=== PATIENT | male | born 1955 | race Caucasian/White ===

== ENCOUNTER 2022-09-25 11:36 | Emergency (ER) | payer OTHER, MEDICARE ==
[2022-09-25 11:41] VITALS: RESP 20; TEMP 99.9
[2022-09-25] MEDS ORDERED: KETOROLAC 15 MG/ML 1 ML VIAL IM STA (12:29)
--- NOTE | 2022-09-25 12:39 | ED ---
General Adult HPI - General Chief complaint: Fall Stated complaint: fall Time Seen by Provider: 09/25/22 12:05 Source: patient, RN notes reviewed, old records reviewed Mode of arrival: ambulatory Limitations: no limitations - History of Present Illness Initial comments: This is a 61-year-old male who presents emergency Department complaining that he has bilateral hip and some lower back pain. Patient states he did not fall but he twisted in an awkward way and he believes his hips came out of place and thinks it may still be out of place. Patient also denies lower back pain. Good on the right he denies any radiation of pain down the leg. Patient states she's had chronic back and hip problems as well as chronic left knee problems over the years. Patient states he has not taken any pain medicine nor does he have any pain meds for this problem. Patient denies any numbness or weakness. Patient denies any urinary incontinence or urinary retention. Again patient had no blunt force trauma to the back or hips or knee. Patient has no other complaints. - Related Data Previous Rx's Medication Instructions Recorded Ketorolac [Toradol] 10 mg PO Q6HR #15 tab 09/25/22 Allergies Allergy/AdvReac Type Severity Reaction Status Date / Time No Known Allergies Allergy Verified 09/25/22 11:41 Review of Systems ROS Statement: Those systems with pertinent positive or pertinent negative responses have been documented in the HPI. ROS Other: All systems not noted in ROS Statement are negative. Past Medical History Past Medical History: Asthma, Diabetes Mellitus, Hyperlipidemia, Hypertension History of Any Multi-Drug Resistant Organisms: None Reported Past Surgical History: Back Surgery, Heart Catheterization With Stent, Orthopedic Surgery Additional Past Surgical History / Comment(s): ABD Past Psychological History: No Psychological Hx Reported Smoking Status: Never smoker Past Alcohol Use History: None Reported Past Drug Use History: Marijuana General Exam - General Exam Comments Initial Comments: GENERAL: Patient is well-developed and well-nourished. Patient is nontoxic and well- hydrated and is in mild distress. ENT: Neck is soft and supple. No significant lymphadenopathy is noted. Oropharynx is clear. Moist mucous membranes. Neck has full range of motion without eliciting any pain. EYES: The sclera were anicteric and conjunctiva were pink and moist. Extraocular movements were intact and pupils were equal round and reactive to light. Eyelids were unremarkable. PULMONARY: Unlabored respirations. Good breath sounds bilaterally. No audible rales rhonchi or wheezing was noted. CARDIOVASCULAR: There is a regular rate and rhythm without any murmurs gallops or rubs. ABDOMEN: Soft and nontender with normal bowel sounds. SKIN: Skin is clear with no lesions or rashes and otherwise unremarkable. NEUROLOGIC: Patient is alert and oriented x3. Cranial nerves II through XII are grossly intact. Motor and sensory are also intact. Normal speech, volume and content. Symmetrical smile. MUSCULOSKELETAL: Patient has hip pain with flexion of the hip and/or external rotation of either hip. Patient has some lower back pain on the right in the paraspinous muscles.. LYMPHATICS: No significant lymphadenopathy is noted PSYCHIATRIC: Normal psychiatric evaluation. Limitations: no limitations Course Vital Signs 09/25/22 09/25/22 11:38 13:40 Temperature 99.9 F H Pulse Rate 71 76 Respiratory 20 20 Rate Blood Pressure 111/66 113/73 O2 Sat by Pulse 99 97 Oximetry Medical Decision Making - Medical Decision Making Was pt. sent in by a medical professional or institution? @ -No Did you speak to anyone other than the patient for history? @ -No Did you review nursing and triage notes? @ -I agree with the nursing triage notes Were old charts reviewed? @ -No Differential Diagnosis? @ -Differential Back Pain: Strain, zoster, cauda equina syndrome, epidural abscess, vertebral osteomyelitis, discitis, fracture, subluxation, disc herniation, DJD, spinal stenosis, dissection, AAA, pancreatitis, peptic ulcer disease, pyelonephritis, kidney stone, this is not meant to be an all-inclusive list. EKG interpreted by me (3pts min.)? @ -No X-rays interpreted by me (1pt min.)? @ -I interpreted the x-ray of the pelvis shows no fractures no dislocations CT interpreted by me (1pt min.)? @ -No U/S interpreted by me (1pt. min.)? @ -No What testing was considered but not performed? (CT, X-rays, U/S, labs)? Why? @ -LS spine x-rays were considered but since patient had no blunt trauma and had no radiculopathy x-rays were not done What meds were considered but not given? Why? @ -No Did you discuss the management of the patient with other professionals? @ -No Did you reconcile home meds? @ -No Was smoking cessation discussed for >3mins.? @ -No Was critical care preformed (if so, how long)? @ -No Were there social determinants of health that impacted care today? How? (Homelessness, low income, unemployed, alcoholism, drug addiction, trans portation, low edu. Level, literacy, decrease access to med. care, mcc, rehab)? @ -No Was there de-escalation of care discussed even if they declined? (Discuss DNR or withdrawal of care, Hospice)? @ -No What co-morbidities impacted this encounter? (DM, HTN, Smoking, COPD, CAD, Cancer, CVA, Hep., AIDS, mental health diagnosis, sleep apnea, morbid obesity)? @ -No Was patient admitted / discharged @ -Patient will be discharged home. Patient received Toradol and Dilaudid emergency department. Patient was feeling considerably better and wanted to be discharged home [facility] Undiagnosed new problem with uncertain prognosis? @ -No Drug Therapy requiring intensive monitoring for toxicity (Heparin, Nitro, Insulin, Cardizem)? @ -No Were any procedures done? @ -No Diagnosis/symptom? @ -Acute on chronic back pain and acute on chronic hip pain Acute, or Chronic, or Acute on Chronic? @ -Acute on chronic Uncomplicated (without systemic symptoms) or Complicated (systemic symptoms)? @ -Uncomplicated Side effects of treatment? @ -No Exacerbation, Progression, or Severe Exacerbation] @ -Exacerbation Poses a threat to life or bodily function? @ -No Disposition Clinical Impression: Chronic hip pain, Lumbosacral strain Disposition: HOME SELF-CARE Prescriptions: Ketorolac [Toradol] 10 mg PO Q6HR #15 tab Is patient prescribed a controlled substance at d/c from ED?: No Referrals: [facility],Clinic [Primary Care Provider] - 1-2 days
--- NOTE | 2022-09-25 12:41 | XR ---
EXAMINATION TYPE: XR pelvis AP view DATE OF EXAM: 09/25/2022 CLINICAL HISTORY: Pelvic and hip pain. Recent fall injury. TECHNIQUE: A single AP view of the pelvis is obtained. COMPARISON: None. FINDINGS: There is no acute fracture/dislocation evident in the pelvis. Moderate axial joint space l oss in both hips slightly greater in the right hip. Pubic symphysis is intact. Sacroiliac joints symm etric and felt within normal limits. Surgical change to the mid to lower lumbar spine is noted. Suspe ct transitional-type vertebra at lumbosacral junction which is sacralized on the left. There is stent graft upper left pelvis presumed within the left common iliac artery or vein. IMPRESSION: There is no acute fracture or dislocation in the pelvis.
[2022-09-25] MEDS ORDERED: HYDROmorphone 1 MG/ML 1 ML SYRINGE IM STA (12:47)
[2022-09-25] MEDS ORDERED: ACET/COD 300 MG/30 MG STARTER PACK 6 TAB BTL PO STA (13:29)
[2022-09-25 13:41] VITALS: BP 113/73; PULSE 76
== END 2022-09-25 13:41 | disposition home or self-care (01) ==
LOC: EC 11:36
DX: S39.012A Strain of muscle, fascia and tendon of lower back, initial encounter (principal); I10 Essential (primary) hypertension; J45.909 Unspecified asthma, uncomplicated; E11.9 Type 2 diabetes mellitus without complications; F12.90 Cannabis use, unspecified, uncomplicated; W19.XXXA Unspecified fall, initial encounter; Y92.009 Unspecified place in unspecified non-institutional (private) residence as the place of occurrence of the external cause
CPT/HCPCS: 72170; 99283; 96372 ×2; J1170; J1885; 99284

== ENCOUNTER 2022-11-23 14:48 | Inpatient (IN) | payer OTHER, MEDICARE ==
[2022-11-23] MEDS ORDERED: SODIUM CHLORIDE 0.9% 1,000 ML IV STA (15:25)
[2022-11-23] MEDS: LORazepam 2 MG/ML INJ IV STA (15:27)
--- NOTE | 2022-11-23 15:28 | ED ---
General Adult HPI - General Chief complaint: Neuro Symptoms/Deficit Stated complaint: Tremors/SOB Time Seen by Provider: 11/23/22 15:12 Source: patient Mode of arrival: wheelchair Limitations: no limitations - History of Present Illness Initial comments: Dictation was produced using [employer] dictation software. please excuse any grammatical, word or spelling errors. Chief Complaint: 67-year-old male multiple comorbidities presents to emergency department for tremors and angry outbursts History of Present Illness: Patient 67-year-old male presents emergency Department with and sister. There are instructed by primary care doctor to come to the emergency department for evaluation. According to and sister at the bedside to provide history of present illness over the last week she's been showing signs of worsening tremors. The tremors seemed to be localized to his upper extremities. This morning he had an angry outburst which is why they called the primary care doctor. Patient has multiple comorbidities. He grows marijuana and smokes daily. Allegedly he is been having some slurred speech and unsteady gait. The ROS documented in this emergency department record has been reviewed and confirmed by me. Those systems with pertinent positive or negative responses have been documented in the HPI. All other systems are other negative and/or noncontributory. PHYSICAL EXAM: General Impression: Alert and oriented, not in acute distress HEENT: Normocephalic atraumatic, extra-ocular movements intact, pupils equal and reactive to light bilaterally, mucous membranes moist. Cardiovascular: Heart regular rate and rhythm Chest: Able to complete full sentences, no retractions, no tachypnea Abdomen: abdomen soft, non-tender, non-distended, no organomegaly Musculoskeletal: Pulses present and equal in all extremities, no peripheral edema Motor: no focal deficits noted Neurological: CN II-XII grossly intact, no focal motor or sensory deficits noted, rhythmic tremors mostly localized to the bilateral upper extremities and shoulders Skin: Intact with no visualized rashes Psych: Normal affect and mood ED course: 67-year-old male presents to the emergency department for tremors and altered mental status. Symptoms have been ongoing for 2 weeks. Patient appears to be encephalopathic at the bedside. Doesn't appear to have any obvious focal neurologic deficits. Furthermore family reports that his symptoms have been going on for more than 2 weeks. Vital signs upon arrival are within acceptable limits. Nursing notes and chart review was performed Patient was seen at primary care physician's office earlier today. I did get a fax documentation from today's visit. States that he was seen for tremors and pain. Allegedly they were not able to get a blood pressure. Patient given 2 mg of IV Ativan with complete resolution of tremors. My EKG interpretation: Ventricular rate 53, sinus bradycardia,. Interval 164, QRS 90, QTC 44. No MO prolongation, no QTC prolongation, no ST or T-wave changes noted. Overall, this EKG is unremarkable Was pt. sent in by a medical professional or institution (, PA, MODEL BUILDER, urgent care, hospital, or long term...) When possible be specific @ -Primary Care physician's office Did you speak to anyone other than the patient for history (EMS, parent, family, police, friend...)? What history was obtained from this source @ -Sister at the bedside Did you review nursing and triage notes (agree or disagree)? Why? @ -I reviewed and agree with nursing and triage notes Were old charts reviewed (outside hosp., previous admission, EMS record, old EKG, old radiological studies, urgent care reports/EKG's, long term records)? Report findings @ -No old charts were reviewed Differential Diagnosis (chest pain, altered mental status, abdominal pain women, abdominal pain men, vaginal bleeding, musculoskeletal, weakness, fever, dyspnea, syncope, headache, dizziness, GI bleed, back pain, seizure, CVA, palpatations, mental health)? @ - Differential CVA: Ischemic stroke, hemorrhagic stroke, brain tumor, atypical migraine, Wernicke's encephalopathy, seizure, multiple sclerosis, meningitis, encephalitis, hypoglycemia, Guillain-Webster, electrolytes disturbance, myasthenia gravis.... This is not meant to be an all-inclusive list EKG interpreted by me (3pts min.). @ -See above X-rays interpreted by me (1pt min.). @ -None done CT interpreted by me (1pt min.). @ -non acute U/S interpreted by me (1pt. min.). @ -None done What testing was considered but not performed or refused? (CT, X-rays, U/S, labs)? Why? @ -See above What meds were considered but not given or refused? Why? @ -See above Did you discuss the management of the patient with other professionals (professionals i.e. DrDon, PA, MODEL BUILDER, lab, RT, psych nurse, social science professor, registrar college or university, teacher, event security officer, business case analyst)? Give summary @ -Case discussed with Dr. Agarwal of [facility] for admission Was smoking cessation discussed for >3mins.? @ -No Was critical care preformed (if so, how long)? @ -No Were there social determinants of health that impacted care today? How? (Homelessness, low income, unemployed, alcoholism, drug addiction, transportation, low edu. Level, literacy, decrease access to med. care, mcc, rehab)? @ -No Was there de-escalation of care discussed even if they declined (Discuss DNR or withdrawal of care, Hospice)? DNR status @ -No What co-morbidities impacted this encounter? (DM, HTN, Smoking, COPD, CAD, Cancer, CVA, ARF, Chemo, Hep., AIDS, mental health diagnosis, sleep apnea, morbid obesity)? @ -None Was patient admitted / discharged? Hospital course, mention meds given and route, prescriptions, significant lab abnormalities, going to OR and other pertinent info. @ -67-year-old male presents emergency Department with altered mental status and tremors. He is encephalopathic. Computed tomography scan of brain shows evidence of old stroke nothing acute. He'll be admitted for neurology consultation. Undiagnosed new problem with uncertain prognosis? @ -No Drug Therapy requiring intensive monitoring for toxicity (Heparin, Nitro, Insulin, Cardizem)? @ -No Were any procedures done? @ -No Diagnosis/symptom? Acute, or Chronic, or Acute on Chronic? Uncomplicated (without systemic symptoms) or Complicated (systemic symptoms)? @ -1. Acute encephalopathy, no obvious source Side effects of treatment? @ -No Exacerbation, Progression, or Severe Exacerbation? @ -No Poses a threat to life or bodily function? How? (Chest pain, [place], [place], pneumonia, PE, COPD, DKA, ARF, appy, cholecystitis, CVA, Diverticulitis, Homicidal, Suicidal, threat to staff... and all critical care pts) @ -yes - Related Data Home Medications Medication Instructions Recorded Confirmed Acetaminophen [Tylenol] 650 mg PO Q4H PRN 11/23/22 11/23/22 Aspirin EC [Ecotrin Low Dose] 81 mg PO DAILY 11/23/22 11/23/22 Clopidogrel [Plavix] 75 mg PO DAILY 11/23/22 11/23/22 DULoxetine HCL [Cymbalta] 60 mg PO DAILY 11/23/22 11/23/22 Empagliflozin [Jardiance] 10 mg PO DAILY 11/23/22 11/23/22 Furosemide [Lasix] 40 mg PO DAILY 11/23/22 11/23/22 HYDROcodone/APAP 5-325MG [[place] 1 tab PO TID PRN 11/23/22 11/23/22 5-325] Insulin Glargine,Hum.rec.anlog 60 units SQ HS 11/23/22 11/23/22 [Insulin Glargine Solostar] Metoprolol Succinate (ER) [Toprol 100 mg PO DAILY 11/23/22 11/23/22 Xl] Omeprazole [PriLOSEC] 20 mg PO DAILY 11/23/22 11/23/22 Pregabalin [Lyrica] 100 mg PO BID 11/23/22 11/23/22 Rosuvastatin Calcium [Crestor] 40 mg PO HS 11/23/22 11/23/22 Sacubitril/Valsartan [Entresto 49 1 tab PO BID 11/23/22 11/23/22 mg-51 mg Tablet] Spironolactone 25 mg PO DAILY 11/23/22 11/23/22 allopurinoL 300 mg PO DAILY 11/23/22 11/23/22 Allergies Allergy/AdvReac Type Severity Reaction Status Date / Time atorvastatin [From Lipitor] AdvReac abnormal Verified 11/23/22 16:06 liver enzymes metformin AdvReac gastroesophageal Verified 11/23/22 16:06 reflux Review of Systems ROS Statement: Those systems with pertinent positive or pertinent negative responses have been documented in the HPI. ROS Other: All systems not noted in ROS Statement are negative. Past Medical History Past Medical History: Asthma, Diabetes Mellitus, Hyperlipidemia, Hypertension History of Any Multi-Drug Resistant Organisms: None Reported Past Surgical History: Back Surgery, Heart Catheterization With Stent, Orthopedic Surgery Additional Past Surgical History / Comment(s): ABD Past Psychological History: No Psychological Hx Reported Smoking Status: Never smoker Past Alcohol Use History: None Reported Past Drug Use History: Marijuana General Exam Limitations: no limitations Course Vital Signs 11/23/22 11/23/22 14:56 15:16 Temperature 98.3 F Pulse Rate 86 60 Respiratory 20 22 Rate Blood Pressure 97/75 O2 Sat by Pulse 98 98 Oximetry Medical Decision Making - Lab Data Result diagrams: 11/23/22 15:35 11/23/22 15:35 Lab Results 11/23/22 11/23/22 11/23/22 Range/Units 15:35 15:35 17:15 WBC 10.5 (3.8-10.6) k/uL RBC 4.49 (4.30-5.90) m/uL Hgb 14.7 (13.0-17.5) gm/dL Hct 42.0 (39.0-53.0) % MCV 93.5 (80.0-100.0) fL MCH 32.7 (25.0-35.0) pg MCHC 34.9 (31.0-37.0) g/dL RDW 14.0 (11.5-15.5) % Plt Count 179 (150-450) k/uL MPV 8.4 Neutrophils % 69 % Lymphocytes % 20 % Monocytes % 7 % Eosinophils % 2 % Basophils % 0 % Neutrophils # 7.3 (1.3-7.7) k/uL Lymphocytes # 2.1 (1.0-4.8) k/uL Monocytes # 0.8 (0-1.0) k/uL Eosinophils # 0.2 (0-0.7) k/uL Basophils # 0.0 (0-0.2) k/uL Sodium 138 (137-145) mmol/L Potassium 5.0 (3.5-5.1) mmol/L Chloride 103 (98-107) mmol/L Carbon Dioxide 22 (22-30) mmol/L Anion Gap 13 mmol/L BUN 39 H (9-20) mg/dL Creatinine 1.41 H (0.66-1.25) mg/dL Est GFR (CKD-EPI)AfAm 60 (>60 ml/min/1.73 sqM) Est GFR (CKD-EPI)NonAf 52 (>60 ml/min/1.73 sqM) Glucose 91 (74-99) mg/dL Calcium 8.9 (8.4-10.2) mg/dL Magnesium 2.0 (1.6-2.3) mg/dL Total Bilirubin 0.7 (0.2-1.3) mg/dL AST 24 (17-59) U/L ALT 28 (4-49) U/L Alkaline Phosphatase 87 (38-126) U/L Total Protein 7.1 (6.3-8.2) g/dL Albumin 4.5 (3.5-5.0) g/dL Urine Opiates Screen Detected H (NotDetected) Ur Oxycodone Screen Not Detected (NotDetected) Urine Methadone Screen Not Detected (NotDetected) Ur Propoxyphene Screen Not Detected (NotDetected) Ur Barbiturates Screen Not Detected (NotDetected) U Tricyclic Antidepress Not Detected (NotDetected) Ur Phencyclidine Scrn Not Detected (NotDetected) Ur Amphetamines Screen Not Detected (NotDetected) U Methamphetamines Scrn Not Detected (NotDetected) U Benzodiazepines Scrn Not Detected (NotDetected) Urine Cocaine Screen Not Detected (NotDetected) U Marijuana (THC) Screen Detected H (NotDetected) Disposition Clinical Impression: Encephalopathy Disposition: ADMITTED IP TO THIS HOSP Condition: Fair Referrals: [facility],Clinic [Primary Care Provider] - 1-2 days Decision Time: 18:31
[2022-11-23 15:59] LABS: Basophils % (A) 0 %; Eosinophils # (A) 0.2 k/uL (0-0.7); Eosinophils % (A) 2 %; HGB 14.7 gm/dL (13.0-17.5); Lymphocytes # (A) 2.1 k/uL (1.0-4.8); Lymphocytes % (A) 20 %; MCH 32.7 pg (25.0-35.0); MCHC 34.9 g/dL (31.0-37.0); MCV 93.5 fL (80.0-100.0); Mean Platelet Volume 8.4; Monocytes # (A) 0.8 k/uL (0-1.0); Monocytes % (A) 7 %; Neutrophils # (A) 7.3 k/uL (1.3-7.7); Neutrophils % (A) 69 %; Platelet Count 179 k/uL (150-450); RBC 4.49 m/uL (4.30-5.90); WBC 10.5 k/uL (3.8-10.6)
[2022-11-23 16:10] LABS: Albumin 4.5 g/dL (3.5-5.0); Calcium 8.9 mg/dL (8.4-10.2); Total Bilirubin 0.7 mg/dL (0.2-1.3); Total Protein 7.1 g/dL (6.3-8.2)
--- NOTE | 2022-11-23 16:37 | CT ---
EXAMINATION TYPE: CT brain wo con DATE OF EXAM: 11/23/2022 COMPARISON: None HISTORY: 67-year-old male Tremors. TECHNIQUE: Examination was done in axial plane without intravenous contrast. Coronal and sagittal r econstructions performed. CT DLP: 1084.4 mGycm Automated exposure control for dose reduction was used. FINDINGS: There is no evidence of acute intracranial hemorrhage, acute ischemic changes, mass, mass-effect, or extra-axial fluid collection. There is no effacement of cerebral sulci or basal subarachnoid cister ns. There is no hydrocephalus. There is no midline shift. Fung-white matter distinction is preserv ed. Some well-defined cortical hypodensity posterior right parietotemporal junction Rightward nasal septal deviation. Paranasal sinuses and mastoid air cells are well pneumatized. Patie nt gives a slightly divergent suggesting strabismus. 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 No acute intracranial abnormality seen.
[2022-11-23 17:44] LABS: Cocaine Screen,Urine Not Detected (NotDetected); Phencyclidine Screen,Urine Not Detected (NotDetected); Urn Cannabinoid Scrn Detected (NotDetected)
[2022-11-23 17:45] LABS: Amphetamine Screen,Urine Not Detected (NotDetected); Barbiturate Screen,Urine Not Detected (NotDetected); Benzodiazepines Screen,Urine Not Detected (NotDetected); Methadone Screen, Urine Not Detected (NotDetected); Opiate Screen,Urine Detected (NotDetected); Oxycodone Screen, Urine Not Detected (NotDetected); Tricyclic Antidepressant,Urine Not Detected (NotDetected)
[2022-11-23] MEDS ORDERED: ASPIRIN 81 MG PO STA (18:10)
[2022-11-23] MEDS ORDERED: NALOXONE 0.4 MG/ML 1 ML VIAL IV PRN (18:27)
[2022-11-23] MEDS: SODIUM CHLORIDE 0.9% 1,000 ML IV SCH (19:12)
--- NOTE | 2022-11-23 23:52 | P.HPIM ---
History of Present Illness H&P Date: 11/23/22 The patient is a 67-year-old male with a PMH of CAD status post stents, type II DM, hyperlipidemia, hypertension, and asthma who presents to the emergency room with complaints of tremors, slurred speech, and unsteady gait. The patient was seen earlier in the day at his PCPs office where he was instructed to go to the emergency room. The history was supplemented from the chart as the patient was somewhat confused at the time of interview. The patient states that over the past 2-3 weeks, he has been experiencing tremors of his arms and that his legs have become increasingly weak to the point that he is no longer able to ambulate. He denied experiencing fever, chills, headaches, chest pain, palpitations. Denied prior history of strokes. Patient reports growing his own marijuana and smoking that daily. Patient denied recently starting any new medications or any new supplements. Case discussed in detail with the ED provider. Review of systems: Pertinent positives and negatives as discussed in HPI, a complete review of systems was performed and all other systems are negative. Physical examination: Vital signs reviewed General: non toxic, no distress, appears older than stated age, overweight Derm: no unusual rashes/lesions, warm Head: atraumatic, normocephalic, symmetric Eyes: EOMI, no lid lag, anicteric sclera, pupils equal round reactive to light ENT: Nose and ears atraumatic Neck: No cervical lymphadenopathy, trachea midline, supple Mouth: no lip lesion, mucus membranes moist Cardiovascular: S1S2 reg, no murmur, positive dorsalis pedis pulse bilateral, no edema Lungs: CTA bilateral, no rhonchi, no rales, no accessory muscle use Abdominal: soft, nontender to palpation, no guarding Ext: muscle strength 3 out of 5 bilateral upper extremities with strength 2 out of 5 of lower extremities, no gross muscle atrophy, no contractures, coarse bilateral upper extremity tremor at rest and with intention, finger to nose abnormal Neuro: CN II-XI grossly intact, no facial asymmetry, no slurring of speech noted Psych: Slow to answer but oriented 3 Assessment: Debility and bilateral tremors, possibly failure to thrive with worsening of essential tremor vs posterior circulation ischemia Kidney disease Chronic conditions: Coronary artery disease, type II DM, hypertension, hyperlipidemia, asthma Imaging: CT brain revealed area of encephalomalacia related to prior infarct or traumatic insult posterior right temporal parietal junction with no acute intracranial abnormalities. EKG as reviewed by me revealed sinus bradycardia at 53 bpm with T-wave flattening in leads V4 to V6 as well as leads 3 and aVF. Data Review: Vital signs upon presentation to the emergency room where BP 97/75, SpO2 98% on room air, pulse 60, respiratory rate 22, and temp 98.3F. Laboratory evaluation was reviewed and was remarkable for WBC count 10.5, hemoglobin 14.7, BUN 39, creatinine 1.41, and urine tox was positive for marijuana and opiates with AST 24 and ALT 28. Plan: Neurology consulted Fall precautions PT consult Hold off on home opiates and Lyrica Consider further CVA workup pending neurology evaluation Insulin sliding scale blood glucose monitoring Levemir 30 units daily at bedtime (takes Lantus 60 units daily at bedtime at home) Hold off on home Entresto in light of kidney injury Monitor BMP Gentle IV hydration with normal saline 75 mL an hour Continue with the following home medications: -Aspirin 81 mg by mouth daily -Plavix 75 mg by mouth daily -Crestor 40 mg by mouth daily at bedtime -Cymbalta 60 mg by mouth daily -Toprol 100 mg po qd DVT prophylaxis: Heparin subcu The patient is admitted with an anticipated greater than 2 midnight stay for evaluation of debility CODE STATUS: Full Code Discussed with: Patient Anticipated discharge place: Home Past Medical History Past Medical History: Asthma, Diabetes Mellitus, Hyperlipidemia, Hypertension History of Any Multi-Drug Resistant Organisms: None Reported Past Surgical History: Back Surgery, Heart Catheterization With Stent, Orthopedic Surgery Additional Past Surgical History / Comment(s): ABD Past Psychological History: No Psychological Hx Reported Smoking Status: Never smoker Past Alcohol Use History: None Reported Past Drug Use History: Marijuana - Past Family History Father Family Medical History: Coronary Artery Disease (CAD) Medications and Allergies Home Medications Medication Instructions Recorded Confirmed Type Acetaminophen [Tylenol] 650 mg PO Q4H PRN 11/23/22 11/23/22 History Aspirin EC [Ecotrin Low Dose] 81 mg PO DAILY 11/23/22 11/23/22 History Clopidogrel [Plavix] 75 mg PO DAILY 11/23/22 11/23/22 History DULoxetine HCL [Cymbalta] 60 mg PO DAILY 11/23/22 11/23/22 History Empagliflozin [Jardiance] 10 mg PO DAILY 11/23/22 11/23/22 History Furosemide [Lasix] 40 mg PO DAILY 11/23/22 11/23/22 History HYDROcodone/APAP 5-325MG [[place] 1 tab PO TID PRN 11/23/22 11/23/22 History 5-325] Insulin Glargine,Hum.rec.anlog 60 units SQ HS 11/23/22 11/23/22 History [Insulin Glargine Solostar] Metoprolol Succinate (ER) [Toprol 100 mg PO DAILY 11/23/22 11/23/22 History Xl] Omeprazole [PriLOSEC] 20 mg PO DAILY 11/23/22 11/23/22 History Pregabalin [Lyrica] 100 mg PO BID 11/23/22 11/23/22 History Rosuvastatin Calcium [Crestor] 40 mg PO HS 11/23/22 11/23/22 History Sacubitril/Valsartan [Entresto 49 1 tab PO BID 11/23/22 11/23/22 History mg-51 mg Tablet] Spironolactone 25 mg PO DAILY 11/23/22 11/23/22 History allopurinoL 300 mg PO DAILY 11/23/22 11/23/22 History Allergies Allergy/AdvReac Type Severity Reaction Status Date / Time atorvastatin [From Lipitor] AdvReac abnormal Verified 11/23/22 16:06 liver enzymes metformin AdvReac gastroesophageal Verified 11/23/22 16:06 reflux Physical Exam Vitals: Vital Signs Temp Pulse Resp BP Pulse Ox 11/23/22 20:19 98.4 F 58 L 16 141/72 98 11/23/22 18:40 53 L 18 158/67 100 11/23/22 15:16 60 22 97/75 98 11/23/22 14:56 98.3 F 86 20 98 Intake and Output 11/23/22 11/23/22 11/23/22 06:59 14:59 22:59 Other: Weight 85.729 kg Results CBC & Chem 7: 11/23/22 15:35 11/23/22 15:35 Labs: Abnormal Lab Results - Last 24 Hours (Table) 11/23/22 11/23/22 Range/Units 15:35 17:15 BUN 39 H (9-20) mg/dL Creatinine 1.41 H (0.66-1.25) mg/dL Urine Opiates Screen Detected H (NotDetected) U Marijuana (THC) Screen Detected H (NotDetected)
[2022-11-24] MEDS: HEPARIN SODIUM,PORCINE/PF 5,000 UNIT/0.5 ML SYRINGE SQ SCH ×3 (00:35→15:47)
[2022-11-24] MEDS: SODIUM CHLORIDE 0.9% 1,000 ML IV SCH ×2 (00:35→13:28)
[2022-11-24 07:40] LABS: Glucose,Whole Blood 86 mg/dL (70-110)
[2022-11-24] MEDS ORDERED: levETIRAcetam IV 1,500 MG in SALINE 1 100ML.BAG IVPB STA (07:53)
[2022-11-24 07:58] LABS: HCT 41.3 % (39.0-53.0); HGB 14.1 gm/dL (13.0-17.5); MCH 31.7 pg (25.0-35.0); MCHC 34.2 g/dL (31.0-37.0); MCV 92.8 fL (80.0-100.0); Mean Platelet Volume 8.3; Platelet Count 140 k/uL (150-450); RBC 4.45 m/uL (4.30-5.90); RDW 14.4 % (11.5-15.5); WBC 7.1 k/uL (3.8-10.6)
[2022-11-24] MEDS ORDERED: LORazepam 2 MG/ML INJ IV STA ×5 (07:58→14:53)
[2022-11-24] MEDS: LORazepam 2 MG/ML INJ IV STA (08:00)
[2022-11-24 08:15] LABS: African American GFR (CKD) 67 (>60 ml/min/1.73 sqM); Anion Gap 7 mmol/L; Blood Urea Nitrogen 31 mg/dL (9-20); Calcium 8.7 mg/dL (8.4-10.2); Carbon Dioxide 27 mmol/L (22-30); Chloride 107 mmol/L (98-107); Glucose 81 mg/dL (74-99); Non-African American GFR(CKD) 58 (>60 ml/min/1.73 sqM); Potassium 4.2 mmol/L (3.5-5.1); Sodium 141 mmol/L (137-145)
--- NOTE | 2022-11-24 08:49 | CT ---
EXAMINATION TYPE: CT brain wo con CT DLP: 1188.90 mGycm, Automated exposure control for dose reduction was used. DATE OF EXAM: 11/24/2022 8:28 AM COMPARISON: One day prior. CLINICAL INDICATION:Male, 67 years old with history of altered mental status., Unresponsive, AMS, sei zure. Prior in PACS TECHNIQUE: Brain: Axial CT images of the brain were obtained with coronal and sagittal reformats created and rev iewed. Contrast used: None. Oral contrast used: None. FINDINGS: Brain: Extra-axial spaces: No abnormal extra-axial fluid collections. Ventricular system: Within normal limits Cerebral parenchyma: Similar right temporal parietal region encephalomalacia from prior injury. No ac coquille intraparenchymal hemorrhage or mass effect. The mijares-white junction is well differentiated. Cerebellum: Unremarkable. Mass effect: No evidence of midline shift. Intracranial vasculature: unremarkable Soft tissues: Normal. Calvarium/osseous structures: No depressed skull fracture. Paranasal sinuses and mastoid air cells: Mild scattered paranasal sinus disease. Visualized orbits: Orbital contents are intact. IMPRESSION: No acute intracranial process. 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
[2022-11-24] MEDS: INSULIN ASPART (NovoLOG) 100 UNIT/ML VIAL SQ SCH ×4 (08:59→21:07)
--- NOTE | 2022-11-24 08:59 | P.PN ---
Subjective Progress Note Date: 11/24/22 The patient is a 67-year-old male with a PMH of CAD status post stents, type II DM, hyperlipidemia, hypertension, and asthma who presents to the emergency room with complaints of tremors, slurred speech, and unsteady gait. The patient was seen earlier in the day at his PCPs office where he was instructed to go to the emergency room. CT brain revealed area of encephalomalacia related to prior infarct or traumatic insult posterior right temporal parietal junction with no acute intracranial abnormalities. EKG as reviewed by me revealed sinus bradycardia at 53 bpm with T-wave flattening in leads V4 to V6 as well as leads 3 and aVF. Vital signs upon presentation to the emergency room where BP 97/75, SpO2 98% on room air, pulse 60, respiratory rate 22, and temp 98.3F. Laboratory evaluation was reviewed and was remarkable for WBC count 10.5, hemoglobin 14.7, BUN 39, creatinine 1.41, and urine tox was positive for marijuana and opiates with AST 24 and ALT 28. Patient was admitted for further management of symptoms. A-team was called this morning for unresponsiveness. When I arrived, patient was nonverbal and had twitching of the extremities. His eyes were rolling back. Dr. Aguirre was on site. His vital signs were stable. Telemetry showed HR in the 50s. General: Nonverbal and unresponsive, no distress, appears at stated age Derm: warm, dry Head: atraumatic, normocephalic, symmetric Eyes: EOMI, no lid lag, anicteric sclera Mouth: no lip lesion, mucus membranes moist Cardiovascular: Bradycardic, no murmur Lungs: CTA bilateral, no rhonchi, no rales , no accessory muscle use Ext: no gross muscle atrophy, no edema, no contractures Neuro: Unable to perform, intermittent twitching of all 4 extremities Based on my assessment of this patient, this patient meets a high complexity level of care. I have reviewed the following building consultant notes: None. I have reviewed the results of the following tests: CBC shows platelet count 140. BMP shows BUN of 31 and creatinine 1.29. UDS reviewed positive for opiates and marijuana. I have ordered the following tests: Agree with EKG and repeat CT head ordered by neurology. I have discussed the care of this patient with the following independent historian: As the patient is nonverbal, the case was discussed with nursing that reported that STATISTICAL GENETICIST found the patient unresponsive during vital check this morning. Unsure what his baseline is. I have independently interpreted the following test below: The CT head was reviewed at bedside with Dr. Aguirre regarding the finding of encephalomalacia in the right temporoparietal junction. I have discussed the management of this patient with the following physician: The case was discussed with Dr. Aguirre extensively, plans to give the patient Ativan 2 mg IV. Plans to load the patient on Keppra 1500 mg IV. Start Keppra 750 mg by mouth twice a day. Repeat CT head and EEG ordered. This patient has a high risk of morbidity due to the following reasons: Patient has an acute diagnosis of altered mental status that poses a threat to life or bodily function. There is concerns for seizure. A-team was called for unresponsiveness. Patient is requiring Ativan intravenously as needed for treatment of seizures. He has also been started on Keppra 1500 mg IV as a loading dose for seizures. I will make the patient nothing by mouth and discontinue his long-acting insulin. Seizure pads and seizure precautions are in place. He is currently on aspirin 81 mg by mouth and Plavix 75 mg by mouth. Continue telemetry monitoring and nursing instructed to maintain AED pads at bedside. Objective - Vital Signs Vital signs: Vital Signs Temp 97.7 F 11/24/22 02:00 Pulse 58 L 11/24/22 02:00 Resp 16 11/24/22 02:00 BP 135/80 11/24/22 02:00 Pulse Ox 98 11/24/22 02:00 FiO2 Intake & Output 11/23/22 11/24/22 11/24/22 18:59 06:59 18:59 Intake Total 1090 Output Total 450 Balance 640 Weight 85.729 kg 85.729 kg Intake: Intake, IV Titration 500 Amount Sodium Chloride 0.9% 1, 500 000 ml @ 75 mls/hr IV . [id number] [facility] Rx#:[id number] Oral 590 Output: Urine 450 - Labs CBC & Chem 7: 11/24/22 07:08 11/24/22 07:08 Labs: Abnormal Lab Results - Last 24 Hours (Table) 11/23/22 11/23/22 11/24/22 Range/Units 15:35 17:15 07:08 Plt Count 140 L (150-450) k/uL BUN 39 H (9-20) mg/dL Creatinine 1.41 H (0.66-1.25) mg/dL Urine Opiates Screen Detected H (NotDetected) U Marijuana (THC) Screen Detected H (NotDetected) 11/24/22 Range/Units 07:08 Plt Count (150-450) k/uL BUN 31 H (9-20) mg/dL Creatinine 1.29 H (0.66-1.25) mg/dL Urine Opiates Screen (NotDetected) U Marijuana (THC) Screen (NotDetected)
[2022-11-24] MEDS: LORazepam 2 MG/ML INJ ONE (09:29)
--- NOTE | 2022-11-24 10:19 | P.CNNES ---
History of Present Illness Consult date: 11/24/22 Requesting physician: Sai Reddy Reason for Consult: altered mental status History of Present Illness: This is a 67-year-old gentleman with history of coronary artery disease status post stent, type 2 diabetes, hypertension, hyperlipidemia who presented emergency department with complaint of tremor slurred speech and unsteady gait and confusion. History is obtained from medical record. Neurology is consulted for altered mental status. According to the primary team is seems the patient went to his PCP at earlier yesterday and he was rotated to the emergency. The primary team's note the patient the has been having these symptoms for the past 2-3 weeks in which she experience tremor of his arms and in the legs had become increasingly weak to the point that he no longer ambulates. He denied any fevers, headache, any history of strokes area he denies starting on any new medication or any new supplements. These smokes as well as uses marijuana. Some of his patient's home medication according to the medical records aspirin 81, Plavix 75, Crestor. He is also on [place], Lyrica. Today the patient became unresponsive early in the morning and happened around shift change possibly or just shortly afterwards. Upon seeing the patient he had his eyes closed but I felt like he's twitching his eyes and had myoclonic jerks of the shoulders. Some of the workup during his hospital visit consisted of: CBC with differential is unremarkable chemistry panel: creatinine is 1.41 and is trending down, glucose is normal on presentation Otherwise rest of the chemistry panel is unremarkable UDS is positive for opiates as well as marijuana CT of the head is reported as area encephalomalacia related to prior infarct or traumatic insults over right temporoparietal junction. No acute intracranial abnormality seen. Personally reviewed the CT of the head and I agree with the report. There is no acute subacute ischemia. Review of Systems Review of system: The 12 point system was reviewed and apparent positive and negative per HPI. Past Medical History Past Medical History: Asthma, Diabetes Mellitus, Hyperlipidemia, Hypertension Additional Past Medical History / Comment(s): DM2 History of Any Multi-Drug Resistant Organisms: None Reported Past Surgical History: Back Surgery, Heart Catheterization With Stent, Orthopedic Surgery Additional Past Surgical History / Comment(s): ABD Date of Last Stent Placement:: unk Past Psychological History: No Psychological Hx Reported Smoking Status: Never smoker Past Alcohol Use History: None Reported Past Drug Use History: Marijuana - Past Family History Father Family Medical History: Coronary Artery Disease (CAD) Medications and Allergies Home Medications Medication Instructions Recorded Confirmed Type Acetaminophen [Tylenol] 650 mg PO Q4H PRN 11/23/22 11/23/22 History Aspirin EC [Ecotrin Low Dose] 81 mg PO DAILY 11/23/22 11/23/22 History Clopidogrel [Plavix] 75 mg PO DAILY 11/23/22 11/23/22 History DULoxetine HCL [Cymbalta] 60 mg PO DAILY 11/23/22 11/23/22 History Empagliflozin [Jardiance] 10 mg PO DAILY 11/23/22 11/23/22 History Furosemide [Lasix] 40 mg PO DAILY 11/23/22 11/23/22 History HYDROcodone/APAP 5-325MG [[place] 1 tab PO TID PRN 11/23/22 11/23/22 History 5-325] Insulin Glargine,Hum.rec.anlog 60 units SQ HS 11/23/22 11/23/22 History [Insulin Glargine Solostar] Metoprolol Succinate (ER) [Toprol 100 mg PO DAILY 11/23/22 11/23/22 History Xl] Omeprazole [PriLOSEC] 20 mg PO DAILY 11/23/22 11/23/22 History Pregabalin [Lyrica] 100 mg PO BID 11/23/22 11/23/22 History Rosuvastatin Calcium [Crestor] 40 mg PO HS 11/23/22 11/23/22 History Sacubitril/Valsartan [Entresto 49 1 tab PO BID 11/23/22 11/23/22 History mg-51 mg Tablet] Spironolactone 25 mg PO DAILY 11/23/22 11/23/22 History allopurinoL 300 mg PO DAILY 11/23/22 11/23/22 History Allergies Allergy/AdvReac Type Severity Reaction Status Date / Time atorvastatin [From Lipitor] AdvReac abnormal Verified 11/23/22 16:06 liver enzymes metformin AdvReac gastroesophageal Verified 11/23/22 16:06 reflux Physical Examination - Vital Signs Vital Signs: Vital Signs Temp Pulse Pulse Resp BP BP Pulse Ox 11/24/22 09:39 96 11/24/22 08:30 97.2 F L 54 L 18 136/77 99 11/24/22 07:50 57 L 18 131/78 95 11/24/22 07:33 97.9 F 54 L 14 133/76 97 11/24/22 02:00 97.7 F 58 L 16 135/80 98 11/23/22 22:21 98.0 F 47 L 16 141/74 98 11/23/22 21:30 58 L 16 11/23/22 20:19 98.4 F 58 L 16 141/72 98 11/23/22 18:40 53 L 18 158/67 100 11/23/22 15:16 60 22 97/75 98 11/23/22 14:56 98.3 F 86 20 98 Intake and Output 11/23/22 11/24/22 11/24/22 22:59 06:59 14:59 Intake Total 1090 Output Total 450 Balance 640 Intake: Intake, IV Titration 500 Amount Sodium Chloride 0.9% 1, 500 000 ml @ 75 mls/hr IV . [id number] [facility] Rx#:[id number] Oral 590 Output: Urine 450 Other: Weight 85.729 kg GENERAL: The patient is lying in bed and does not appear in acute distress. CHEST: The heart rate is regular rate rhythm. No edema in lowers. LUNG: Clear to auscultation bilaterally no wheezing noted throughout. Not labored breathing. ABDOMEN/GI: Bowel sounds present in all 4 quadrants. No tenderness to palpation throughout. NEUROLOGICAL: Limited since patient unresponsive. Higher mental function: Not verbalizing or following commands. Cranial nerves: Had eyes closed and eye rolled back. Has twitching of eyes. No facial weakness. Motor: The strength is could not assess because of his condition. Decrease tone throughout. Has episode of myoclonic jerks. Cerebellum: Unable to assess. Unable to assess rest. Results - Laboratory Findings CBC and BMP: 11/24/22 07:08 11/24/22 07:08 Abnormal Lab Findings: Abnormal Labs 11/23/22 11/23/22 11/24/22 15:35 17:15 07:08 Plt Count 140 L BUN 39 H Creatinine 1.41 H Urine Opiates Screen Detected H U Marijuana (THC) Screen Detected H 11/24/22 07:08 Plt Count BUN 31 H Creatinine 1.29 H Urine Opiates Screen U Marijuana (THC) Screen Assessment and Plan Assessment: Episodes of unresponsiveness with eye rolling back, eye twitching and myoclonic jerks is likely new onset seizures (especially with hx of encephalomalacia right temporoparietal junction that can be focus) Past 2-3 weeks in which she experience tremor of his arms and in the legs had become increasingly weak to the point that he no longer ambulates seems likely due to new onset seizure Encephalomalacia over right temporoparietal junction seems due to prior infarct or traumatic insult History of coronary artery disease status post stent Type 2 diabetes Hypertension Hyperlipidemia Plan: Since I feel patient has new onset seizure and currently unresponsive, I ordered 2mg Ativan STAT with loading Keppra 1500mg once then 750mg every 12 hours as maintenance. I notified nurse if continues to have symptoms to given an additional 2mg Ativan. Repeat CT head and will try to obtain MRI Brain seizure protocol. Ordered STAT EEG. Placed on seizure protocol, pad. Q4 hour neuro checks. He is on home medication of ASA 81mg, Plavix 75mg and is continues. He is on Crestor and is continued. Will defer the rest of medical management to primary team. Upon discharge the patient needs to follow-up with neurologist as outpatient within 1-2 weeks. The plan is discussed with primary team and his nurse. Thank you for the consultation. UPDATE: After 2mg ATivan with Keppra, I was notified by floor nurse he was responsive. Then he continued to have more episode of unresponsiveness with eyes rolling back, eye twitching. He continued to receive IV Ativan Pushes. I started him on Vimpat 200mg IV one time. STAT EEG IS IN PROGRESS AND WILL ASSESS WHAT IT SHOWS I notified the nurse to send the patient to ICU and attempt transfer to a [facility] for longer term EEG. Time with Patient: Greater than 30
[2022-11-24] MEDS: CLOPIDOGREL 75 MG TAB PO SCH (11:48)
[2022-11-24] MEDS: ASPIRIN 81 MG PO SCH (11:48)
[2022-11-24] MEDS: METOPROLOL SUCCINATE (ER) 100 MG TAB.ER.24H PO SCH (11:49)
[2022-11-24] MEDS: DULoxetine HCL 60 MG CAPSULE.DR PO SCH (11:49)
[2022-11-24 12:44] LABS: Glucose,Whole Blood 95 mg/dL (70-110)
[2022-11-24] MEDS ORDERED: LORazepam 2 MG/ML INJ IV PRN (14:53)
[2022-11-24] MEDS ORDERED: LACOSAMIDE IV 200 MG in SODIUM CHLORIDE 0.9% 50 ML IVPB STA (14:53)
[2022-11-24 14:55] LABS: Glucose,Whole Blood 77 mg/dL (70-110)
--- NOTE | 2022-11-24 16:18 | P.CNPUL ---
History of Present Illness Consult date: 11/24/22 Requesting physician: Emerson Agarwal Reason for consult: other Chief complaint: Seizures, mental status changes. History of present illness: Pulmonary/critical care consult dated 11/24/2022. 67-year-old male who was seen in the emergency department on November 23. He apparently came in with neurologic symptoms, and tremors. He was apparently brought in by his and sister. He apparently is been having worsening tremors over the week prior to admission. The tremors are apparently located primarily in the upper extremities. In addition, he was having angry outbursts, and not acting himself. He grows marijuana and smokes marijuana daily. He apparently also has been having slurred speech, and unsteady gait. According to the chart, he has a history of asthma, diabetes, hypertension, and hyperlipidemia. In addition, he has a history of CAD with previous PCI and stent placement. He does use marijuana, but that apparently does not smoke or has never smoked cigarettes. I was called today by the hospital service, because the patient was having worsening mental status, with obtundation, and apparently having recurrent seizure activity. Neurology felt the patient should be transferred to a higher level of care, for 24-hour EEG monitoring. We are currently awaiting transfer, and then did move the patient to the intensive care unit for further monitoring. Currently labs include a white count 7.1, hemoglobin 14.1, hematocrit 41.3, and platelet count 140,000. Sodium 141, potassium 4.2, chlorides 107, CO2 27, BUN 31, creatinine 1.29. His drug screen was positive for both opiates and marijuana. His initial brain CT showed some areas of encephalomalacia, relating to prior infarct or traumatic insult. It was noted to be in the posterior right temporal parietal junction. There is nothing acute noted on the computed tomography scan. The repeat computed tomography scan, done a day later, showed the same findings. Again, there is nothing acute. Review of Systems REVIEW OF SYSTEMS: CONSTITUTIONAL: [Negative.] NEUROLOGIC: Seizure activity, tremors, and mental status changes. HEENT: [ Negative.] CARDIAC: [Negative.] PULMONARY: [Negative.] GI: [Negative.] : [Negative.] RHEUMATOLOGIC: [ Negative.] IMMUNOLOGIC: [ Negative.] ENDOCRINE: [Negative. ] DERMATOLOGIC: [Negative.] Past Medical History Past Medical History: Asthma, Diabetes Mellitus, Hyperlipidemia, Hypertension Additional Past Medical History / Comment(s): DM2 History of Any Multi-Drug Resistant Organisms: None Reported Past Surgical History: Back Surgery, Heart Catheterization With Stent, Orthopedic Surgery Additional Past Surgical History / Comment(s): ABD Date of Last Stent Placement:: unk Past Psychological History: No Psychological Hx Reported Smoking Status: Never smoker Past Alcohol Use History: None Reported Past Drug Use History: Marijuana - Past Family History Father Family Medical History: Coronary Artery Disease (CAD) Medications and Allergies Home Medications Medication Instructions Recorded Confirmed Type Acetaminophen [Tylenol] 650 mg PO Q4H PRN 11/23/22 11/23/22 History Aspirin EC [Ecotrin Low Dose] 81 mg PO DAILY 11/23/22 11/23/22 History Clopidogrel [Plavix] 75 mg PO DAILY 11/23/22 11/23/22 History DULoxetine HCL [Cymbalta] 60 mg PO DAILY 11/23/22 11/23/22 History Empagliflozin [Jardiance] 10 mg PO DAILY 11/23/22 11/23/22 History Furosemide [Lasix] 40 mg PO DAILY 11/23/22 11/23/22 History HYDROcodone/APAP 5-325MG [[place] 1 tab PO TID PRN 11/23/22 11/23/22 History 5-325] Insulin Glargine,Hum.rec.anlog 60 units SQ HS 11/23/22 11/23/22 History [Insulin Glargine Solostar] Metoprolol Succinate (ER) [Toprol 100 mg PO DAILY 11/23/22 11/23/22 History Xl] Omeprazole [PriLOSEC] 20 mg PO DAILY 11/23/22 11/23/22 History Pregabalin [Lyrica] 100 mg PO BID 11/23/22 11/23/22 History Rosuvastatin Calcium [Crestor] 40 mg PO HS 11/23/22 11/23/22 History Sacubitril/Valsartan [Entresto 49 1 tab PO BID 11/23/22 11/23/22 History mg-51 mg Tablet] Spironolactone 25 mg PO DAILY 11/23/22 11/23/22 History allopurinoL 300 mg PO DAILY 03/03/23 03/03/23 History Allergies Allergy/AdvReac Type Severity Reaction Status Date / Time atorvastatin [From Lipitor] AdvReac abnormal Verified 11/23/22 16:06 liver enzymes metformin AdvReac gastroesophageal Verified 11/23/22 16:06 reflux Physical Exam Osteopathic Statement: *. No significant issues noted on an osteopathic structural exam other than those noted in the History and Physical/Consult. Vitals: Vital Signs Temp Pulse Pulse Resp BP BP Pulse Ox 11/24/22 09:39 96 11/24/22 08:40 54 L 18 11/24/22 08:30 97.2 F L 54 L 18 136/77 99 11/24/22 07:50 57 L 18 131/78 95 11/24/22 07:33 97.9 F 54 L 14 133/76 97 11/24/22 02:00 97.7 F 58 L 16 135/80 98 11/23/22 22:21 98.0 F 47 L 16 141/74 98 11/23/22 21:30 58 L 16 11/23/22 20:19 98.4 F 58 L 16 141/72 98 11/23/22 18:40 53 L 18 158/67 100 Intake and Output 11/24/22 11/24/22 11/24/22 06:59 14:59 22:59 Intake Total 1090 Output Total 450 Balance 640 Intake: Intake, IV Titration 500 Amount Sodium Chloride 0.9% 1, 500 000 ml @ 75 mls/hr IV . [id number] [facility] Rx#:[id number] Oral 590 Output: Urine 450 No acute distress, slow speech, not oriented, agitated one minute, and very calm the next. HEENT examination is grossly unremarkable. Neck supple. Full range of motion. No adenopathy thyromegaly or neck vein distention. Cardiovascular examination reveals regular rhythm rate. S1-S2 normal. No S3 or S4. No discernible murmur noted. Heart rate 60 bpm. Lungs reveal clear breath sounds. Breath sounds are equal bilaterally. No adventitious lung sounds including wheezes rhonchi or crackles. 2 L saturation is 99%. Abdomen soft bowel sounds are heard. No masses or tenderness. Extremities are intact. No cyanosis clubbing or edema. Skin is without rash or lesion. Neurologic examination is brief but nonfocal. Patient moves all 4 extremities. No seizure activity was witnessed. Results - Laboratory Findings CBC and BMP: 11/24/22 07:08 11/24/22 07:08 Abnormal lab findings: Abnormal Labs 11/23/22 11/23/22 11/24/22 15:35 17:15 07:08 Plt Count 140 L BUN 39 H Creatinine 1.41 H Urine Opiates Screen Detected H U Marijuana (THC) Screen Detected H 11/24/22 07:08 Plt Count BUN 31 H Creatinine 1.29 H Urine Opiates Screen U Marijuana (THC) Screen Assessment and Plan Assessment: Recurrent and persistent seizure activity, with acute mental status changes. History of hypertension. History of PCI with stent placement. History of hyperlipidemia. History of asthma. History of diabetes mellitus. History of gastroesophageal reflux disease. History of chronic marijuana use. Plan: Plan dated 11/24/2022. The patient is seen today in room 256. When he first walked into the room, the patient was quite agitated, trying to get out of bed. Subsequent to that, he seemed to settle down, and was very quiet, and was not able to provide much of a history he apparently sees somebody at the [facility]. He apparently has no prior history of seizure disorder. The brain CT did show a area of enc ephalomalacia, either from ischemia and/or trauma. The patient has been seen by neurology, who would like the patient transferred to a higher level of care, for further EEG monitoring. The patient was transferred down from the floor to the ICU, for further monitoring and management. He remains on 2 L of O2. In addition, he is getting saline at 75 mL an hour. He has orders for Ativan as needed, and is also getting Keppra, and Vimpat. We will continue to follow make recommendations along the way. Hopeful discharge to a higher level of care in the near future. Time with Patient: Greater than 30
[2022-11-24 17:58] LABS: Glucose,Whole Blood 78 mg/dL (70-110)
--- NOTE | 2022-11-24 18:02 | EEG ---
ELECTROENCEPHALOGRAM REPORT CLINICAL HISTORY: This is a 67-year-old gentleman, who has numerous episodes of unresponsiveness with eye flutter and some episodes of myoclonic jerk concerning for seizure. The video EEG is obtained to evaluate for seizure and epileptiform activity. RELEVANT MEDICATIONS: Ativan and Keppra. DESCRIPTION: The background consists of low voltage of 10 to 11 Hz activity that is well modulated and sustained. At times, the background consists of very low voltage nonrhythmic diffuse delta activity. The background seemed suppressed. There is no physiological stage II sleep architecture. There is no focal slowing. There is excessive beta activity throughout the study. INTERICTAL AND ICTAL: None. ACTIVATION PROCEDURE: Photic stimulation and hyperventilation are not performed because of the patient's cooperation. CLINICAL INTERPRETATION: This is an abnormal routine EEG. The background slowing is suggestive of mild-to- moderate encephalopathy. Otherwise, there is no focal slowing, epileptiform discharge, or seizure on the EEG. The excessive beta activity is due to medication effect (Ativan). If there continues to be concern for seizures, recommend prolonged EEG. Clinical correlation is recommended. MMODL / IJN: [id number] / SAHRA
[2022-11-24] MEDS ORDERED: INSULIN DETEMIR (LEVEMIR) 100 UNIT/ML SYR SQ SCH (21:00)
[2022-11-24 21:03] LABS: Glucose,Whole Blood 86 mg/dL (70-110)
[2022-11-24] MEDS: LACOSAMIDE IV 100 MG in SODIUM CHLORIDE 0.9% 50 ML IVPB SCH (21:06)
[2022-11-24] MEDS: levETIRAcetam IV 750 MG in SODIUM CHLORIDE 0.9% 100 ML IVPB SCH (21:07)
[2022-11-24] MEDS: NON FORMULARY DRUG (Rosuvastatin Calcium [Crestor] 40 MG Tablet) PO SCH (23:19)
[2022-11-25] MEDS: HEPARIN SODIUM,PORCINE/PF 5,000 UNIT/0.5 ML SYRINGE SQ SCH ×3 (00:20→17:13)
[2022-11-25 06:17] LABS: Basophils % (A) 0 %; Eosinophils # (A) 0.1 k/uL (0-0.7); Eosinophils % (A) 2 %; HCT 41.6 % (39.0-53.0); HGB 13.8 gm/dL (13.0-17.5); Lymphocytes # (A) 1.3 k/uL (1.0-4.8); Lymphocytes % (A) 20 %; MCH 31.9 pg (25.0-35.0); MCHC 33.3 g/dL (31.0-37.0); MCV 95.9 fL (80.0-100.0); Mean Platelet Volume 8.1; Monocytes # (A) 0.4 k/uL (0-1.0); Monocytes % (A) 6 %; Neutrophils # (A) 4.4 k/uL (1.3-7.7); Neutrophils % (A) 70 %; Platelet Count 133 k/uL (150-450); RBC 4.34 m/uL (4.30-5.90); WBC 6.2 k/uL (3.8-10.6)
[2022-11-25 06:28] LABS: Calcium 8.7 mg/dL (8.4-10.2); Potassium 4.3 mmol/L (3.5-5.1)
[2022-11-25] MEDS: SODIUM CHLORIDE 0.9% 1,000 ML IV SCH ×4 (06:48→21:18)
[2022-11-25 06:51] LABS: Glucose,Whole Blood 80 mg/dL (70-110)
[2022-11-25] MEDS: INSULIN ASPART (NovoLOG) 100 UNIT/ML VIAL SQ SCH ×4 (07:49→21:18)
[2022-11-25] MEDS: METOPROLOL SUCCINATE (ER) 100 MG TAB.ER.24H PO SCH (08:35)
[2022-11-25] MEDS: DULoxetine HCL 60 MG CAPSULE.DR PO SCH (08:35)
[2022-11-25] MEDS: CLOPIDOGREL 75 MG TAB PO SCH (08:35)
[2022-11-25] MEDS: levETIRAcetam IV 750 MG in SODIUM CHLORIDE 0.9% 100 ML IVPB SCH (08:35)
[2022-11-25] MEDS: ASPIRIN 81 MG PO SCH (08:35)
[2022-11-25] MEDS: LACOSAMIDE IV 100 MG in SODIUM CHLORIDE 0.9% 50 ML IVPB SCH (09:31)
[2022-11-25] MEDS: LORazepam 2 MG/ML INJ ONE (09:42)
[2022-11-25] MEDS ORDERED: LACOSAMIDE IV 100 MG in SODIUM CHLORIDE 0.9% 50 ML IVPB STA (11:09)
[2022-11-25] MEDS ORDERED: VALPROATE SODIUM 750 MG in SODIUM CHLORIDE 0.9% 50 ML IVPB STA (11:11)
[2022-11-25] MEDS ORDERED: VALPROATE SODIUM 250 MG in SODIUM CHLORIDE 0.9% 100 ML IVPB STA (11:13)
--- NOTE | 2022-11-25 11:19 | P.PN ---
Subjective Progress Note Date: 11/25/22 The patient is a 67-year-old male with a PMH of CAD status post stents, type II DM, hyperlipidemia, hypertension, and asthma who presents to the emergency room with complaints of tremors, slurred speech, and unsteady gait. The patient was seen earlier in the day at his PCPs office where he was instructed to go to the emergency room. CT brain revealed area of encephalomalacia related to prior infarct or traumatic insult posterior right temporal parietal junction with no acute intracranial abnormalities. EKG as reviewed by me revealed sinus bradycardia at 53 bpm with T-wave flattening in leads V4 to V6 as well as leads 3 and aVF. Vital signs upon presentation to the emergency room where BP 97/75, SpO2 98% on room air, pulse 60, respiratory rate 22, and temp 98.3F. Laboratory evaluation was reviewed and was remarkable for WBC count 10.5, hemoglobin 14.7, BUN 39, creatinine 1.41, and urine tox was positive for marijuana and opiates with AST 24 and ALT 28. Patient was admitted for further management of symptoms. A-team was called this morning for unresponsiveness on 11/24. Patient was nonverbal and had twitching of the extremities and his eyes were rolling back. He was given multiple doses of Ativan IV and loaded on Keppra. Patient was transferred to ICU for closer monitoring of his symptoms. Multiple times were made to transfer the patient for continuous EEG including [facility], [facility] which was unsuccessful. The patient was seen and examined in the medical ICU this morning. According to nursing, patient was awake alert and oriented 3 this morning with tremors. All of a sudden, he was obtunded with continued tremors in his upper and lower extremity. His vital signs were completely stable during this time. Dr. Aguirre and Dr. Aguirre was present during this encounter. General: Nonverbal and unresponsive, moderate distress, appears at stated age Derm: warm, dry Head: atraumatic, normocephalic, symmetric Eyes: anicteric sclera Mouth: no lip lesion, mucus membranes moist Cardiovascular: Normal S1-S2, no murmur Lungs: CTA bilateral, no rhonchi, no rales , no accessory muscle use Ext: no gross muscle atrophy, no edema, no contractures Neuro: Unable to perform, intermittent myoclonic jerks of all 4 extremities Patient is nonverbal. #Acute metabolic encephalopathy #Status epilepticus #Lactic acidosis #Elevated BUN Chronic conditions: CAD status post stents, type II DM, hyperlipidemia, hyperte nsion, and asthma Based on my assessment of this patient, this patient meets a high complexity level of care. I have reviewed the following bridal sales consultant notes: None. I have reviewed the results of the following tests: CBC shows platelet count 133. BMP shows BUN of 24. Lactic acid is 4. COVID-19 negative. I have ordered the following tests: Brain CT from 11/24 shows no acute process, right temporal parietal encephalomalacia. EKG shows mild to moderate encephalopathy no epileptiform discharge. I have discussed the care of this patient with the following independent historian: As the patient is nonverbal, the case was discussed with nursing, patient was awake alert and oriented 3 this morning with tremors. All of a sudden, he was obtunded with continued tremors in his upper and lower extremity. I have independently interpreted the following test below: None. I have discussed the management of this patient with the following physician: The case was discussed with Neurology Dr. Aguirre extensively, plans to give load the patient on Depakote and Vimpat. Given the severity and frequency of his seizures, patient may need to be intubated. This patient has a high risk of morbidity due to the following reasons: Patient has an acute diagnosis of altered mental status that poses a threat to life or bodily function. There is concerns for status epilepticus. His source of seizures can be from right temporal parietal encephalomalacia. On Patient is requiring Ativan intravenously as needed for treatment of seizures. He has also been continued on Vimpat 200 mg IV twice a day, Keppra 1500 mg IV twice a day. Depakote 750 mg IV ordered by neurology. I will make the patient nothing by mouth and discontinue his long-acting insulin. Seizure pads and seizure precautions are in place. He is currently on aspirin 81 mg by mouth and Plavix 75 mg by mouth. Continue telemetry monitoring and advance neurochecks. I attempted to call [facility] today who stated that they were not able to accept the patient for video EEG monitoring due to technical reasons. Objective - Vital Signs Vital signs: Vital Signs Temp 97.7 F 11/25/22 08:00 Pulse 70 11/25/22 08:30 Resp 18 11/25/22 08:30 BP 115/75 11/25/22 08:30 Pulse Ox 98 11/25/22 08:30 FiO2 Intake & Output 11/24/22 11/25/22 11/25/22 18:59 06:59 18:59 Intake Total 150 900 250 Output Total 1425 Balance 150 -525 250 Weight 85.1 kg Intake: IV 150 900 250 Sodium Chloride 0.9% 1, 150 900 150 000 ml @ 75 mls/hr IV . [id number] [facility] Rx#:[id number] levETIRAcetam IV 750 mg 100 In Sodium Chloride 0.9% 100 ml @ 400 mls/hr IVPB Q12HR [facility] Rx#:[id number] Output: Urine 1425 Other: Voiding Method Urinal Urinal Diaper Diaper # Voids 1 - Labs CBC & Chem 7: 11/25/22 06:05 11/25/22 06:05 Labs: Abnormal Lab Results - Last 24 Hours (Table) 11/25/22 11/25/22 11/25/22 Range/Units 06:05 06:05 09:18 Plt Count 133 L (150-450) k/uL BUN 24 H (9-20) mg/dL Plasma Lactic Acid Ankit 4.0 H* (0.7-2.0) mmol/L
--- NOTE | 2022-11-25 11:19 | P.PN ---
Subjective Progress Note Date: 11/25/22 The patient was seen in the ICU, today early in the morning had episode of bilateral upper body jerks, eyes rolling back and unresponsive lasting for minutes. So 2mg of Ativan was given. According to the nurse his episode improves with Ativan. No hypotensive episode with these and vitals are normal. The primary team attempted to contact different facilities and so far no luck with transfer for correction EEG. Of note, according to primary team who was in touch with family members he has been having these episodes for the past two weeks at home. Objective - Vital Signs Vital signs: Vital Signs Temp 97.7 F 11/25/22 08:00 Pulse 70 11/25/22 08:30 Resp 18 11/25/22 08:30 BP 115/75 11/25/22 08:30 Pulse Ox 98 11/25/22 08:30 FiO2 Intake & Output 11/24/22 11/25/22 11/25/22 18:59 06:59 18:59 Intake Total 150 900 250 Output Total 1425 Balance 150 -525 250 Weight 85.1 kg Intake: IV 150 900 250 Sodium Chloride 0.9% 1, 150 900 150 000 ml @ 75 mls/hr IV . [id number] [facility] Rx#:[id number] levETIRAcetam IV 750 mg 100 In Sodium Chloride 0.9% 100 ml @ 400 mls/hr IVPB Q12HR [facility] Rx#:[id number] Output: Urine 1425 Other: Voiding Method Urinal Urinal Diaper Diaper # Voids 1 - Exam GENERAL: The patient is lying in bed and does not appear in acute distress. NEUROLOGICAL: Limited since patient unresponsive. Higher mental function: Not verbalizing or following commands. Cranial nerves: I had to manually open his eyes. Had eyes closed and eye rolled back. Pupils are 3-4mm bilaterally and reactive to light. No facial weakness. Motor: The strength is could not assess because of his condition. Has jerking of bilateral uppers extremities and seems rhythmic at time and nonrhytmic at time and seems for minutes (unsure exact time). Then attempted to talk then became unresponsive and stopped jerking of extremities and had decrease tone. Cerebellum: Unable to assess. Unable to assess rest. Some of the workup during his hospital visit consisted of: CBC with differential is unremarkable chemistry panel: creatinine is 1.41 and is trending down, glucose is normal on presentation UDS is positive for opiates as well as marijuana CT of the head is reported as area encephalomalacia related to prior infarct or traumatic insults over right temporoparietal junction. No acute intracranial abnormality seen. Personally reviewed the CT of the head and I agree with the report. There is no acute subacute ischemia. Repeat CT head is reported as right temporal/parietal encephalomalacia from prior injury EEG STAT: Abnormal. Tobacco slowing suggestive of mild to moderate encephalopathy. Otherwise there is no focal slowing, epileptiform discharges or seizure on the EEG. Excessive beta activity is due to medication effect (Ativan). If there continues to be concern for seizures, recommend prolonged EEG. - Labs CBC & Chem 7: 11/25/22 06:05 11/25/22 06:05 Labs: Abnormal Lab Results - Last 24 Hours (Table) 11/25/22 11/25/22 11/25/22 Range/Units 06:05 06:05 09:18 Plt Count 133 L (150-450) k/uL BUN 24 H (9-20) mg/dL Plasma Lactic Acid Ankit 4.0 H* (0.7-2.0) mmol/L Assessment and Plan Assessment: This is a 67-year-old gentleman and it appears she's been having the u nresponsiveness episodes with eye rolling back at home for 2-3 weeks. * Repeated episodes of unresponsiveness with eye rolling back, eye twitching and myoclonic jerks is likely new onset seizures (especially with hx of encephalomalacia right temporoparietal junction that can be focus) and today had jerking of the upper extremities. Patient is in clinical status epilepticus. EEG was negative for seizure or discharge but there is mild to moderate encephalopathy. It is possible the focus is small or deep that picked-up on surface EEG. * Past 2-3 weeks in which she experience tremor/jerking of his arms and in the legs had become increasingly weak to the point that he no longer ambulates, unresponsive seems likely due to new onset seizure * Encephalomalacia over right temporoparietal junction seems due to prior infarct or traumatic insult * History of coronary artery disease status post stent * Type 2 diabetes * Hypertension * Hyperlipidemia Plan: Ordered Ativan 2mg once. Loaded patient with Depakote 1gm once and gave one time Vimpat 100mg once. I have increased Keppra from 750mg every 12 hrs to 1500mg every 12 hours and increased Vimpat from 100mg bid to 200mg bid (was not on antiseizure medication at home). If the patient continues to seize even with change of these medication, then will intubate and Place on IV sedation (Versed or Ativan), currently he is stable and EEG does not reveal any seizure but possibly he has small focus that is not picked up on surface EEG. Pending MRI Brain once extubated. On 11/24/2022 primary has been attempting to transfer the patient for long-term EEG since the patient continues to have episodes of seizures. So far no facility has accepted him. We'll continue to try. But if he continues to be in our facility will obtain 2.5 hour EEG. Ativan 1mg Q1 hour PRN seizure. On seizure precaution and pads. Continue neuro checks Cardiology is on board. Agree with pursuing 2D echo. Will defer the rest of medical management to primary team. The plan is discussed with the primary team and ICU attending. Time with Patient: Greater than 30
[2022-11-25] MEDS ORDERED: VALPROATE SODIUM 1,000 MG in SODIUM CHLORIDE 0.9% 50 ML IVPB ONE (11:30)
--- NOTE | 2022-11-25 11:32 | P.PN ---
Subjective Progress Note Date: 11/25/22 Principal diagnosis: Seizure disorder. Pulmonary/critical care consult dated 11/24/2022. 67-year-old male who was seen in the emergency department on November 23. He apparently came in with neurologic symptoms, and tremors. He was apparently brought in by his and sister. He apparently is been having worsening tremors over the week prior to admission. The tremors are apparently located primarily in the upper extremities. In addition, he was having angry outbursts, and not acting himself. He grows marijuana and smokes marijuana daily. He apparently also has been having slurred speech, and unsteady gait. According to the chart, he has a history of asthma, diabetes, hypertension, and hyperlipidemia. In addition, he has a history of CAD with previous PCI and sten t placement. He does use marijuana, but that apparently does not smoke or has never smoked cigarettes. I was called today by the hospital service, because the patient was having worsening mental status, with obtundation, and apparently having recurrent seizure activity. Neurology felt the patient should be transferred to a higher level of care, for 24-hour EEG monitoring. We are currently awaiting transfer, and then did move the patient to the intensive care unit for further monitoring. Currently labs include a white count 7.1, hemoglobin 14.1, hematocrit 41.3, and platelet count 140,000. Sodium 141, potassium 4.2, chlorides 107, CO2 27, BUN 31, creatinine 1.29. His drug screen was positive for both opiates and marijuana. His initial brain CT showed some areas of encephalomalacia, relating to prior infarct or traumatic insult. It was noted to be in the posterior right temporal parietal junction. There is nothing acute noted on the computed tomography scan. The repeat computed tomography scan, done a day later, showed the same findings. Again, there is nothing acute. Progress note dated 11/25/2022. 67-year-old male seen in consultation yesterday. Please see the note above. The patient was admitted to the intensive care unit, with ongoing seizure activity. Currently, he's on room air. He is getting saline at 75 mL an hour. He had a witnessed seizure today, and is currently obtunded, and poorly responsive. The neurologist, and the hospitalist, R in the room along with the nurse. The patient is receiving Keppra, Vimpat, and Depakote. In addition, for the seizure, the patient received some IV Ativan. White count 6.2, hemoglobin 13.8, hematocrit 42, platelet count 233,000. Sodium 138, potassium 4.3, chlorides 107, CO2 24, BUN 24, and creatinine 1.22. Lactic acid is 4.0. Testing for ramires virus was negative. Objective - Vital Signs Vital signs: Vital Signs Temp 97.7 F 11/25/22 08:00 Pulse 71 11/25/22 11:15 Resp 18 11/25/22 11:15 BP 147/137 11/25/22 11:15 Pulse Ox 96 11/25/22 11:15 FiO2 Intake & Output 11/24/22 11/25/22 11/25/22 18:59 06:59 18:59 Intake Total 150 900 525 Output Total 1425 225 Balance 150 -525 300 Weight 85.1 kg Intake: IV 150 900 525 Lacosamide IV 100 mg In 50 Sodium Chloride 0.9% 50 ml @ 100 mls/hr IVPB BID [facility] Rx#:[id number] Sodium Chloride 0.9% 1, 150 900 375 000 ml @ 75 mls/hr IV . [id number] [facility] Rx#:[id number] levETIRAcetam IV 750 mg 100 In Sodium Chloride 0.9% 100 ml @ 400 mls/hr IVPB Q12HR [facility] Rx#:[id number] Output: Urine 1425 225 Other: Voiding Method Urinal Urinal Diaper Diaper # Voids 1 - Exam No acute distress, poorly responsive. In no respiratory distress. HEENT examination is grossly unremarkable. Neck supple. Full range of motion. No adenopathy thyromegaly or neck vein distention. Cardiovascular examination reveals regular rhythm rate. S1-S2 normal. No S3 or S4. No discernible murmur noted. Heart rate 70 bpm. Lungs reveal clear breath sounds. Breath sounds are equal bilaterally. No adventitious lung sounds including wheezes rhonchi or crackles. Room air saturation is 96 %. Abdomen soft bowel sounds are heard. No masses or tenderness. Extremities are intact. No cyanosis clubbing or edema. Skin is without rash or lesion. Neurologic examination reveals a poorly responsive, obtunded individual. - Labs CBC & Chem 7: 11/25/22 06:05 11/25/22 06:05 Labs: Abnormal Lab Results - Last 24 Hours (Table) 11/25/22 11/25/22 11/25/22 Range/Units 06:05 06:05 09:18 Plt Count 133 L (150-450) k/uL BUN 24 H (9-20) mg/dL Plasma Lactic Acid Ankit 4.0 H* (0.7-2.0) mmol/L Assessment and Plan Assessment: Recurrent and persistent seizure activity, with acute mental status changes. History of hypertension. History of PCI with stent placement. History of hyperlipidemia. History of asthma. History of diabetes mellitus. History of gastroesophageal reflux disease. History of chronic marijuana use. Plan: Plan dated 11/24/2022. The patient is seen today in room 256. When he first walked into the room, the patient was quite agitated, trying to get out of bed. Subsequent to that, he s eemed to settle down, and was very quiet, and was not able to provide much of a history he apparently sees somebody at the [facility]. He apparently has no prior history of seizure disorder. The brain CT did show a area of encephalomalacia, either from ischemia and/or trauma. The patient has been seen by neurology, who would like the patient transferred to a higher level of care, for further EEG monitoring. The patient was transferred down from the floor to the ICU, for further monitoring and management. He remains on 2 L of O2. In addition, he is getting saline at 75 mL an hour. He has orders for Ativan as needed, and is also getting Keppra, and Vimpat. We will continue to follow make recommendations along the way. Hopeful discharge to a higher level of care in the near future. Plan dated 11/25/2022. The patient had another seizure today, witnessed by the nurse, neurologist, and hospital doctor. The patient's on multiple seizure medications including Keppra, Vimpat, and Depakote. For the acute seizure, the patient received IV Ativan. He is currently on room air, and getting saline at 75 mL an hour, and the plan is to still try to transfer the patient to a different hospital. So far, the doctors have not had much luck. Labs, x-rays, medications are reviewed. Prognosis is certainly guarded. The patient may need intubation and mechanical ventilation later today. We will continue to follow. Time with Patient: Greater than 30
--- NOTE | 2022-11-25 11:44 | P.CRDCN ---
History of Present Illness Consult date: 11/25/22 Chief complaint: Syncope History of present illness: This is a 67-year-old gentleman with a past medical history significant for coronary artery disease with prior PCI with unknown details as well as hypertension and dyslipidemia and questionable history of stroke who was brought to the hospital by his and his family for further evaluation of change in mental status. The patient was seen at bedside in the intensive care unit. The patient does have significant change in mental status and the history was taken from the chart as well as from the nurse taking care of the patient. For the last few days the family noticed a change in mental status associated with worsening tremor. No indication of any symptoms of chest pain or chest discomfort. No shortness of breath. We consulted to see the patient for further evaluation of syncope. The patient was seen by the neurology service and he was diagnosed procedure. An EEG was performed did not show any seizure activity but the recommendation is to transfer the patient into tertiary facility for continuous EEG monitoring. The patient also was witnessed by the staff in the intensive care. The patient is hemodynamically stable and he is in normal sinus mechanism. That he was experiencing seizure activities. He underwent a workup including EKG and that showed sinus rhythm with no significant ST or T-wave abnormalities with sinus bradycardia and heart rate in the 50s. The EEG did not show any seizure activities. His hemoglobin and electrolytes were within normal limits. Creatinine was slightly elevated. Urine drug screen came in to be positive for opiates and marijuana. The computed tomography scan of the brain showed an area in the occipital lobe consistent with encephalomalacia. On examination the patient does have significant change in mental status and he is very lethargic. The vital signs are stable. The heart examination revealed regular rhythm and the chest examination revealed clear breathing sounds bilaterally and no lower extremities edema noted. Assessment Change in mental status likely secondary to seizure activity is CAD appears to be stable at this point. No indication that the patient was experiencing any chest pain Hypertension Hyperlipidemia History of diabetes History of U was marijuana and opiates Plan From the cardiovascular standpoint of view, we will continue the current medical regimen Obtain an echocardiogram to evaluate the LV function. Continue dual antiplatelet therapy since we don't have the date of his PCI Continue anti-ischemic medication was beta crystal and consider decrease the dose if he develop any episodes of bradycardia Follow-up with the patient Past Medical History Past Medical History: Asthma, Diabetes Mellitus, Hyperlipidemia, Hypertension Additional Past Medical History / Comment(s): DM2 History of Any Multi-Drug Resistant Organisms: None Reported Past Surgical History: Back Surgery, Heart Catheterization With Stent, Orthopedic Surgery Additional Past Surgical History / Comment(s): ABD Date of Last Stent Placement:: unk Past Psychological History: No Psychological Hx Reported Smoking Status: Never smoker Past Alcohol Use History: None Reported Past Drug Use History: Marijuana - Past Family History Father Family Medical History: Coronary Artery Disease (CAD) Medications and Allergies Home Medications Medication Instructions Recorded Confirmed Type Acetaminophen [Tylenol] 650 mg PO Q4H PRN 11/23/22 11/23/22 History Aspirin EC [Ecotrin Low Dose] 81 mg PO DAILY 11/23/22 11/23/22 History Clopidogrel [Plavix] 75 mg PO DAILY 11/23/22 11/23/22 History DULoxetine HCL [Cymbalta] 60 mg PO DAILY 11/23/22 11/23/22 History Empagliflozin [Jardiance] 10 mg PO DAILY 11/23/22 11/23/22 History Furosemide [Lasix] 40 mg PO DAILY 11/23/22 11/23/22 History HYDROcodone/APAP 5-325MG [[place] 1 tab PO TID PRN 11/23/22 11/23/22 History 5-325] Insulin Glargine,Hum.rec.anlog 60 units SQ HS 11/23/22 11/23/22 History [Insulin Glargine Solostar] Metoprolol Succinate (ER) [Toprol 100 mg PO DAILY 11/23/22 11/23/22 History Xl] Omeprazole [PriLOSEC] 20 mg PO DAILY 11/23/22 11/23/22 History Pregabalin [Lyrica] 100 mg PO BID 11/23/22 11/23/22 History Rosuvastatin Calcium [Crestor] 40 mg PO HS 11/23/22 11/23/22 History Sacubitril/Valsartan [Entresto 49 1 tab PO BID 11/23/22 11/23/22 History mg-51 mg Tablet] Spironolactone 25 mg PO DAILY 11/23/22 11/23/22 History allopurinoL 300 mg PO DAILY 11/23/22 11/23/22 History Allergies Allergy/AdvReac Type Severity Reaction Status Date / Time atorvastatin [From Lipitor] AdvReac abnormal Verified 11/23/22 16:06 liver enzymes metformin AdvReac gastroesophageal Verified 11/23/22 16:06 reflux Physical Exam Vitals: Vital Signs Temp Pulse Pulse Resp BP Pulse Ox 11/25/22 11:15 71 18 147/137 96 11/25/22 11:00 67 21 155/99 96 11/25/22 10:45 75 17 155/99 95 11/25/22 10:30 71 11 L 122/77 97 11/25/22 10:15 25 H 122/77 91 L 11/25/22 10:00 75 23 91 L 11/25/22 09:45 74 27 H 96 11/25/22 09:30 43 H 163/97 99 11/25/22 09:15 79 22 163/97 96 11/25/22 09:00 85 26 H 133/90 97 11/25/22 08:45 75 26 H 133/90 94 L 11/25/22 08:30 70 18 115/75 98 11/25/22 08:15 71 9 L 115/75 97 11/25/22 08:00 97.7 F 70 22 133/90 97 11/25/22 07:45 61 20 133/90 96 11/25/22 07:30 66 19 124/77 96 11/25/22 07:15 59 L 20 124/77 97 11/25/22 07:00 59 L 20 110/75 96 11/25/22 06:45 62 21 110/75 93 L 11/25/22 06:30 58 L 20 113/83 95 11/25/22 06:15 60 19 113/83 95 11/25/22 06:00 62 14 110/80 94 L 11/25/22 05:45 65 21 110/80 96 11/25/22 05:30 59 L 20 114/93 95 11/25/22 05:15 65 22 114/93 96 11/25/22 05:00 61 21 128/73 94 L 11/25/22 04:45 66 20 128/73 95 11/25/22 04:30 59 L 20 131/82 95 11/25/22 04:15 55 L 19 131/82 94 L 11/25/22 04:00 97.7 F 55 L 17 120/81 95 11/25/22 03:45 58 L 19 120/81 94 L 11/25/22 03:30 63 18 135/84 11/25/22 03:15 56 L 19 135/84 94 L 11/25/22 03:00 61 18 124/89 95 11/25/22 02:45 54 L 16 124/89 95 11/25/22 02:30 58 L 19 127/86 95 11/25/22 02:15 56 L 20 127/86 95 11/25/22 02:00 56 L 19 98/57 96 11/25/22 01:45 52 L 18 98/57 97 11/25/22 01:30 56 L 24 96/73 93 L 11/25/22 01:15 54 L 22 96/73 92 L 11/25/22 01:00 56 L 25 H 134/82 93 L 11/25/22 00:45 58 L 19 134/82 94 L 11/25/22 00:30 57 L 18 131/78 96 11/25/22 00:15 58 L 19 134/78 94 L 11/25/22 00:14 58 L 19 134/78 95 11/25/22 00:00 97.9 F 56 L 19 132/83 94 L 11/24/22 23:45 54 L 13 113/81 96 11/24/22 23:30 53 L 22 128/78 97 11/24/22 23:15 57 L 12 103/76 96 11/24/22 23:00 36 H 88 L 11/24/22 22:45 76 16 93/48 94 L 11/24/22 22:30 60 27 H 117/52 93 L 11/24/22 22:15 56 L 12 93/67 94 L 11/24/22 22:00 58 L 22 131/84 94 L 11/24/22 21:45 59 L 20 130/92 95 11/24/22 21:30 60 19 128/90 94 L 11/24/22 21:15 57 L 21 119/92 93 L 11/24/22 21:00 59 L 18 113/89 94 L 11/24/22 20:45 58 L 18 128/86 95 11/24/22 20:30 55 L 22 114/81 95 11/24/22 20:15 50 L 18 122/72 95 11/24/22 20:00 97.9 F 53 L 53 L 23 119/83 96 11/24/22 19:45 52 L 21 117/88 97 11/24/22 19:30 51 L 18 111/72 96 11/24/22 19:15 52 L 28 H 126/77 96 11/24/22 19:00 51 L 23 123/78 97 11/24/22 18:45 54 L 13 95/59 98 11/24/22 18:30 52 L 31 H 104/63 93 L 11/24/22 18:15 51 L 19 105/95 95 11/24/22 18:00 51 L 15 118/83 96 11/24/22 17:45 52 L 19 120/83 94 L 11/24/22 17:30 53 L 16 122/89 94 L 11/24/22 17:15 52 L 18 123/86 95 11/24/22 17:00 56 L 15 112/59 97 11/24/22 16:45 52 L 22 90/57 97 11/24/22 16:30 53 L 21 120/91 98 11/24/22 16:15 56 L 29 H 139/85 100 11/24/22 16:00 98.1 F 60 10 L 119/75 98 11/24/22 15:45 52 L 15 111/71 97 11/24/22 15:30 54 L 18 123/71 98 11/24/22 15:15 72 34 H 146/85 99 11/24/22 15:00 57 L 24 132/91 99 11/24/22 14:45 54 L 13 130/95 98 Intake and Output 11/24/22 11/25/22 11/25/22 22:59 06:59 14:59 Intake Total 450 600 525 Output Total 525 900 225 Balance -75 -300 300 Intake: IV 450 600 525 Lacosamide IV 100 mg In 50 Sodium Chloride 0.9% 50 ml @ 100 mls/hr IVPB BID [facility] Rx#:[id number] Sodium Chloride 0.9% 1, 450 600 375 000 ml @ 75 mls/hr IV . [id number] [facility] Rx#:[id number] levETIRAcetam IV 750 mg 100 In Sodium Chloride 0.9% 100 ml @ 400 mls/hr IVPB Q12HR [facility] Rx#:[id number] Output: Urine 525 900 225 Other: Voiding Method Urinal Urinal Urinal Diaper Diaper Diaper # Voids 1 Weight 85.1 kg Results 11/25/22 06:05 11/25/22 06:05 CBC 11/25/22 Range/Units 06:05 WBC 6.2 (3.8-10.6) k/uL RBC 4.34 (4.30-5.90) m/uL Hgb 13.8 (13.0-17.5) gm/dL Hct 41.6 (39.0-53.0) % Plt Count 133 L (150-450) k/uL Comprehensive Metabolic Panel 11/25/22 Range/Units 06:05 Sodium 138 (137-145) mmol/L Potassium 4.3 (3.5-5.1) mmol/L Chloride 107 (98-107) mmol/L Carbon Dioxide 24 (22-30) mmol/L BUN 24 H (9-20) mg/dL Creatinine 1.22 (0.66-1.25) mg/dL Glucose 74 (74-99) mg/dL Calcium 8.7 (8.4-10.2) mg/dL Current Medications Generic Name Dose Route Start Last Admin Trade Name Freq PRN Reason Stop Dose Admin Aspirin 81 mg 11/24/22 09:00 11/25/22 08:35 Aspirin 81 Mg PO 81 mg DAILY [facility] Administration Clopidogrel Bisulfate 75 mg 11/24/22 09:00 11/25/22 08:35 Clopidogrel 75 Mg Tab PO 75 mg DAILY [facility] Administration Duloxetine HCl 60 mg 11/24/22 09:00 11/25/22 08:35 Duloxetine Hcl 60 Mg Capsule.Dr PO 60 mg DAILY [facility] Administration Heparin Sodium (Porcine) 5,000 unit 11/24/22 00:00 11/25/22 08:35 Heparin Sodium,Porcine/Pf 5,000 Unit/0.5 Ml Syringe SQ 5,000 unit Q8HR [facility] Administration Sodium Chloride 1,000 mls @ 20 mls/hr 11/23/22 18:30 11/25/22 06:48 Saline 0.9% IV Not Given .Q24H [facility] Sodium Chloride 1,000 mls @ 75 mls/hr 11/23/22 23:45 11/25/22 06:48 Saline 0.9% IV 75 mls/hr .[id number] [facility] Administration Levetiracetam 1,500 mg/ IV 100 mls @ 400 mls/hr 11/25/22 21:00 Solution IVPB Q12HR [facility] Lacosamide 200 mg/ Sodium 70 mls @ 100 mls/hr 11/25/22 21:00 Chloride IVPB BID [facility] Lacosamide 100 mg/ Sodium 60 mls @ 100 mls/hr 11/25/22 11:09 Chloride IVPB 11/25/22 11:44 ONCE STA Valproic Acid 1,000 mg/ Sodium 60 mls @ 60 mls/hr 11/25/22 11:30 Chloride IVPB 11/25/22 12:29 ONCE ONE Insulin Aspart 0 unit 11/24/22 07:30 11/25/22 07:49 Insulin Aspart (Novolog) 100 Unit/Ml Vial SQ Not Given ACHS [facility] Protocol Lorazepam 1 mg 11/24/22 17:12 Lorazepam 2 Mg/Ml Inj IV Q4HR PRN Seizures Metoprolol Succinate 100 mg 11/24/22 09:00 11/25/22 08:35 Metoprolol Succinate (Er) 100 Mg Tab.Er.24h PO 100 mg DAILY [facility] Administration Naloxone HCl 0.2 mg 11/23/22 18:27 Naloxone 0.4 Mg/Ml 1 Ml Vial IV Q2M PRN Opioid Reversal Non-Formulary Medication 40 mg 11/24/22 21:00 11/24/22 23:19 Rosuvastatin Calcium [Crestor] PO Not Given HS [facility] Intake and Output 11/24/22 11/25/22 11/25/22 22:59 06:59 14:59 Intake Total 450 600 525 Output Total 525 900 225 Balance -75 -300 300 Intake: IV 450 600 525 Lacosamide IV 100 mg In 50 Sodium Chloride 0.9% 50 ml @ 100 mls/hr IVPB BID [facility] Rx#:[id number] Sodium Chloride 0.9% 1, 450 600 375 000 ml @ 75 mls/hr IV . [id number] [facility] Rx#:[id number] levETIRAcetam IV 750 mg 100 In Sodium Chloride 0.9% 100 ml @ 400 mls/hr IVPB Q12HR [facility] Rx#:[id number] Output: Urine 525 900 225 Other: Voiding Method Urinal Urinal Urinal Diaper Diaper Diaper # Voids 1 Weight 85.1 kg 11/25/22 06:05 11/25/22 06:05
[2022-11-25 11:55] LABS: Glucose,Whole Blood 71 mg/dL (70-110)
[2022-11-25] MEDS ORDERED: ONDANSETRON 4 MG/2 ML VIAL IVP PRN (14:52)
[2022-11-25] MEDS ORDERED: SUCCINYLCHOLINE CHLORIDE 200 MG/10 ML VIAL IV ONE (15:08)
[2022-11-25] MEDS ORDERED: PROPOFOL 10 MG/ML 20 ML VIAL IV ONE (15:08)
[2022-11-25] MEDS: LORazepam 2 MG/ML INJ IV PRN (15:09)
[2022-11-25] MEDS ORDERED: MIDAZOLAM HCL 50 MG in SODIUM CHLORIDE 0.9% 40 ML IV SCH (15:30)
--- NOTE | 2022-11-25 16:17 | XR ---
EXAMINATION TYPE: XR chest 1V portable DATE OF EXAM: 11/25/2022 COMPARISON: NONE HISTORY: Respiratory failure TECHNIQUE: Single view FINDINGS: Endotracheal tube is 5 cm from the martínez. There is nasogastric tube in the stomach. There is no heart failure. There is some mild linear infiltrate and atelectasis lateral left lung base. No pleural effusion. There are no hilar masses. There are chest leads. IMPRESSION: Some mild infiltrate and atelectasis left lung base. Normal heart.
[2022-11-25 16:53] LABS: ABG Base Excess -4.2 mmol/L; ABG HCO3 21 mmol/L (21-25); ABG Oxygen Saturation 99.2 % (94-97); ABG PCO2 35 mmHg (35-45); ABG PH 7.39 (7.35-7.45); ABG PO2 >400 mmHg (83-108); ABG TCO2 22 mmol/L (19-24)
[2022-11-25 16:56] LABS: Allen Test Performed? no
[2022-11-25 17:19] LABS: Glucose,Whole Blood 93 mg/dL (70-110)
[2022-11-25] MEDS: LACOSAMIDE IV 200 MG in SODIUM CHLORIDE 0.9% 50 ML IVPB SCH (21:17)
[2022-11-25] MEDS: levETIRAcetam IV 1,500 MG in SALINE 1 100ML.BAG IVPB SCH (21:20)
[2022-11-25] MEDS: NON FORMULARY DRUG (Rosuvastatin Calcium [Crestor] 40 MG Tablet) PO SCH (21:47)
[2022-11-25] MEDS: CHLORHEXIDINE GLUCONATE 15 ML CUP MUCOUS MEM SCH (21:48)
[2022-11-25] MEDS: MIDAZOLAM HCL 200 MG in SODIUM CHLORIDE 0.9% 60 ML IV SCH (22:11)
[2022-11-25 23:36] LABS: Glucose,Whole Blood 118 mg/dL (70-110)
[2022-11-26] MEDS: HEPARIN SODIUM,PORCINE/PF 5,000 UNIT/0.5 ML SYRINGE SQ SCH ×3 (01:12→17:13)
[2022-11-26 05:26] LABS: Basophils % (A) 0 %; Eosinophils # (A) 0.1 k/uL (0-0.7); Eosinophils % (A) 1 %; HCT 37.3 % (39.0-53.0); HGB 12.7 gm/dL (13.0-17.5); Lymphocytes # (A) 0.8 k/uL (1.0-4.8); Lymphocytes % (A) 12 %; MCH 31.7 pg (25.0-35.0); MCV 93.2 fL (80.0-100.0); Mean Platelet Volume 8.4; Monocytes # (A) 0.4 k/uL (0-1.0); Monocytes % (A) 6 %; Neutrophils # (A) 4.9 k/uL (1.3-7.7); Neutrophils % (A) 78 %; Platelet Count 125 k/uL (150-450); RDW 14.5 % (11.5-15.5); WBC 6.3 k/uL (3.8-10.6)
[2022-11-26 06:05] LABS: ABG Base Excess -5.3 mmol/L; ABG HCO3 19 mmol/L (21-25); ABG Oxygen Saturation 98.6 % (94-97); ABG PCO2 30 mmHg (35-45); ABG PH 7.41 (7.35-7.45); ABG PO2 140 mmHg (83-108); ABG TCO2 20 mmol/L (19-24); Allen Test Performed? Yes
[2022-11-26 06:06] LABS: Calcium 8.1 mg/dL (8.4-10.2); Potassium 4.1 mmol/L (3.5-5.1)
[2022-11-26] MEDS: INSULIN ASPART (NovoLOG) 100 UNIT/ML VIAL SQ SCH ×3 (06:28→17:28)
--- NOTE | 2022-11-26 07:01 | XR ---
EXAMINATION TYPE: XR chest 1V portable DATE OF EXAM: 11/26/2022 5:42 AM COMPARISON: Chest radiographs from 11/25/2022 TECHNIQUE: XR chest 1V portable Portable AP radiograph of the chest. CLINICAL INDICATION:Male, 67 years old with history of Tube placement; FINDINGS: Lungs/Pleura: Left lung base airspace opacities are not significantly changed. There is no evidence o f pleural effusion, or pneumothorax. Pulmonary vascularity: Unremarkable. Heart/mediastinum: Cardiomediastinal silhouette is unremarkable. Musculoskeletal: Degenerative changes of the shoulder joints. Other findings: None Lines/Tubes: Endotracheal tube with distal tip 4.9 cm above the martínez. Nasogastric tube with its distal tip and side-port projecting under the diaphragm. IMPRESSION: 1. Persistent left lung base atelectasis and/or infiltrate. 2. Appropriate placement of support tubes
[2022-11-26] MEDS: SODIUM CHLORIDE 0.9% 1,000 ML IV SCH (07:05)
[2022-11-26] MEDS: LACOSAMIDE IV 200 MG in SODIUM CHLORIDE 0.9% 50 ML IVPB SCH ×2 (08:20→20:51)
--- NOTE | 2022-11-26 08:26 | P.PN ---
Subjective Progress Note Date: 11/26/22 PROGRESS NOTE The patient is a 67-year-old male who presented with change in mental status. He is intubated and sedated. He has a history of CAD and PAD, details not available. There is a question of seizure activity. He is in sinus mechanism with sinus bradycardia but no evidence of malignant arrhythmia. There is no evidence of acute coronary syndrome or ventricle tachycardia. He had recurrent seizure and he has a history of chronic marijuana use. Medications: Plavix 75 mg daily, aspirin, Ativan, metoprolol succinate 100 mg daily PHYSICAL EXAMINATION: Blood pressure 111/70 heart rate 57, intubated LUNGS: Clear to auscultation HEART: Regular rate and rhythm, S1, S2. No S3. No systolic murmur ABDOMEN: Soft, nontender, no organomegaly EXTREMETIES: No edema LAB: Hemoglobin 12.7, potassium 4.1. BUN 20, creatinine 1.1. PH 7.4. Chest x-ray with atelectasis IMPRESSION: 1. Seizure activity which change in mental status 2. Respiratory failure, intubated 3. History of CAD, details unavailable 4. History of hypertension PLAN: 1. Decreased beta crystal 2. Obtain an echocardiogram with Doppler 3. Try to obtain prior cardiac workup to see the need for dual antiplatelets treatment 4. Depending on his progress further recommendations will be made Objective - Vital Signs Vital signs: Vital Signs Temp 98.0 F 11/26/22 04:00 Pulse 57 L 11/26/22 07:30 Resp 20 11/26/22 07:30 BP 111/74 11/26/22 07:30 Pulse Ox 99 11/26/22 07:30 FiO2 40 11/26/22 08:00 Intake & Output 11/25/22 11/26/22 11/26/22 18:59 06:59 18:59 Intake Total 3118.920 2026.571 Output Total 1025 1340 Balance 2093.920 686.571 Weight 86.7 kg Intake: IV 3050 1975 0.9 NACL Bolus 2000 1000 Lacosamide IV 100 mg In 50 Sodium Chloride 0.9% 50 ml @ 100 mls/hr IVPB BID [facility] Rx#:[id number] Sodium Chloride 0.9% 1, 900 975 000 ml @ 75 mls/hr IV . [id number] [facility] Rx#:[id number] levETIRAcetam IV 750 mg 100 In Sodium Chloride 0.9% 100 ml @ 400 mls/hr IVPB Q12HR [facility] Rx#:[id number] Intake, IV Titration 68.920 51.571 Amount Midazolam HCl 50 mg In 0.584 Sodium Chloride 0.9% 40 ml @ 1 MG/HR 1 mls/hr IV .Q24H [facility] Rx#:[id number] propofoL 1,000 mg In 68.336 51.571 Empty Bag 1 bag @ 15 MCG/ KG/MIN 7.659 mls/hr IV . Q13H4M [facility] Rx#:[id number] Output: Urine 1025 1340 Other: Voiding Method Indwelling Catheter Indwelling Catheter # Voids 1 ABP, PAP, CO, CI - Last Documented Arterial Blood Pressure 145/70 - Labs CBC & Chem 7: 11/26/22 05:00 11/26/22 05:00 Labs: Abnormal Lab Results - Last 24 Hours (Table) 11/25/22 11/25/22 11/25/22 Range/Units 09:18 09:18 16:51 RBC (4.30-5.90) m/uL Hgb (13.0-17.5) gm/dL Hct (39.0-53.0) % Plt Count (150-450) k/uL Lymphocytes # (1.0-4.8) k/uL ABG pCO2 (35-45) mmHg ABG pO2 >400 H (83-108) mmHg ABG HCO3 (21-25) mmol/L ABG O2 Saturation 99.2 H (94-97) % Chloride (98-107) mmol/L Carbon Dioxide (22-30) mmol/L Glucose (74-99) mg/dL POC Glucose (mg/dL) (70-110) mg/dL Plasma Lactic Acid Ankit 4.0 H* (0.7-2.0) mmol/L Calcium (8.4-10.2) mg/dL Prolactin 18.800 H (2.100-17.700) ng/mL 11/25/22 11/26/22 11/26/22 Range/Units 23:34 05:00 05:00 RBC 4.00 L (4.30-5.90) m/uL Hgb 12.7 L (13.0-17.5) gm/dL Hct 37.3 L (39.0-53.0) % Plt Count 125 L (150-450) k/uL Lymphocytes # 0.8 L (1.0-4.8) k/uL ABG pCO2 (35-45) mmHg ABG pO2 (83-108) mmHg ABG HCO3 (21-25) mmol/L ABG O2 Saturation (94-97) % Chloride 112 H (98-107) mmol/L Carbon Dioxide 17 L (22-30) mmol/L Glucose 102 H (74-99) mg/dL POC Glucose (mg/dL) 118 H (70-110) mg/dL Plasma Lactic Acid Ankit (0.7-2.0) mmol/L Calcium 8.1 L (8.4-10.2) mg/dL Prolactin (2.100-17.700) ng/mL 11/26/22 Range/Units 05:30 RBC (4.30-5.90) m/uL Hgb (13.0-17.5) gm/dL Hct (39.0-53.0) % Plt Count (150-450) k/uL Lymphocytes # (1.0-4.8) k/uL ABG pCO2 30 L (35-45) mmHg ABG pO2 140 H (83-108) mmHg ABG HCO3 19 L (21-25) mmol/L ABG O2 Saturation 98.6 H (94-97) % Chloride (98-107) mmol/L Carbon Dioxide (22-30) mmol/L Glucose (74-99) mg/dL POC Glucose (mg/dL) (70-110) mg/dL Plasma Lactic Acid Ankit (0.7-2.0) mmol/L Calcium (8.4-10.2) mg/dL Prolactin (2.100-17.700) ng/mL Microbiology - Last 24 Hours (Table) 11/25/22 19:45 Sputum Culture - Preliminary Sputum
--- NOTE | 2022-11-26 08:37 | P.PN ---
Subjective Progress Note Date: 11/26/22 On 11/26/2022, seeing the patient for a follow-up. The patient is currently intubated on a mechanical ventilator. The patient is a . The patient is known to have CAD and he smokes marijuana and he has a remote history of seizures. The patient. He was hospitalized and he was having recurrent seizure activity and he was postictal with altered mentation and diminished level of consciousness. CAT scan of the brain showed encephalomalacia related to prior infarcts last traumatic insults. This was noted more in the posterior right temporal parietal region. There was no other acute abnormalities noted. The patient was seen by neurology. He is currently on a combination of antiepileptics including Keppra, Vimpat and Depakote. At the time of his seizure activity he also received Ativan. Currently, he is also on propofol running at 30 mcg/kg/m. He is also on Versed running at X milligrams an hour. He is completely sedated and there is no visible seizure activity noted. He is in the process of undergoing an EEG this morning. He remains on a mechanical ventilator on assist control mode at a rate of 20 with a tidal volume of 450 and FiO2 of 40% with a PEEP of 5. His chest x-ray shows no acute abnormalities. His tube is in adequate location. Patient also has a orogastric tube in place. No consolidation. No airspace disease. He is hemodynamically stable. Cardiac rhythm is sinus. He is on heparin subcu for DVT prophylaxis. IV fluids are running in the form of normal saline at rate of 75 mL an hour. Note that the patient is also diabetic. He was receiving Lantus insulin on outpatient basis in combination with JArdiance and I noted that he was not taking any form of antiepileptic medications on outpatient basis. An EEG was ordered the done on 11/24/2022 and obviously EEG was abnormal and there was background slowing suggestive of mild to moderate encephalopathy. No focal epileptic discharges were noted. There was extensive but activity due to medication/Ativan effects. Neurologically is currently on the case and the patient was evaluated by the neurology service. Blood gas from today shows a pH of 7.41 with a pCO2 of 30 and pO2 140. White cycles of 12.7 with a hemoglobin of 12.7 and a platelet count of 125. Sodium is at 139 potassium is at 4.1 bicarbs at 17 BUN is 20 with a creatinine of 1.1. Lactic acid level dropped from 4.0 down to 0.9. I also noted an elevation the prolactin level, borderline elevation, could be related to the seizure activity. Objective - Vital Signs Vital signs: Vital Signs Temp 98.0 F 11/26/22 04:00 Pulse 57 L 11/26/22 07:30 Resp 20 11/26/22 07:30 BP 111/74 11/26/22 07:30 Pulse Ox 99 11/26/22 07:30 FiO2 40 11/26/22 08:00 Intake & Output 11/25/22 11/26/22 11/26/22 18:59 06:59 18:59 Intake Total 3118.920 2026.571 Output Total 1025 1340 Balance 2093.920 686.571 Weight 86.7 kg Intake: IV 3050 1975 0.9 NACL Bolus 2000 1000 Lacosamide IV 100 mg In 50 Sodium Chloride 0.9% 50 ml @ 100 mls/hr IVPB BID [facility] Rx#:[id number] Sodium Chloride 0.9% 1, 900 975 000 ml @ 75 mls/hr IV . [id number] [facility] Rx#:[id number] levETIRAcetam IV 750 mg 100 In Sodium Chloride 0.9% 100 ml @ 400 mls/hr IVPB Q12HR [facility] Rx#:[id number] Intake, IV Titration 68.920 51.571 Amount Midazolam HCl 50 mg In 0.584 Sodium Chloride 0.9% 40 ml @ 1 MG/HR 1 mls/hr IV .Q24H [facility] Rx#:[id number] propofoL 1,000 mg In 68.336 51.571 Empty Bag 1 bag @ 15 MCG/ KG/MIN 7.659 mls/hr IV . Q13H4M [facility] Rx#:[id number] Output: Urine 1025 1340 Other: Voiding Method Indwelling Catheter Indwelling Catheter # Voids 1 ABP, PAP, CO, CI - Last Documented Arterial Blood Pressure 145/70 - Exam No acute distress, poorly responsive. , The patient is deeply sedated with a combination of propofol and Versed. Head exam was generally normal. There was no scleral icterus or corneal arcus. Mucous membranes were moist. Neck supple. Full range of motion. No adenopathy thyromegaly or neck vein distention. Cardiovascular examination reveals regular rhythm rate. S1-S2 normal. No S3 or S4. No discernible murmur noted. Lungs reveal clear breath sounds. Breath sounds are equal bilaterally. No adventitious lung sounds including wheezes rhonchi or crackles. Abdomen soft bowel sounds are heard. No masses or tenderness. Extremities are intact. No cyanosis clubbing or edema. Skin is without rash or lesion. Neurologic examination reveals a poorly responsive, as the patient is on a combination of propofol and Versed. No seizure activity the has been noted and the patient is equal and symmetrical pupils bilaterally. Motor function cannot be assessed. Sensory functions cannot be assessed. - Labs CBC & Chem 7: 11/26/22 05:00 11/26/22 05:00 Labs: Abnormal Lab Results - Last 24 Hours (Table) 11/25/22 11/25/22 11/25/22 Range/Units 09:18 09:18 16:51 RBC (4.30-5.90) m/uL Hgb (13.0-17.5) gm/dL Hct (39.0-53.0) % Plt Count (150-450) k/uL Lymphocytes # (1.0-4.8) k/uL ABG pCO2 (35-45) mmHg ABG pO2 >400 H (83-108) mmHg ABG HCO3 (21-25) mmol/L ABG O2 Saturation 99.2 H (94-97) % Chloride (98-107) mmol/L Carbon Dioxide (22-30) mmol/L Glucose (74-99) mg/dL POC Glucose (mg/dL) (70-110) mg/dL Plasma Lactic Acid Ankit 4.0 H* (0.7-2.0) mmol/L Calcium (8.4-10.2) mg/dL Prolactin 18.800 H (2.100-17.700) ng/mL 11/25/22 11/26/22 11/26/22 Range/Units 23:34 05:00 05:00 RBC 4.00 L (4.30-5.90) m/uL Hgb 12.7 L (13.0-17.5) gm/dL Hct 37.3 L (39.0-53.0) % Plt Count 125 L (150-450) k/uL Lymphocytes # 0.8 L (1.0-4.8) k/uL ABG pCO2 (35-45) mmHg ABG pO2 (83-108) mmHg ABG HCO3 (21-25) mmol/L ABG O2 Saturation (94-97) % Chloride 112 H (98-107) mmol/L Carbon Dioxide 17 L (22-30) mmol/L Glucose 102 H (74-99) mg/dL POC Glucose (mg/dL) 118 H (70-110) mg/dL Plasma Lactic Acid Ankit (0.7-2.0) mmol/L Calcium 8.1 L (8.4-10.2) mg/dL Prolactin (2.100-17.700) ng/mL 11/26/22 Range/Units 05:30 RBC (4.30-5.90) m/uL Hgb (13.0-17.5) gm/dL Hct (39.0-53.0) % Plt Count (150-450) k/uL Lymphocytes # (1.0-4.8) k/uL ABG pCO2 30 L (35-45) mmHg ABG pO2 140 H (83-108) mmHg ABG HCO3 19 L (21-25) mmol/L ABG O2 Saturation 98.6 H (94-97) % Chloride (98-107) mmol/L Carbon Dioxide (22-30) mmol/L Glucose (74-99) mg/dL POC Glucose (mg/dL) (70-110) mg/dL Plasma Lactic Acid Ankit (0.7-2.0) mmol/L Calcium (8.4-10.2) mg/dL Prolactin (2.100-17.700) ng/mL Microbiology - Last 24 Hours (Table) 11/25/22 19:45 Sputum Culture - Preliminary Sputum Assessment and Plan Plan: Recurrent and persistent seizure activity, with acute mental status changes. The patient is currently on a combination of Versed and propofol. EEG is in progress right now. No seizure activity has been noted. The patient is also on a combination of antiepileptic. The patient is taking Keppra 1.5 g every 12 hours, Vimpat 200 mg IV twice a day and Depakote has been discontinued. He remains on Versed 6 mg an hour and propofol running at 30 mcg/kg/m. Acute hypoxic/hypercapnic respiratory failure due to diminished level of consciousness/postictal stage following seizure activity. Chest x-ray is clear. Adequate oxygenation and ventilation for now CVA, history of as the patient has some prior right temporoparietal region encephalomalacia either related to previous trauma or CVA acute lactic acidosis, recovered Non-anion gap metabolic acidosis Borderline thrombocytopenia History of hypertension. CAD History of PCI with stent placement. History of hyperlipidemia. History of asthma. History of diabetes mellitus. History of gastroesophageal reflux disease. History of chronic marijuana use. Peripheral vascular disease and the patient has undergone previous vascular stenting to the lower extremity Previous amputation of the right great toe Plan: Continue ventilator support and no ventilator changes for today Awaiting results of the EEG which preliminary results indicating no seizure activity The patient will be kept on propofol and Versed will be gradually weaned off We will assess the mental status at the later stage depending on his overall progress Continue IV Keppra and Vimpat for now IV fluids in the form of normal saline at rate of 75 mL an hour Initiate tube feeds and the patient will be started on Glucerna Restart Entresto Continue aspirin and Plavix obtain an echocardiogram Condition is on a significant level continue to follow and make further recommendations based on his progress. Physical care evaluation that was done in more than 30 minutes. Time with Patient: Greater than 30
[2022-11-26] MEDS ORDERED: METOPROLOL SUCCINATE (ER) 50 MG TAB.ER.24H PO SCH (09:00)
[2022-11-26] MEDS: CHLORHEXIDINE GLUCONATE 15 ML CUP MUCOUS MEM SCH ×2 (09:58→20:15)
[2022-11-26] MEDS: CLOPIDOGREL 75 MG TAB PO SCH (09:58)
[2022-11-26] MEDS: ASPIRIN 81 MG PO SCH (09:58)
[2022-11-26] MEDS: levETIRAcetam IV 1,500 MG in SALINE 1 100ML.BAG IVPB SCH ×2 (10:00→20:15)
[2022-11-26] MEDS: DULoxetine HCL 60 MG CAPSULE.DR PO SCH (10:01)
[2022-11-26] MEDS: METOPROLOL TARTRATE 25 MG TAB PO SCH ×2 (10:26→20:15)
--- NOTE | 2022-11-26 10:39 | P.PN ---
Subjective Progress Note Date: 11/26/22 Hospital Course: Patient is a 67-year-old male with a PMH of CAD status post stents, type II DM, hyperlipidemia, hypertension, and asthma who presented to the emergency room with complaints of tremors, slurred speech, and unsteady gait. CT brain revealed area of encephalomalacia related to prior infarct or traumatic insult posterior right temporal parietal junction with no acute intracranial abnormalities. EKG revealed sinus bradycardia at 53 bpm with T-wave flattening in leads V4 to V6 as well as leads 3 and aVF. Vital signs upon presentation to the emergency room where BP 97/75, SpO2 98% on room air, pulse 60, respiratory rate 22, and temp 98.3F. Laboratory evaluation was reviewed and was remarkable for WBC count 10.5, hemoglobin 14.7, BUN 39, creatinine 1.41, and urine tox was positive for marijuana and opiates with AST 24 and ALT 28. Patient was admitted for further management of symptoms. A-team was called for unresponsiveness on 11/24. Patient was nonverbal and had twitching of the extremities and his eyes were rolling back. He was given multiple doses of Ativan IV and loaded on Keppra. Patient was transferred to ICU for closer monitoring of his symptoms. Neurology was consulted. Multiple times were made to transfer the patient for continuous EEG including [facility], [facility], [facility], [facility] which was unsuccessful. Patient currently on Versed and propofol drip. He will be getting 2.5 hour EEG. Currently intubated for airway protection. Pertinent Imaging: Brain CT from 11/24 shows no acute process, right temporal parietal enceph alomalacia. EKG shows mild to moderate encephalopathy no epileptiform discharge. Subjective: Patient seen and examined at bedside. No acute events overnight. Patient is currently sedated and getting prolonged EEG. Per nursing, plan is to slowly wean sedation and consider spontaneous breathing trial. Pertinent positives and negatives as discussed above, a complete review of systems was performed and all other systems are negative. Vitals Signs Reviewed. General: Intubated and sedated Derm: warm, dry, right foot wound and a dressing, appears clean, dry, intact Head: atraumatic, normocephalic, symmetric Eyes: Pupils equal and reactive Mouth: no lip lesion, mucus membranes moist Cardiovascular: S1S2 reg, no murmur Lungs: CTA bilateral, no rhonchi, no rales , no accessory muscle use, intubated Abdominal: soft, nontender to palpation, no guarding, no appreciable organomegaly Ext: no gross muscle atrophy, no edema, no contractures Neuro: Sedated, does not withdraw to pain Psych: Unable to assess Data Reviewed Today: Pertinent Labs: Hemoglobin 12.7, platelet 125, pH 7.41, pCO2 30, pO2 140, bicarb 19, Imaging: Chest x-ray independently interpreted, no significant opacity, NG tube and ET tube in place Assessment and Plan: Patient remains critically ill in the medical ICU currently intubated and sedated. Prognosis is very guarded. Active: Acute metabolic encephalopathy Possible status epilepticus Elevated prolactin Ventilator-dependent respiratory failure Mild normocytic anemia Mild thrombocytopenia Hyperchloremic metabolic acidosis -Cardiology note reviewed: Metoprolol decreased to 25 twice a day echocardiogram pending -Blocker Hand note reviewed: Gradually weaned off propofol and Versed, entresto restarted, initiate tube feeds -Nephrology following, patient undergoing 2.5 hour EEG -Given elevated prolactin, lactic acid, seizures are likely -Currently on Vimpat 200 mg IV twice a day, Keppra 1.5 g IV every 12 hours, propofol drip at 30, versed drip at 5, Ativan as needed -Normal saline changed to lactated Ringer's at 75 mL an hour -CBC and BMP tomorrow Resolved: Lactic acidosis Elevated BUN Acute renal failure Chronic: CAD status post stents Systolic heart failure Type 2 diabetes Dyslipidemia Hypertension Asthma DVT ppx: Subcu heparin Code status: Full code Anticipated discharge place: Pending clinical course Anticipated discharge time: Pending clinical course Objective - Vital Signs Vital signs: Vital Signs Temp 97.6 F 11/26/22 08:00 Pulse 65 11/26/22 10:30 Resp 21 11/26/22 10:30 BP 159/106 11/26/22 10:30 Pulse Ox 100 11/26/22 10:30 FiO2 40 11/26/22 10:00 Intake & Output 11/25/22 11/26/22 11/26/22 18:59 06:59 18:59 Intake Total 3118.920 2026.571 310.45 Output Total 1025 1340 425 Balance 2093.920 686.571 -114.55 Weight 86.7 kg Intake: IV 3050 1975 275 0.9 NACL Bolus 1999 1000 Lacosamide IV 100 mg In 50 100 Sodium Chloride 0.9% 50 ml @ 100 mls/hr IVPB BID [facility] Rx#:[id number] Sodium Chloride 0.9% 1, 900 975 75 000 ml @ 75 mls/hr IV . [id number] [facility] Rx#:[id number] levETIRAcetam IV 750 mg 100 100 In Sodium Chloride 0.9% 100 ml @ 400 mls/hr IVPB Q12HR [facility] Rx#:[id number] Intake, IV Titration 68.920 51.571 35.45 Amount Midazolam HCl 200 mg In 35.45 Sodium Chloride 0.9% 60 ml @ 1 MG/HR 0.5 mls/hr IV .Q24H [facility] Rx#: [id number] Midazolam HCl 50 mg In 0.584 Sodium Chloride 0.9% 40 ml @ 1 MG/HR 1 mls/hr IV .Q24H [facility] Rx#:[id number] propofoL 1,000 mg In 68.336 51.571 Empty Bag 1 bag @ 15 MCG/ KG/MIN 7.659 mls/hr IV . Q13H4M [facility] Rx#:[id number] Output: Urine 1025 1340 425 Other: Voiding Method Indwelling Catheter Indwelling Catheter Indwelling Catheter # Voids 1 ABP, PAP, CO, CI - Last Documented Arterial Blood Pressure 165/80 - Labs CBC & Chem 7: 11/26/22 05:00 11/26/22 05:00 Labs: Abnormal Lab Results - Last 24 Hours (Table) 11/25/22 11/25/22 11/25/22 Range/Units 09:18 16:51 23:34 RBC (4.30-5.90) m/uL Hgb (13.0-17.5) gm/dL Hct (39.0-53.0) % Plt Count (150-450) k/uL Lymphocytes # (1.0-4.8) k/uL ABG pCO2 (35-45) mmHg ABG pO2 >400 H (83-108) mmHg ABG HCO3 (21-25) mmol/L ABG O2 Saturation 99.2 H (94-97) % Chloride (98-107) mmol/L Carbon Dioxide (22-30) mmol/L Glucose (74-99) mg/dL POC Glucose (mg/dL) 118 H (70-110) mg/dL Calcium (8.4-10.2) mg/dL Prolactin 18.800 H (2.100-17.700) ng/mL 11/26/22 11/26/22 11/26/22 Range/Units 05:00 05:00 05:30 RBC 4.00 L (4.30-5.90) m/uL Hgb 12.7 L (13.0-17.5) gm/dL Hct 37.3 L (39.0-53.0) % Plt Count 125 L (150-450) k/uL Lymphocytes # 0.8 L (1.0-4.8) k/uL ABG pCO2 30 L (35-45) mmHg ABG pO2 140 H (83-108) mmHg ABG HCO3 19 L (21-25) mmol/L ABG O2 Saturation 98.6 H (94-97) % Chloride 112 H (98-107) mmol/L Carbon Dioxide 17 L (22-30) mmol/L Glucose 102 H (74-99) mg/dL POC Glucose (mg/dL) (70-110) mg/dL Calcium 8.1 L (8.4-10.2) mg/dL Prolactin (2.100-17.700) ng/mL Microbiology - Last 24 Hours (Table) 11/25/22 19:45 Sputum Culture - Preliminary Sputum
[2022-11-26] MEDS: LACTATED RINGERS 1,000 ML IV SCH (11:00)
[2022-11-26 11:22] LABS: Glucose,Whole Blood 99 mg/dL (70-110)
--- NOTE | 2022-11-26 15:00 | CA ---
Transthoracic Echo Report Name: Augustine Antoine Age: 67 Gender: M : 1955 Exam Date: 11/26/2022 10:23 Exam Location: [facility] Ht (in): 70 Wt (lb): 191 Ordering Physician: Charles Aguirre MD Attending/Referring Phys: Printing Supervisor Yareli Cruz RDCS Procedure CPT: Indications: Syncope Cardiac Hx: Technical Quality: Technically difficult study Contrast 1: Lumason Total Dose (mL): 3 Contrast 2: Total Dose (mL): MEASUREMENTS (Male / Female) Normal Values 2D ECHO LV Diastolic Diameter PLAX 4.7 cm 4.2 - 5.9 / 3.9 - 5.3 cm LV Systolic Diameter PLAX 3.4 cm IVS Diastolic Thickness 1.5 cm 0.6 - 1.0 / 0.6 - 0.9 cm LVPW Diastolic Thickness 1.4 cm 0.6 - 1.0 / 0.6 - 0.9 cm LV Relative Wall Thickness 0.6 RV Internal Dim ED PLAX 3.3 cm LA Systolic Diameter LX 3.6 cm 3.0 - 4.0 / 2.7 - 3.8 cm LA Volume 43.0 cm??? 18 - 58 / 22 - 52 cm??? M-MODE Aortic Root Diameter MM 3.5 cm MV E Point Septal Separation 1.5 cm AV Cusp Separation MM 1.9 cm DOPPLER AV Peak Velocity 124.9 cm/s AV Peak Gradient 6.2 mmHg MV Area PHT 2.6 cm??? Mitral E Point Velocity 60.0 cm/s Mitral A Point Velocity 103.0 cm/s Mitral E to A Ratio 0.6 MV Deceleration Time 289.1 ms MV E' Velocity 3.9 cm/s Mitral E to MV E' Ratio 15.4 TR Peak Velocity 206.6 cm/s TR Peak Gradient 17.1 mmHg Right Ventricular Systolic Press 21.4 mmHg FINDINGS Left Ventricle Left ventricular ejection fraction is estimated at 25-30 %. Left ventricular cavity size normal. Moderate concentric left ventricular hypertrophy. Basel mid apical inferior wall hypokinesis Right Ventricle Right ventricular dilatation. Right ventricular systolic pressure within normal limits. Right Atrium Normal right atrial size. Left Atrium Normal left atrial size. Mitral Valve Structurally normal mitral valve. Mitral annular calcification. Aortic Valve Trileaflet aortic valve. No aortic valve stenosis or regurgitation. Tricuspid Valve Structurally normal tricuspid valve. Trace to mild tricuspid regurgitation. Pulmonic Valve Structurally normal pulmonic valve. No pulmonic regurgitation. Pericardium Normal pericardium. No pericardial effusion. Aorta Normal size aortic root and proximal ascending aorta. CONCLUSIONS Left ventricular ejection fraction 25-30% Moderate increased left ventricular wall thickness Mild to moderate right ventricular dilation Moderate mitral calcification Mild tricuspid regurgitation No pericardial effusion Previewed by: Dr. Mk Harkins DO (Electronically Signed) Final Date: 26 November 2022 15:00
[2022-11-26 17:29] LABS: Glucose,Whole Blood 100 mg/dL (70-110)
--- NOTE | 2022-11-26 19:32 | EEG ---
ELECTROENCEPHALOGRAM REPORT ELECTROENCEPHALOGRAM (EEG) REPORT: TECHNIQUE: This is a report from a continuous 2.5 hour video EEG performed using the 10/20 international electrode placement system. HISTORY: Tremors, slurred speech, unsteady gait, and confusion. OTHER MEDICAL HISTORY: Includes asthma, diabetes, hyperlipidemia, hypertension. CURRENT MEDICATIONS: 1. Aspirin. 2. Precedex. 3. Plavix. 4. Cymbalta. 5. Levetiracetam. 6. Ativan. 7. Toprol-XL. 8. Crestor. 9. Zofran. 10.Vimpat. 11.Propofol. FINDINGS: Recording start time: 11/26/2022 at 07:54 a.m. Recording end time: 11/26/2022 at 10:24 a.m. EVENTS: During this segment of the patient's long-term video EEG recording, no clinical or electrographic seizures were recorded. BACKGROUND: A sustained posterior dominant rhythm was not seen. ACTIVATION: Hyperventilation: Not performed. Photic stimulation: No driving seen. Sleep: Stage 2 sleep noted. ABNORMALITIES: For this entire EEG, the patient was in stage 2 sleep, diffuse synchronous and asynchronous delta range slowing was seen with a frequency of 1-2 hertz with superimposed beta frequencies. These findings were by relative periods of electrical suppression lasting up to 2 seconds. The delta range slowing was more frontally predominant. IMPRESSION: Abnormal 2.5-hour EEG. This EEG demonstrates diffuse delta range slowing with superimposed faster frequencies by relative periods of electrical suppression. These findings are not epileptiform in nature. These findings indicate severe diffuse cerebral dysfunction, which is likely in part due to medication effect. No seizures were recorded. No epileptiform activity was present. These findings were called to the neurologist taking care of the patient at 5:04 p.m. on 11/26/2022. Clinical correlation is recommended. MMODL / IJN: [id number] /
[2022-11-26] MEDS: MIDAZOLAM HCL 200 MG in SODIUM CHLORIDE 0.9% 60 ML IV SCH (20:11)
[2022-11-26] MEDS: NON FORMULARY DRUG (Rosuvastatin Calcium [Crestor] 40 MG Tablet) PO SCH (20:15)
[2022-11-26] MEDS: LORazepam 2 MG/ML INJ IV PRN (21:50)
[2022-11-26 22:35] LABS: Calcium 8.7 mg/dL (8.4-10.2); Magnesium 1.9 mg/dL (1.6-2.3); Potassium 3.9 mmol/L (3.5-5.1)
[2022-11-26 23:10] LABS: Glucose,Whole Blood 140 mg/dL (70-110)
[2022-11-27] MEDS: HEPARIN SODIUM,PORCINE/PF 5,000 UNIT/0.5 ML SYRINGE SQ SCH ×3 (00:16→16:35)
[2022-11-27] MEDS: INSULIN ASPART (NovoLOG) 100 UNIT/ML VIAL SQ SCH ×4 (00:17→18:47)
[2022-11-27] MEDS: LACTATED RINGERS 1,000 ML IV SCH (00:19)
[2022-11-27 04:23] LABS: Basophils % (A) 0 %; Eosinophils % (A) 0 %; HCT 39.2 % (39.0-53.0); HGB 13.1 gm/dL (13.0-17.5); Lymphocytes # (A) 0.6 k/uL (1.0-4.8); Lymphocytes % (A) 8 %; MCHC 33.3 g/dL (31.0-37.0); MCV 95.9 fL (80.0-100.0); Mean Platelet Volume 8.2; Monocytes # (A) 0.6 k/uL (0-1.0); Monocytes % (A) 9 %; Neutrophils # (A) 6.2 k/uL (1.3-7.7); Neutrophils % (A) 81 %; Platelet Count 134 k/uL (150-450); RBC 4.09 m/uL (4.30-5.90); RDW 14.1 % (11.5-15.5); WBC 7.6 k/uL (3.8-10.6)
[2022-11-27 05:13] LABS: Calcium 8.6 mg/dL (8.4-10.2); Potassium 3.8 mmol/L (3.5-5.1)
[2022-11-27] MEDS ORDERED: Potassium Replacement Protocol 1 EACH MISC MISCELLANE PRN ×2 (05:22→19:40)
[2022-11-27 05:27] LABS: Glucose,Whole Blood 154 mg/dL (70-110)
[2022-11-27 05:40] LABS: ABG Base Excess -4.4 mmol/L; ABG HCO3 20 mmol/L (21-25); ABG Oxygen Saturation 97.2 % (94-97); ABG PCO2 29 mmHg (35-45); ABG PH 7.44 (7.35-7.45); ABG PO2 96 mmHg (83-108); ABG TCO2 21 mmol/L (19-24); Allen Test Performed? Yes
[2022-11-27] MEDS ORDERED: POTASSIUM BICARBONATE/CIT AC 20 MEQ TABLET.EFF NG-TUBE SCH ×2 (06:00→20:00)
--- NOTE | 2022-11-27 07:35 | P.PN ---
Subjective Progress Note Date: 11/27/22 PROGRESS NOTE The patient is a 67-year-old male who presented with change in mental status. He is intubated and sedated. He has a history of CAD and PAD, details not available. There is a question of seizure activity. He is in sinus mechanism with sinus bradycardia but no evidence of malignant arrhythmia. There is no evidence of acute coronary syndrome or ventricle tachycardia. He had recurrent seizure and he has a history of chronic marijuana use. November 27: The patient remains intubated and sedated. I reviewed the data from the [facility] the patient has multivessel stenting with severe cardiomyopathy. He was evaluated for ICD. He had episodes of bigeminal rhythm yesterday, he is in sinus mechanism at this time. He has no evidence of ventricle tachycardia. His urinary output is stable. He has been followed by neurology regarding possible recurrent seizures. Hemodynamically he has been stable. His echocardiogram showed a severely impaired systolic function with mild tricuspid regurgitation Medications: Plavix 75 mg daily, aspirin, Ativan, metoprolol 25 mg twice a day, Crestor 40 mg daily PHYSICAL EXAMINATION: Blood pressure 114/60 heart rate 90, intubated LUNGS: Clear to auscultation HEART: Regular rate and rhythm, S1, S2. No S3. No systolic murmur ABDOMEN: Soft, no organomegaly, positive bowel sounds EXTREMETIES: No edema LAB: Hemoglobin is 10.1, potassium 3.8. BUN 15, creatinine 1.02. IMPRESSION: 1. Seizure activity which change in mental status 2. Respiratory failure, intubated 3. History of CAD, post-multivessel stenting 4. History of hypertension 5. Severe ischemic cardiomyopathy 6. Ventricular bigeminy PLAN: 1. Increase beta crystal 2. Add low dose PATIENCE inhibitor 3. Management of ventilator per pulmonary service 4. Add spironolactone 5. Follow renal functions Objective - Vital Signs Vital signs: Vital Signs Temp 99.7 F H 11/27/22 04:00 Pulse 113 H 11/27/22 07:00 Resp 29 H 11/27/22 07:00 BP 114/65 11/27/22 07:00 Pulse Ox 96 11/27/22 07:00 FiO2 40 11/27/22 07:00 Intake & Output 11/26/22 11/27/22 11/27/22 18:59 06:59 18:59 Intake Total 4194.097 0337.137 95 Output Total 1700 1590 210 Balance -634.460 -13.863 -115 Weight 86.7 kg 87.5 kg Intake: IV 875 1050 75 Lacosamide IV 100 mg In 100 Sodium Chloride 0.9% 50 ml @ 100 mls/hr IVPB BID [facility] Rx#:[id number] Lacosamide IV 200 mg In 50 Sodium Chloride 0.9% 50 ml @ 100 mls/hr IVPB BID [facility] Rx#:[id number] Lactated Ringers 1,000 ml 225 900 75 @ 75 mls/hr IV .[id number] [facility] Rx#:[id number] Sodium Chloride 0.9% 1, 450 000 ml @ 75 mls/hr IV . [id number] [facility] Rx#:[id number] levETIRAcetam IV 1,500 mg 100 In Saline 1 100ml.bag @ 400 mls/hr IVPB Q12HR [facility] Rx#:[id number] levETIRAcetam IV 750 mg 100 In Sodium Chloride 0.9% 100 ml @ 400 mls/hr IVPB Q12HR [facility] Rx#:[id number] Intake, IV Titration 145.540 236.137 Amount Midazolam HCl 200 mg In 50.867 11.133 Sodium Chloride 0.9% 60 ml @ 1 MG/HR 0.5 mls/hr IV .Q24H [facility] Rx#: [id number] propofoL 1,000 mg In 94.673 225.004 Empty Bag 1 bag @ 15 MCG/ KG/MIN 7.659 mls/hr IV . Q13H4M [facility] Rx#:[id number] Tube Feeding 45 200 20 Other 90 Output: Urine 1700 1590 210 Other: Voiding Method Indwelling Catheter Indwelling Catheter ABP, PAP, CO, CI - Last Documented Arterial Blood Pressure 152/79 - Labs CBC & Chem 7: 11/27/22 04:07 11/27/22 04:07 Labs: Abnormal Lab Results - Last 24 Hours (Table) 11/26/22 11/26/22 11/27/22 Range/Units 22:05 23:09 04:07 RBC (4.30-5.90) m/uL Plt Count (150-450) k/uL Lymphocytes # (1.0-4.8) k/uL ABG pCO2 (35-45) mmHg ABG HCO3 (21-25) mmol/L ABG O2 Saturation (94-97) % Chloride 111 H 109 H (98-107) mmol/L Carbon Dioxide 15 L 17 L (22-30) mmol/L Glucose 136 H 170 H (74-99) mg/dL POC Glucose (mg/dL) 140 H (70-110) mg/dL 11/27/22 11/27/22 11/27/22 Range/Units 04:07 05:25 05:32 RBC 4.09 L (4.30-5.90) m/uL Plt Count 134 L (150-450) k/uL Lymphocytes # 0.6 L (1.0-4.8) k/uL ABG pCO2 29 L (35-45) mmHg ABG HCO3 20 L (21-25) mmol/L ABG O2 Saturation 97.2 H (94-97) % Chloride (98-107) mmol/L Carbon Dioxide (22-30) mmol/L Glucose (74-99) mg/dL POC Glucose (mg/dL) 154 H (70-110) mg/dL Microbiology - Last 24 Hours (Table) 11/25/22 19:45 Sputum Culture - Preliminary Sputum
--- NOTE | 2022-11-27 07:55 | XR ---
EXAMINATION TYPE: XR chest 1V portable DATE OF EXAM: 11/27/2022 6:16 AM COMPARISON: Chest radiographs from 11/26/2022 TECHNIQUE: XR chest 1V portable Portable AP radiograph of the chest. CLINICAL INDICATION:Male, 67 years old with history of Tube placement; FINDINGS: Lungs/Pleura: Bibasilar atelectasis. No evidence for pneumothorax, pleural effusion or focal consolid ation. Pulmonary vascularity: Unremarkable. Heart/mediastinum: Cardiomediastinal silhouette is unremarkable. Musculoskeletal: No acute osseous pathology. Lines/Tubes: Endotracheal tube with distal tip 5.5 cm above the martínez. Nasogastric tube with its distal tip and side-port projecting under the diaphragm. IMPRESSION: 1. Bibasilar atelectasis, No acute cardiopulmonary disease/process. 2. Support tubes.
[2022-11-27] MEDS: DAPAGLIFLOZIN PROPANEDIOL 10 MG TABLET PO SCH (08:16)
[2022-11-27] MEDS: METOPROLOL TARTRATE 50 MG TAB PO SCH ×2 (08:17→20:16)
[2022-11-27] MEDS: levETIRAcetam IV 1,500 MG in SALINE 1 100ML.BAG IVPB SCH ×2 (08:17→20:16)
[2022-11-27] MEDS: ASPIRIN 81 MG PO SCH (08:17)
[2022-11-27] MEDS: CHLORHEXIDINE GLUCONATE 15 ML CUP MUCOUS MEM SCH ×2 (08:17→20:16)
[2022-11-27] MEDS: DULoxetine HCL 60 MG CAPSULE.DR PO SCH (08:18)
[2022-11-27] MEDS: CLOPIDOGREL 75 MG TAB PO SCH (08:18)
[2022-11-27] MEDS: LACOSAMIDE IV 200 MG in SODIUM CHLORIDE 0.9% 50 ML IVPB SCH ×2 (09:07→20:44)
--- NOTE | 2022-11-27 09:10 | P.PN ---
Subjective Progress Note Date: 11/27/22 On 11/26/2022, seeing the patient for a follow-up. The patient is currently intubated on a mechanical ventilator. The patient is a . The patient is known to have CAD and he smokes marijuana and he has a remote history of seizures. The patient. He was hospitalized and he was having recurrent seizure activity and he was postictal with altered mentation and diminished level of consciousness. CAT scan of the brain showed encephalomalacia related to prior infarcts last traumatic insults. This was noted more in the posterior right temporal parietal region. There was no other acute abnormalities noted. The patient was seen by neurology. He is currently on a combination of antiepileptics including Keppra, Vimpat and Depakote. At the time of his seizure activity he also received Ativan. Currently, he is also on propofol running at 30 mcg/kg/m. He is also on Versed running at X milligrams an hour. He is completely sedated and there is no visible seizure activity noted. He is in the process of undergoing an EEG this morning. He remains on a mechanical ventilator on assist control mode at a rate of 20 with a tidal volume of 450 and FiO2 of 40% with a PEEP of 5. His chest x-ray shows no acute abnormalities. His tube is in adequate location. Patient also has a orogastric tube in place. No consolidation. No airspace disease. He is hemodynamically stable. Cardiac rhythm is sinus. He is on heparin subcu for DVT prophylaxis. IV fluids are running in the form of normal saline at rate of 75 mL an hour. Note that the patient is also diabetic. He was receiving Lantus insulin on outpatient basis in combination with JArdiance and I noted that he was not taking any form of antiepileptic medications on outpatient basis. An EEG was ordered the done on 11/24/2022 and obviously EEG was abnormal and there was background slowing suggestive of mild to moderate encephalopathy. No focal epileptic discharges were noted. There was extensive but activity due to medication/Ativan effects. Neurologically is currently on the case and the patient was evaluated by the neurology service. Blood gas from today shows a pH of 7.41 with a pCO2 of 30 and pO2 140. White cycles of 12.7 with a hemoglobin of 12.7 and a platelet count of 125. Sodium is at 139 potassium is at 4.1 bicarbs at 17 BUN is 20 with a creatinine of 1.1. Lactic acid level dropped from 4.0 down to 0.9. I also noted an elevation the prolactin level, borderline elevation, could be related to the seizure activity. On today's evaluation of 11/27/2022, the patient is being seen for a follow-up. The patient is currently intubated on a mechanical ventilator and the patient was on a combination of drugs for status epilepticus. Noted the EEG was done yesterday and it showed no evidence of any active seizures and this morning the patient remains on propofol running at 35 mcg/kg/m and the patient is also on Versed 1 mg/h. He is still deeply sedated. The EEG showed diffuse synchronous and asynchronous delta range slowing and there was no seizure activity noted. Meanwhile, the patient continues to be on a combination of Keppra 1.5 g twice a day and Vimpat at a dose of 200 mg IV twice a day. No active seizures noted on examination. He remains hemodynamically stable. The patient remains on a mechanical ventilator. He is currently on assist control mode at the rate of 20, tidal volume of 450, FiO2 of 40% with a PEEP of 5. The chest x-ray from today shows some bibasilar atelectatic changes. No airspace disease or acute pulmonary infiltrates. Blood gas from today shows a pH of 7.44 with a pCO2 of 29 and pO2 of 96 and this was done on the above-mentioned ventilator settings. The patient hemodynamically is stable. He is on no pressors. His cardiac rhythm is sinus although he was having frequent PVCs. Echocardiogram was done yesterday and the patient was found to have systolic heart failure. The patient has an ejection fraction of 25-30%. There is also evidence of RV dilatation. There was mild to moderate RV dilatation moderate mitral calcification, tricuspid regurgitation, moderate increase in the LV wall thickness. Patient was seen by cardiology. The patient was started on a combination of treatment including metoprolol 50 mg by mouth twice a day. Patient is also on aspirin and Plavix. The patient is on farxiga and Zestril 2.5 mg twice a day. Aldactone was also added at a dose of 25 mg by mouth daily. The patient remains on enteral feeding for nutritional support. Is currently on vital high-protein at the rate of 30 mL an hour. Rest of the blood work is essentially stable. The discomfort is at 7.6 with a hemoglobin of 15. BUN is at 15 with a creatinine of 1.02. Bicarb is at 17. Sodiums of 138. Objective - Vital Signs Vital signs: Vital Signs Temp 99.7 F H 11/27/22 04:00 Pulse 90 11/27/22 08:00 Resp 26 H 11/27/22 08:00 BP 119/70 11/27/22 08:00 Pulse Ox 97 11/27/22 08:16 FiO2 40 11/27/22 08:16 Intake & Output 11/26/22 11/27/22 11/27/22 18:59 06:59 18:59 Intake Total 7540.168 3665.137 233 Output Total 1700 1590 410 Balance -634.460 -13.863 -177 Weight 86.7 kg 87.5 kg Intake: IV 875 1050 153 Lacosamide IV 100 mg In 100 Sodium Chloride 0.9% 50 ml @ 100 mls/hr IVPB BID [facility] Rx#:[id number] Lacosamide IV 200 mg In 50 Sodium Chloride 0.9% 50 ml @ 100 mls/hr IVPB BID [facility] Rx#:[id number] Lactated Ringers 1,000 ml 225 900 150 @ 75 mls/hr IV .[id number] [facility] Rx#:[id number] Pressure Bag (0.9 Sodium 3 Chloride) Sodium Chloride 0.9% 1, 450 000 ml @ 75 mls/hr IV . [id number] [facility] Rx#:[id number] levETIRAcetam IV 1,500 mg 100 In Saline 1 100ml.bag @ 400 mls/hr IVPB Q12HR [facility] Rx#:[id number] levETIRAcetam IV 750 mg 100 In Sodium Chloride 0.9% 100 ml @ 400 mls/hr IVPB Q12HR [facility] Rx#:[id number] Intake, IV Titration 145.540 236.137 Amount Midazolam HCl 200 mg In 50.867 11.133 Sodium Chloride 0.9% 60 ml @ 1 MG/HR 0.5 mls/hr IV .Q24H [facility] Rx#: [id number] propofoL 1,000 mg In 94.673 225.004 Empty Bag 1 bag @ 15 MCG/ KG/MIN 7.659 mls/hr IV . Q13H4M [facility] Rx#:[id number] Tube Feeding 45 200 50 Other 90 30 Output: Urine 1700 1590 410 Other: Voiding Method Indwelling Catheter Indwelling Catheter ABP, PAP, CO, CI - Last Documented Arterial Blood Pressure 114/55 - Exam No acute distress, poorly responsive. , The patient is deeply sedated with a combination of propofol and Versed. Head exam was generally normal. There was no scleral icterus or corneal arcus. Mucous membranes were moist. Neck supple. Full range of motion. No adenopathy thyromegaly or neck vein distention. Cardiovascular examination reveals regular rhythm rate. S1-S2 normal. No S3 or S4. No discernible murmur noted. Lungs reveal clear breath sounds. Breath sounds are equal bilaterally. No adventitious lung sounds including wheezes rhonchi or crackles. Abdomen soft bowel sounds are heard. No masses or tenderness. Extremities are intact. No cyanosis clubbing or edema. Skin is without rash or lesion. Neurologic examination reveals a poorly responsive, as the patient is on a combination of propofol and Versed. No seizure activity the has been noted and the patient is equal and symmetrical pupils bilaterally. Motor function cannot be assessed. Sensory functions cannot be assessed. - Labs CBC & Chem 7: 11/27/22 04:07 11/27/22 04:07 Labs: Abnormal Lab Results - Last 24 Hours (Table) 11/26/22 11/26/22 11/27/22 Range/Units 22:05 23:09 04:07 RBC (4.30-5.90) m/uL Plt Count (150-450) k/uL Lymphocytes # (1.0-4.8) k/uL ABG pCO2 (35-45) mmHg ABG HCO3 (21-25) mmol/L ABG O2 Saturation (94-97) % Chloride 111 H 109 H (98-107) mmol/L Carbon Dioxide 15 L 17 L (22-30) mmol/L Glucose 136 H 170 H (74-99) mg/dL POC Glucose (mg/dL) 140 H (70-110) mg/dL 11/27/22 11/27/22 11/27/22 Range/Units 04:07 05:25 05:32 RBC 4.09 L (4.30-5.90) m/uL Plt Count 134 L (150-450) k/uL Lymphocytes # 0.6 L (1.0-4.8) k/uL ABG pCO2 29 L (35-45) mmHg ABG HCO3 20 L (21-25) mmol/L ABG O2 Saturation 97.2 H (94-97) % Chloride (98-107) mmol/L Carbon Dioxide (22-30) mmol/L Glucose (74-99) mg/dL POC Glucose (mg/dL) 154 H (70-110) mg/dL Microbiology - Last 24 Hours (Table) 11/25/22 19:45 Sputum Culture - Preliminary Sputum Assessment and Plan Plan: Recurrent and persistent seizure activity, with acute mental status changes. The patient is currently on a combination of Versed and propofol. EEG is in progress right now. No seizure activity has been noted. The patient is also on a combination of antiepileptic. The patient is taking Keppra 1.5 g every 12 hours, Vimpat 200 mg IV twice a day and Depakote has been discontinued. He jony ins on Versed 1 mg an hour and propofol running at 15 mcg/kg/m. seizure activity based on the EGD that was done yesterday. There is diffuse encephalopathy and delta waves related to the drugs. Acute hypoxic/hypercapnic respiratory failure due to diminished level of consciousness/postictal stage following seizure activity. Chest x-ray is clear. Adequate oxygenation and ventilation for now CVA, history of as the patient has some prior right temporoparietal region encephalomalacia either related to previous trauma or CVA acute lactic acidosis, recovered Non-anion gap metabolic acidosis Cardiomyopathy with systolic heart failure with an ejection fraction of 25-30% Frequent PVCs Borderline thrombocytopenia History of hypertension. CAD History of PCI with stent placement. History of hyperlipidemia. History of asthma. History of diabetes mellitus. History of gastroesophageal reflux disease. History of chronic marijuana use. Peripheral vascular disease and the patient has undergone previous vascular stenting to the lower extremity Previous amputation of the right great toe Plan: Continue ventilator support and no ventilator changes for today The patient will be taken out of Versed first and later on we will going to discontinue the propofol and assess the patient's mental status and decide if we can do further weaning. This will largely depend on his underlying mentation and ongoing seizure activity. For now, the patient has been adequately covered with accommodation of Keppra and Vimpat. We will assess the mental status at the later stage depending on his overall progress Continue IV Keppra and Vimpat for now IV fluids to kvo tube feeds viltal Hp Patient has chronic systolic heart failure. Currently on a combination of metoprolol, lisinopril, Aldactone, and farxiga Continue aspirin and Plavix Condition is on a significant level continue to follow and make further recommendations based on his progress. Physical care evaluation that was done in more than 30 minutes. Time with Patient: Greater than 30
[2022-11-27] MEDS: SPIRONOLACTONE 25 MG TAB PO SCH (09:27)
--- NOTE | 2022-11-27 10:08 | P.PN ---
Subjective Progress Note Date: 11/26/22 Patient initially seen by Dr. Charles Aguirre. Please refer to his note for details. Patient is a 67-year-old male with past 2-3 weeks history of jerking/tremors, unresponsiveness. Patient has old encephalomalacia right temporoparietal region. Dr. Aguirre felt patient had clinical status but EEG did not show any seizure activity. EEG only showed excessive beta activity/Ativan effect. No prior history of seizures and was not on any AED. Patient currently on Keppra 1500 mg IV twice a day, Vimpat 200 mg twice a day. Patient also on Versed 2 mg/h, also on propofol 40 mcg/kg/m. The nurse has reported some left arm tremoring, some mouth tremors noted. Patient had a 2.5 hours EEG, which did not reveal any epileptiform activity. Objective - Vital Signs Vital signs: Vital Signs Temp 99.2 F 11/26/22 16:00 Pulse 71 11/26/22 19:00 Resp 24 11/26/22 19:00 BP 163/95 11/26/22 16:30 Pulse Ox 100 11/26/22 19:00 FiO2 40 11/26/22 19:29 Intake & Output 11/26/22 11/26/22 11/27/22 06:59 18:59 06:59 Intake Total 2126.571 1065.540 85 Output Total 1340 1700 200 Balance 786.571 -634.460 -115 Weight 86.7 kg 86.7 kg Intake: IV 1975 875 75 0.9 NACL Bolus 1000 Lacosamide IV 100 mg In 100 Sodium Chloride 0.9% 50 ml @ 100 mls/hr IVPB BID [facility] Rx#:[id number] Lactated Ringers 1,000 ml 225 75 @ 75 mls/hr IV .[id number] [facility] Rx#:[id number] Sodium Chloride 0.9% 1, 975 450 000 ml @ 75 mls/hr IV . [id number] [facility] Rx#:[id number] levETIRAcetam IV 750 mg 100 In Sodium Chloride 0.9% 100 ml @ 400 mls/hr IVPB Q12HR [facility] Rx#:[id number] Intake, IV Titration 151.571 145.540 Amount Midazolam HCl 200 mg In 50.867 Sodium Chloride 0.9% 60 ml @ 1 MG/HR 0.5 mls/hr IV .Q24H [facility] Rx#: [id number] propofoL 1,000 mg In 151.571 94.673 Empty Bag 1 bag @ 15 MCG/ KG/MIN 7.659 mls/hr IV . Q13H4M [facility] Rx#:[id number] Tube Feeding 45 10 Output: Urine 1340 1700 200 Other: Voiding Method Indwelling Catheter Indwelling Catheter ABP, PAP, CO, CI - Last Documented Arterial Blood Pressure 135/57 - Exam On examination patient is intubated, sedated. He is on propofol 40 mcg/kg/m. also on Versed 2 mg per hour. No obvious seizure activity noted at this time. Patient's pupils are equal, round and reacting. Oculocephalics are absent. Corneals is mildly present. Tone is equal bilaterally. Patient was noted to have tongue protruded on left side of the ET tube. Some chin tremor was noted, which did not appear seizure- like. There is no peripheral edema. 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 Patient has significant hammertoes particularly in the left. Patient has drooling from right side of the mouth. No response to painful stimuli. Rest of the examination cannot be performed. - Labs CBC & Chem 7: 11/27/22 04:07 11/27/22 04:07 Labs: Abnormal Lab Results - Last 24 Hours (Table) 11/25/22 11/26/22 11/26/22 Range/Units 23:34 05:00 05:00 RBC 4.00 L (4.30-5.90) m/uL Hgb 12.7 L (13.0-17.5) gm/dL Hct 37.3 L (39.0-53.0) % Plt Count 125 L (150-450) k/uL Lymphocytes # 0.8 L (1.0-4.8) k/uL ABG pCO2 (35-45) mmHg ABG pO2 (83-108) mmHg ABG HCO3 (21-25) mmol/L ABG O2 Saturation (94-97) % Chloride 112 H (98-107) mmol/L Carbon Dioxide 17 L (22-30) mmol/L Glucose 102 H (74-99) mg/dL POC Glucose (mg/dL) 118 H (70-110) mg/dL Calcium 8.1 L (8.4-10.2) mg/dL 11/26/22 Range/Units 05:30 RBC (4.30-5.90) m/uL Hgb (13.0-17.5) gm/dL Hct (39.0-53.0) % Plt Count (150-450) k/uL Lymphocytes # (1.0-4.8) k/uL ABG pCO2 30 L (35-45) mmHg ABG pO2 140 H (83-108) mmHg ABG HCO3 19 L (21-25) mmol/L ABG O2 Saturation 98.6 H (94-97) % Chloride (98-107) mmol/L Carbon Dioxide (22-30) mmol/L Glucose (74-99) mg/dL POC Glucose (mg/dL) (70-110) mg/dL Calcium (8.4-10.2) mg/dL Microbiology - Last 24 Hours (Table) 11/25/22 19:45 Sputum Culture - Preliminary Sputum Assessment and Plan Assessment: This is a 67-year-old gentleman and it appears he's been having the unrespo nsiveness episodes with eye rolling back at home for 2-3 weeks. * Repeated episodes of unresponsiveness with eye rolling back, eye twitching and myoclonic jerks is likely new onset seizures (especially with hx of encephalomalacia right temporoparietal junction that can be focus) and today had jerking of the upper extremities. Patient is in clinical status epilepticus. EEG was negative for seizure or discharge but there is mild to moderate encephalopathy. It is possible the focus is small or deep that picked-up on surface EEG. * Past 2-3 weeks in which she experience tremor/jerking of his arms and in the legs had become increasingly weak to the point that he no longer ambulates, unresponsive seems likely due to new onset seizure * Encephalomalacia over right temporoparietal junction seems due to prior infarct or traumatic insult * History of coronary artery disease status post stent * Type 2 diabetes * Hypertension * Hyperlipidemia Plan: Prolonged EEG was abnormal due to diffuse delta range slowing with superimposed faster frequencies by relative periods of electrical suppression. These findings are not epileptiform in nature. These findings indicate severe diffuse cerebral dysfunction which is likely in part due to medication effect. No seizures were recorded. No epileptiform activity was present. Suggest decreasing Versed by 1 mg every 4 hours until off. Patient currently on Keppra 1500 mg twice a day and Vimpat 200 mg twice a day. If he remains stable, we will start cutting back on the seizure medication. Pending MRI Brain once extubated. 2-D echo revealed left ventricular EF 25-30%. Moderate increase left ventricular wall thickness. Mild to moderate right ventricular dilation. Moderate mitral calcification. Cardiology on board. On 11/24/2022 primary has been attempting to transfer the patient for long-term EEG since the patient continues to have episodes of seizures. So far no facility has accepted him. We'll continue to try. Ativan 1mg Q1 hour PRN seizure. On seizure precaution and pads. Continue neuro checks Will defer the rest of medical management to primary team.
--- NOTE | 2022-11-27 10:20 | P.PN ---
Subjective Progress Note Date: 11/27/22 Hospital Course: Patient is a 67-year-old male with a PMH of CAD status post stents, type II DM, hyperlipidemia, hypertension, and asthma who presented to the emergency room with complaints of tremors, slurred speech, and unsteady gait. CT brain revealed area of encephalomalacia related to prior infarct or traumatic insult posterior right temporal parietal junction with no acute intracranial abnormalities. EKG revealed sinus bradycardia at 53 bpm with T-wave flattening in leads V4 to V6 as well as leads 3 and aVF. Vital signs upon presentation to the emergency room where BP 97/75, SpO2 98% on room air, pulse 60, respiratory rate 22, and temp 98.3F. Laboratory evaluation was reviewed and was remarkable for WBC count 10.5, hemoglobin 14.7, BUN 39, creatinine 1.41, and urine tox was positive for marijuana and opiates with AST 24 and ALT 28. Patient was admitted for further management of symptoms. A-team was called for unresponsiveness on 11/24. Patient was nonverbal and had twitching of the extremities and his eyes were rolling back. He was given multiple doses of Ativan IV and loaded on Keppra. Patient was transferred to ICU for closer monitoring of his symptoms. Neurology was consulted. Multiple times were made to transfer the patient for continuous EEG including [facility], [facility], [facility], [facility] which was unsuccessful. Patient currently on Versed and propofol drip. Prolonged EEG did not show any epileptiform activity. Currently intubated for airway protection. Patient currently being weaned off of sedation. Pertinent Imaging: Brain CT from 11/24 shows no acute process, right temporal parietal encephalomalacia. EKG shows mild to moderate encephalopathy no epileptiform discharge. Subjective: Patient seen and examined at bedside. Overnight, patient did have intermittent tremor which was examined by the neurologist and given IV Ativan for. Per nursing, currently weaning sedation to consider spontaneous breathing trial. Pertinent positives and negatives as discussed above, a complete review of systems was performed and all other systems are negative. Vitals Signs Reviewed. General: Intubated and sedated Derm: warm, dry, Head: atraumatic, normocephalic, symmetric Eyes: Pupils equal and reactive Mouth: no lip lesion, mucus membranes moist Cardiovascular: S1S2 reg, no murmur Lungs: CTA bilateral, no rhonchi, no rales , no accessory muscle use, intubated Abdominal: soft, nontender to palpation, no guarding, no appreciable organomegaly Ext: no gross muscle atrophy, no edema, no contractures, right foot toe amputation Neuro: Sedated, moving all extremities Psych: Unable to assess Data Reviewed Today: Pertinent Labs: Hemoglobin 13.1, platelet 134, pH 7.44, pCO2 29, pO2 97, bicarb 20, Imaging: Chest x-ray independently interpreted, no significant opacity, NG tube and ET tube in place Prolonged EEG: No epileptiform activity Echocardiogram: LVEF 25-30%, mild TR Assessment and Plan: Patient remains critically ill in the medical ICU currently intubated and sedated. Being weaned off of sedation. Prognosis is very guarded. Active: Acute metabolic encephalopathy Possible status epilepticus Elevated prolactin Ventilator-dependent respiratory failure Mild thrombocytopenia Hyperchloremic metabolic acidosis Systolic heart failure, chronic -[employer] note reviewed: Gradually wean Versed, and then propofol. IV fluids to KVO -Neurology following, pending brain MRI, wean sedation -Currently on Vimpat 200 mg IV twice a day, Keppra 1.5 g IV every 12 hours, propofol drip, versed drip, Ativan as needed -Acidosis improving, off of IV fluids -BMP ordered for tomorrow -Cardiology note reviewed: Metoprolol increased to 50 twice a day, added lisinopril 2.5 twice a day, and spironolactone 25 daily, and farxiga 10 mg daily Resolved: Lactic acidosis Elevated BUN Acute renal failure Mild normocytic anemia Chronic: CAD status post stents Type 2 diabetes Dyslipidemia Hypertension Asthma DVT ppx: Subcu heparin Code status: Full code Anticipated discharge place: Pending clinical course Anticipated discharge time: Pending clinical course Objective - Vital Signs Vital signs: Vital Signs Temp 99.7 F H 11/27/22 04:00 Pulse 105 H 11/27/22 09:00 Resp 28 H 11/27/22 09:00 BP 109/72 11/27/22 08:30 Pulse Ox 96 11/27/22 09:00 FiO2 40 11/27/22 09:00 Intake & Output 11/26/22 11/27/22 11/27/22 18:59 06:59 18:59 Intake Total 9412.047 8962.137 591.080 Output Total 1700 1590 685 Balance -634.460 -13.863 -93.920 Weight 86.7 kg 87.5 kg Intake: IV 875 1050 381 Lacosamide IV 100 mg In 100 Sodium Chloride 0.9% 50 ml @ 100 mls/hr IVPB BID [facility] Rx#:[id number] Lacosamide IV 200 mg In 50 50 Sodium Chloride 0.9% 50 ml @ 100 mls/hr IVPB BID [facility] Rx#:[id number] Lactated Ringers 1,000 ml 225 900 225 @ 75 mls/hr IV .[id number] [facility] Rx#:[id number] Pressure Bag (0.9 Sodium 6 Chloride) Sodium Chloride 0.9% 1, 450 000 ml @ 75 mls/hr IV . [id number] [facility] Rx#:[id number] levETIRAcetam IV 1,500 mg 100 100 In Saline 1 100ml.bag @ 400 mls/hr IVPB Q12HR [facility] Rx#:[id number] levETIRAcetam IV 750 mg 100 In Sodium Chloride 0.9% 100 ml @ 400 mls/hr IVPB Q12HR [facility] Rx#:[id number] Intake, IV Titration 145.540 236.137 100.080 Amount Midazolam HCl 200 mg In 50.867 11.133 1.917 Sodium Chloride 0.9% 60 ml @ 1 MG/HR 0.5 mls/hr IV .Q24H [facility] Rx#: [id number] propofoL 1,000 mg In 94.673 225.004 98.163 Empty Bag 1 bag @ 15 MCG/ KG/MIN 7.659 mls/hr IV . Q13H4M [facility] Rx#:[id number] Tube Feeding 45 200 80 Other 90 30 Output: Urine 1700 1590 685 Other: Voiding Method Indwelling Catheter Indwelling Catheter ABP, PAP, CO, CI - Last Documented Arterial Blood Pressure 146/74 - Labs CBC & Chem 7: 11/27/22 04:07 11/27/22 04:07 Labs: Abnormal Lab Results - Last 24 Hours (Table) 11/26/22 11/26/22 11/27/22 Range/Units 22:05 23:09 04:07 RBC (4.30-5.90) m/uL Plt Count (150-450) k/uL Lymphocytes # (1.0-4.8) k/uL ABG pCO2 (35-45) mmHg ABG HCO3 (21-25) mmol/L ABG O2 Saturation (94-97) % Chloride 111 H 109 H (98-107) mmol/L Carbon Dioxide 15 L 17 L (22-30) mmol/L Glucose 136 H 170 H (74-99) mg/dL POC Glucose (mg/dL) 140 H (70-110) mg/dL 11/27/22 11/27/22 11/27/22 Range/Units 04:07 05:25 05:32 RBC 4.09 L (4.30-5.90) m/uL Plt Count 134 L (150-450) k/uL Lymphocytes # 0.6 L (1.0-4.8) k/uL ABG pCO2 29 L (35-45) mmHg ABG HCO3 20 L (21-25) mmol/L ABG O2 Saturation 97.2 H (94-97) % Chloride (98-107) mmol/L Carbon Dioxide (22-30) mmol/L Glucose (74-99) mg/dL POC Glucose (mg/dL) 154 H (70-110) mg/dL Microbiology - Last 24 Hours (Table) 11/25/22 19:45 Gram Stain - Preliminary Sputum Sputum Culture - Preliminary
[2022-11-27] MEDS: DEXMEDETOMIDINE/0.9% NACL(PMX) 400 MCG in EMPTY BAG 1 BAG IV SCH ×2 (11:10→23:00)
[2022-11-27] MEDS: NOREPINEPHRINE 4 MG in SODIUM CHLORIDE 0.9% 250 ML IV SCH (12:10)
[2022-11-27 12:44] LABS: Glucose,Whole Blood 161 mg/dL (70-110)
[2022-11-27 14:04] LABS: Glucose,Whole Blood 155 mg/dL (70-110)
--- NOTE | 2022-11-27 16:14 | P.PN ---
Subjective Progress Note Date: 11/27/22 11/27/2022: Patient was seen for a follow-up. Patient's and patient's sister were both present today. Patient is of Versed now. Patient's propofol was discontinued. Patient however was not appropriate. Nursing staff tried to wake patient up, but he was still encephalopathic, had a nonstop coughing. He was placed on Precedex, but did not work. Now his back on propofol. Patient currently on propofol 40 mcg/kg/m. Now he has developed hypotension and is on norepinephrine 0.05 g. 11/26/2022: Patient initially seen by Dr. Charles Aguirre. Please refer to his note for details. Patient is a 67-year-old male with past 2-3 weeks history of jerking/tremors, unresponsiveness. Patient has old encephalomalacia right temporoparietal region. Dr. Aguirre felt patient had clinical status but EEG did not show any seizure activity. EEG only showed excessive beta activity/Ativan effect. No prior history of seizures and was not on any AED. Patient currently on Keppra 1500 mg IV twice a day, Vimpat 200 mg twice a day. Patient also on Versed 2 mg/h, also on propofol 40 mcg/kg/m. The nurse has reported some left arm tremoring, some mouth tremors noted. Patient had a 2.5 hours EEG, which did not reveal any epileptiform activity. Objective - Vital Signs Vital signs: Vital Signs Temp 100.7 F H 11/27/22 12:00 Pulse 68 11/27/22 14:20 Resp 23 11/27/22 14:00 BP 144/89 11/27/22 14:05 Pulse Ox 96 11/27/22 14:20 FiO2 40 11/27/22 14:00 Intake & Output 11/26/22 11/27/22 11/27/22 18:59 06:59 18:59 Intake Total 8843.541 0434.137 840.577 Output Total 1700 1590 1555 Balance -634.460 -13.863 -714.423 Weight 86.7 kg 87.5 kg Intake: IV 875 1050 473 Lacosamide IV 100 mg In 100 Sodium Chloride 0.9% 50 ml @ 100 mls/hr IVPB BID [facility] Rx#:[id number] Lacosamide IV 200 mg In 50 50 Sodium Chloride 0.9% 50 ml @ 100 mls/hr IVPB BID [facility] Rx#:[id number] Lactated Ringers 1,000 ml 225 900 305 @ 20 mls/hr IV .Q24H [facility] Rx#:[id number] Pressure Bag (0.9 Sodium 18 Chloride) Sodium Chloride 0.9% 1, 450 000 ml @ 75 mls/hr IV . [id number] [facility] Rx#:[id number] levETIRAcetam IV 1,500 mg 100 100 In Saline 1 100ml.bag @ 400 mls/hr IVPB Q12HR [facility] Rx#:[id number] levETIRAcetam IV 750 mg 100 In Sodium Chloride 0.9% 100 ml @ 400 mls/hr IVPB Q12HR [facility] Rx#:[id number] Intake, IV Titration 145.540 236.137 152.577 Amount Dexmedetomidine/0.9% NaCl 24.173 (Pmx) 400 mcg In Empty Bag 1 bag @ 0.4 MCG/KG/HR 8.75 mls/hr IV .[id number] [facility] Rx#:[id number] Midazolam HCl 200 mg In 50.867 11.133 1.917 Sodium Chloride 0.9% 60 ml @ 1 MG/HR 0.5 mls/hr IV .Q24H [facility] Rx#: [id number] Norepinephrine 4 mg In 20.112 Sodium Chloride 0.9% 250 ml @ 0.03 MCG/KG/MIN 10. 001 mls/hr IV .Q24H [facility] Rx#:[id number] propofoL 1,000 mg In 94.673 225.004 106.375 Empty Bag 1 bag @ 15 MCG/ KG/MIN 7.659 mls/hr IV . Q13H4M [facility] Rx#:[id number] Tube Feeding 45 200 155 Other 90 60 Output: Urine 1700 1590 1555 Other: Voiding Method Indwelling Catheter Indwelling Catheter ABP, PAP, CO, CI - Last Documented Arterial Blood Pressure 115/46 - Exam 11/27/2022: Patient intubated, sedated on propofol 40 mcg/kg/m. 11/26/2022: On examination patient is intubated, sedated. He is on propofol 40 mcg/kg/m. also on Versed 2 mg per hour. No obvious seizure activity noted at this time. Patient's pupils are equal, round and reacting. Oculocephalics are absent. Corneals is mildly present. Tone is equal bilaterally. Patient was noted to have tongue protruded on left side of the ET tube. Some chin tremor was noted, which did not appear seizure- like. There is no peripheral edema. 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 Patient has significant hammertoes particularly in the left. Patient has drooling from right side of the mouth. No response to painful stimuli. Rest of the examination cannot be performed. - Labs CBC & Chem 7: 11/27/22 04:07 11/27/22 04:07 Labs: Abnormal Lab Results - Last 24 Hours (Table) 11/26/22 11/26/22 11/27/22 Range/Units 22:05 23:09 04:07 RBC (4.30-5.90) m/uL Plt Count (150-450) k/uL Lymphocytes # (1.0-4.8) k/uL ABG pCO2 (35-45) mmHg ABG HCO3 (21-25) mmol/L ABG O2 Saturation (94-97) % Chloride 111 H 109 H (98-107) mmol/L Carbon Dioxide 15 L 17 L (22-30) mmol/L Glucose 136 H 170 H (74-99) mg/dL POC Glucose (mg/dL) 140 H (70-110) mg/dL 11/27/22 11/27/22 11/27/22 Range/Units 04:07 05:25 05:32 RBC 4.09 L (4.30-5.90) m/uL Plt Count 134 L (150-450) k/uL Lymphocytes # 0.6 L (1.0-4.8) k/uL ABG pCO2 29 L (35-45) mmHg ABG HCO3 20 L (21-25) mmol/L ABG O2 Saturation 97.2 H (94-97) % Chloride (98-107) mmol/L Carbon Dioxide (22-30) mmol/L Glucose (74-99) mg/dL POC Glucose (mg/dL) 154 H (70-110) mg/dL 11/27/22 11/27/22 Range/Units 12:42 14:02 RBC (4.30-5.90) m/uL Plt Count (150-450) k/uL Lymphocytes # (1.0-4.8) k/uL ABG pCO2 (35-45) mmHg ABG HCO3 (21-25) mmol/L ABG O2 Saturation (94-97) % Chloride (98-107) mmol/L Carbon Dioxide (22-30) mmol/L Glucose (74-99) mg/dL POC Glucose (mg/dL) 161 H 155 H (70-110) mg/dL Microbiology - Last 24 Hours (Table) 11/25/22 19:45 Gram Stain - Preliminary Sputum Sputum Culture - Preliminary Assessment and Plan Assessment: This is a 67-year-old gentleman and it appears he's been having the unresponsiveness episodes with eye rolling back at home for 2-3 weeks. * Repeated episodes of unresponsiveness with eye rolling back, eye twitching and myoclonic jerks is likely new onset seizures (especially with hx of encephalomalacia right temporoparietal junction that can be focus) and today had jerking of the upper extremities. Patient is in clinical status epilepticus. EEG was negative for seizure or discharge but there is mild to moderate encephalopathy. It is possible the focus is small or deep that picked-up on surface EEG. * Past 2-3 weeks in which she experience tremor/jerking of his arms and in the legs had become increasingly weak to the point that he no longer ambulates, unresponsive seems likely due to new onset seizure * Encephalomalacia over right temporoparietal junction seems due to prior infarct or traumatic insult * History of coronary artery disease status post stent * Type 2 diabetes * Hypertension * Hyperlipidemia Plan: Prolonged EEG was abnormal due to diffuse delta range slowing with superimposed faster frequencies by relative periods of electrical suppression. These findings are not epileptiform in nature. These findings indicate severe diffuse cerebral dysfunction which is likely in part due to medication effect. No seizures were recorded. No epileptiform activity was present. Patient is of Versed. Patient currently on Keppra 1500 mg twice a day and Vimpat 200 mg twice a day. If he remains stable, we will start cutting back on the seizure medication. Pending MRI Brain once extubated. 2-D echo revealed left ventricular EF 25-30%. Moderate increase left ventricular wall thickness. Mild to moderate right ventricular dilation. Moderate mitral calcification. Cardiology on board. On 11/24/2022 primary has been attempting to transfer the patient for long-term EEG since the patient continues to have episodes of seizures. So far no facility has accepted him. We'll continue to try. Ativan 1mg Q1 hour PRN seizure. On seizure precaution and pads. Continue neuro checks. Discussed with patient's family and patient's nursing detail. Will defer the rest of medical management to primary team.
[2022-11-27] MEDS: SODIUM CHLORIDE 0.9% 500 ML 500 ML IV SCH (16:30)
[2022-11-27] MEDS: MIDAZOLAM HCL 200 MG in SODIUM CHLORIDE 0.9% 60 ML IV SCH (16:37)
[2022-11-27 18:04] LABS: Glucose,Whole Blood 169 mg/dL (70-110)
[2022-11-27] MEDS: NON FORMULARY DRUG (Rosuvastatin Calcium [Crestor] 40 MG Tablet) PO SCH (19:55)
[2022-11-28 00:10] LABS: Glucose,Whole Blood 159 mg/dL (70-110)
[2022-11-28] MEDS: INSULIN ASPART (NovoLOG) 100 UNIT/ML VIAL SQ SCH ×5 (00:10→23:26)
[2022-11-28] MEDS: HEPARIN SODIUM,PORCINE/PF 5,000 UNIT/0.5 ML SYRINGE SQ SCH ×4 (00:11→23:26)
[2022-11-28] MEDS: ALBUTEROL NEBULIZED 2.5 MG/3 ML INHALATION SCH ×5 (00:37→15:09)
[2022-11-28 04:56] LABS: Glucose,Whole Blood 160 mg/dL (70-110)
[2022-11-28 05:07] LABS: Basophils % (A) 0 %; Eosinophils # (A) 0.1 k/uL (0-0.7); Eosinophils % (A) 1 %; HGB 12.9 gm/dL (13.0-17.5); Lymphocytes % (A) 11 %; MCHC 33.2 g/dL (31.0-37.0); MCV 96.5 fL (80.0-100.0); Mean Platelet Volume 8.3; Monocytes # (A) 0.7 k/uL (0-1.0); Monocytes % (A) 8 %; Neutrophils # (A) 7.2 k/uL (1.3-7.7); Neutrophils % (A) 79 %; Platelet Count 136 k/uL (150-450); RBC 4.05 m/uL (4.30-5.90); RDW 14.2 % (11.5-15.5); WBC 9.1 k/uL (3.8-10.6)
[2022-11-28 05:17] LABS: Calcium 8.9 mg/dL (8.4-10.2); Magnesium 2.1 mg/dL (1.6-2.3); Potassium 3.9 mmol/L (3.5-5.1)
[2022-11-28] MEDS: NOREPINEPHRINE 4 MG in SODIUM CHLORIDE 0.9% 250 ML IV SCH ×2 (05:27→08:12)
[2022-11-28] MEDS ORDERED: POTASSIUM CHLORIDE ER 20 MEQ TAB.ER PO SCH (06:00)
[2022-11-28 06:05] LABS: ABG Base Excess -2.4 mmol/L; ABG HCO3 22 mmol/L (21-25); ABG Oxygen Saturation 98.3 % (94-97); ABG PCO2 34 mmHg (35-45); ABG PH 7.43 (7.35-7.45); ABG PO2 142 mmHg (83-108); ABG TCO2 23 mmol/L (19-24); Allen Test Performed? Yes
--- NOTE | 2022-11-28 07:30 | XR ---
EXAMINATION TYPE: XR chest 1V portable DATE OF EXAM: 11/28/2022 6:21 AM COMPARISON: Chest radiograph from one day prior. TECHNIQUE: XR chest 1V portable Portable AP radiograph of the chest. CLINICAL INDICATION:Male, 67 years old with history of Tube placement; FINDINGS: Lungs/Pleura: There is no evidence of pleural effusion, focal consolidation, or pneumothorax. Pulmonary vascularity: Unremarkable. Heart/mediastinum: Cardiomediastinal silhouette is unremarkable. Musculoskeletal: Degenerative changes of the shoulder joints. Other findings: None Lines/Tubes: Endotracheal tube with distal tip 7.0 cm above the martínez. Nasogastric tube with its distal tip and side-port projecting under the diaphragm. IMPRESSION: 1. Stable exam. 2. Endotracheal tracheal tube in high position consider advancement of 3 cm for optimal placement.
[2022-11-28] MEDS: CHLORHEXIDINE GLUCONATE 15 ML CUP MUCOUS MEM SCH ×2 (08:15→20:19)
[2022-11-28] MEDS: CLOPIDOGREL 75 MG TAB PO SCH (08:16)
[2022-11-28] MEDS: ASPIRIN 81 MG PO SCH (08:16)
[2022-11-28] MEDS: SPIRONOLACTONE 25 MG TAB PO SCH (08:16)
[2022-11-28] MEDS: DAPAGLIFLOZIN PROPANEDIOL 10 MG TABLET PO SCH (08:18)
--- NOTE | 2022-11-28 08:28 | P.PN ---
Subjective Progress Note Date: 11/28/22 PROGRESS NOTE The patient is a 67-year-old male who presented with change in mental status. He is intubated and sedated. He has a history of CAD and PAD, details not available. There is a question of seizure activity. He is in sinus mechanism with sinus bradycardia but no evidence of malignant arrhythmia. There is no evidence of acute coronary syndrome or ventricle tachycardia. He had recurrent seizure and he has a history of chronic marijuana use. November 27: The patient remains intubated and sedated. I reviewed the data from the [facility] the patient has multivessel stenting with severe cardiomyopathy. He was evaluated for ICD. He had episodes of bigeminal rhythm yesterday, he is in sinus mechanism at this time. He has no evidence of ventricle tachycardia. His urinary output is stable. He has been followed by neurology regarding possible recurrent seizures. Hemodynamically he has been stable. His echocardiogram showed a severely impaired systolic function with mild tricuspid regurgitation November 28: The patient remains intubated and sedated. He is in sinus mechanism, hemody namically he is stable. There is no evidence of malignant arrhythmia. He is on no vasopressors. There is no evidence of atrial fibrillation or ventricle tachycardia. His urinary output has been stable. He is hemodynamically stable. He is tolerating the present combination. He is receiving high-protein nutrition. Medications: Plavix 75 mg daily, aspirin, Ativan, metoprolol 50 mg twice a day, Crestor 40 mg daily, Zestril 2.5 mg twice a day, Aldactone 25 mg daily, Farxiga 10 mg daily PHYSICAL EXAMINATION: Blood pressure 117/70 heart rate 86, intubated LUNGS: Clear to auscultation HEART: Regular rate and rhythm, S1, S2. No S3. No systolic murmur ABDOMEN: Soft, no organomegaly, positive bowel sounds EXTREMETIES: No edema LAB: Hemoglobin is 12.9, potassium 3.9. BUN 18, creatinine 1.06. Chest x-ray with no changes IMPRESSION: 1. Seizure activity which change in mental status 2. Respiratory failure, intubated 3. History of CAD, post-multivessel stenting 4. History of hypertension 5. Severe ischemic cardiomyopathy 6. Ventricular bigeminy PLAN: 1. Continue present treatment with PATIENCE inhibitor and beta crystal. 2. Adjust the dose of PATIENCE inhibitor depending on the blood pressure 3. Follow renal functions 4. Management of ventilator and sedation per epic anesthesia analyst and neurology Objective - Vital Signs Vital signs: Vital Signs Temp 98.9 F 11/28/22 08:00 Pulse 86 11/28/22 08:15 Resp 21 11/28/22 08:00 BP 117/75 11/28/22 08:00 Pulse Ox 96 11/28/22 08:00 FiO2 40 11/28/22 08:00 Intake & Output 11/27/22 11/28/22 11/28/22 18:59 06:59 18:59 Intake Total 5665.136 9393.222 287.794 Output Total 2235 2340 330 Balance -912.552 -1062.778 -42.206 Weight 87.5 kg 87.2 kg Intake: IV 570 276 46 Lacosamide IV 200 mg In 50 Sodium Chloride 0.9% 50 ml @ 100 mls/hr IVPB BID [facility] Rx#:[id number] Lactated Ringers 1,000 ml 367 @ 20 mls/hr IV .Q24H [facility] Rx#:[id number] Pressure Bag (0.9 Sodium 33 36 6 Chloride) Sodium Chloride 0.9% 500 20 240 40 ml 500 ml @ 20 mls/hr IV .Q24H [facility] Rx#:[id number] levETIRAcetam IV 1,500 mg 100 In Saline 1 100ml.bag @ 400 mls/hr IVPB Q12HR [facility] Rx#:[id number] Intake, IV Titration 277.448 449.222 119.794 Amount Dexmedetomidine/0.9% NaCl 24.173 (Pmx) 400 mcg In Empty Bag 1 bag @ 0.4 MCG/KG/HR 8.75 mls/hr IV .[id number] [facility] Rx#:[id number] Lacosamide IV 200 mg In 50 Sodium Chloride 0.9% 50 ml @ 100 mls/hr IVPB BID [facility] Rx#:[id number] Midazolam HCl 200 mg In 1.917 Sodium Chloride 0.9% 60 ml @ 1 MG/HR 0.5 mls/hr IV .Q24H [facility] Rx#: [id number] Norepinephrine 4 mg In 115.794 58.509 27.503 Sodium Chloride 0.9% 250 ml @ 0.03 MCG/KG/MIN 10. 001 mls/hr IV .Q24H [facility] Rx#:[id number] levETIRAcetam IV 1,500 mg 100 In Saline 1 100ml.bag @ 400 mls/hr IVPB Q12HR [facility] Rx#:[id number] propofoL 1,000 mg In 135.564 240.713 92.291 Empty Bag 1 bag @ 15 MCG/ KG/MIN 7.659 mls/hr IV . Q13H4M [facility] Rx#:[id number] Oral 0 Tube Feeding 385 552 92 Other 90 30 Output: Urine 2235 2340 330 Other: Voiding Method Indwelling Catheter Indwelling Catheter ABP, PAP, CO, CI - Last Documented Arterial Blood Pressure 95/49 - Labs CBC & Chem 7: 11/28/22 05:00 11/28/22 05:00 Labs: Abnormal Lab Results - Last 24 Hours (Table) 11/27/22 11/27/22 11/27/22 Range/Units 12:42 14:02 18:02 RBC (4.30-5.90) m/uL Hgb (13.0-17.5) gm/dL Plt Count (150-450) k/uL ABG pCO2 (35-45) mmHg ABG pO2 (83-108) mmHg ABG O2 Saturation (94-97) % Chloride (98-107) mmol/L Glucose (74-99) mg/dL POC Glucose (mg/dL) 161 H 155 H 169 H (70-110) mg/dL 11/28/22 11/28/22 11/28/22 Range/Units 00:09 04:54 05:00 RBC (4.30-5.90) m/uL Hgb (13.0-17.5) gm/dL Plt Count (150-450) k/uL ABG pCO2 (35-45) mmHg ABG pO2 (83-108) mmHg ABG O2 Saturation (94-97) % Chloride 112 H (98-107) mmol/L Glucose 163 H (74-99) mg/dL POC Glucose (mg/dL) 159 H 160 H (70-110) mg/dL 11/28/22 11/28/22 Range/Units 05:00 06:00 RBC 4.05 L (4.30-5.90) m/uL Hgb 12.9 L (13.0-17.5) gm/dL Plt Count 136 L (150-450) k/uL ABG pCO2 34 L (35-45) mmHg ABG pO2 142 H (83-108) mmHg ABG O2 Saturation 98.3 H (94-97) % Chloride (98-107) mmol/L Glucose (74-99) mg/dL POC Glucose (mg/dL) (70-110) mg/dL Microbiology - Last 24 Hours (Table) 11/27/22 21:13 Gram Stain - Preliminary Sputum Sputum Culture - Preliminary 11/25/22 19:45 Gram Stain - Preliminary Sputum Sputum Culture - Preliminary
--- NOTE | 2022-11-28 08:32 | P.PN ---
Subjective Progress Note Date: 11/28/22 On 11/26/2022, seeing the patient for a follow-up. The patient is currently intubated on a mechanical ventilator. The patient is a . The patient is known to have CAD and he smokes marijuana and he has a remote history of seizures. The patient. He was hospitalized and he was having recurrent seizure activity and he was postictal with altered mentation and diminished level of consciousness. CAT scan of the brain showed encephalomalacia related to prior infarcts last traumatic insults. This was noted more in the posterior right temporal parietal region. There was no other acute abnormalities noted. The patient was seen by neurology. He is currently on a combination of antiepileptics including Keppra, Vimpat and Depakote. At the time of his seizure activity he also received Ativan. Currently, he is also on propofol running at 30 mcg/kg/m. He is also on Versed running at X milligrams an hour. He is completely sedated and there is no visible seizure activity noted. He is in the process of undergoing an EEG this morning. He remains on a mechanical ventilator on assist control mode at a rate of 20 with a tidal volume of 450 and FiO2 of 40% with a PEEP of 5. His chest x-ray shows no acute abnormalities. His tube is in adequate location. Patient also has a orogastric tube in place. No consolidation. No airspace disease. He is hemodynamically stable. Cardiac rhythm is sinus. He is on heparin subcu for DVT prophylaxis. IV fluids are running in the form of normal saline at rate of 75 mL an hour. Note that the patient is also diabetic. He was receiving Lantus insulin on outpatient basis in combination with JArdiance and I noted that he was not taking any form of antiepileptic medications on outpatient basis. An EEG was ordered the done on 11/24/2022 and obviously EEG was abnormal and there was background slowing suggestive of mild to moderate encephalopathy. No focal epileptic discharges were noted. There was extensive but activity due to medication/Ativan effects. Neurologically is currently on the case and the patient was evaluated by the neurology service. Blood gas from today shows a pH of 7.41 with a pCO2 of 30 and pO2 140. White cycles of 12.7 with a hemoglobin of 12.7 and a platelet count of 125. Sodium is at 139 potassium is at 4.1 bicarbs at 17 BUN is 20 with a creatinine of 1.1. Lactic acid level dropped from 4.0 down to 0.9. I also noted an elevation the prolactin level, borderline elevation, could be related to the seizure activity. On today's evaluation of 11/27/2022, the patient is being seen for a follow-up. The patient is currently intubated on a mechanical ventilator and the patient was on a combination of drugs for status epilepticus. Noted the EEG was done yesterday and it showed no evidence of any active seizures and this morning the patient remains on propofol running at 35 mcg/kg/m and the patient is also on Versed 1 mg/h. He is still deeply sedated. The EEG showed diffuse synchronous and asynchronous delta range slowing and there was no seizure activity noted. Meanwhile, the patient continues to be on a combination of Keppra 1.5 g twice a day and Vimpat at a dose of 200 mg IV twice a day. No active seizures noted on examination. He remains hemodynamically stable. The patient remains on a mechanical ventilator. He is currently on assist control mode at the rate of 20, tidal volume of 450, FiO2 of 40% with a PEEP of 5. The chest x-ray from today shows some bibasilar atelectatic changes. No airspace disease or acute pulmonary infiltrates. Blood gas from today shows a pH of 7.44 with a pCO2 of 29 and pO2 of 96 and this was done on the above-mentioned ventilator settings. The patient hemodynamically is stable. He is on no pressors. His cardiac rhythm is sinus although he was having frequent PVCs. Echocardiogram was done yesterday and the patient was found to have systolic heart failure. The patient has an ejection fraction of 25-30%. There is also evidence of RV dilatation. There was mild to moderate RV dilatation moderate mitral calcification, tricuspid regurgitation, moderate increase in the LV wall thickness. Patient was seen by cardiology. The patient was started on a combination of treatment including metoprolol 50 mg by mouth twice a day. Patient is also on aspirin and Plavix. The patient is on farxiga and Zestril 2.5 mg twice a day. Aldactone was also added at a dose of 25 mg by mouth daily. The patient remains on enteral feeding for nutritional support. Is currently on vital high-protein at the rate of 30 mL an hour. Rest of the blood work is essentially stable. The discomfort is at 7.6 with a hemoglobin of 15. BUN is at 15 with a creatinine of 1.02. Bicarb is at 17. Sodiums of 138. On today's evaluation of 11/28/2022, the patient remains on sedation with propofol. He was on accommodation of Versed and propofol yesterday. We discontinued the Versed. He also gradually weaned off the propofol. As the patient was taken off the sedation, he became more restless, starts coughing, reaching up to the tube, opening his eyes but not following any commands.. We tried to control his restlessness with Precedex and this was not successful. He was not ready for activation processes as the patient was not felt to have adequate mentation. As such, he was placed back on propofol which is currently running at 45 mcg/kg/m. He is deeply sedated. He is not even grimacing to any deep painful stimulation. When the process of gradually weaning him off the sedation. EEG was done on 11/26/2022 and this was interpreted by neurology and there is no evidence of any ongoing epileptic discharge. The patient remains on a combination of Keppra and Vimpat of the usual doses. Meanwhile, the patient remains on a mechanical ventilator. He is currently on assist control mode with a rate of 20, tidal volume of 450, FiO2 of 40% with a PEEP of 5. Chest x-ray remains stable without any acute pulmonary infiltrates. There may be some limited infiltration of the left lung base, which is essentially unchanged. The previous echoes at 9.1 with a hemoglobin of 12.9 and a platelet count of 136. Sodium is at 142 and a potassium level is 3.9 with a BUN of 18 and a creatinine of 1.06. Sputum culture has been negative for now . The patient remains on vital high-protein at the rate of 46 mL an hour. Afebrile. Urine output is around 150 mL an hour. IV fluids are currently at KVO. He remains on no low- dose norepinephrine running at 0.03 mcg/kg/m. Note that his echocardiogram also showed impaired LV function and the patient has systolic heart failure with ejection fraction of 25-30%. He has also evidence of RV dilatation and there is mild to moderate RV dilatation and moderate mitral calcification and tricuspid regurgitation and there is also increase in LV wall thickness. Cardiology has made adjustments on his cardiac medication. He is having occasional PVCs and these are not frequent at this point in time.. I would suggest holding of his lisinopril till patient is off norepinephrine. Objective - Vital Signs Vital signs: Vital Signs Temp 98.9 F 11/28/22 08:00 Pulse 86 11/28/22 08:15 Resp 21 11/28/22 08:00 BP 117/75 11/28/22 08:00 Pulse Ox 96 11/28/22 08:00 FiO2 40 11/28/22 08:00 Intake & Output 11/27/22 11/28/22 11/28/22 18:59 06:59 18:59 Intake Total 6489.171 1492.222 287.794 Output Total 2235 2340 330 Balance -912.552 -1062.778 -42.206 Weight 87.5 kg 87.2 kg Intake: IV 570 276 46 Lacosamide IV 200 mg In 50 Sodium Chloride 0.9% 50 ml @ 100 mls/hr IVPB BID [facility] Rx#:[id number] Lactated Ringers 1,000 ml 367 @ 20 mls/hr IV .Q24H [facility] Rx#:[id number] Pressure Bag (0.9 Sodium 33 36 6 Chloride) Sodium Chloride 0.9% 500 20 240 40 ml 500 ml @ 20 mls/hr IV .Q24H [facility] Rx#:[id number] levETIRAcetam IV 1,500 mg 100 In Saline 1 100ml.bag @ 400 mls/hr IVPB Q12HR [facility] Rx#:[id number] Intake, IV Titration 277.448 449.222 119.794 Amount Dexmedetomidine/0.9% NaCl 24.173 (Pmx) 400 mcg In Empty Bag 1 bag @ 0.4 MCG/KG/HR 8.75 mls/hr IV .C09Q31H [facility] Rx#:[id number] Lacosamide IV 200 mg In 50 Sodium Chloride 0.9% 50 ml @ 100 mls/hr IVPB BID [facility] Rx#:[id number] Midazolam HCl 200 mg In 1.917 Sodium Chloride 0.9% 60 ml @ 1 MG/HR 0.5 mls/hr IV .Q24H [facility] Rx#: [id number] Norepinephrine 4 mg In 115.794 58.509 27.503 Sodium Chloride 0.9% 250 ml @ 0.03 MCG/KG/MIN 10. 001 mls/hr IV .Q24H [facility] Rx#:[id number] levETIRAcetam IV 1,500 mg 100 In Saline 1 100ml.bag @ 400 mls/hr IVPB Q12HR [facility] Rx#:[id number] propofoL 1,000 mg In 135.564 240.713 92.291 Empty Bag 1 bag @ 15 MCG/ KG/MIN 7.659 mls/hr IV . Q13H4M [facility] Rx#:[id number] Oral 0 Tube Feeding 385 552 92 Other 90 30 Output: Urine 2235 2340 330 Other: Voiding Method Indwelling Catheter Indwelling Catheter ABP, PAP, CO, CI - Last Documented Arterial Blood Pressure 95/49 - Exam No acute distress, poorly responsive, The patient is deeply sedated with propofol , remains intubated on a mechanical ventilator. Orogastric and orotracheal tube are both in place. Not responsive to deep painful stimulation. Head exam was generally normal. There was no scleral icterus or corneal arcus. Mucous membranes were moist. Neck supple. Full range of motion. No adenopathy thyromegaly or neck vein distention. Cardiovascular examination reveals regular rhythm rate. S1-S2 normal. No S3 or S4. No discernible murmur noted. Lungs reveal clear breath sounds. Breath sounds are equal bilaterally. No adventitious lung sounds including wheezes rhonchi or crackles. Abdomen soft bowel sounds are heard. No masses or tenderness. Extremities are intact. No cyanosis clubbing or edema. Skin is without rash or lesion. Neurologic examination reveals a poorly responsive, as the patient is on propofol. No seizure activity the has been noted and the patient is equal and symmetrical pupils bilaterally. Motor function cannot be assessed. Sensory functions cannot be assessed. - Labs CBC & Chem 7: 11/28/22 05:00 11/28/22 05:00 Labs: Abnormal Lab Results - Last 24 Hours (Table) 11/27/22 11/27/22 11/27/22 Range/Units 12:42 14:02 18:02 RBC (4.30-5.90) m/uL Hgb (13.0-17.5) gm/dL Plt Count (150-450) k/uL ABG pCO2 (35-45) mmHg ABG pO2 (83-108) mmHg ABG O2 Saturation (94-97) % Chloride (98-107) mmol/L Glucose (74-99) mg/dL POC Glucose (mg/dL) 161 H 155 H 169 H (70-110) mg/dL 11/28/22 11/28/22 11/28/22 Range/Units 00:09 04:54 05:00 RBC (4.30-5.90) m/uL Hgb (13.0-17.5) gm/dL Plt Count (150-450) k/uL ABG pCO2 (35-45) mmHg ABG pO2 (83-108) mmHg ABG O2 Saturation (94-97) % Chloride 112 H (98-107) mmol/L Glucose 163 H (74-99) mg/dL POC Glucose (mg/dL) 159 H 160 H (70-110) mg/dL 11/28/22 11/28/22 Range/Units 05:00 06:00 RBC 4.05 L (4.30-5.90) m/uL Hgb 12.9 L (13.0-17.5) gm/dL Plt Count 136 L (150-450) k/uL ABG pCO2 34 L (35-45) mmHg ABG pO2 142 H (83-108) mmHg ABG O2 Saturation 98.3 H (94-97) % Chloride (98-107) mmol/L Glucose (74-99) mg/dL POC Glucose (mg/dL) (70-110) mg/dL Microbiology - Last 24 Hours (Table) 11/27/22 21:13 Gram Stain - Preliminary Sputum Sputum Culture - Preliminary 11/25/22 19:45 Gram Stain - Preliminary Sputum Sputum Culture - Preliminary Assessment and Plan Plan: Recurrent and persistent seizure activity, with acute mental status changes. The patient is currently on a combination of Versed and propofol. EEG is in progress right now. No seizure activity has been noted. The patient is also on a combination of antiepileptic. The patient is taking Keppra 1.5 g every 12 hours, Vimpat 200 mg IV twice a day and Depakote has been discontinued. The pa tient is currently off percent. The patient is on propofol which is being weaned off. Most recent EEG from 11/26/2022 showed no ongoing seizure activity. Acute hypoxic/hypercapnic respiratory failure due to diminished level of consciousness/postictal stage following seizure activity. Chest x-ray is clear. Adequate oxygenation and ventilation for now CVA, history of as the patient has some prior right temporoparietal region encephalomalacia either related to previous trauma or CVA acute lactic acidosis, recovered Non-anion gap metabolic acidosis, recovered Cardiomyopathy with systolic heart failure with an ejection fraction of 25-30% Frequent PVCs Borderline thrombocytopenia, stable History of hypertension. CAD History of PCI with stent placement. History of hyperlipidemia. History of asthma. History of diabetes mellitus. History of gastroesophageal reflux disease. History of chronic marijuana use. Peripheral vascular disease and the patient has undergone previous vascular stenting to the lower extremity Previous amputation of the right great toe Plan: Continue ventilator support and no ventilator changes for today Keep the patient off percent and wean off the propofol and evaluate the mental status The patient may have underlying encephalopathy due to medication and being also had a postictal state. No active seizures noted based on the most recent EEG. Clinically, he is not having any overt seizures. Continue the Keppra and Vimpat. We will assess the mental status IV fluids to kvo tube feeds viltal Hp Patient has chronic systolic heart failure. Currently on a combination of metoprolol, lisinopril, Aldactone, and farxiga Hold lisinopril due to the patient is off pressors Continue aspirin and Plavix Condition is on a significant level continue to follow and make further recommendations based on his progress. Physical care evaluation that was done in more than 30 minutes. Time with Patient: Greater than 30
[2022-11-28] MEDS: LACOSAMIDE IV 200 MG in SODIUM CHLORIDE 0.9% 50 ML IVPB SCH (09:03)
[2022-11-28] MEDS: levETIRAcetam IV 1,500 MG in SALINE 1 100ML.BAG IVPB SCH ×2 (09:52→20:25)
--- NOTE | 2022-11-28 09:54 | XR ---
EXAMINATION TYPE: XR chest 1V portable DATE OF EXAM: 11/28/2022 Comparison: 11/28/2022 Clinical History: 67-year-old male confirm NG placement Findings: NG tube is satisfactory. The tip is located 5 to 6 cm below the GE junction. It could be advanced sli ghtly further. Heart upper limits of normal in size. Mild interstitial/vascular prominence is similar . No consolidation or pleural effusion. Impression: 1. NG tube tip 5 to 6 cm below the GE junction should be satisfactory. It could be advanced slightly further. 2. Similar borderline heart size and mild interstitial/vascular prominence.
--- NOTE | 2022-11-28 10:05 | P.PN ---
Subjective Progress Note Date: 11/28/22 Hospital Course: Patient is a 67-year-old male with a PMH of CAD status post stents, type II DM, hyperlipidemia, hypertension, and asthma who presented to the emergency room with complaints of tremors, slurred speech, and unsteady gait. CT brain revealed area of encephalomalacia related to prior infarct or traumatic insult posterior right temporal parietal junction with no acute intracranial abnormalities. EKG revealed sinus bradycardia at 53 bpm with T-wave flattening in leads V4 to V6 as well as leads 3 and aVF. Vital signs upon presentation to the emergency room where BP 97/75, SpO2 98% on room air, pulse 60, respiratory rate 22, and temp 98.3F. Laboratory evaluation was reviewed and was remarkable for WBC count 10.5, hemoglobin 14.7, BUN 39, creatinine 1.41, and urine tox was positive for marijuana and opiates with AST 24 and ALT 28. Patient was admitted for further management of symptoms. A-team was called for unresponsiveness on 11/24. Patient was nonverbal and had twitching of the extremities and his eyes were rolling back. He was given multiple doses of Ativan IV and loaded on Keppra. Patient was transferred to ICU for closer monitoring of his symptoms. Neurology was consulted. Multiple attempts were made to transfer the patient for continuous EEG including [facility], [facility], [facility] which was unsuccessful. Patient currently on Versed and propofol drip. Prolonged EEG did not show any epileptiform activity. Patient is now weaned off of sedation, now extubated. Neurology planning on cutting back on antiepileptics. Pertinent Imaging: Brain CT from 11/24 shows no acute process, right temporal parietal encephalomalacia. EEG Prolonged EEG: No epileptiform activity Echocardiogram: LVEF 25-30%, mild TR shows mild to moderate encephalopathy no epileptiform discharge. Prolonged EEG: No epileptiform activity Echocardiogram: LVEF 25-30%, mild TR Subjective: Patient seen and examined at bedside. No acute events overnight. Patient didn't require norepinephrine after being on propofol. Patient wean off of sedation. Being extubated. Pertinent positives and negatives as discussed above, a complete review of systems was performed and all other systems are negative. Vitals Signs Reviewed. General: Intubated, awake and in distress Derm: warm, dry Head: atraumatic, normocephalic, symmetric Eyes: Pupils equal and reactive Mouth: no lip lesion, mucus membranes moist Cardiovascular: S1S2 reg, no murmur Lungs: CTA bilateral, no rhonchi, no rales , no accessory muscle use, intubated Abdominal: soft, nontender to palpation, no guarding, no appreciable organomegaly Ext: no gross muscle atrophy, no edema, no contractures, right foot toe amputation Neuro: Moving all extremities, not following commands at the moment Psych: Unable to assess Data Reviewed Today: Pertinent Labs: Hemoglobin 12.9, platelet 136, pH 7. 43, pCO2 44 Imaging: Chest x-ray independently interpreted, no significant opacity, NG tube in place Assessment and Plan: Patient remains critically ill in the medical ICU was extubated shortly after being seen by me. Active: Acute metabolic encephalopathy Possible status epilepticus Elevated prolactin Mild thrombocytopenia Systolic heart failure, chronic -[employer] note reviewed: Plan for extubation, hold lisinopril this morning. Patient was on norepinephrine -Personally discussed management with Neurology: Pending brain MRI, would reduce his antiepileptics, no immediate need for transfer -Currently on Vimpat 200 mg IV twice a day, Keppra 1.5 g IV every 12 hours, Ativan as needed -Cardiology note reviewed: No further changes -BMP ordered for tomorrow to monitor electrolytes Resolved: Lactic acidosis Elevated BUN Acute renal failure Mild normocytic anemia Ventilator-dependent respiratory failure Hyperchloremic metabolic acidosis Chronic: CAD status post stents Type 2 diabetes Dyslipidemia Hypertension Asthma DVT ppx: Subcu heparin Code status: Full code Anticipated discharge place: Pending clinical course Anticipated discharge time: Pending clinical course Objective - Vital Signs Vital signs: Vital Signs Temp 98.9 F 11/28/22 08:00 Pulse 95 11/28/22 08:27 Resp 21 11/28/22 08:00 BP 117/75 11/28/22 08:00 Pulse Ox 96 11/28/22 08:00 FiO2 40 11/28/22 08:37 Intake & Output 11/27/22 11/28/22 11/28/22 18:59 06:59 18:59 Intake Total 7741.918 1150.222 300.855 Output Total 2235 2340 330 Balance -912.552 -1062.778 -29.145 Weight 87.5 kg 87.2 kg Intake: IV 570 276 46 Lacosamide IV 200 mg In 50 Sodium Chloride 0.9% 50 ml @ 100 mls/hr IVPB BID [facility] Rx#:[id number] Lactated Ringers 1,000 ml 367 @ 20 mls/hr IV .Q24H [facility] Rx#:[id number] Pressure Bag (0.9 Sodium 33 36 6 Chloride) Sodium Chloride 0.9% 500 20 240 40 ml 500 ml @ 20 mls/hr IV .Q24H [facility] Rx#:[id number] levETIRAcetam IV 1,500 mg 100 In Saline 1 100ml.bag @ 400 mls/hr IVPB Q12HR [facility] Rx#:[id number] Intake, IV Titration 277.448 449.222 132.855 Amount Dexmedetomidine/0.9% NaCl 24.173 (Pmx) 400 mcg In Empty Bag 1 bag @ 0.4 MCG/KG/HR 8.75 mls/hr IV .[id number] [facility] Rx#:[id number] Lacosamide IV 200 mg In 50 Sodium Chloride 0.9% 50 ml @ 100 mls/hr IVPB BID [facility] Rx#:[id number] Midazolam HCl 200 mg In 1.917 Sodium Chloride 0.9% 60 ml @ 1 MG/HR 0.5 mls/hr IV .Q24H [facility] Rx#: [id number] Norepinephrine 4 mg In 115.794 58.509 27.503 Sodium Chloride 0.9% 250 ml @ 0.03 MCG/KG/MIN 10. 001 mls/hr IV .Q24H [facility] Rx#:[id number] levETIRAcetam IV 1,500 mg 100 In Saline 1 100ml.bag @ 400 mls/hr IVPB Q12HR [facility] Rx#:[id number] propofoL 1,000 mg In 135.564 240.713 105.352 Empty Bag 1 bag @ 15 MCG/ KG/MIN 7.659 mls/hr IV . Q13H4M [facility] Rx#:[id number] Oral 0 Tube Feeding 385 552 92 Other 90 30 Output: Urine 2235 2340 330 Other: Voiding Method Indwelling Catheter Indwelling Catheter ABP, PAP, CO, CI - Last Documented Arterial Blood Pressure 95/49 - Labs CBC & Chem 7: 11/28/22 05:00 11/28/22 05:00 Labs: Abnormal Lab Results - Last 24 Hours (Table) 11/27/22 11/27/2223 Range/Units 12:42 14:02 18:02 RBC (4.30-5.90) m/uL Hgb (13.0-17.5) gm/dL Plt Count (150-450) k/uL ABG pCO2 (35-45) mmHg ABG pO2 (83-108) mmHg ABG O2 Saturation (94-97) % Chloride (98-107) mmol/L Glucose (74-99) mg/dL POC Glucose (mg/dL) 161 H 155 H 169 H (70-110) mg/dL 11/28/22 11/28/22 11/28/22 Range/Units 00:09 04:54 05:00 RBC (4.30-5.90) m/uL Hgb (13.0-17.5) gm/dL Plt Count (150-450) k/uL ABG pCO2 (35-45) mmHg ABG pO2 (83-108) mmHg ABG O2 Saturation (94-97) % Chloride 112 H (98-107) mmol/L Glucose 163 H (74-99) mg/dL POC Glucose (mg/dL) 159 H 160 H (70-110) mg/dL 11/28/22 11/28/22 Range/Units 05:00 06:00 RBC 4.05 L (4.30-5.90) m/uL Hgb 12.9 L (13.0-17.5) gm/dL Plt Count 136 L (150-450) k/uL ABG pCO2 34 L (35-45) mmHg ABG pO2 142 H (83-108) mmHg ABG O2 Saturation 98.3 H (94-97) % Chloride (98-107) mmol/L Glucose (74-99) mg/dL POC Glucose (mg/dL) (70-110) mg/dL Microbiology - Last 24 Hours (Table) 11/27/22 21:13 Gram Stain - Preliminary Sputum Sputum Culture - Preliminary 11/25/22 19:45 Gram Stain - Preliminary Sputum Sputum Culture - Preliminary
[2022-11-28] MEDS: DEXMEDETOMIDINE/0.9% NACL(PMX) 400 MCG in EMPTY BAG 1 BAG IV SCH ×3 (11:34→22:49)
[2022-11-28] MEDS: DULoxetine HCL 60 MG CAPSULE.DR PO SCH (11:49)
[2022-11-28] MEDS: HALOPERIDOL LACTATE 5 MG/ML 1 ML VIAL IVP ONE ×2 (12:24→13:44)
[2022-11-28] MEDS: METOPROLOL TARTRATE 50 MG TAB PO SCH ×2 (13:10→20:50)
[2022-11-28 13:13] LABS: Glucose,Whole Blood 176 mg/dL (70-110)
--- NOTE | 2022-11-28 13:30 | P.PN ---
Subjective Progress Note Date: 11/28/22 11/28/2022: Patient was seen for a follow-up. Patient was weaned off propofol, and was extubated this morning at 9 AM to 5 L of nasal cannula. Per nursing report, patient was not following commands before he was extubated. He was not tracking. Patient became acutely encephalopathic postextubation, restless, agitated, would not calm down. He was trying to sit up, moaning and has nonpurp oseful movements. Patient was not talking, but would move all 4 activities. No obvious seizure activity noted otherwise. Patient was not following commands. Patient was started on Precedex 1 g per program per hour. He calmed down, but then he became hypotensive therefore the Precedex was just decreased to 0.5 g per program per hour. Patient has been running temperature, with yesterday 100.7 axillary, and today, right now it is 99.5 axillary. Patient has copious amounts of secretions. 11/27/2022: Patient was seen for a follow-up. Patient's and patient's sister were both present today. Patient is of Versed now. Patient's propofol was discontinued. Patient however was not appropriate. Nursing staff tried to wake patient up, but he was still encephalopathic, had a nonstop coughing. He was placed on Precedex, but did not work. Now his back on propofol. Patient currently on propofol 40 mcg/kg/m. Now he has developed hypotension and is on norepinephrine 0.05 g. 11/26/2022: Patient initially seen by Dr. Charles Aguirre. Please refer to his note for details. Patient is a 67-year-old male with past 2-3 weeks history of jerking/tremors, unresponsiveness. Patient has old encephalomalacia right temporoparietal region. Dr. Aguirre felt patient had clinical status but EEG did not show any seizure activity. EEG only showed excessive beta activity/Ativan effect. No prior history of seizures and was not on any AED. Patient currently on Keppra 1500 mg IV twice a day, Vimpat 200 mg twice a day. Patient also on Versed 2 mg/h, also on propofol 40 mcg/kg/m. The nurse has reported some left arm tremoring, some mouth tremors noted. Patient had a 2.5 hours EEG, which did not reveal any epileptiform activity. Objective - Vital Signs Vital signs: Vital Signs Temp 98.9 F 11/28/22 08:00 Pulse 123 H 11/28/22 11:30 Resp 16 11/28/22 11:30 BP 185/117 11/28/22 11:30 Pulse Ox 97 11/28/22 11:30 FiO2 40 11/28/22 08:37 Intake & Output 11/27/22 11/28/22 11/28/22 18:59 06:59 18:59 Intake Total 1292.801 3308.222 374.449 Output Total 2235 2340 1030 Balance -912.552 -1062.778 -655.551 Weight 87.5 kg 87.2 kg Intake: IV 570 276 115 Lacosamide IV 200 mg In 50 Sodium Chloride 0.9% 50 ml @ 100 mls/hr IVPB BID [facility] Rx#:[id number] Lactated Ringers 1,000 ml 367 @ 20 mls/hr IV .Q24H [facility] Rx#:[id number] Pressure Bag (0.9 Sodium 33 36 15 Chloride) Sodium Chloride 0.9% 500 20 240 100 ml 500 ml @ 20 mls/hr IV .Q24H [facility] Rx#:[id number] levETIRAcetam IV 1,500 mg 100 In Saline 1 100ml.bag @ 400 mls/hr IVPB Q12HR [facility] Rx#:[id number] Intake, IV Titration 277.448 449.222 137.449 Amount Dexmedetomidine/0.9% NaCl 24.173 4.594 (Pmx) 400 mcg In Empty Bag 1 bag @ 0.4 MCG/KG/HR 8.75 mls/hr IV .[id number] [facility] Rx#:[id number] Lacosamide IV 200 mg In 50 Sodium Chloride 0.9% 50 ml @ 100 mls/hr IVPB BID [facility] Rx#:[id number] Midazolam HCl 200 mg In 1.917 Sodium Chloride 0.9% 60 ml @ 1 MG/HR 0.5 mls/hr IV .Q24H [facility] Rx#: [id number] Norepinephrine 4 mg In 115.794 58.509 27.503 Sodium Chloride 0.9% 250 ml @ 0.03 MCG/KG/MIN 10. 001 mls/hr IV .Q24H [facility] Rx#:[id number] levETIRAcetam IV 1,500 mg 100 In Saline 1 100ml.bag @ 400 mls/hr IVPB Q12HR [facility] Rx#:[id number] propofoL 1,000 mg In 135.564 240.713 105.352 Empty Bag 1 bag @ 15 MCG/ KG/MIN 7.659 mls/hr IV . Q13H4M [facility] Rx#:[id number] Oral 0 Tube Feeding 385 552 92 Other 90 30 Output: Urine 2235 2340 1030 Other: Voiding Method Indwelling Catheter Indwelling Catheter ABP, PAP, CO, CI - Last Documented Arterial Blood Pressure 157/80 - Exam 11/28/2022: Patient is sedated with Precedex 0.5 g per program per hour. Patient is sedated. His pupils are equal, about 3 mm, not clearly reacting. Oculocephalics are mildly present. Patient is snoring. He is extubated. He has oxygen by nasal cannula. Tone is equal bilaterally. No obvious seizure activity noted at this time. There is no peripheral edema. 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 Patient has significant hammertoes particularly in the left. Patient slightly grimaces with pain. - Labs CBC & Chem 7: 11/28/22 05:00 11/28/22 05:00 Labs: Abnormal Lab Results - Last 24 Hours (Table) 11/27/22 11/27/22 11/28/22 Range/Units 14:02 18:02 00:09 RBC (4.30-5.90) m/uL Hgb (13.0-17.5) gm/dL Plt Count (150-450) k/uL ABG pCO2 (35-45) mmHg ABG pO2 (83-108) mmHg ABG O2 Saturation (94-97) % Chloride (98-107) mmol/L Glucose (74-99) mg/dL POC Glucose (mg/dL) 155 H 169 H 159 H (70-110) mg/dL 11/28/22 11/28/22 11/28/22 Range/Units 04:54 05:00 05:00 RBC 4.05 L (4.30-5.90) m/uL Hgb 12.9 L (13.0-17.5) gm/dL Plt Count 136 L (150-450) k/uL ABG pCO2 (35-45) mmHg ABG pO2 (83-108) mmHg ABG O2 Saturation (94-97) % Chloride 112 H (98-107) mmol/L Glucose 163 H (74-99) mg/dL POC Glucose (mg/dL) 160 H (70-110) mg/dL 11/28/22 Range/Units 06:00 RBC (4.30-5.90) m/uL Hgb (13.0-17.5) gm/dL Plt Count (150-450) k/uL ABG pCO2 34 L (35-45) mmHg ABG pO2 142 H (83-108) mmHg ABG O2 Saturation 98.3 H (94-97) % Chloride (98-107) mmol/L Glucose (74-99) mg/dL POC Glucose (mg/dL) (70-110) mg/dL Microbiology - Last 24 Hours (Table) 11/25/22 19:45 Gram Stain - Final Sputum Sputum Culture - Final 11/27/22 21:13 Gram Stain - Preliminary Sputum Sputum Culture - Preliminary Assessment and Plan Assessment: This is a 67-year-old gentleman and it appears he's been having the unresponsiveness episodes with eye rolling back at home for 2-3 weeks. * Repeated episodes of unresponsiveness with eye rolling back, eye twitching and myoclonic jerks is likely new onset seizures (especially with hx of encephalomalacia right temporoparietal junction that can be focus) and today had jerking of the upper extremities. Patient is in clinical status epilepticus. EEG was negative for seizure or discharge but there is mild to moderate encephalopathy. It is possible the focus is small or deep that picked-up on surface EEG. 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 Some bifrontal low amplitude sharp-appearing waves were seen sporadically, but periodically. These are difficult to interpret because of significant myogenic activity. No electrographic seizure was seen. EEG was technically limited because of a lot of movement artifact. No definitive evidence of status epilepticus. When compared to the previous EEGs, the encephalopathy has got significantly and progressively worse with each EEGs. Prolonged EEG 11/26/2022 was abnormal due to diffuse delta range slowing with superimposed faster frequencies by relative periods of electrical suppression. These findings are not epileptiform in nature. These findings indicate severe diffuse cerebral dysfunction which is likely in part due to medication effect. No seizures were recorded. No epileptiform activity was present. Patient is off Versed. Patient currently on Keppra 1500 mg twice a day and Vimpat 200 mg twice a day. We will discontinue Vimpat (due to bifrontal sharp appearing waves), continue Keppra for now. MRI of the brain still pending. Per nursing report, patient did not hemodynamically stable to go for MRI. He will not lay still. Therefore we will check stat CT head, rule out any structural abnormality. Carotid Doppler 2-D echo revealed left ventricular EF 25-30%. Moderate increase left ventricular wall thickness. Mild to moderate right ventricular dilation. Moderate mitral calcification. Cardiology on board. Patient has a low-grade temperature of 100.5 today and yesterday was 100.7. Patient currently not on any antibiotics. Patient to be started on Zosyn. Consult ID, if need for LP and acyclovir. EEG did not reveal any PLEDS. If ID recommends LP, then Plavix will need to be placed on hold. Cannot perform LP at this time because of being on Plavix. Ativan 1mg Q1 hour PRN seizure. On seizure precaution and pads. Continue neuro checks. Discussed with Dr. Lal and patient's nursing detail. Will defer the rest of medical management to primary team. We will discuss with patient's family about his history of tobacco use, alcoholism. Time with Patient: Greater than 30
[2022-11-28] MEDS ORDERED: ALBUTEROL HFA INHALER INHALATION PRN (15:26)
--- NOTE | 2022-11-28 15:51 | CT ---
EXAMINATION TYPE: CT brain wo con DATE OF EXAM: 11/28/2022 COMPARISON: 11/28/2022. HISTORY: Altered mental status. CT DLP: 1338.4 mGycm Automated exposure control for dose reduction was used. FINDINGS: There is no acute intracranial hemorrhage, mass, mass effect, midline shift, extra-axial fluid collec tion or hydrocephalus. There is some mild hypoattenuation within the right parietal region which is unchanged since the prev ious examination may relate to prior insult or injury. There is no acute major vessel infarct identif ied on this examination. The visualized paranasal sinuses and mastoid air cells are clear. IMPRESSION: NO ACUTE INTRACRANIAL PROCESS AND NO SIGNIFICANT CHANGE SINCE THE PREVIOUS EXAMINATION.
[2022-11-28] MEDS: SODIUM CHLORIDE 0.9% IVPB SCH ×2 (16:29→23:25)
[2022-11-28] MEDS: ACYCLOVIR SODIUM IVPB SCH ×2 (16:29→23:25)
[2022-11-28] MEDS: LACTULOSE 20 GM/30 ML CUP PO SCH (16:29)
[2022-11-28] MEDS: PIPERACILLIN-TAZOBACTAM 3.375 GM in SODIUM CHLORIDE 0.9% 100 ML IVPB SCH ×2 (16:33→23:25)
[2022-11-28] MEDS: MIDAZOLAM HCL 200 MG in SODIUM CHLORIDE 0.9% 60 ML IV SCH (18:00)
[2022-11-28 18:06] LABS: Glucose,Whole Blood 147 mg/dL (70-110)
[2022-11-28] MEDS: SODIUM CHLORIDE 0.9% 500 ML 500 ML IV SCH (18:11)
[2022-11-28] MEDS ORDERED: predniSONE 20 MG TAB PO SCH (19:00)
--- NOTE | 2022-11-28 19:03 | EEG ---
ELECTROENCEPHALOGRAM REPORT PREAMBLE: This is a 67-year-old male with altered mental status. The patient was just extubated. CURRENT MEDICATIONS: 1. Keppra. 2. Vimpat. EEG FINDINGS: This is a 21-channel digital EEG recorded with video component, utilizing 10/20 international system with referential and bipolar montages. Background consists of poorly developed and regulated, mixed frequencies of theta and delta slowing seen in bihemispheric region. Sporadic, but intermittent bifrontal low amplitude sharp- appearing waves were seen. A lot of movement and myogenic artifacts were seen. Photic stimulation was not done. Different stages of sleep were not seen. IMPRESSION: This is an abnormal EEG due to background slowing of pdyqxvey-my-scigsm degree, suggestive of generalized cerebral dysfunction as can be seen with toxic metabolic encephalopathy or due to diffuse structural brain abnormality. Clinical correlation is recommended. Presence of sporadic, but intermittent bifrontal sharp-appearing waves were seen, this may suggest underlying cortical irritability. No electrographic seizure was recorded. No definitive evidence of status epilepticus. Clinical correlation, and prolonged EEG may be considered if clinically indicated. When compared to the previous 2 EEGs, the background has progressively gotten worse. MMODL / IJN: [id number] / MTDD
[2022-11-28 19:23] LABS: HSV I IgG Interp POSITIVE (NEGATIVE); HSV II IgG Interp NEGATIVE (NEGATIVE)
[2022-11-28] MEDS: NON FORMULARY DRUG (Rosuvastatin Calcium [Crestor] 40 MG Tablet) PO SCH (20:24)
[2022-11-28] MEDS ORDERED: ACETAMINOPHEN TAB 325 MG TAB PO PRN (20:56)
[2022-11-28] MEDS: LORazepam 2 MG/ML INJ IV PRN (21:01)
--- NOTE | 2022-11-28 22:50 | P.CONS ---
History of Present Illness - Reason for Consult Consult date: 11/28/22 Fever, AMS questionable encephalitis Requesting physician: Robb Foster - Chief Complaint Mental status changes x few days - History of Present Illness Patient is a 67-year-old male with a past medical history significant for diabetes mellitus hypertension hyperlipidemia and asthma also history of coronary artery disease presenting to the hospital 5 days ago for evaluation of tremors slurred speech and unsteady gait patient apparently was also noticed to be slightly confused patient on arrival to the ER was afebrile however the patient did spike a fever yesterday of 100.7 and another fever 100.5 today patient did require intubation during this hospital stay however the patient has been extubated this afternoon patient remains to be lethargic postextubation and cannot provide any history, patient has been worked up by neurology and did have multiple CAT scan and EEG, infectious disease was consulted today because of fever and confusion concerning for possible encephalitis LP could not be done as the patient is on Plavix no vomiting diarrhea or any other changes reported by the nursing staff most information has been obtained from review the chart as the patient was not able to provide any history Review of Systems Positive points has been mentioned in HPI complete review could not be obtained because patient is intubated on the vent Past Medical History Past Medical History: Asthma, Diabetes Mellitus, Hyperlipidemia, Hypertension Additional Past Medical History / Comment(s): DM2 History of Any Multi-Drug Resistant Organisms: None Reported Past Surgical History: Back Surgery, Heart Catheterization With Stent, Orthopedic Surgery Additional Past Surgical History / Comment(s): ABD Date of Last Stent Placement:: unk Past Psychological History: No Psychological Hx Reported Smoking Status: Never smoker Past Alcohol Use History: None Reported Past Drug Use History: Marijuana - Past Family History Father Family Medical History: Coronary Artery Disease (CAD) Medications and Allergies Home Medications Medication Instructions Recorded Confirmed Type Acetaminophen [Tylenol] 650 mg PO Q4H PRN 11/23/22 11/23/22 History Clopidogrel [Plavix] 75 mg PO DAILY 11/23/22 11/23/22 History DULoxetine HCL [Cymbalta] 60 mg PO DAILY 11/23/22 11/23/22 History Empagliflozin [Jardiance] 10 mg PO DAILY 11/23/22 11/23/22 History Furosemide [Lasix] 40 mg PO DAILY 11/23/22 11/23/22 History HYDROcodone/APAP 5-325MG [[place] 1 tab PO TID PRN 11/23/22 11/23/22 History 5-325] Insulin Glargine,Hum.rec.anlog 60 units SQ HS 11/23/22 11/23/22 History [Insulin Glargine Solostar] Metoprolol Succinate (ER) [Toprol 100 mg PO DAILY 11/23/22 11/23/22 History Xl] Omeprazole [PriLOSEC] 20 mg PO DAILY 11/23/22 11/23/22 History Pregabalin [Lyrica] 100 mg PO BID 11/23/22 11/23/22 History Rosuvastatin Calcium [Crestor] 40 mg PO HS 11/23/22 11/23/22 History Sacubitril/Valsartan [Entresto 49 1 tab PO BID 11/23/22 11/23/22 History mg-51 mg Tablet] Spironolactone 25 mg PO DAILY 11/23/22 11/23/22 History allopurinoL 300 mg PO DAILY 11/23/22 11/23/22 History Aspirin 81 mg PO DAILY #90 tab 12/02/22 Rx Clopidogrel [Plavix] 75 mg PO DAILY #90 tab 12/02/22 Rx levETIRAcetam [Keppra] 1,500 mg PO Q12HR #100 tab 12/02/22 Rx Allergies Allergy/AdvReac Type Severity Reaction Status Date / Time atorvastatin [From Lipitor] AdvReac abnormal Verified 11/23/22 16:06 liver enzymes metformin AdvReac gastroesophageal Verified 11/23/22 16:06 reflux Physical Exam Vitals: Vital Signs Temp Pulse Resp BP Pulse Ox FiO2 11/28/22 14:00 83 30 H 98 11/28/22 13:30 68 24 97 11/28/22 13:00 100.5 F H 71 29 H 96 11/28/22 12:30 96 38 H 95 11/28/22 12:00 110 H 28 H 98 11/28/22 11:30 123 H 16 185/117 97 11/28/22 11:00 103 H 27 H 157/95 97 11/28/22 10:30 122 H 23 157/95 95 11/28/22 10:00 112 H 17 129/78 95 11/28/22 09:30 110 H 31 H 129/78 94 L 11/28/22 09:00 120 H 12 117/75 94 L 11/28/22 08:37 40 11/28/22 08:30 87 27 H 117/75 97 11/28/22 08:27 95 11/28/22 08:15 86 11/28/22 08:00 98.9 F 86 21 117/75 96 40 11/28/22 07:47 40 11/28/22 07:30 94 28 H 96 11/28/22 07:00 89 29 H 97 11/28/22 06:45 88 27 H 97 11/28/22 06:30 84 23 96 11/28/22 06:15 86 25 H 97 11/28/22 06:00 82 24 97 11/28/22 05:45 81 27 H 98 11/28/22 05:30 90 23 96 11/28/22 05:00 98 26 H 97 40 11/28/22 04:28 95 40 11/28/22 04:15 93 24 98 11/28/22 04:00 99.9 F H 79 20 98 40 11/28/22 03:45 87 22 98 11/28/22 03:30 85 20 99 11/28/22 03:15 96 27 H 97 11/28/22 03:00 92 27 H 98 11/28/22 02:45 34 H 97 11/28/22 02:30 114 H 25 H 97 11/28/22 02:15 87 19 98 11/28/22 02:00 95 31 H 98 11/28/22 01:45 82 28 H 98 11/28/22 01:30 89 35 H 99 11/28/22 01:15 92 28 H 96 11/28/22 01:00 104 H 30 H 96 11/28/22 00:50 81 11/28/22 00:45 86 36 H 96 11/28/22 00:38 78 11/28/22 00:36 40 11/28/22 00:30 98 22 96 11/28/22 00:15 88 25 H 96 11/28/22 00:00 99.5 F 87 26 H 96 40 11/27/22 23:45 86 24 97 11/27/22 23:30 93 28 H 97 11/27/22 23:15 87 25 H 97 11/27/22 23:03 92 27 H 97 11/27/22 23:00 90 28 H 97 11/27/22 22:45 85 26 H 98 11/27/22 22:30 84 27 H 98 11/27/22 22:15 79 21 99 11/27/22 22:00 81 26 H 98 11/27/22 21:45 86 27 H 98 11/27/22 21:30 82 26 H 120/66 98 11/27/22 21:15 79 29 H 120/66 100 11/27/22 21:00 81 27 H 98 11/27/22 20:45 80 27 H 98 11/27/22 20:30 75 28 H 97 11/27/22 20:15 75 37 H 96 11/27/22 20:00 99 F 85 23 132/69 96 40 11/27/22 19:55 40 11/27/22 19:45 92 28 H 132/69 96 11/27/22 19:30 90 24 96 11/27/22 19:15 92 27 H 95 11/27/22 19:00 68 29 H 122/71 96 40 11/27/22 18:45 86 25 H 95 11/27/22 18:30 94 95 11/27/22 18:15 87 96 11/27/22 18:00 99 26 H 95 40 11/27/22 17:45 101 H 32 H 131/66 96 11/27/22 17:30 96 11/27/22 17:15 92 131/66 97 11/27/22 17:00 73 29 H 96 40 11/27/22 16:45 69 11/27/22 16:30 71 11/27/22 16:24 40 11/27/22 16:15 57 L 11/27/22 16:00 98.2 F 58 L 20 97 40 11/27/22 15:45 58 L 20 97 11/27/22 15:30 58 L 20 93 L 11/27/22 15:10 61 109/59 96 11/27/22 15:09 40 11/27/22 15:00 61 20 98 40 11/27/22 14:50 62 98 11/27/22 14:40 70 96 Intake and Output 11/27/22 11/28/22 11/28/22 22:59 06:59 14:59 Intake Total 957.797 750.296 495.508 Output Total 1365 1440 1400 Balance -497.203 -689.704 -904.492 Intake: IV 184 184 184 Lactated Ringers 1,000 ml 60 @ 20 mls/hr IV .Q24H [facility] Rx#:[id number] Pressure Bag (0.9 Sodium 24 24 24 Chloride) Sodium Chloride 0.9% 500 100 160 160 ml 500 ml @ 20 mls/hr IV .Q24H [facility] Rx#:[id number] Intake, IV Titration 375.797 198.296 189.508 Amount Dexmedetomidine/0.9% NaCl 32.484 (Pmx) 400 mcg In Empty Bag 1 bag @ 0.4 MCG/KG/HR 8.75 mls/hr IV .[id number] [facility] Rx#:[id number] Lacosamide IV 200 mg In 50 Sodium Chloride 0.9% 50 ml @ 100 mls/hr IVPB BID [facility] Rx#:[id number] Norepinephrine 4 mg In 134.520 19.671 51.672 Sodium Chloride 0.9% 250 ml @ 0.03 MCG/KG/MIN 10. 001 mls/hr IV .Q24H [facility] Rx#:[id number] levETIRAcetam IV 1,500 mg 100 In Saline 1 100ml.bag @ 400 mls/hr IVPB Q12HR [facility] Rx#:[id number] propofoL 1,000 mg In 91.277 178.625 105.352 Empty Bag 1 bag @ 15 MCG/ KG/MIN 7.659 mls/hr IV . Q13H4M [facility] Rx#:[id number] Oral 0 Tube Feeding 368 368 92 Other 30 30 Output: Urine 1455 1440 1400 Other: Voiding Method Indwelling Catheter Indwelling Catheter Weight 87.2 kg ABP, PAP, CO, CI - Last 8 Hours Arterial Blood Pressure 119/62 Arterial Blood Pressure 90/45 Arterial Blood Pressure 80/44 Arterial Blood Pressure 104/60 Arterial Blood Pressure 157/80 Arterial Blood Pressure 167/104 Arterial Blood Pressure 141/77 Arterial Blood Pressure 188/94 Arterial Blood Pressure 190/100 Arterial Blood Pressure 165/82 Arterial Blood Pressure 107/54 Arterial Blood Pressure 95/49 Arterial Blood Pressure 103/82 Arterial Blood Pressure 117/58 Arterial Blood Pressure 110/55 GENERAL DESCRIPTION: Elderly male intubated on the vent HEENT: Shows Pallor , no scleral icterus. Oral mucous membrane is dry. NECK: Trachea central, no thyromegaly. LUNGS: Unlabored breathing. Decreased breath sounds at the base HEART: S1, S2, regular rate and rhythm. No loud murmur ABDOMEN: Soft, no tenderness , guarding or rigidity, no organomegaly EXTREMITIES: No edema of feet. SKIN: No rash, no masses palpable. NEUROLOGICAL: The patient is sedated on the vent. Results CBC & Chem 7: 12/02/22 05:30 12/03/22 06:13 Labs: Abnormal Lab Results - Last 24 Hours (Table) 11/27/22 11/28/22 11/28/22 Range/Units 18:02 00:09 04:54 RBC (4.30-5.90) m/uL Hgb (13.0-17.5) gm/dL Plt Count (150-450) k/uL ABG pCO2 (35-45) mmHg ABG pO2 (83-108) mmHg ABG O2 Saturation (94-97) % Chloride (98-107) mmol/L Glucose (74-99) mg/dL POC Glucose (mg/dL) 169 H 159 H 160 H (70-110) mg/dL 11/28/22 11/28/22 11/28/22 Range/Units 05:00 05:00 06:00 RBC 4.05 L (4.30-5.90) m/uL Hgb 12.9 L (13.0-17.5) gm/dL Plt Count 136 L (150-450) k/uL ABG pCO2 34 L (35-45) mmHg ABG pO2 142 H (83-108) mmHg ABG O2 Saturation 98.3 H (94-97) % Chloride 112 H (98-107) mmol/L Glucose 163 H (74-99) mg/dL POC Glucose (mg/dL) (70-110) mg/dL 11/28/22 Range/Units 13:10 RBC (4.30-5.90) m/uL Hgb (13.0-17.5) gm/dL Plt Count (150-450) k/uL ABG pCO2 (35-45) mmHg ABG pO2 (83-108) mmHg ABG O2 Saturation (94-97) % Chloride (98-107) mmol/L Glucose (74-99) mg/dL POC Glucose (mg/dL) 176 H (70-110) mg/dL Microbiology - Last 24 Hours (Table) 11/25/22 19:45 Gram Stain - Final Sputum Sputum Culture - Final 11/27/22 21:13 Gram Stain - Preliminary Sputum Sputum Culture - Preliminary Assessment and Plan (1) Encephalopathy Current Visit: Yes Status: Acute Code(s): G93.40 - ENCEPHALOPATHY, UNSPEC IFIED SNOMED Code(s): 20563536 (2) Fever Current Visit: Yes Status: Acute Code(s): R50.9 - FEVER, UNSPECIFIED SNOMED Code(s): 519910067 Plan: 1patient with mental status changes confusion now with a low-grade fever and this patient has been in the hospital for about 5 days did not have any fever on presentation to the hospital with a source of fever possible central or a question of possible pneumonia questionable aspiration etiology. 2we will obtain blood cultures CRP procalcitonin and HSV serology, LP would mac ve been ideal however could not be done as the patient is on Plavix. 3we will empirically start the patient on Zosyn and acyclovir. We will follow on clinical condition and cultures to further adjust medication if needed Thank you for this consultation we will follow the patient along with you Time with Patient: Greater than 30
[2022-11-28 23:19] LABS: Glucose,Whole Blood 169 mg/dL (70-110)
[2022-11-29] MEDS: DEXMEDETOMIDINE/0.9% NACL(PMX) 400 MCG in EMPTY BAG 1 BAG IV SCH ×3 (02:13→20:08)
[2022-11-29 05:37] LABS: Basophils % (A) 0 %; Eosinophils # (A) 0.1 k/uL (0-0.7); Eosinophils % (A) 1 %; HCT 34.2 % (39.0-53.0); HGB 11.5 gm/dL (13.0-17.5); Lymphocytes # (A) 0.5 k/uL (1.0-4.8); Lymphocytes % (A) 5 %; MCHC 33.7 g/dL (31.0-37.0); MCV 97.9 fL (80.0-100.0); Mean Platelet Volume 8.7; Monocytes # (A) 0.6 k/uL (0-1.0); Monocytes % (A) 6 %; Neutrophils % (A) 87 %; Platelet Count 140 k/uL (150-450); RBC 3.49 m/uL (4.30-5.90); RDW 14.1 % (11.5-15.5); WBC 9.3 k/uL (3.8-10.6)
[2022-11-29 05:46] LABS: Calcium 8.7 mg/dL (8.4-10.2); Potassium 4.5 mmol/L (3.5-5.1)
[2022-11-29 05:56] LABS: Glucose,Whole Blood 148 mg/dL (70-110)
[2022-11-29] MEDS: INSULIN ASPART (NovoLOG) 100 UNIT/ML VIAL SQ SCH ×3 (06:12→18:05)
--- NOTE | 2022-11-29 07:00 | P.PN ---
Subjective Progress Note Date: 11/29/22 PROGRESS NOTE The patient is a 67-year-old male who presented with change in mental status. He is intubated and sedated. He has a history of CAD and PAD, details not available. There is a question of seizure activity. He is in sinus mechanism with sinus bradycardia but no evidence of malignant arrhythmia. There is no evidence of acute coronary syndrome or ventricle tachycardia. He had recurrent seizure and he has a history of chronic marijuana use. November 27: The patient remains intubated and sedated. I reviewed the data from the [facility] the patient has multivessel stenting with severe cardiomyopathy. He was evaluated for ICD. He had episodes of bigeminal rhythm yesterday, he is in sinus mechanism at this time. He has no evidence of ventricle tachycardia. His urinary output is stable. He has been followed by neurology regarding possible recurrent seizures. Hemodynamically he has been stable. His echocardiogram showed a severely impaired systolic function with mild tricuspid regurgitation November 28: The patient remains intubated and sedated. He is in sinus mechanism, hemody namically he is stable. There is no evidence of malignant arrhythmia. He is on no vasopressors. There is no evidence of atrial fibrillation or ventricle tachycardia. His urinary output has been stable. He is hemodynamically stable. He is tolerating the present combination. He is receiving high-protein nutrition. November 29: The patient is intubated and sedated, continues to be in sinus mechanism. His blood pressure has been stable, he is off the vasopressor. His urine output has been good. No episodes of atrial fibrillation or recurrent ventricle tachycardia. His sedation is being weaned, attempting to come up to see his neurological status and possible weaning and extubation. Medications: Plavix 75 mg daily, aspirin, Ativan, metoprolol 50 mg twice a day, Crestor 40 mg daily, Zestril 2.5 mg twice a day, Aldactone 25 mg daily, Farxiga 10 mg daily PHYSICAL EXAMINATION: Blood pressure 114/60 heart rate 60, intubated LUNGS: Clear to auscultation HEART: Regular rate and rhythm, S1, S2. No S3. No systolic murmur ABDOMEN: Soft, no organomegaly, positive bowel sounds EXTREMETIES: No edema LAB: Hemoglobin is 11.5, potassium 4.5. BUN 12, creatinine 1.13. Chest x-ray with no changes IMPRESSION: 1. Seizure activity which change in mental status him a recent EEG showed no acute seizure activity 2. Respiratory failure, intubated 3. History of CAD, post-multivessel stenting 4. History of hypertension 5. Severe ischemic cardiomyopathy 6. Ventricular bigeminy, resolved PLAN: 1. Continue present treatment with PATIENCE inhibitor and beta crystal. 2. Decrease sedation and evaluate neurological status 3. Continue other cardiac treatment 4. We will see him on as-needed basis, please feel free to call us for any question. Objective - Vital Signs Vital signs: Vital Signs Temp 98.2 F 11/29/22 04:00 Pulse 61 11/29/22 06:00 Resp 31 H 11/29/22 06:00 BP 114/66 11/29/22 06:00 Pulse Ox 98 11/29/22 06:00 FiO2 40 11/28/22 12:00 Intake & Output 11/28/22 11/28/22 11/29/22 06:59 18:59 06:59 Intake Total 4480.241 9091.551 1057.464 Output Total 2340 1610 1560 Balance -1062.778 -481.449 -502.536 Weight 87.2 kg 86.4 kg Intake: IV 276 426 749 Acyclovir Sodium 875 mg 250 In Sodium Chloride 0.9% 250 ml @ 267.4 mls/hr IVPB Q8HR [facility] Rx#: [id number] Lacosamide IV 200 mg In 50 Sodium Chloride 0.9% 50 ml @ 100 mls/hr IVPB BID [facility] Rx#:[id number] Piperacillin-Tazobactam 3 100 .375 gm In Sodium Chloride 0.9% 100 ml @ 25 mls/hr IVPB Q8HR [facility] Rx# :[id number] Pressure Bag (0.9 Sodium 36 36 39 Chloride) Sodium Chloride 0.9% 500 240 240 260 ml 500 ml @ 20 mls/hr IV .Q24H [facility] Rx#:[id number] levETIRAcetam IV 1,500 mg 100 100 In Saline 1 100ml.bag @ 400 mls/hr IVPB Q12HR [facility] Rx#:[id number] Intake, IV Titration 449.222 580.551 308.464 Amount Acyclovir Sodium 875 mg 250 In Sodium Chloride 0.9% 250 ml @ 267.4 mls/hr IVPB Q8HR [facility] Rx#: [id number] Dexmedetomidine/0.9% NaCl 100.802 296.129 (Pmx) 400 mcg In Empty Bag 1 bag @ 0.4 MCG/KG/HR 8.75 mls/hr IV .[id number] [facility] Rx#:[id number] Lacosamide IV 200 mg In 50 Sodium Chloride 0.9% 50 ml @ 100 mls/hr IVPB BID [facility] Rx#:[id number] Norepinephrine 4 mg In 58.509 74.397 12.335 Sodium Chloride 0.9% 250 ml @ 0.03 MCG/KG/MIN 10. 001 mls/hr IV .Q24H [facility] Rx#:[id number] Piperacillin-Tazobactam 3 50 .375 gm In Sodium Chloride 0.9% 100 ml @ 25 mls/hr IVPB Q8HR [facility] Rx# :[id number] levETIRAcetam IV 1,500 mg 100 In Saline 1 100ml.bag @ 400 mls/hr IVPB Q12HR [facility] Rx#:[id number] propofoL 1,000 mg In 240.713 105.352 Empty Bag 1 bag @ 15 MCG/ KG/MIN 7.659 mls/hr IV . Q13H4M [facility] Rx#:[id number] Oral 0 Tube Feeding 552 92 Other 30 Output: Urine 2340 1610 1560 Other: Voiding Method Indwelling Catheter Indwelling Catheter Indwelling Catheter ABP, PAP, CO, CI - Last Documented Arterial Blood Pressure 104/72 - Labs CBC & Chem 7: 11/29/22 05:20 11/29/22 05:20 Labs: Abnormal Lab Results - Last 24 Hours (Table) 11/28/22 11/28/22 11/28/22 Range/Units 13:10 14:48 14:48 RBC (4.30-5.90) m/uL Hgb (13.0-17.5) gm/dL Hct (39.0-53.0) % Plt Count (150-450) k/uL Neutrophils # (1.3-7.7) k/uL Lymphocytes # (1.0-4.8) k/uL Sodium (137-145) mmol/L Chloride (98-107) mmol/L BUN (9-20) mg/dL Glucose (74-99) mg/dL POC Glucose (mg/dL) 176 H (70-110) mg/dL C-Reactive Protein 23.3 H (<1.0) mg/dL Procalcitonin 0.31 H (0.02-0.09) ng/mL HSV I IgG Interpret (NEGATIVE) 11/28/22 11/28/22 11/28/22 Range/Units 14:49 18:04 23:18 RBC (4.30-5.90) m/uL Hgb (13.0-17.5) gm/dL Hct (39.0-53.0) % Plt Count (150-450) k/uL Neutrophils # (1.3-7.7) k/uL Lymphocytes # (1.0-4.8) k/uL Sodium (137-145) mmol/L Chloride (98-107) mmol/L BUN (9-20) mg/dL Glucose (74-99) mg/dL POC Glucose (mg/dL) 147 H 169 H (70-110) mg/dL C-Reactive Protein (<1.0) mg/dL Procalcitonin (0.02-0.09) ng/mL HSV I IgG Interpret POSITIVE A (NEGATIVE) 11/29/22 11/29/22 11/29/22 Range/Units 05:20 05:20 05:54 RBC 3.49 L (4.30-5.90) m/uL Hgb 11.5 L (13.0-17.5) gm/dL Hct 34.2 L (39.0-53.0) % Plt Count 140 L (150-450) k/uL Neutrophils # 8.0 H (1.3-7.7) k/uL Lymphocytes # 0.5 L (1.0-4.8) k/uL Sodium 146 H (137-145) mmol/L Chloride 112 H (98-107) mmol/L BUN 23 H (9-20) mg/dL Glucose 158 H (74-99) mg/dL POC Glucose (mg/dL) 148 H (70-110) mg/dL C-Reactive Protein (<1.0) mg/dL Procalcitonin (0.02-0.09) ng/mL HSV I IgG Interpret (NEGATIVE) Microbiology - Last 24 Hours (Table) 11/25/22 19:45 Gram Stain - Final Sputum Sputum Culture - Final 11/27/22 21:13 Gram Stain - Preliminary Sputum Sputum Culture - Preliminary
--- NOTE | 2022-11-29 07:24 | XR ---
EXAMINATION TYPE: XR chest 1V portable DATE OF EXAM: 11/29/2022 Comparison: 11/28/2022 Clinical History: 67-year-old male Tube placement Findings: NG tube courses below the diaphragm. The distal aspect is outside the field of view. The sidehole may be at the GE junction level. Consider slight advancement. Heart remains borderline enlarged. Interst itial density appears to be increasing. Patchy left mid and lower lung opacity appears to be increasi ng. Severe degenerative change left shoulder joint. Impression: 1. Distal aspect of the NG tube is outside the field of view. The sidehole appears to be at the GE ju nction. Consider slight advancement. 2. Interstitial density appears to be increasing. Increasing patchy airspace opacity left mid and low er lung.
[2022-11-29] MEDS: PIPERACILLIN-TAZOBACTAM 3.375 GM in SODIUM CHLORIDE 0.9% 100 ML IVPB SCH ×2 (08:36→16:58)
[2022-11-29] MEDS: ACYCLOVIR SODIUM IVPB SCH ×2 (08:37→16:58)
[2022-11-29] MEDS: SODIUM CHLORIDE 0.9% IVPB SCH ×2 (08:37→16:58)
[2022-11-29] MEDS: LACTULOSE 20 GM/30 ML CUP PO SCH (08:41)
[2022-11-29] MEDS: DAPAGLIFLOZIN PROPANEDIOL 10 MG TABLET PO SCH (08:43)
[2022-11-29] MEDS: METOPROLOL TARTRATE 50 MG TAB PO SCH ×2 (08:43→20:36)
[2022-11-29] MEDS: levETIRAcetam IV 1,500 MG in SALINE 1 100ML.BAG IVPB SCH ×2 (08:43→20:36)
[2022-11-29] MEDS: HEPARIN SODIUM,PORCINE/PF 5,000 UNIT/0.5 ML SYRINGE SQ SCH ×2 (09:55→16:48)
[2022-11-29] MEDS: ASPIRIN 81 MG PO SCH (09:55)
[2022-11-29] MEDS: LIDOCAINE 5% PATCH TOPICAL SCH ×2 (10:17→10:18)
--- NOTE | 2022-11-29 10:42 | P.PN ---
Subjective Progress Note Date: 11/29/22 Hospital Course: Patient is a 67-year-old male with a PMH of CAD status post stents, type II DM, hyperlipidemia, hypertension, and asthma who presented to the emergency room with complaints of tremors, slurred speech, and unsteady gait. CT brain revealed area of encephalomalacia related to prior infarct or traumatic insult posterior right temporal parietal junction with no acute intracranial abnormalities. EKG revealed sinus bradycardia at 53 bpm with T-wave flattening in leads V4 to V6 as well as leads 3 and aVF. Vital signs upon presentation to the emergency room where BP 97/75, SpO2 98% on room air, pulse 60, respiratory rate 22, and temp 98.3F. Laboratory evaluation was reviewed and was remarkable for WBC count 10.5, hemoglobin 14.7, BUN 39, creatinine 1.41, and urine tox was positive for marijuana and opiates with AST 24 and ALT 28. Patient was admitted for further management of symptoms. A-team was called for unresponsiveness on 11/24. Patient was nonverbal and had twitching of the extremities and his eyes were rolling back. He was given multiple doses of Ativan IV and loaded on Keppra. Patient was transferred to ICU for closer monitoring of his symptoms. Neurology was consulted. Multiple attempts were made to transfer the patient for continuous EEG including [facility], [facility], [facility] which was unsuccessful. Patient was on Versed and propofol drip. Prolonged EEG did not show any epileptiform activity. Patient is now weaned off of sedation, now extubated. Neurology discontinued Vimpat. Patient is having fevers, started on IV Zosyn and acyclovir. ID consulted. Pertinent Imaging: Brain CT from 11/24 shows no acute process, right temporal parietal encephalomalacia. EEG Prolonged EEG: No epileptiform activity Echocardiogram: LVEF 25-30%, mild TR shows mild to moderate encephalopathy no epileptiform discharge. Prolonged EEG: No epileptiform activity Echocardiogram: LVEF 25-30%, mild TR Subjective: Patient seen and examined at bedside. Patient did have intermittent fevers. Started on IV antibiotics as well as antiviral. Currently on norepinephrine. Pertinent positives and negatives as discussed above, a complete review of systems was performed and all other systems are negative. Vitals Signs Reviewed. General: Awake, not in acute distress Derm: warm, dry Head: atraumatic, normocephalic, symmetric Eyes: Pupils equal and reactive Mouth: no lip lesion, mucus membranes moist Cardiovascular: S1S2 reg, no murmur Lungs: CTA bilateral, no rhonchi, no rales , no accessory muscle use, supplemental oxygen Abdominal: soft, nontender to palpation, no guarding, no appreciable organomegaly Ext: no gross muscle atrophy, no edema, no contractures, right foot toe amputation Neuro: Moving all extremities, 3/5 strength in all extremities, follows commands Psych: Unable to assess Data Reviewed Today: Pertinent Labs: Hemoglobin 11.5, platelet 140 sodium 146, BUN 23, blood sugars range between 147-176, CRP 23.3, protein S troponin 0.31, HSV 1 IgG positive Imaging: Chest x-ray independently interpreted, increasing interstitial opacities bilaterally, NG tube in place Brain CT report reviewed: showed no acute intracranial process or changes compared to prior examination Assessment and Plan: Patient remains critically ill in the medical ICU on vasopressors. Active: Acute hypoxic respiratory failure Shock, likely sepsis Possible aspiration pneumonia Acute metabolic encephalopathy Possible status epilepticus Mild normocytic anemia Mild thrombocytopenia Systolic heart failure, chronic Mild hypernatremia Elevated BUN -ID note reviewed from 11/28: Blood Cultures, inflammatory markers, HSV serology, patient empirically started on Zosyn and acyclovir , fever possible central or aspiration pneumonia -Currently on norepinephrine at 0.03, continue to wean -hold lisinopril -Chest x-ray does show increasing interstitial opacities -Director Medical Economics and pulmonology following -Currently on Keppra 1.5 g IV every 12 hours, Ativan as needed, Vimpat discontinued -Cardiology note reviewed: No further changes, to see patient on as-needed basis -BMP ordered for tomorrow to monitor electrolytes, CBC ordered for tomorrow to monitor her blood count -consider increasing free water flushes through NG tube Resolved: Lactic acidosis Acute renal failure Ventilator-dependent respiratory failure Hyperchloremic metabolic acidosis Chronic: CAD status post stents Type 2 diabetes Dyslipidemia Hypertension Asthma DVT ppx: Subcu heparin Code status: Full code Anticipated discharge place: Pending clinical course Anticipated discharge time: Pending clinical course Objective - Vital Signs Vital signs: Vital Signs Temp 100.0 F H 11/29/22 08:00 Pulse 55 L 11/29/22 08:30 Resp 25 H 11/29/22 08:30 BP 108/68 11/29/22 08:00 Pulse Ox 96 11/29/22 08:30 FiO2 40 11/28/22 12:00 Intake & Output 11/28/22 11/29/22 11/29/22 18:59 06:59 18:59 Intake Total 1914.765 2269.199 32.809 Output Total 1610 1560 50 Balance -481.449 -499.801 -17.191 Weight 86.4 kg Intake: IV 426 749 23 Acyclovir Sodium 875 mg 250 In Sodium Chloride 0.9% 250 ml @ 267.4 mls/hr IVPB Q8HR [facility] Rx#: [id number] Lacosamide IV 200 mg In 50 Sodium Chloride 0.9% 50 ml @ 100 mls/hr IVPB BID [facility] Rx#:[id number] Piperacillin-Tazobactam 3 100 .375 gm In Sodium Chloride 0.9% 100 ml @ 25 mls/hr IVPB Q8HR [facility] Rx# :[id number] Pressure Bag (0.9 Sodium 36 39 3 Chloride) Sodium Chloride 0.9% 500 240 260 20 ml 500 ml @ 20 mls/hr IV .Q24H [facility] Rx#:[id number] levETIRAcetam IV 1,500 mg 100 100 In Saline 1 100ml.bag @ 400 mls/hr IVPB Q12HR [facility] Rx#:[id number] Intake, IV Titration 580.551 311.199 9.809 Amount Acyclovir Sodium 875 mg 250 In Sodium Chloride 0.9% 250 ml @ 267.4 mls/hr IVPB Q8HR [facility] Rx#: [id number] Dexmedetomidine/0.9% NaCl 100.802 298.864 9.809 (Pmx) 400 mcg In Empty Bag 1 bag @ 0.4 MCG/KG/HR 8.75 mls/hr IV .[id number] [facility] Rx#:[id number] Norepinephrine 4 mg In 74.397 12.335 0 Sodium Chloride 0.9% 250 ml @ 0.03 MCG/KG/MIN 10. 001 mls/hr IV .Q24H [facility] Rx#:[id number] Piperacillin-Tazobactam 3 50 .375 gm In Sodium Chloride 0.9% 100 ml @ 25 mls/hr IVPB Q8HR [facility] Rx# :[id number] propofoL 1,000 mg In 105.352 Empty Bag 1 bag @ 15 MCG/ KG/MIN 7.659 mls/hr IV . Q13H4M [facility] Rx#:[id number] Tube Feeding 92 Other 30 Output: Urine 1610 1560 50 Other: Voiding Method Indwelling Catheter Indwelling Catheter ABP, PAP, CO, CI - Last Documented Arterial Blood Pressure 86/67 - Labs CBC & Chem 7: 11/29/22 05:20 11/29/22 05:20 Labs: Abnormal Lab Results - Last 24 Hours (Table) 11/28/22 11/28/22 11/28/22 Range/Units 13:10 14:48 14:48 RBC (4.30-5.90) m/uL Hgb (13.0-17.5) gm/dL Hct (39.0-53.0) % Plt Count (150-450) k/uL Neutrophils # (1.3-7.7) k/uL Lymphocytes # (1.0-4.8) k/uL Sodium (137-145) mmol/L Chloride (98-107) mmol/L BUN (9-20) mg/dL Glucose (74-99) mg/dL POC Glucose (mg/dL) 176 H (70-110) mg/dL C-Reactive Protein 23.3 H (<1.0) mg/dL Procalcitonin 0.31 H (0.02-0.09) ng/mL HSV I IgG Interpret (NEGATIVE) 11/28/22 11/28/22 11/28/22 Range/Units 14:49 18:04 23:18 RBC (4.30-5.90) m/uL Hgb (13.0-17.5) gm/dL Hct (39.0-53.0) % Plt Count (150-450) k/uL Neutrophils # (1.3-7.7) k/uL Lymphocytes # (1.0-4.8) k/uL Sodium (137-145) mmol/L Chloride (98-107) mmol/L BUN (9-20) mg/dL Glucose (74-99) mg/dL POC Glucose (mg/dL) 147 H 169 H (70-110) mg/dL C-Reactive Protein (<1.0) mg/dL Procalcitonin (0.02-0.09) ng/mL HSV I IgG Interpret POSITIVE A (NEGATIVE) 11/29/22 11/29/22 11/29/22 Range/Units 05:20 05:20 05:54 RBC 3.49 L (4.30-5.90) m/uL Hgb 11.5 L (13.0-17.5) gm/dL Hct 34.2 L (39.0-53.0) % Plt Count 140 L (150-450) k/uL Neutrophils # 8.0 H (1.3-7.7) k/uL Lymphocytes # 0.5 L (1.0-4.8) k/uL Sodium 146 H (137-145) mmol/L Chloride 112 H (98-107) mmol/L BUN 23 H (9-20) mg/dL Glucose 158 H (74-99) mg/dL POC Glucose (mg/dL) 148 H (70-110) mg/dL C-Reactive Protein (<1.0) mg/dL Procalcitonin (0.02-0.09) ng/mL HSV I IgG Interpret (NEGATIVE) Microbiology - Last 24 Hours (Table) 11/25/22 19:45 Gram Stain - Final Sputum Sputum Culture - Final 11/27/22 21:13 Gram Stain - Preliminary Sputum Sputum Culture - Preliminary
--- NOTE | 2022-11-29 11:01 | P.PN ---
Subjective Progress Note Date: 11/29/22 On 11/26/2022, seeing the patient for a follow-up. The patient is currently intubated on a mechanical ventilator. The patient is a . The patient is known to have CAD and he smokes marijuana and he has a remote history of seizures. The patient. He was hospitalized and he was having recurrent seizure activity and he was postictal with altered mentation and diminished level of consciousness. CAT scan of the brain showed encephalomalacia related to prior infarcts last traumatic insults. This was noted more in the posterior right temporal parietal region. There was no other acute abnormalities noted. The patient was seen by neurology. He is currently on a combination of antiepileptics including Keppra, Vimpat and Depakote. At the time of his seizure activity he also received Ativan. Currently, he is also on propofol running at 30 mcg/kg/m. He is also on Versed running at X milligrams an hour. He is completely sedated and there is no visible seizure activity noted. He is in the process of undergoing an EEG this morning. He remains on a mechanical ventilator on assist control mode at a rate of 20 with a tidal volume of 450 and FiO2 of 40% with a PEEP of 5. His chest x-ray shows no acute abnormalities. His tube is in adequate location. Patient also has a orogastric tube in place. No consolidation. No airspace disease. He is hemodynamically stable. Cardiac rhythm is sinus. He is on heparin subcu for DVT prophylaxis. IV fluids are running in the form of normal saline at rate of 75 mL an hour. Note that the patient is also diabetic. He was receiving Lantus insulin on outpatient basis in combination with JArdiance and I noted that he was not taking any form of antiepileptic medications on outpatient basis. An EEG was ordered the done on 11/24/2022 and obviously EEG was abnormal and there was background slowing suggestive of mild to moderate encephalopathy. No focal epileptic discharges were noted. There was extensive but activity due to medication/Ativan effects. Neurologically is currently on the case and the patient was evaluated by the neurology service. Blood gas from today shows a pH of 7.41 with a pCO2 of 30 and pO2 140. White cycles of 12.7 with a hemoglobin of 12.7 and a platelet count of 125. Sodium is at 139 potassium is at 4.1 bicarbs at 17 BUN is 20 with a creatinine of 1.1. Lactic acid level dropped from 4.0 down to 0.9. I also noted an elevation the prolactin level, borderline elevation, could be related to the seizure activity. On today's evaluation of 11/27/2022, the patient is being seen for a follow-up. The patient is currently intubated on a mechanical ventilator and the patient was on a combination of drugs for status epilepticus. Noted the EEG was done yesterday and it showed no evidence of any active seizures and this morning the patient remains on propofol running at 35 mcg/kg/m and the patient is also on Versed 1 mg/h. He is still deeply sedated. The EEG showed diffuse synchronous and asynchronous delta range slowing and there was no seizure activity noted. Meanwhile, the patient continues to be on a combination of Keppra 1.5 g twice a day and Vimpat at a dose of 200 mg IV twice a day. No active seizures noted on examination. He remains hemodynamically stable. The patient remains on a mechanical ventilator. He is currently on assist control mode at the rate of 20, tidal volume of 450, FiO2 of 40% with a PEEP of 5. The chest x-ray from today shows some bibasilar atelectatic changes. No airspace disease or acute pulmonary infiltrates. Blood gas from today shows a pH of 7.44 with a pCO2 of 29 and pO2 of 96 and this was done on the above-mentioned ventilator settings. The patient hemodynamically is stable. He is on no pressors. His cardiac rhythm is sinus although he was having frequent PVCs. Echocardiogram was done yesterday and the patient was found to have systolic heart failure. The patient has an ejection fraction of 25-30%. There is also evidence of RV dilatation. There was mild to moderate RV dilatation moderate mitral calcification, tricuspid regurgitation, moderate increase in the LV wall thickness. Patient was seen by cardiology. The patient was started on a combination of treatment including metoprolol 50 mg by mouth twice a day. Patient is also on aspirin and Plavix. The patient is on farxiga and Zestril 2.5 mg twice a day. Aldactone was also added at a dose of 25 mg by mouth daily. The patient remains on enteral feeding for nutritional support. Is currently on vital high-protein at the rate of 30 mL an hour. Rest of the blood work is essentially stable. The discomfort is at 7.6 with a hemoglobin of 15. BUN is at 15 with a creatinine of 1.02. Bicarb is at 17. Sodiums of 138. On today's evaluation of 11/28/2022, the patient remains on sedation with propofol. He was on accommodation of Versed and propofol yesterday. We discontinued the Versed. He also gradually weaned off the propofol. As the patient was taken off the sedation, he became more restless, starts coughing, reaching up to the tube, opening his eyes but not following any commands.. We tried to control his restlessness with Precedex and this was not successful. He was not ready for activation processes as the patient was not felt to have adequate mentation. As such, he was placed back on propofol which is currently running at 45 mcg/kg/m. He is deeply sedated. He is not even grimacing to any deep painful stimulation. When the process of gradually weaning him off the sedation. EEG was done on 11/26/2022 and this was interpreted by neurology and there is no evidence of any ongoing epileptic discharge. The patient remains on a combination of Keppra and Vimpat of the usual doses. Meanwhile, the patient remains on a mechanical ventilator. He is currently on assist control mode with a rate of 20, tidal volume of 450, FiO2 of 40% with a PEEP of 5. Chest x-ray remains stable without any acute pulmonary infiltrates. There may be some limited infiltration of the left lung base, which is essentially unchanged. The previous echoes at 9.1 with a hemoglobin of 12.9 and a platelet count of 136. Sodium is at 142 and a potassium level is 3.9 with a BUN of 18 and a creatinine of 1.06. Sputum culture has been negative for now . The patient remains on vital high-protein at the rate of 46 mL an hour. Afebrile. Urine output is around 150 mL an hour. IV fluids are currently at KVO. He remains on no low- dose norepinephrine running at 0.03 mcg/kg/m. Note that his echocardiogram also showed impaired LV function and the patient has systolic heart failure with ejection fraction of 25-30%. He has also evidence of RV dilatation and there is mild to moderate RV dilatation and moderate mitral calcification and tricuspid regurgitation and there is also increase in LV wall thickness. Cardiology has made adjustments on his cardiac medication. He is having occasional PVCs and these are not frequent at this point in time.. I would suggest holding of his lisinopril till patient is off norepinephrine. 11/29/2022, the patient is being seen for a follow-up. The patient was extubated yesterday. EEG was done and that showed no evidence of any seizure activity. Postextubation, the patient was quite restless and agitated. He was placed on Precedex and he was kept on Precedex throughout the day yesterday. 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 The patient is calm and comfortable. I noted some response and he is becoming much more alert on today's neurologic evaluation. He is still lethargic and sleepy however. No seizure activity has been noted. He is currently on norepinephrine running at 0.04 Kirby respiratory minute to support his blood pressure. he developed a temperature 100.2. he was started on acyclovir as an empiric coverage for viral encephalitis. unable to perform lumbar puncture as the patient has been taking Plavix. I also covered the patient IV Zosyn. He has an NG tube in place. Output from the NG tube is minimal this morning. He is on 4 L of oxygen by nasal cannula with a pulse ox of 97%. The patient's previous echoes at 9.3 with a hemoglobin 11.5 and a platelet count of 140. BUN is at 23 with a creatinine of 1.3. Glucose at 148. Objective - Vital Signs Vital signs: Vital Signs Temp 100.0 F H 11/29/22 08:00 Pulse 55 L 11/29/22 08:30 Resp 25 H 11/29/22 08:30 BP 108/68 11/29/22 08:00 Pulse Ox 96 11/29/22 08:30 FiO2 40 11/28/22 12:00 Intake & Output 11/28/22 11/29/22 11/29/22 18:59 06:59 18:59 Intake Total 4779.463 9539.199 32.809 Output Total 1610 1560 50 Balance -481.449 -499.801 -17.191 Weight 86.4 kg Intake: IV 426 749 23 Acyclovir Sodium 875 mg 250 In Sodium Chloride 0.9% 250 ml @ 267.4 mls/hr IVPB Q8HR [facility] Rx#: [id number] Lacosamide IV 200 mg In 50 Sodium Chloride 0.9% 50 ml @ 100 mls/hr IVPB BID [facility] Rx#:[id number] Piperacillin-Tazobactam 3 100 .375 gm In Sodium Chloride 0.9% 100 ml @ 25 mls/hr IVPB Q8HR [facility] Rx# :[id number] Pressure Bag (0.9 Sodium 36 39 3 Chloride) Sodium Chloride 0.9% 500 240 260 20 ml 500 ml @ 20 mls/hr IV .Q24H [facility] Rx#:[id number] levETIRAcetam IV 1,500 mg 100 100 In Saline 1 100ml.bag @ 400 mls/hr IVPB Q12HR [facility] Rx#:[id number] Intake, IV Titration 580.551 311.199 9.809 Amount Acyclovir Sodium 875 mg 250 In Sodium Chloride 0.9% 250 ml @ 267.4 mls/hr IVPB Q8HR [facility] Rx#: [id number] Dexmedetomidine/0.9% NaCl 100.802 298.864 9.809 (Pmx) 400 mcg In Empty Bag 1 bag @ 0.4 MCG/KG/HR 8.75 mls/hr IV .[id number] [facility] Rx#:[id number] Norepinephrine 4 mg In 74.397 12.335 0 Sodium Chloride 0.9% 250 ml @ 0.03 MCG/KG/MIN 10. 001 mls/hr IV .Q24H [facility] Rx#:[id number] Piperacillin-Tazobactam 3 50 .375 gm In Sodium Chloride 0.9% 100 ml @ 25 mls/hr IVPB Q8HR [facility] Rx# :[id number] propofoL 1,000 mg In 105.352 Empty Bag 1 bag @ 15 MCG/ KG/MIN 7.659 mls/hr IV . Q13H4M [facility] Rx#:[id number] Tube Feeding 92 Other 30 Output: Urine 1610 1560 50 Other: Voiding Method Indwelling Catheter Indwelling Catheter ABP, PAP, CO, CI - Last Documented Arterial Blood Pressure 86/67 - Exam No acute distress, a NG tube in place, currently on 4 L of oxygen by nasal cannula, extubated, no agitation. Still very much lethargic despite being off Precedex. Head exam was generally normal. There was no scleral icterus or corneal arcus. Mucous membranes were moist. Neck supple. Full range of motion. No adenopathy thyromegaly or neck vein di stention. Cardiovascular examination reveals regular rhythm rate. S1-S2 normal. No S3 or S4. No discernible murmur noted. Lungs reveal clear breath sounds. Breath sounds are equal bilaterally. No adventitious lung sounds including wheezes rhonchi or crackles. Abdomen soft bowel sounds are heard. No masses or tenderness. Extremities are intact. No cyanosis clubbing or edema. Skin is without rash or lesion. Neurologic examination reveals a poorly responsive, no facial asymmetry. He has an adequate cough and a gag. Unable to do a adequate motor or sensory evaluation yet. Still lethargic and sleepy although seems to be gradually recovering from this. He is opening his eyes spontaneously. His calm and comfortable. Moldable 4 extremities without any limitation. - Labs CBC & Chem 7: 11/29/22 05:20 11/29/22 05:20 Labs: Abnormal Lab Results - Last 24 Hours (Table) 11/28/22 11/28/22 11/28/22 Range/Units 13:10 14:48 14:48 RBC (4.30-5.90) m/uL Hgb (13.0-17.5) gm/dL Hct (39.0-53.0) % Plt Count (150-450) k/uL Neutrophils # (1.3-7.7) k/uL Lymphocytes # (1.0-4.8) k/uL Sodium (137-145) mmol/L Chloride (98-107) mmol/L BUN (9-20) mg/dL Glucose (74-99) mg/dL POC Glucose (mg/dL) 176 H (70-110) mg/dL C-Reactive Protein 23.3 H (<1.0) mg/dL Procalcitonin 0.31 H (0.02-0.09) ng/mL HSV I IgG Interpret (NEGATIVE) 11/28/22 11/28/22 11/28/22 Range/Units 14:49 18:04 23:18 RBC (4.30-5.90) m/uL Hgb (13.0-17.5) gm/dL Hct (39.0-53.0) % Plt Count (150-450) k/uL Neutrophils # (1.3-7.7) k/uL Lymphocytes # (1.0-4.8) k/uL Sodium (137-145) mmol/L Chloride (98-107) mmol/L BUN (9-20) mg/dL Glucose (74-99) mg/dL POC Glucose (mg/dL) 147 H 169 H (70-110) mg/dL C-Reactive Protein (<1.0) mg/dL Procalcitonin (0.02-0.09) ng/mL HSV I IgG Interpret POSITIVE A (NEGATIVE) 11/29/22 11/29/22 11/29/22 Range/Units 05:20 05:20 05:54 RBC 3.49 L (4.30-5.90) m/uL Hgb 11.5 L (13.0-17.5) gm/dL Hct 34.2 L (39.0-53.0) % Plt Count 140 L (150-450) k/uL Neutrophils # 8.0 H (1.3-7.7) k/uL Lymphocytes # 0.5 L (1.0-4.8) k/uL Sodium 146 H (137-145) mmol/L Chloride 112 H (98-107) mmol/L BUN 23 H (9-20) mg/dL Glucose 158 H (74-99) mg/dL POC Glucose (mg/dL) 148 H (70-110) mg/dL C-Reactive Protein (<1.0) mg/dL Procalcitonin (0.02-0.09) ng/mL HSV I IgG Interpret (NEGATIVE) Microbiology - Last 24 Hours (Table) 11/25/22 19:45 Gram Stain - Final Sputum Sputum Culture - Final 11/27/22 21:13 Gram Stain - Preliminary Sputum Sputum Culture - Preliminary Assessment and Plan Plan: Recurrent and persistent seizure activity, with acute mental status changes. The patient is currently on a combination of Versed and propofol. EEG is in p rogress right now. No seizure activity has been noted. The patient is also on a combination of antiepileptic. The patient is taking Keppra 1.5 g every 12 hours, Vimpat was discontinued. The patient is having a period EEGs and the most recent EEG from yesterday showed no evidence of any seizure activity. Based on that, the patient was weaned off sedation and the patient was extubated. Overnight, the patient continued to be encephalopathic and agitated and he was placed on Precedex. This morning, he is calm and comfortable he was taken off Precedex. I am noticing gradual return of his neurologic functions. He was able to follow some simple commands earlier this morning. The possibili ty of HSV encephalitis cannot be ruled out and the patient was started on acyclovir. Acute hypoxic/hypercapnic respiratory failure due to diminished level of consciousness/postictal stage following seizure activity. The patient was extubated. There is some increased interstitial markings bilaterally, consider aspiration. The patient is currently on IV Zosyn. Currently on 4 L of oxygen by nasal cannula. CVA, history of as the patient has some prior right temporoparietal region encephalomalacia either related to previous trauma or CVA acute lactic acidosis, recovered Non-anion gap metabolic acidosis, recovered Cardiomyopathy with systolic heart failure with an ejection fraction of 25-30% Frequent PVCs Borderline thrombocytopenia, stable History of hypertension. CAD History of PCI with stent placement. History of hyperlipidemia. History of asthma. History of diabetes mellitus. History of gastroesophageal reflux disease. History of chronic marijuana use. Peripheral vascular disease and the patient has undergone previous vascular stenting to the lower extremity Previous amputation of the right great toe Plan: Utilize no sedation for now Monitor mental status Aspiration precautions May start tube feeds unless the patient shows further recovery in his neurological functions. Continue IV Zosyn Continue IV acyclovir Stop Plavix May consider lumbar puncture of the patient is unable to show further neurologic recovery Continue Keppra Continue cardiac medications Wean off norepinephrine We'll continue to follow make further recommendations based on his progress. Condition is critical still and the patient will be kept in ICU. His evaluation was done in more than 30 minutes. Time with Patient: Greater than 30
[2022-11-29 12:14] LABS: Glucose,Whole Blood 176 mg/dL (70-110)
--- NOTE | 2022-11-29 13:04 | P.PN ---
Subjective Progress Note Date: 11/29/22 Principal diagnosis: Fever and pneumonia/encephalitis Patient is a 67-year-old male with a past medical history significant for diabetes mellitus hypertension hyperlipidemia , asthma and coronary artery disease presenting to the hospital for tremors weakness and mental status changes A she did require intubation initially and was extubated on 11/28/2022 with a new fever and mental status changes concerning for possible encephalitis. On today's evaluation that is 11/30/2019 the patient did spike a fever of 102F last night and he did have a low-grade fever of 100F this morning, the patient is slightly more awake by the nursing staff and answered some question, patient is currently on a 3 L nasal cannula did require low-dose pressor support no vomiting or diarrhea has been reported Objective - Vital Signs Vital signs: Vital Signs Temp 100.0 F H 11/29/22 08:00 Pulse 66 11/29/22 10:00 Resp 51 H 11/29/22 10:00 BP 101/62 11/29/22 10:00 Pulse Ox 94 L 11/29/22 10:00 FiO2 40 11/28/22 12:00 Intake & Output 11/28/22 11/29/22 11/29/22 18:59 06:59 18:59 Intake Total 7694.464 4753.199 32.809 Output Total 1610 1560 50 Balance -481.449 -499.801 -17.191 Weight 86.4 kg 86.4 kg Intake: IV 426 749 23 Acyclovir Sodium 875 mg 250 In Sodium Chloride 0.9% 250 ml @ 267.4 mls/hr IVPB Q8HR [facility] Rx#: [id number] Lacosamide IV 200 mg In 50 Sodium Chloride 0.9% 50 ml @ 100 mls/hr IVPB BID [facility] Rx#:[id number] Piperacillin-Tazobactam 3 100 .375 gm In Sodium Chloride 0.9% 100 ml @ 25 mls/hr IVPB Q8HR [facility] Rx# :[id number] Pressure Bag (0.9 Sodium 36 39 3 Chloride) Sodium Chloride 0.9% 500 240 260 20 ml 500 ml @ 20 mls/hr IV .Q24H [facility] Rx#:[id number] levETIRAcetam IV 1,500 mg 100 100 In Saline 1 100ml.bag @ 400 mls/hr IVPB Q12HR [facility] Rx#:[id number] Intake, IV Titration 580.551 311.199 9.809 Amount Acyclovir Sodium 875 mg 250 In Sodium Chloride 0.9% 250 ml @ 267.4 mls/hr IVPB Q8HR [facility] Rx#: [id number] Dexmedetomidine/0.9% NaCl 100.802 298.864 9.809 (Pmx) 400 mcg In Empty Bag 1 bag @ 0.4 MCG/KG/HR 8.75 mls/hr IV .[id number] [facility] Rx#:[id number] Norepinephrine 4 mg In 74.397 12.335 0 Sodium Chloride 0.9% 250 ml @ 0.03 MCG/KG/MIN 10. 001 mls/hr IV .Q24H [facility] Rx#:[id number] Piperacillin-Tazobactam 3 50 .375 gm In Sodium Chloride 0.9% 100 ml @ 25 mls/hr IVPB Q8HR [facility] Rx# :[id number] propofoL 1,000 mg In 105.352 Empty Bag 1 bag @ 15 MCG/ KG/MIN 7.659 mls/hr IV . Q13H4M [facility] Rx#:[id number] Tube Feeding 92 Other 30 Output: Urine 1610 1560 50 Other: Voiding Method Indwelling Catheter Indwelling Catheter ABP, PAP, CO, CI - Last Documented Arterial Blood Pressure 101/57 - Exam GENERAL DESCRIPTION: An elderly male lying in bed in no distress RESPIRATORY SYSTEM: Unlabored breathing , decreased breath sounds at bases HEART: S1 S2 regular rate and rhythm , ABDOMEN: Soft , no tenderness EXTREMITIES: No edema feet - Labs CBC & Chem 7: 11/29/22 05:20 11/29/22 05:20 Labs: Abnormal Lab Results - Last 24 Hours (Table) 11/28/22 11/28/22 11/28/22 Range/Units 13:10 14:48 14:48 RBC (4.30-5.90) m/uL Hgb (13.0-17.5) gm/dL Hct (39.0-53.0) % Plt Count (150-450) k/uL Neutrophils # (1.3-7.7) k/uL Lymphocytes # (1.0-4.8) k/uL Sodium (137-145) mmol/L Chloride (98-107) mmol/L BUN (9-20) mg/dL Glucose (74-99) mg/dL POC Glucose (mg/dL) 176 H (70-110) mg/dL C-Reactive Protein 23.3 H (<1.0) mg/dL Procalcitonin 0.31 H (0.02-0.09) ng/mL HSV I IgG Interpret (NEGATIVE) 11/28/22 11/28/22 11/28/22 Range/Units 14:49 18:04 23:18 RBC (4.30-5.90) m/uL Hgb (13.0-17.5) gm/dL Hct (39.0-53.0) % Plt Count (150-450) k/uL Neutrophils # (1.3-7.7) k/uL Lymphocytes # (1.0-4.8) k/uL Sodium (137-145) mmol/L Chloride (98-107) mmol/L BUN (9-20) mg/dL Glucose (74-99) mg/dL POC Glucose (mg/dL) 147 H 169 H (70-110) mg/dL C-Reactive Protein (<1.0) mg/dL Procalcitonin (0.02-0.09) ng/mL HSV I IgG Interpret POSITIVE A (NEGATIVE) 11/29/22 11/29/22 11/29/22 Range/Units 05:20 05:20 05:54 RBC 3.49 L (4.30-5.90) m/uL Hgb 11.5 L (13.0-17.5) gm/dL Hct 34.2 L (39.0-53.0) % Plt Count 140 L (150-450) k/uL Neutrophils # 8.0 H (1.3-7.7) k/uL Lymphocytes # 0.5 L (1.0-4.8) k/uL Sodium 146 H (137-145) mmol/L Chloride 112 H (98-107) mmol/L BUN 23 H (9-20) mg/dL Glucose 158 H (74-99) mg/dL POC Glucose (mg/dL) 148 H (70-110) mg/dL C-Reactive Protein (<1.0) mg/dL Procalcitonin (0.02-0.09) ng/mL HSV I IgG Interpret (NEGATIVE) Microbiology - Last 24 Hours (Table) 11/25/22 19:45 Gram Stain - Final Sputum Sputum Culture - Final 11/27/22 21:13 Gram Stain - Preliminary Sputum Sputum Culture - Preliminary Assessment and Plan (1) Fever Current Visit: Yes Status: Acute Code(s): R50.9 - FEVER, UNSPECIFIED SNOMED Code(s): 307019519 (2) Aspiration pneumonia Current Visit: Yes Status: Acute Code(s): J69.0 - PNEUMONITIS DUE TO INHALATION OF FOOD AND VOMIT SNOMED Code(s): 246753167 (3) Encephalopathy Current Visit: Yes Status: Acute Code(s): G93.40 - ENCEPHALOPATHY, UNSPECIFIED SNOMED Code(s): 36061072 Plan: 1patient with mental status changes confusion now with a low-grade fever and this patient has been in the hospital for about 5 days did not have any fever on presentation to the hospital with a source of fever possible central or a question of possible pneumonia questionable aspiration etiology. 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 3patient will continue with Zosyn and acyclovir while awaiting further workup to be completed Time with Patient: Less than 30
--- NOTE | 2022-11-29 14:33 | P.PN ---
Subjective Progress Note Date: 11/29/22 11/29/2022: Patient was seen for a follow-up. Patient overnight was on Precedex 1.4 g, then this morning it was turned off at 8:30 AM. Per nursing report patient was not following commands, but on my examination patient is remarkably improved as per examination below. No seizure-like activity noticed. 11/28/2022: Patient was seen for a follow-up. Patient was weaned off propofol, and was extubated this morning at 9 AM to 5 L of nasal cannula. Per nursing report, patient was not following commands before he was extubated. He was not tracking. Patient became acutely encephalopathic postextubation, restless, agitated, would not calm down. He was trying to sit up, moaning and has nonpurposeful movements. Patient was not talking, but would move all 4 activities. No obvious seizure activity noted otherwise. Patient was not following commands. Patient was started on Precedex 1 g per program per hour. He calmed down, but then he became hypotensive therefore the Precedex was just decreased to 0.5 g per program per hour. Patient has been running temperature, with yesterday 100.7 axillary, and today, right now it is 99.5 axillary. Patient has copious amounts of secretions. 11/27/2022: Patient was seen for a follow-up. Patient's and patient's sister were both present today. Patient is of Versed now. Patient's propofol w as discontinued. Patient however was not appropriate. Nursing staff tried to wake patient up, but he was still encephalopathic, had a nonstop coughing. He was placed on Precedex, but did not work. Now his back on propofol. Patient currently on propofol 40 mcg/kg/m. Now he has developed hypotension and is on norepinephrine 0.05 g. 11/26/2022: Patient initially seen by Dr. Charles Aguirre. Please refer to his note for details. Patient is a 67-year-old male with past 2-3 weeks history of jerking/tremors, unresponsiveness. Patient has old encephalomalacia right temporoparietal region. Dr. Aguirre felt patient had clinical status but EEG did not show any seizure activity. EEG only showed excessive beta activity/Ativan effect. No prior history of seizures and was not on any AED. Patient currently on Keppra 1500 mg IV twice a day, Vimpat 200 mg twice a day. Patient also on Versed 2 mg/h, also on propofol 40 mcg/kg/m. The nurse has reported some left arm tremoring, some mouth tremors noted. Patient had a 2.5 hours EEG, which did not reveal any epileptiform activity. Objective - Vital Signs Vital signs: Vital Signs Temp 100.0 F H 11/29/22 08:00 Pulse 55 L 11/29/22 08:30 Resp 25 H 11/29/22 08:30 BP 108/68 11/29/22 08:00 Pulse Ox 96 11/29/22 08:30 FiO2 40 11/28/22 12:00 Intake & Output 11/28/22 11/29/22 11/29/22 18:59 06:59 18:59 Intake Total 9201.570 0348.199 32.809 Output Total 1610 1560 50 Balance -481.449 -499.801 -17.191 Weight 86.4 kg Intake: IV 426 749 23 Acyclovir Sodium 875 mg 250 In Sodium Chloride 0.9% 250 ml @ 267.4 mls/hr IVPB Q8HR [facility] Rx#: [id number] Lacosamide IV 200 mg In 50 Sodium Chloride 0.9% 50 ml @ 100 mls/hr IVPB BID [facility] Rx#:[id number] Piperacillin-Tazobactam 3 100 .375 gm In Sodium Chloride 0.9% 100 ml @ 25 mls/hr IVPB Q8HR [facility] Rx# :[id number] Pressure Bag (0.9 Sodium 36 39 3 Chloride) Sodium Chloride 0.9% 500 240 260 20 ml 500 ml @ 20 mls/hr IV .Q24H [facility] Rx#:[id number] levETIRAcetam IV 1,500 mg 100 100 In Saline 1 100ml.bag @ 400 mls/hr IVPB Q12HR [facility] Rx#:[id number] Intake, IV Titration 580.551 311.199 9.809 Amount Acyclovir Sodium 875 mg 250 In Sodium Chloride 0.9% 250 ml @ 267.4 mls/hr IVPB Q8HR [facility] Rx#: [id number] Dexmedetomidine/0.9% NaCl 100.802 298.864 9.809 (Pmx) 400 mcg In Empty Bag 1 bag @ 0.4 MCG/KG/HR 8.75 mls/hr IV .[id number] [facility] Rx#:[id number] Norepinephrine 4 mg In 74.397 12.335 0 Sodium Chloride 0.9% 250 ml @ 0.03 MCG/KG/MIN 10. 001 mls/hr IV .Q24H [facility] Rx#:[id number] Piperacillin-Tazobactam 3 50 .375 gm In Sodium Chloride 0.9% 100 ml @ 25 mls/hr IVPB Q8HR [facility] Rx# :[id number] propofoL 1,000 mg In 105.352 Empty Bag 1 bag @ 15 MCG/ KG/MIN 7.659 mls/hr IV . Q13H4M [facility] Rx#:[id number] Tube Feeding 92 Other 30 Output: Urine 1610 1560 50 Other: Voiding Method Indwelling Catheter Indwelling Catheter ABP, PAP, CO, CI - Last Documented Arterial Blood Pressure 86/67 - Exam Patient is waking up, opening eyes, making eye contact. Patient knows his name Augustine Antoine, his date of and that he is in [facility]. He knows name of the current president. He was able to name objects like a pen, glasses. He denies headache. He states that he lives in [place], [place]. Speech was clear although slurred because of dry mouth. Patient's pupils are equal, round and reacting. Extraocular muscles are intact, face is symmetric. His strength is equal on both sides. No focal weakness. He was generalized weak. - Labs CBC & Chem 7: 11/29/22 05:20 11/29/22 05:20 Labs: Abnormal Lab Results - Last 24 Hours (Table) 11/28/22 11/28/22 11/28/22 Range/Units 13:10 14:48 14:48 RBC (4.30-5.90) m/uL Hgb (13.0-17.5) gm/dL Hct (39.0-53.0) % Plt Count (150-450) k/uL Neutrophils # (1.3-7.7) k/uL Lymphocytes # (1.0-4.8) k/uL Sodium (137-145) mmol/L Chloride (98-107) mmol/L BUN (9-20) mg/dL Glucose (74-99) mg/dL POC Glucose (mg/dL) 176 H (70-110) mg/dL C-Reactive Protein 23.3 H (<1.0) mg/dL Procalcitonin 0.31 H (0.02-0.09) ng/mL HSV I IgG Interpret (NEGATIVE) 11/28/22 11/28/22 11/28/22 Range/Units 14:49 18:04 23:18 RBC (4.30-5.90) m/uL Hgb (13.0-17.5) gm/dL Hct (39.0-53.0) % Plt Count (150-450) k/uL Neutrophils # (1.3-7.7) k/uL Lymphocytes # (1.0-4.8) k/uL Sodium (137-145) mmol/L Chloride (98-107) mmol/L BUN (9-20) mg/dL Glucose (74-99) mg/dL POC Glucose (mg/dL) 147 H 169 H (70-110) mg/dL C-Reactive Protein (<1.0) mg/dL Procalcitonin (0.02-0.09) ng/mL HSV I IgG Interpret POSITIVE A (NEGATIVE) 11/29/22 11/29/22 11/29/22 Range/Units 05:20 05:20 05:54 RBC 3.49 L (4.30-5.90) m/uL Hgb 11.5 L (13.0-17.5) gm/dL Hct 34.2 L (39.0-53.0) % Plt Count 140 L (150-450) k/uL Neutrophils # 8.0 H (1.3-7.7) k/uL Lymphocytes # 0.5 L (1.0-4.8) k/uL Sodium 146 H (137-145) mmol/L Chloride 112 H (98-107) mmol/L BUN 23 H (9-20) mg/dL Glucose 158 H (74-99) mg/dL POC Glucose (mg/dL) 148 H (70-110) mg/dL C-Reactive Protein (<1.0) mg/dL Procalcitonin (0.02-0.09) ng/mL HSV I IgG Interpret (NEGATIVE) Microbiology - Last 24 Hours (Table) 11/25/22 19:45 Gram Stain - Final Sputum Sputum Culture - Final 11/27/22 21:13 Gram Stain - Preliminary Sputum Sputum Culture - Preliminary Assessment and Plan Assessment: This is a 67-year-old gentleman and it appears he's been having the unresponsiv eness episodes with eye rolling back at home for 2-3 weeks. * Altered mental status, likely due to toxic metabolic encephalopathy. * Seizure-like activity, rule out seizure disorder. 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 No epileptiform activity was seen. Patient is clinically much improved. He is following directions, speaking slowly, appropriately, but still groggy and mild to moderately encephalopathic. Denies headache. Limited examination is nonfocal. Patient had spiked a temperature yesterday and started on Zosyn and acyclovir. Patient has aspiration pneumonia. ID input appreciated. Patient's Plavix has been put on hold for possible lumbar puncture. Stat EEG 11/28/2022 was abnormal with background slowing of moderate to severe degree, consistent with encephalopathy. Some bifrontal low amplitude sharp- appearing waves were seen sporadically, but periodically. These are difficult to interpret because of significant myogenic activity. No electrographic seizure was seen. EEG was technically limited because of a lot of movement artifact. No definitive evidence of status epilepticus. When compared to the previous EEGs, the encephalopathy has got significantly and progressively worse with each EEGs. Continue Keppra 1500 mg twice a day. Vimpat has been discontinued. MRI of the brain still pending. CT head revealed no acute process. Carotid Doppler 2-D echo revealed left ventricular EF 25-30%. Moderate increase left ventri cular wall thickness. Mild to moderate right ventricular dilation. Moderate mitral calcification. Cardiology on board. Ativan 1mg Q1 hour PRN seizure. On seizure precaution and pads. Continue neuro checks. Discussed with Dr. Lal and patient's nursing detail. Will defer the rest of medical management to primary team.
--- NOTE | 2022-11-29 15:05 | P.PAINPG ---
Objective - Vital Signs Vital signs: Vital Signs Temp 99.0 F 11/29/22 12:00 Pulse 66 11/29/22 14:00 Resp 16 11/29/22 14:00 BP 110/58 11/29/22 14:00 Pulse Ox 98 11/29/22 14:00 FiO2 40 11/28/22 12:00 Intake & Output 11/28/22 11/29/22 11/29/22 18:59 06:59 18:59 Intake Total 5482.647 6730.199 491.590 Output Total 1610 1560 355 Balance -481.449 -499.801 136.590 Weight 86.4 kg 86.4 kg Intake: IV 426 749 463 Acyclovir Sodium 875 mg 250 250 In Sodium Chloride 0.9% 250 ml @ 267.4 mls/hr IVPB Q8HR [facility] Rx#: [id number] Lacosamide IV 200 mg In 50 Sodium Chloride 0.9% 50 ml @ 100 mls/hr IVPB BID [facility] Rx#:[id number] Piperacillin-Tazobactam 3 100 75 .375 gm In Sodium Chloride 0.9% 100 ml @ 25 mls/hr IVPB Q8HR [facility] Rx# :[id number] Pressure Bag (0.9 Sodium 36 39 18 Chloride) Sodium Chloride 0.9% 500 240 260 120 ml 500 ml @ 20 mls/hr IV .Q24H [facility] Rx#:[id number] levETIRAcetam IV 1,500 mg 100 100 In Saline 1 100ml.bag @ 400 mls/hr IVPB Q12HR [facility] Rx#:[id number] Intake, IV Titration 580.551 311.199 28.590 Amount Acyclovir Sodium 875 mg 250 In Sodium Chloride 0.9% 250 ml @ 267.4 mls/hr IVPB Q8HR [facility] Rx#: [id number] Dexmedetomidine/0.9% NaCl 100.802 298.864 9.809 (Pmx) 400 mcg In Empty Bag 1 bag @ 0.4 MCG/KG/HR 8.75 mls/hr IV .[id number] [facility] Rx#:[id number] Norepinephrine 4 mg In 74.397 12.335 18.781 Sodium Chloride 0.9% 250 ml @ 0.03 MCG/KG/MIN 10. 001 mls/hr IV .Q24H [facility] Rx#:[id number] Piperacillin-Tazobactam 3 50 .375 gm In Sodium Chloride 0.9% 100 ml @ 25 mls/hr IVPB Q8HR [facility] Rx# :[id number] propofoL 1,000 mg In 105.352 Empty Bag 1 bag @ 15 MCG/ KG/MIN 7.659 mls/hr IV . Q13H4M [facility] Rx#:[id number] Tube Feeding 92 Other 30 Output: Urine 1610 1560 355 Other: Voiding Method Indwelling Catheter Indwelling Catheter ABP, PAP, CO, CI - Last Documented Arterial Blood Pressure 144/121 - Labs CBC & Chem 7: 11/29/22 05:20 11/29/22 05:20 Labs: Abnormal Lab Results - Last 24 Hours (Table) 11/28/22 11/28/22 11/28/22 Range/Units 14:48 14:48 14:49 RBC (4.30-5.90) m/uL Hgb (13.0-17.5) gm/dL Hct (39.0-53.0) % Plt Count (150-450) k/uL Neutrophils # (1.3-7.7) k/uL Lymphocytes # (1.0-4.8) k/uL Sodium (137-145) mmol/L Chloride (98-107) mmol/L BUN (9-20) mg/dL Glucose (74-99) mg/dL POC Glucose (mg/dL) (70-110) mg/dL C-Reactive Protein 23.3 H (<1.0) mg/dL Procalcitonin 0.31 H (0.02-0.09) ng/mL HSV I IgG Interpret POSITIVE A (NEGATIVE) 11/28/22 11/28/22 11/29/22 Range/Units 18:04 23:18 05:20 RBC (4.30-5.90) m/uL Hgb (13.0-17.5) gm/dL Hct (39.0-53.0) % Plt Count (150-450) k/uL Neutrophils # (1.3-7.7) k/uL Lymphocytes # (1.0-4.8) k/uL Sodium 146 H (137-145) mmol/L Chloride 112 H (98-107) mmol/L BUN 23 H (9-20) mg/dL Glucose 158 H (74-99) mg/dL POC Glucose (mg/dL) 147 H 169 H (70-110) mg/dL C-Reactive Protein (<1.0) mg/dL Procalcitonin (0.02-0.09) ng/mL HSV I IgG Interpret (NEGATIVE) 11/29/22 11/29/22 11/29/22 Range/Units 05:20 05:54 12:12 RBC 3.49 L (4.30-5.90) m/uL Hgb 11.5 L (13.0-17.5) gm/dL Hct 34.2 L (39.0-53.0) % Plt Count 140 L (150-450) k/uL Neutrophils # 8.0 H (1.3-7.7) k/uL Lymphocytes # 0.5 L (1.0-4.8) k/uL Sodium (137-145) mmol/L Chloride (98-107) mmol/L BUN (9-20) mg/dL Glucose (74-99) mg/dL POC Glucose (mg/dL) 148 H 176 H (70-110) mg/dL C-Reactive Protein (<1.0) mg/dL Procalcitonin (0.02-0.09) ng/mL HSV I IgG Interpret (NEGATIVE) Microbiology - Last 24 Hours (Table) 11/28/22 14:48 Blood Culture Gram Stain - Preliminary Blood 11/28/22 14:48 Blood Culture - Final Blood 11/25/22 19:45 Gram Stain - Final Sputum Sputum Culture - Final PQRS Measure Charge Sheet Comment: HISTORY OF PRESENT ILLNESS: 67 yr old inpatient male as a referral from Dr Foster presents today mental s tatus changes for evaluation for Lumbar Puncture. 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 Currently on Plavix and protocols call for stopping medication for 7 days for neuroaxial blocks. Will need medical clearance prior to procedure. PMH: Asthma, DM II, Hyperlipidemia, HTN PSH: Back Surgery, Heart Catheterization With Stent, Orthopedic Surgery SH: Never smoker, No ETOH abuse, Cannabis use FH: Fa- CAD All: See list Meds: See list REVIEW OF ORGAN SYSTEMS: Unable to complete due to pt's mental status Physical Examinations : Constitutional : Cooperative , not in acute distress . Neurologic : Cranial nerve II to XII intact. No focal neurological deficits. Psychiatric : alert & oriented x 3. Matching mood & appropriate affect. Judgment & insight intact. Musculoskeletal : Cervical Spine Motor strength in the deltoid and biceps: Normal right side. Normal Left side Motor strength biceps and the wrist extensors: Normal right side . Normal left side Motor strength in the triceps muscle: Normal right side. Normal left side Deep tendon reflexes: Normal at the biceps. Normal at Brachioradialis. Normal at triceps Vertebral body tenderness to deep palpation over Cervical facet loading test: positive bilaterally Lumbar spine Motor strength lower extremities ,thigh and legs 5/5 Right side , 5/5 Left side Deep tendon reflexes : Normal Knee Jerk. Normal Ankle Jerk Vertebral body tenderness over Lumbar facet Loading Test: positive Right / positive Left Range of motion of the lumbar spine Flexion 30 degrees, extension 10 degrees Straight Leg Raise test: Left/ Right positive at degree Isamar test: positive right / positive left. Sacral spine : Severe tenderness over the Sacroiliac joint: right side / left side Range of motion: Flexion of the lumbar spine <60 degrees Range of motion: Extension of the lumbar spine <20 degrees Gaenslen's Test positive Assessment/ Plan : Mental Status changes, HSV positive, requiring LP to r/p HSV Encephalitis. Admits to aspirin or anti- coagulant use or medical history of diabetes. Protocol for discontinuation/ continuation of medications yimi procedure prior to procedure. Will need medical clearance, and upon discharge, may have LP performed. All questions answered. I have spent greater than 30 minutes on patient care today. Dr Bailey was available by phone for the evaluation of this patient. The time was used to review the medical records including relevant urine studies and Prescription history (MAPs), review of the available imaging, evaluation and examination of the patient, coordination of care with the medical staff and if applicable referring physicians, as well as creation of the medical record PQRS Narrative: Blood Pressure [Right Arm] 136/77 Blood Pressure 110/58 Pain Intensity [Generalized] 0 Pain Intensity 0 Pain Scale Used Numeric (1 - 10) Scale Used Numeric (1 - 10) Home Medications: Ambulatory Orders Acetaminophen [Tylenol] 650 mg PO Q4H PRN 11/23/22 Aspirin EC [Ecotrin Low Dose] 81 mg PO DAILY 11/23/22 Clopidogrel [Plavix] 75 mg PO DAILY 11/23/22 DULoxetine HCL [Cymbalta] 60 mg PO DAILY 11/23/22 Empagliflozin [Jardiance] 10 mg PO DAILY 11/23/22 Furosemide [Lasix] 40 mg PO DAILY 11/23/22 HYDROcodone/APAP 5-325MG [[place] 5-325] 1 tab PO TID PRN 11/23/22 Insulin Glargine,Hum.rec.anlog [Insulin Glargine Solostar] 60 units SQ HS 11/23/22 Metoprolol Succinate (ER) [Toprol Xl] 100 mg PO DAILY 11/23/22 Omeprazole [PriLOSEC] 20 mg PO DAILY 11/23/22 Pregabalin [Lyrica] 100 mg PO BID 11/23/22 Rosuvastatin Calcium [Crestor] 40 mg PO HS 11/23/22 Sacubitril/Valsartan [Entresto 49 mg-51 mg Tablet] 1 tab PO BID 11/23/22 Spironolactone 25 mg PO DAILY 11/23/22 allopurinoL 300 mg PO DAILY 11/23/22 Controlled Substance Measures - Controlled Substance Measures Is patient prescribed a controlled substance at discharge?: No
--- NOTE | 2022-11-29 15:24 | US ---
EXAMINATION TYPE: US carotid duplex BILAT DATE OF EXAM: 11/29/2022 COMPARISON: NONE CLINICAL HISTORY: 67-year-old male confusion, Altered mental status. TECHNIQUE: Carotid duplex ultrasound examination. Indirect Doppler criteria was utilized. FINDINGS: EXAM MEASUREMENTS: RIGHT: Peak Systolic Velocity (PSV) cm/sec ----- Right CCA: 74.2 ----- Right ICA: 91.8 ----- Right ECA: 108.7 ICA/CCA ratio: 1.2 RIGHT: End Diastole cm/sec ----- Right CCA: 10.3 ----- Right ICA: 12.8 ----- Right ECA: 6.0 LEFT: Peak Systolic Velocity (PSV) cm/sec ----- Left CCA: 88.2 ----- Left ICA: 124.7 ----- Left ECA: 92.0 ICA/CCA ratio: 1.4 LEFT: End Diastole cm/sec ----- Left CCA: 16.6 ----- Left ICA: 15.1 ----- Left ECA: 3.3 VERTEBRALS (direction of flow): Right Vertebral: Antegrade Left Vertebral: Antegrade [employer] NOTES: Mild plaque visualized in bilateral carotid bulbs. No significant stenosis seen. IMPRESSION: No hemodynamically significant internal carotid artery stenosis on either side. Criteria for Assigning % of Stenosis / Diameter reduction (Estimation based on the indirect measurements of the internal carotid artery velocities (ICA PSV). 1. Normal (no stenosis)=ICA PSV < 125 cm/s: ratio < 2.0: ICA EDV<40 cm/s. 2. Less than 50% stenosis=ICA PSV < 125 cm/s: ratio < 2.0: ICA EDV<40 cm/s. 3. 50 to 69% stenosis=ICA PSV of 125 to 230 cm/s: ration 2.0 ? 4.0: ICA EDV 40-100 cm/s. 4. Greater than 70% stenosis to near occlusion= ICA PSV > 230 cm/s: ratio > 4.0: ICA EDV > 100 cm/s. 5. Near occlusion= ICA PSV velocities may be low or undetectable: variable ratio and ICA EDV. 6. Total occlusion=unable to detect flow.
[2022-11-29 17:00] LABS: Glucose,Whole Blood 146 mg/dL (70-110)
[2022-11-29] MEDS: NON FORMULARY DRUG (Rosuvastatin Calcium [Crestor] 40 MG Tablet) PO SCH (20:49)
--- NOTE | 2022-11-29 21:00 | EEG ---
ELECTROENCEPHALOGRAM REPORT PREAMBLE: This is a 67-year-old male with altered mental status. This study is performed to evaluate for any epileptiform activity. This is a followup study. CURRENT MEDICATIONS: Keppra. EEG FINDINGS: This is a 21-channel digital EEG recorded with video component, utilizing 10/20 international system with referential and bipolar montages. Background consists of well-developed, moderately well regulated, mixed frequencies of alpha, intermixed with some theta activity seen in bihemispheric region. Background is posterior dominant and reactive to eye opening and closing. Some myogenic and eye blink artifacts were seen in the frontal region. Drowsiness was seen during middle part of the study, but deeper stages of sleep were not attained. No focal or generalized epileptiform activity was seen. IMPRESSION: This is an abnormal EEG due to background slowing of mild degree. This is suggestive of generalized cerebral dysfunction as can be seen with toxic metabolic encephalopathy. No epileptiform activity was seen. When compared to EEG from yesterday, 11/28/2022, the background has remarkably improved. MMODL / IJN: [id number] /
[2022-11-29 23:59] LABS: Glucose,Whole Blood 147 mg/dL (70-110)
[2022-11-30] MEDS: INSULIN ASPART (NovoLOG) 100 UNIT/ML VIAL SQ SCH ×4 (00:01→18:03)
[2022-11-30] MEDS: HEPARIN SODIUM,PORCINE/PF 5,000 UNIT/0.5 ML SYRINGE SQ SCH ×3 (00:06→16:00)
[2022-11-30] MEDS: SODIUM CHLORIDE 0.9% IVPB SCH ×4 (00:06→23:57)
[2022-11-30] MEDS: PIPERACILLIN-TAZOBACTAM 3.375 GM in SODIUM CHLORIDE 0.9% 100 ML IVPB SCH ×3 (00:06→15:59)
[2022-11-30] MEDS: ACYCLOVIR SODIUM IVPB SCH ×4 (00:06→23:57)
[2022-11-30] MEDS: SODIUM CHLORIDE 0.9% 500 ML 500 ML IV SCH ×2 (00:11→16:00)
[2022-11-30 04:27] LABS: Basophils % (A) 0 %; Eosinophils # (A) 0.1 k/uL (0-0.7); Eosinophils % (A) 2 %; HCT 31.6 % (39.0-53.0); HGB 10.6 gm/dL (13.0-17.5); Lymphocytes # (A) 0.8 k/uL (1.0-4.8); Lymphocytes % (A) 17 %; MCH 32.4 pg (25.0-35.0); MCHC 33.6 g/dL (31.0-37.0); MCV 96.3 fL (80.0-100.0); Mean Platelet Volume 8.6; Monocytes # (A) 0.3 k/uL (0-1.0); Monocytes % (A) 6 %; Neutrophils # (A) 3.7 k/uL (1.3-7.7); Neutrophils % (A) 74 %; Platelet Count 148 k/uL (150-450); RBC 3.29 m/uL (4.30-5.90); RDW 13.9 % (11.5-15.5); WBC 5.1 k/uL (3.8-10.6)
[2022-11-30 04:40] LABS: Calcium 8.3 mg/dL (8.4-10.2); Magnesium 2.4 mg/dL (1.6-2.3); Potassium 3.5 mmol/L (3.5-5.1)
[2022-11-30] MEDS: POTASSIUM BICARBONATE/CIT AC 20 MEQ TABLET.EFF NG-TUBE SCH ×2 (05:07→06:07)
[2022-11-30 06:07] LABS: Glucose,Whole Blood 141 mg/dL (70-110)
--- NOTE | 2022-11-30 06:57 | P.PN ---
Subjective Progress Note Date: 11/30/22 PROGRESS NOTE The patient is a 67-year-old male who presented with change in mental status. He is intubated and sedated. He has a history of CAD and PAD, details not available. There is a question of seizure activity. He is in sinus mechanism with sinus bradycardia but no evidence of malignant arrhythmia. There is no evidence of acute coronary syndrome or ventricle tachycardia. He had recurrent seizure and he has a history of chronic marijuana use. November 27: The patient remains intubated and sedated. I reviewed the data from the [facility] the patient has multivessel stenting with severe cardiomyopathy. He was evaluated for ICD. He had episodes of bigeminal rhythm yesterday, he is in sinus mechanism at this time. He has no evidence of ventricle tachycardia. His urinary output is stable. He has been followed by neurology regarding possible recurrent seizures. Hemodynamically he has been stable. His echocardiogram showed a severely impaired systolic function with mild tricuspid regurgitation November 28: The patient remains intubated and sedated. He is in sinus mechanism, hemody namically he is stable. There is no evidence of malignant arrhythmia. He is on no vasopressors. There is no evidence of atrial fibrillation or ventricle tachycardia. His urinary output has been stable. He is hemodynamically stable. He is tolerating the present combination. He is receiving high-protein nutrition. November 29: The patient is intubated and sedated, continues to be in sinus mechanism. His blood pressure has been stable, he is off the vasopressor. His urine output has been good. No episodes of atrial fibrillation or recurrent ventricle tachycardia. His sedation is being weaned, attempting to come up to see his neurological status and possible weaning and extubation. November 30: The patient was extubated yesterday, he is awake and alert. He denies any chest discomfort. He continues to be in sinus mechanism. Hemodynamically stable. He has good urinary output. He denies any dizziness or palpitations. He denies any nausea. He has no evidence of malignant arrhythmia. He is anxious to go home. His duplex scan of the carotid showed no evidence of high-grade stenosis Medications: aspirin, Ativan, metoprolol 50 mg twice a day, Crestor 40 mg daily, Aldactone 25 mg daily, Farxiga 10 mg daily PHYSICAL EXAMINATION: Blood pressure 131/70 heart rate 60, awake and alert LUNGS: Clear to auscultation HEART: Regular rate and rhythm, S1, S2. No S3. 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 BUN 29, creatinine 1.04. Magnesium 2.4 IMPRESSION: 1. Seizure activity which change in mental status him a recent EEG showed no acute seizure activity 2. Respiratory failure, resolved, extubated 3. History of CAD, post-multivessel stenting 4. History of hypertension 5. Severe ischemic cardiomyopathy 6. Ventricular bigeminy, resolved 7. History of PAD PLAN: 1. Restart PATIENCE inhibitor, and follow blood pressure 2. Follow renal functions 3. Continue beta crystal and statin 4. We will see him on as-needed basis, please feel free to call us for any question. Objective - Vital Signs Vital signs: Vital Signs Temp 98.9 F 11/30/22 04:00 Pulse 67 11/30/22 06:00 Resp 16 11/30/22 06:00 BP 131/77 11/30/22 06:00 Pulse Ox 95 11/30/22 06:00 FiO2 40 11/28/22 12:00 Intake & Output 11/29/22 11/29/22 11/30/22 06:59 18:59 06:59 Intake Total 1060.199 368.422 6150.547 Output Total 1876 684 8355 Balance -499.801 -163.410 180.547 Weight 86.4 kg 86.4 kg 81.9 kg Intake: IV 749 578 700 Acyclovir Sodium 875 mg 250 250 250 In Sodium Chloride 0.9% 250 ml @ 267.4 mls/hr IVPB Q8HR [facility] Rx#: [id number] Piperacillin-Tazobactam 3 100 75 100 .375 gm In Sodium Chloride 0.9% 100 ml @ 25 mls/hr IVPB Q8HR [facility] Rx# :[id number] Pressure Bag (0.9 Sodium 39 33 30 Chloride) Sodium Chloride 0.9% 500 260 220 220 ml 500 ml @ 20 mls/hr IV .Q24H [facility] Rx#:[id number] levETIRAcetam IV 1,500 mg 100 100 In Saline 1 100ml.bag @ 400 mls/hr IVPB Q12HR [facility] Rx#:[id number] Intake, IV Titration 311.199 28.590 0.547 Amount Dexmedetomidine/0.9% NaCl 298.864 9.809 0.547 (Pmx) 400 mcg In Empty Bag 1 bag @ 0.4 MCG/KG/HR 8.75 mls/hr IV .[id number] [facility] Rx#:[id number] Norepinephrine 4 mg In 12.335 18.781 Sodium Chloride 0.9% 250 ml @ 0.03 MCG/KG/MIN 10. 001 mls/hr IV .Q24H [facility] Rx#:[id number] Oral 480 Output: Urine 2580 149 8931 Other: Voiding Method Indwelling Catheter Indwelling Catheter Indwelling Catheter # Bowel Movements 1 1 ABP, PAP, CO, CI - Last Documented Arterial Blood Pressure 59/44 - Labs CBC & Chem 7: 11/30/22 04:17 11/30/22 04:17 Labs: Abnormal Lab Results - Last 24 Hours (Table) 11/29/22 11/29/22 11/29/22 Range/Units 05:20 12:12 16:59 RBC (4.30-5.90) m/uL Hgb (13.0-17.5) gm/dL Hct (39.0-53.0) % Plt Count (150-450) k/uL Lymphocytes # (1.0-4.8) k/uL Chloride (98-107) mmol/L BUN (9-20) mg/dL Glucose (74-99) mg/dL POC Glucose (mg/dL) 176 H 146 H (70-110) mg/dL Calcium (8.4-10.2) mg/dL Magnesium (1.6-2.3) mg/dL Procalcitonin 1.02 H (0.02-0.09) ng/mL 11/29/22 11/30/22 11/30/22 Range/Units 23:57 04:17 04:17 RBC 3.29 L (4.30-5.90) m/uL Hgb 10.6 L (13.0-17.5) gm/dL Hct 31.6 L (39.0-53.0) % Plt Count 148 L (150-450) k/uL Lymphocytes # 0.8 L (1.0-4.8) k/uL Chloride 112 H (98-107) mmol/L BUN 29 H (9-20) mg/dL Glucose 144 H (74-99) mg/dL POC Glucose (mg/dL) 147 H (70-110) mg/dL Calcium 8.3 L (8.4-10.2) mg/dL Magnesium 2.4 H (1.6-2.3) mg/dL Procalcitonin (0.02-0.09) ng/mL 11/30/22 Range/Units 06:06 RBC (4.30-5.90) m/uL Hgb (13.0-17.5) gm/dL Hct (39.0-53.0) % Plt Count (150-450) k/uL Lymphocytes # (1.0-4.8) k/uL Chloride (98-107) mmol/L BUN (9-20) mg/dL Glucose (74-99) mg/dL POC Glucose (mg/dL) 141 H (70-110) mg/dL Calcium (8.4-10.2) mg/dL Magnesium (1.6-2.3) mg/dL Procalcitonin (0.02-0.09) ng/mL Microbiology - Last 24 Hours (Table) 11/28/22 14:48 Blood Culture Gram Stain - Preliminary Blood Blood Culture - Preliminary Coagulase Negative Staph 11/28/22 14:48 Blood Culture - Final Blood
--- NOTE | 2022-11-30 07:11 | XR ---
EXAMINATION TYPE: XR chest 1V portable DATE OF EXAM: 11/30/2022 COMPARISON: 11/29/2022 HISTORY: Tube placement TECHNIQUE: Single frontal view of the chest is obtained. FINDINGS: There is no focal air space opacity, pleural effusion, or pneumothorax seen. The cardiac silhouette size is within normal limits. The osseous structures are intact. There is prominence of the left paratracheal stripe. Elevated right hemidiaphragm. Coarsened interstitium. Severe arthropath y of the left shoulder. NG tube has been removed. IMPRESSION: 1. Interval removal of the NG tube there is thickening of the left paratracheal stripe with deviation of the trachea. This could be positional recommend follow-up x-ray. If the finding persists then CT of the chest recommended..
--- NOTE | 2022-11-30 08:59 | P.PN ---
Subjective Progress Note Date: 11/30/22 On 11/26/2022, seeing the patient for a follow-up. The patient is currently intubated on a mechanical ventilator. The patient is a . The patient is known to have CAD and he smokes marijuana and he has a remote history of seizures. The patient. He was hospitalized and he was having recurrent seizure activity and he was postictal with altered mentation and diminished level of consciousness. CAT scan of the brain showed encephalomalacia related to prior infarcts last traumatic insults. This was noted more in the posterior right temporal parietal region. There was no other acute abnormalities noted. The patient was seen by neurology. He is currently on a combination of antiepileptics including Keppra, Vimpat and Depakote. At the time of his seizure activity he also received Ativan. Currently, he is also on propofol running at 30 mcg/kg/m. He is also on Versed running at X milligrams an hour. He is completely sedated and there is no visible seizure activity noted. He is in the process of undergoing an EEG this morning. He remains on a mechanical ventilator on assist control mode at a rate of 20 with a tidal volume of 450 and FiO2 of 40% with a PEEP of 5. His chest x-ray shows no acute abnormalities. His tube is in adequate location. Patient also has a orogastric tube in place. No consolidation. No airspace disease. He is hemodynamically stable. Cardiac rhythm is sinus. He is on heparin subcu for DVT prophylaxis. IV fluids are running in the form of normal saline at rate of 75 mL an hour. Note that the patient is also diabetic. He was receiving Lantus insulin on outpatient basis in combination with JArdiance and I noted that he was not taking any form of antiepileptic medications on outpatient basis. An EEG was ordered the done on 11/24/2022 and obviously EEG was abnormal and there was background slowing suggestive of mild to moderate encephalopathy. No focal epileptic discharges were noted. There was extensive but activity due to medication/Ativan effects. Neurologically is currently on the case and the patient was evaluated by the neurology service. Blood gas from today shows a pH of 7.41 with a pCO2 of 30 and pO2 140. White cycles of 12.7 with a hemoglobin of 12.7 and a platelet count of 125. Sodium is at 139 potassium is at 4.1 bicarbs at 17 BUN is 20 with a creatinine of 1.1. Lactic acid level dropped from 4.0 down to 0.9. I also noted an elevation the prolactin level, borderline elevation, could be related to the seizure activity. On today's evaluation of 11/27/2022, the patient is being seen for a follow-up. The patient is currently intubated on a mechanical ventilator and the patient was on a combination of drugs for status epilepticus. Noted the EEG was done yesterday and it showed no evidence of any active seizures and this morning the patient remains on propofol running at 35 mcg/kg/m and the patient is also on Versed 1 mg/h. He is still deeply sedated. The EEG showed diffuse synchronous and asynchronous delta range slowing and there was no seizure activity noted. Meanwhile, the patient continues to be on a combination of Keppra 1.5 g twice a day and Vimpat at a dose of 200 mg IV twice a day. No active seizures noted on examination. He remains hemodynamically stable. The patient remains on a mechanical ventilator. He is currently on assist control mode at the rate of 20, tidal volume of 450, FiO2 of 40% with a PEEP of 5. The chest x-ray from today shows some bibasilar atelectatic changes. No airspace disease or acute pulmonary infiltrates. Blood gas from today shows a pH of 7.44 with a pCO2 of 29 and pO2 of 96 and this was done on the above-mentioned ventilator settings. The patient hemodynamically is stable. He is on no pressors. His cardiac rhythm is sinus although he was having frequent PVCs. Echocardiogram was done yesterday and the patient was found to have systolic heart failure. The patient has an ejection fraction of 25-30%. There is also evidence of RV dilatation. There was mild to moderate RV dilatation moderate mitral calcification, tricuspid regurgitation, moderate increase in the LV wall thickness. Patient was seen by cardiology. The patient was started on a combination of treatment including metoprolol 50 mg by mouth twice a day. Patient is also on aspirin and Plavix. The patient is on farxiga and Zestril 2.5 mg twice a day. Aldactone was also added at a dose of 25 mg by mouth daily. The patient remains on enteral feeding for nutritional support. Is currently on vital high-protein at the rate of 30 mL an hour. Rest of the blood work is essentially stable. The discomfort is at 7.6 with a hemoglobin of 15. BUN is at 15 with a creatinine of 1.02. Bicarb is at 17. Sodiums of 138. On today's evaluation of 11/28/2022, the patient remains on sedation with propofol. He was on accommodation of Versed and propofol yesterday. We discontinued the Versed. He also gradually weaned off the propofol. As the patient was taken off the sedation, he became more restless, starts coughing, reaching up to the tube, opening his eyes but not following any commands.. We tried to control his restlessness with Precedex and this was not successful. He was not ready for activation processes as the patient was not felt to have adequate mentation. As such, he was placed back on propofol which is currently running at 45 mcg/kg/m. He is deeply sedated. He is not even grimacing to any deep painful stimulation. When the process of gradually weaning him off the sedation. EEG was done on 11/26/2022 and this was interpreted by neurology and there is no evidence of any ongoing epileptic discharge. The patient remains on a combination of Keppra and Vimpat of the usual doses. Meanwhile, the patient remains on a mechanical ventilator. He is currently on assist control mode with a rate of 20, tidal volume of 450, FiO2 of 40% with a PEEP of 5. Chest x-ray remains stable without any acute pulmonary infiltrates. There may be some limited infiltration of the left lung base, which is essentially unchanged. The previous echoes at 9.1 with a hemoglobin of 12.9 and a platelet count of 136. Sodium is at 142 and a potassium level is 3.9 with a BUN of 18 and a creatinine of 1.06. Sputum culture has been negative for now . The patient remains on vital high-protein at the rate of 46 mL an hour. Afebrile. Urine output is around 150 mL an hour. IV fluids are currently at KVO. He remains on no low- dose norepinephrine running at 0.03 mcg/kg/m. Note that his echocardiogram also showed impaired LV function and the patient has systolic heart failure with ejection fraction of 25-30%. He has also evidence of RV dilatation and there is mild to moderate RV dilatation and moderate mitral calcification and tricuspid regurgitation and there is also increase in LV wall thickness. Cardiology has made adjustments on his cardiac medication. He is having occasional PVCs and these are not frequent at this point in time.. I would suggest holding of his lisinopril till patient is off norepinephrine. 11/29/2022, the patient is being seen for a follow-up. The patient was extubated yesterday. EEG was done and that showed no evidence of any seizure activity. Postextubation, the patient was quite restless and agitated. He was placed on Precedex and he was kept on Precedex throughout the day yesterday. 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 The patient is calm and comfortable. I noted some response and he is becoming much more alert on today's neurologic evaluation. He is still lethargic and sleepy however. No seizure activity has been noted. He is currently on norepinephrine running at 0.04 Kirby respiratory minute to support his blood pressure. he developed a temperature 100.2. he was started on acyclovir as an empiric coverage for viral encephalitis. unable to perform lumbar puncture as the patient has been taking Plavix. I also covered the patient IV Zosyn. He has an NG tube in place. Output from the NG tube is minimal this morning. He is on 4 L of oxygen by nasal cannula with a pulse ox of 97%. The patient's previous echoes at 9.3 with a hemoglobin 11.5 and a platelet count of 140. BUN is at 23 with a creatinine of 1.3. Glucose at 148. 11/30/2022, the patient is wide awake and alert. Note that he is having progressive improvement and recovery in his neurologic status. He is responsive . He is communicating. He is alert and oriented. Nevertheless, there are still episodes of confusion and restlessness and agitation. Overnight, he was kept on Precedex and the dose has been weaned down to 0.8 mcg/kg/h. Dose still being titrated to keep this patient quite comfortable. Meanwhile, he is moving all 4 extremities. His swallowing adequately. Is on oxygen at 2 L/m nasal cannula. Chest x-ray showing some cardiomegaly and pulmonary vascular congestion. Note that the patient has an underlying cardiomyopathy. Neurology is still on the case. We have the patient 97 acyclovir. Blood culture came back positive for gram positives coagulase negative staph which is probably contaminant. He is on IV Zosyn for a potential aspiration. His blood work today shows a WBC count of 5.4 with a hemoglobin of 10.6. BUN is at 29 with a creatinine of 1. Sodium is at 145 and the patient has a potassium level of 3.8. Pro-calcitonin level was 1.02. Neurology is on the case. I have the patient off Plavix in consultation for a possible lumbar puncture at later stage if needed. I am seeing progressive improvement in his neurologic functions. There is no evidence of any seizure activity. Carotid Doppler was done yesterday showed no hemodynamically significant stenosis. At the same time, and EEG was done yesterday on 11/29/2022 that showed abnormal background slowing. There is generalized cerebral dysfunction. No evidence of any seizure activity. The patient meanwhile is maintained on IV acyclovir. Is on IV Keppra 1.5 g every 12 hours. Norepinephrine has been discontinued. IV fluids are at KVO. Objective - Vital Signs Vital signs: Vital Signs Temp 98.9 F 11/30/22 04:00 Pulse 63 11/30/22 07:00 Resp 16 11/30/22 07:00 BP 134/78 11/30/22 07:00 Pulse Ox 97 11/30/22 07:49 FiO2 40 11/28/22 12:00 Intake & Output 11/29/22 11/30/22 11/30/22 18:59 06:59 18:59 Intake Total 795.387 5522.432 41.111 Output Total 770 1000 100 Balance -163.410 220.432 -58.889 Weight 86.4 kg 81.9 kg Intake: IV 578 700 20 Acyclovir Sodium 875 mg 250 250 In Sodium Chloride 0.9% 250 ml @ 267.4 mls/hr IVPB Q8HR [facility] Rx#: [id number] Piperacillin-Tazobactam 3 75 100 .375 gm In Sodium Chloride 0.9% 100 ml @ 25 mls/hr IVPB Q8HR [facility] Rx# :[id number] Pressure Bag (0.9 Sodium 33 30 Chloride) Sodium Chloride 0.9% 500 220 220 20 ml 500 ml @ 20 mls/hr IV .Q24H [facility] Rx#:[id number] levETIRAcetam IV 1,500 mg 100 In Saline 1 100ml.bag @ 400 mls/hr IVPB Q12HR [facility] Rx#:[id number] Intake, IV Titration 28.590 40.432 21.111 Amount Dexmedetomidine/0.9% NaCl 9.809 40.432 21.111 (Pmx) 400 mcg In Empty Bag 1 bag @ 0.4 MCG/KG/HR 8.75 mls/hr IV .[id number] [facility] Rx#:[id number] Norepinephrine 4 mg In 18.781 Sodium Chloride 0.9% 250 ml @ 0.03 MCG/KG/MIN 10. 001 mls/hr IV .Q24H [facility] Rx#:[id number] Oral 480 Output: Urine 770 1000 100 Other: Voiding Method Indwelling Catheter Indwelling Catheter # Bowel Movements 1 1 ABP, PAP, CO, CI - Last Documented Arterial Blood Pressure 59/44 - Exam No acute distress, a NG tube in place, currently on 2 L of oxygen by nasal cannula, extubated, no agitation. Still on precedex. Head exam was generally normal. There was no scleral icterus or corneal arcus. Mucous membranes were moist. Neck supple. Full range of motion. No adenopathy thyromegaly or neck vein distention. Cardiovascular examination reveals regular rhythm rate. S1-S2 normal. No S3 or S4. No discernible murmur noted. Lungs reveal clear breath sounds. Breath sounds are equal bilaterally. No adve ntitious lung sounds including wheezes rhonchi or crackles. Abdomen soft bowel sounds are heard. No masses or tenderness. Extremities are intact. No cyanosis clubbing or edema. Skin is without rash or lesion. Neurologic examination reveals a poorly responsive, no facial asymmetry. He has an adequate cough and a gag. Unable to do a adequate motor or sensory evaluation yet. The patient is awake and restless still requiring Precedex on and off throughout the day. As mentioned, there are no focal neurological deficits. No seizure activity has been noted. He is opening his eyes spon taneously. His calm and comfortable. Moldable 4 extremities without any limitation. - Labs CBC & Chem 7: 11/30/22 04:17 11/30/22 07:10 Labs: Abnormal Lab Results - Last 24 Hours (Table) 11/29/22 11/29/22 11/29/22 Range/Units 05:20 12:12 16:59 RBC (4.30-5.90) m/uL Hgb (13.0-17.5) gm/dL Hct (39.0-53.0) % Plt Count (150-450) k/uL Lymphocytes # (1.0-4.8) k/uL Chloride (98-107) mmol/L BUN (9-20) mg/dL Glucose (74-99) mg/dL POC Glucose (mg/dL) 176 H 146 H (70-110) mg/dL Calcium (8.4-10.2) mg/dL Magnesium (1.6-2.3) mg/dL Procalcitonin 1.02 H (0.02-0.09) ng/mL 11/29/22 11/30/22 11/30/22 Range/Units 23:57 04:17 04:17 RBC 3.29 L (4.30-5.90) m/uL Hgb 10.6 L (13.0-17.5) gm/dL Hct 31.6 L (39.0-53.0) % Plt Count 148 L (150-450) k/uL Lymphocytes # 0.8 L (1.0-4.8) k/uL Chloride 112 H (98-107) mmol/L BUN 29 H (9-20) mg/dL Glucose 144 H (74-99) mg/dL POC Glucose (mg/dL) 147 H (70-110) mg/dL Calcium 8.3 L (8.4-10.2) mg/dL Magnesium 2.4 H (1.6-2.3) mg/dL Procalcitonin (0.02-0.09) ng/mL 11/30/22 Range/Units 06:06 RBC (4.30-5.90) m/uL Hgb (13.0-17.5) gm/dL Hct (39.0-53.0) % Plt Count (150-450) k/uL Lymphocytes # (1.0-4.8) k/uL Chloride (98-107) mmol/L BUN (9-20) mg/dL Glucose (74-99) mg/dL POC Glucose (mg/dL) 141 H (70-110) mg/dL Calcium (8.4-10.2) mg/dL Magnesium (1.6-2.3) mg/dL Procalcitonin (0.02-0.09) ng/mL Microbiology - Last 24 Hours (Table) 03/08/23 14:48 Blood Culture Gram Stain - Preliminary Blood Blood Culture - Preliminary Coagulase Negative Staph 11/28/22 14:48 Blood Culture - Final Blood Assessment and Plan Plan: Recurrent and persistent seizure activity, with acute mental status changes. The patient is currently on a combination of Versed and propofol. EEG is in progress right now. No seizure activity has been noted. The patient is also on a combination of antiepileptic. The patient is taking Keppra 1.5 g every 12 hours, Vimpat was discontinued. The patient is having a period EEGs and the most recent EEG from yesterday showed no evidence of any seizure activity. I am noticing gradual return of his neurologic functions. He was able to follow some simple commands earlier this morning. The possibility of HSV encephalitis cannot be ruled out and the patient was started on acyclovir. The patient is gradually recovering from his altered mentation. The activation for now is some episodic confusion and restlessness and occasional agitation. There is a sitter at the bedside. His neurologic exam is nonfocal. The possibility of an encepha litis has not been ruled out. The patient remains on IV acyclovir. He remains on IV Keppra. The carotid Dopplers were negative. Acute hypoxic/hypercapnic respiratory failure due to diminished level of consciousness/postictal stage following seizure activity. The patient was extubated. There is some increased interstitial markings bilaterally, consider aspiration. The patient is currently on IV Zosyn. Currently on 2 L of oxygen by nasal cannula. CVA, history of as the patient has some prior right temporoparietal region encephalomalacia either related to previous trauma or CVA Coagulase-negative in the blood, staph, a contaminant acute lactic acidosis, recovered Non-anion gap metabolic acidosis, recovered Cardiomyopathy with systolic heart failure with an ejection fraction of 25-30% Frequent PVCs Borderline thrombocytopenia, stable History of hypertension. CAD History of PCI with stent placement. History of hyperlipidemia. History of asthma. History of diabetes mellitus. History of gastroesophageal reflux disease. History of chronic marijuana use. Peripheral vascular disease and the patient has undergone previous vascular stenting to the lower extremity Previous amputation of the right great toe Plan: Titrate Precedex Start the patient on Seroquel 50 mg twice a day Wean off Precedex is currently Monitor mental status Aspiration precautions Continue IV Zosyn Continue IV acyclovir hold Plavix May consider lumbar puncture of the patient is unable to show further neurologic recovery Continue Keppra Continue cardiac medications Off norepinephrine We'll continue to follow make further recommendations based on his progress. Condition is critical still and the patient will be kept in ICU.
[2022-11-30] MEDS: levETIRAcetam IV 1,500 MG in SALINE 1 100ML.BAG IVPB SCH ×2 (09:17→20:23)
[2022-11-30] MEDS: LIDOCAINE 5% PATCH TOPICAL SCH ×2 (09:18→09:19)
[2022-11-30] MEDS: ASPIRIN 81 MG PO SCH (09:19)
[2022-11-30] MEDS: DAPAGLIFLOZIN PROPANEDIOL 10 MG TABLET PO SCH (09:19)
[2022-11-30] MEDS: LACTULOSE 20 GM/30 ML CUP PO SCH (09:20)
[2022-11-30] MEDS: QUEtiapine 50 MG TAB PO SCH ×2 (09:34→20:24)
[2022-11-30] MEDS ORDERED: POTASSIUM BICARBONATE/CIT AC 20 MEQ TABLET.EFF NG-TUBE SCH (10:00)
[2022-11-30] MEDS: METOPROLOL TARTRATE 50 MG TAB PO SCH ×2 (10:18→20:24)
--- NOTE | 2022-11-30 10:58 | P.PN ---
Subjective Progress Note Date: 11/30/22 Hospital Course: Patient is a 67-year-old male with a PMH of CAD status post stents, type II DM, hyperlipidemia, hypertension, and asthma who presented to the emergency room with complaints of tremors, slurred speech, and unsteady gait. CT brain revealed area of encephalomalacia related to prior infarct or traumatic insult posterior right temporal parietal junction with no acute intracranial abnormalities. EKG revealed sinus bradycardia at 53 bpm with T-wave flattening in leads V4 to V6 as well as leads 3 and aVF. Vital signs upon presentation to the emergency room where BP 97/75, SpO2 98% on room air, pulse 60, respiratory rate 22, and temp 98.3F. Laboratory evaluation was reviewed and was remarkable for WBC count 10.5, hemoglobin 14.7, BUN 39, creatinine 1.41, and urine tox was positive for marijuana and opiates with AST 24 and ALT 28. Patient was admitted for further management of symptoms. A-team was called for unresponsiveness on 11/24. Patient was nonverbal and had twitching of the extremities and his eyes were rolling back. He was given multiple doses of Ativan IV and loaded on Keppra. Patient was transferred to ICU for closer monitoring of his symptoms. Neurology was consulted. Multiple attempts were made to transfer the patient for continuous EEG including [facility], [facility], [facility] which was unsuccessful. Patient was on Versed and propofol drip. Prolonged EEG did not show any epileptiform activity. Patient now extubated. Neurology discontinued Vimpat. Patient is having fevers, started on IV Zosyn and acyclovir. ID consulted. Blood cultures positive for coagulase negative staph. Patient is also agitated, currently on Precedex drip. Patient being started on quetiapine. Pertinent Imaging: Brain CT from 11/24 shows no acute process, right temporal parietal encephalomalacia. EEG Prolonged EEG: No epileptiform activity Echocardiogram: LVEF 25-30%, mild TR shows mild to moderate encephalopathy no epileptiform discharge. Prolonged EEG: No epileptiform activity Echocardiogram: LVEF 25-30%, mild TR Brain CT from 11/28: showed no acute intracranial process or changes compared to prior examination Subjective: Patient seen and examined at bedside. Patient has been afebrile the last 24 hours. Off of vasopressors. Remains agitated overnight, currently on Precedex drip. Pertinent positives and negatives as discussed above, a complete review of systems was performed and all other systems are negative. Vitals Signs Reviewed. General: Awake, not in acute distress Derm: warm, dry Head: atraumatic, normocephalic, symmetric Eyes: Pupils equal and reactive Mouth: no lip lesion, mucus membranes moist Cardiovascular: S1S2 reg, no murmur Lungs: CTA bilateral, no rhonchi, no rales , no accessory muscle use, carrero pplemental oxygen Abdominal: soft, nontender to palpation, no guarding, no appreciable organomegaly Ext: no gross muscle atrophy, no edema, no contractures, right foot toe amputation Neuro: Moving all extremities, 3/5 strength in all extremities, follows commands Psych: Unable to assess Data Reviewed Today: Pertinent Labs: Hemoglobin 10.6, platelet 148 sodium 145, BUN 29, creatinine 1.04, blood sugars range between 141-176, Imaging: Chest x-ray independently interpreted, similar opacities compared to yesterday Assessment and Plan: Patient remains critically ill in the medical ICU on Precedex drip. Active: Acute hypoxic respiratory failure Possible aspiration pneumonia Coagulase-negative staph bacteremia, likely contaminant Acute metabolic encephalopathy Possible status epilepticus Mild normocytic anemia Mild thrombocytopenia Systolic heart failure, chronic Elevated BUN -Nurse Supervisor note reviewed: Wean off of Precedex, hold Plavix in case we need a lumbar puncture, started on quetiapine 50 mg twice a day -Remains on 2 L nasal cannula, continue to wean -Bacteremia likely contaminant -ID following -Remains on IV Zosyn 3.375 g every 8 hours, and IV acyclovir 875 mg every 8 hour s -Currently on Keppra 1.5 g IV every 12 hours, Ativan as needed -Cardiology will see patient on as-needed basis -Restarted lisinopril 2.5 g daily -BMP ordered for tomorrow to monitor electrolytes, CBC ordered for tomorrow to monitor her blood count Resolved: Lactic acidosis Acute renal failure Ventilator-dependent respiratory failure Hyperchloremic metabolic acidosis Shock, likely sepsis Mild hypernatremia Chronic: CAD status post stents Type 2 diabetes Dyslipidemia Hypertension Asthma DVT ppx: Subcu heparin Code status: Full code Anticipated discharge place: Pending clinical course Anticipated discharge time: Pending clinical course Objective - Vital Signs Vital signs: Vital Signs Temp 98.3 F 11/30/22 08:00 Pulse 63 11/30/22 07:00 Resp 17 11/30/22 08:00 BP 124/82 11/30/22 08:00 Pulse Ox 97 11/30/22 08:00 FiO2 40 11/28/22 12:00 Intake & Output 11/29/22 11/30/22 11/30/22 18:59 06:59 18:59 Intake Total 939.328 2931.432 57.772 Output Total 770 1000 100 Balance -163.410 220.432 -42.228 Weight 86.4 kg 81.9 kg Intake: IV 578 700 20 Acyclovir Sodium 875 mg 250 250 In Sodium Chloride 0.9% 250 ml @ 267.4 mls/hr IVPB Q8HR [facility] Rx#: [id number] Piperacillin-Tazobactam 3 75 100 .375 gm In Sodium Chloride 0.9% 100 ml @ 25 mls/hr IVPB Q8HR [facility] Rx# :[id number] Pressure Bag (0.9 Sodium 33 30 Chloride) Sodium Chloride 0.9% 500 220 220 20 ml 500 ml @ 20 mls/hr IV .Q24H [facility] Rx#:[id number] levETIRAcetam IV 1,500 mg 100 In Saline 1 100ml.bag @ 400 mls/hr IVPB Q12HR [facility] Rx#:[id number] Intake, IV Titration 28.590 40.432 37.772 Amount Dexmedetomidine/0.9% NaCl 9.809 40.432 37.772 (Pmx) 400 mcg In Empty Bag 1 bag @ 0.4 MCG/KG/HR 8.75 mls/hr IV .[id number] [facility] Rx#:[id number] Norepinephrine 4 mg In 18.781 Sodium Chloride 0.9% 250 ml @ 0.03 MCG/KG/MIN 10. 001 mls/hr IV .Q24H [facility] Rx#:[id number] Oral 480 Output: Urine 770 1000 100 Other: Voiding Method Indwelling Catheter Indwelling Catheter # Bowel Movements 1 1 ABP, PAP, CO, CI - Last Documented Arterial Blood Pressure 59/44 - Labs CBC & Chem 7: 11/30/22 04:17 11/30/22 07:10 Labs: Abnormal Lab Results - Last 24 Hours (Table) 11/29/22 11/29/22 11/29/22 Range/Units 05:20 12:12 16:59 RBC (4.30-5.90) m/uL Hgb (13.0-17.5) gm/dL Hct (39.0-53.0) % Plt Count (150-450) k/uL Lymphocytes # (1.0-4.8) k/uL Chloride (98-107) mmol/L BUN (9-20) mg/dL Glucose (74-99) mg/dL POC Glucose (mg/dL) 176 H 146 H (70-110) mg/dL Calcium (8.4-10.2) mg/dL Magnesium (1.6-2.3) mg/dL Procalcitonin 1.02 H (0.02-0.09) ng/mL 11/29/22 11/30/22 11/30/22 Range/Units 23:57 04:17 04:17 RBC 3.29 L (4.30-5.90) m/uL Hgb 10.6 L (13.0-17.5) gm/dL Hct 31.6 L (39.0-53.0) % Plt Count 148 L (150-450) k/uL Lymphocytes # 0.8 L (1.0-4.8) k/uL Chloride 112 H (98-107) mmol/L BUN 29 H (9-20) mg/dL Glucose 144 H (74-99) mg/dL POC Glucose (mg/dL) 147 H (70-110) mg/dL Calcium 8.3 L (8.4-10.2) mg/dL Magnesium 2.4 H (1.6-2.3) mg/dL Procalcitonin (0.02-0.09) ng/mL 11/30/22 Range/Units 06:06 RBC (4.30-5.90) m/uL Hgb (13.0-17.5) gm/dL Hct (39.0-53.0) % Plt Count (150-450) k/uL Lymphocytes # (1.0-4.8) k/uL Chloride (98-107) mmol/L BUN (9-20) mg/dL Glucose (74-99) mg/dL POC Glucose (mg/dL) 141 H (70-110) mg/dL Calcium (8.4-10.2) mg/dL Magnesium (1.6-2.3) mg/dL Procalcitonin (0.02-0.09) ng/mL Microbiology - Last 24 Hours (Table) 11/27/22 21:13 Gram Stain - Final Sputum Sputum Culture - Final 11/28/22 14:48 Blood Culture Gram Stain - Preliminary Blood Blood Culture - Preliminary Coagulase Negative Staph 11/28/22 14:48 Blood Culture - Final Blood
[2022-11-30] MEDS: DEXMEDETOMIDINE/0.9% NACL(PMX) 400 MCG in EMPTY BAG 1 BAG IV SCH ×2 (11:00→15:09)
[2022-11-30] MEDS: NOREPINEPHRINE 4 MG in SODIUM CHLORIDE 0.9% 250 ML IV SCH (11:39)
[2022-11-30 11:43] LABS: Glucose,Whole Blood 188 mg/dL (70-110)
--- NOTE | 2022-11-30 12:56 | P.PN ---
Subjective Progress Note Date: 11/30/22 Principal diagnosis: Fever and pneumonia/encephalitis Patient is a 67-year-old male with a past medical history significant for diabetes mellitus hypertension hyperlipidemia , asthma and coronary artery disease presenting to the hospital for tremors weakness and mental status changes A she did require intubation initially and was extubated on 11/28/2022 with a new fever and mental status changes concerning for possible encephalitis. On today's evaluation that is 11/30/2022 the patient is afebrile this morning, the patient is slightly more awake and alert and did answered some question, patient is currently on a 3 L nasal cannula oxygen , the patient currently off the pressor support and no vomiting or diarrhea reported by the nursing staff Objective - Vital Signs Vital signs: Vital Signs Temp 98.3 F 11/30/22 08:00 Pulse 53 L 11/30/22 11:00 Resp 22 11/30/22 11:00 BP 112/64 11/30/22 11:00 Pulse Ox 97 11/30/22 11:00 FiO2 40 11/28/22 12:00 Intake & Output 11/29/22 11/30/22 11/30/22 18:59 06:59 18:59 Intake Total 158.097 4321.432 529.568 Output Total 770 1000 595 Balance -163.410 220.432 -65.432 Weight 86.4 kg 81.9 kg 81.9 kg Intake: IV 578 700 470 Acyclovir Sodium 875 mg 250 250 250 In Sodium Chloride 0.9% 250 ml @ 267.4 mls/hr IVPB Q8HR [facility] Rx#: [id number] Piperacillin-Tazobactam 3 75 100 100 .375 gm In Sodium Chloride 0.9% 100 ml @ 25 mls/hr IVPB Q8HR [facility] Rx# :[id number] Pressure Bag (0.9 Sodium 33 30 Chloride) Sodium Chloride 0.9% 500 220 220 20 ml 500 ml @ 20 mls/hr IV .Q24H [facility] Rx#:[id number] levETIRAcetam IV 1,500 mg 100 100 In Saline 1 100ml.bag @ 400 mls/hr IVPB Q12HR [facility] Rx#:[id number] Intake, IV Titration 28.590 40.432 59.568 Amount Dexmedetomidine/0.9% NaCl 9.809 40.432 59.568 (Pmx) 400 mcg In Empty Bag 1 bag @ 0.4 MCG/KG/HR 8.75 mls/hr IV .[id number] [facility] Rx#:[id number] Norepinephrine 4 mg In 18.781 Sodium Chloride 0.9% 250 ml @ 0.03 MCG/KG/MIN 10. 001 mls/hr IV .Q24H [facility] Rx#:[id number] Oral 480 Output: Urine 770 1000 595 Other: Voiding Method Indwelling Catheter Indwelling Catheter # Bowel Movements 1 1 ABP, PAP, CO, CI - Last Documented Arterial Blood Pressure 59/44 - Exam GENERAL DESCRIPTION: An elderly male lying in bed in no distress RESPIRATORY SYSTEM: Unlabored breathing , decreased breath sounds at bases HEART: S1 S2 regular rate and rhythm , ABDOMEN: Soft , no tenderness EXTREMITIES: No edema feet - Labs CBC & Chem 7: 11/30/22 04:17 11/30/22 07:10 Labs: Abnormal Lab Results - Last 24 Hours (Table) 11/29/22 11/29/22 11/29/22 Range/Units 05:20 12:12 16:59 RBC (4.30-5.90) m/uL Hgb (13.0-17.5) gm/dL Hct (39.0-53.0) % Plt Count (150-450) k/uL Lymphocytes # (1.0-4.8) k/uL Chloride (98-107) mmol/L BUN (9-20) mg/dL Glucose (74-99) mg/dL POC Glucose (mg/dL) 176 H 146 H (70-110) mg/dL Calcium (8.4-10.2) mg/dL Magnesium (1.6-2.3) mg/dL Procalcitonin 1.02 H (0.02-0.09) ng/mL 11/29/22 11/30/22 11/30/22 Range/Units 23:57 04:17 04:17 RBC 3.29 L (4.30-5.90) m/uL Hgb 10.6 L (13.0-17.5) gm/dL Hct 31.6 L (39.0-53.0) % Plt Count 148 L (150-450) k/uL Lymphocytes # 0.8 L (1.0-4.8) k/uL Chloride 112 H (98-107) mmol/L BUN 29 H (9-20) mg/dL Glucose 144 H (74-99) mg/dL POC Glucose (mg/dL) 147 H (70-110) mg/dL Calcium 8.3 L (8.4-10.2) mg/dL Magnesium 2.4 H (1.6-2.3) mg/dL Procalcitonin (0.02-0.09) ng/mL 11/30/22 Range/Units 06:06 RBC (4.30-5.90) m/uL Hgb (13.0-17.5) gm/dL Hct (39.0-53.0) % Plt Count (150-450) k/uL Lymphocytes # (1.0-4.8) k/uL Chloride (98-107) mmol/L BUN (9-20) mg/dL Glucose (74-99) mg/dL POC Glucose (mg/dL) 141 H (70-110) mg/dL Calcium (8.4-10.2) mg/dL Magnesium (1.6-2.3) mg/dL Procalcitonin (0.02-0.09) ng/mL Microbiology - Last 24 Hours (Table) 11/27/22 21:13 Gram Stain - Final Sputum Sputum Culture - Final 11/28/22 14:48 Blood Culture Gram Stain - Preliminary Blood Blood Culture - Preliminary Coagulase Negative Staph 11/28/22 14:48 Blood Culture - Final Blood Assessment and Plan (1) Fever Current Visit: Yes Status: Acute Code(s): R50.9 - FEVER, UNSPECIFIED SNOMED Code(s): 363154500 (2) Aspiration pneumonia Current Visit: Yes Status: Acute Code(s): J69.0 - PNEUMONITIS DUE TO INHALATION OF FOOD AND VOMIT SNOMED Code(s): 826193276 (3) Encephalopathy Current Visit: Yes Status: Acute Code(s): G93.40 - ENCEPHALOPATHY, UNSPECIFIED SNOMED Code(s): 86146036 Plan: 1patient with mental status changes confusion now with a low-grade fever and this patient has been in the hospital for about 5 days did not have any fever on presentation to the hospital with a source of fever possible central or a q uestion of possible pneumonia questionable aspiration etiology. 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 3patient seemed to have subsequent improvement and will continue with Zosyn and acyclovir and monitor clinical course closely Time with Patient: Less than 30
--- NOTE | 2022-11-30 17:45 | P.PN ---
Subjective Progress Note Date: 11/30/22 11/30/2022: Patient was seen for a follow-up. Patient is more alert and awake. He is following all commands. Patient denies any headache. Denies problem with the vision. Patient is laying comfortably in the bed. 11/29/2022: Patient was seen for a follow-up. Patient overnight was on Precedex 1.4 g, then this morning it was turned off at 8:30 AM. Per nursing report patient was not following commands, but on my examination patient is remarkably improved as per examination below. No seizure-like activity noticed. 11/28/2022: Patient was seen for a follow-up. Patient was weaned off propofol, and was extubated this morning at 9 AM to 5 L of nasal cannula. Per nursing report, patient was not following commands before he was extubated. He was not tracking. Patient became acutely encephalopathic postextubation, restless, agitated, would not calm down. He was trying to sit up, moaning and has nonpurposeful movements. Patient was not talking, but would move all 4 activities. No obvious seizure activity noted otherwise. Patient was not following commands. Patient was started on Precedex 1 g per program per hour. He calmed down, but then he became hypotensive therefore the Precedex was just decreased to 0.5 g per program per hour. Patient has been running temperature, with yesterday 100.7 axillary, and today, right now it is 99.5 axillary. Patient has copious amounts of secretions. 11/27/2022: Patient was seen for a follow-up. Patient's and patient's sister were both present today. Patient is of Versed now. Patient's propofol was discontinued. Patient however was not appropriate. Nursing staff tried to wake patient up, but he was still encephalopathic, had a nonstop coughing. He was placed on Precedex, but did not work. Now his back on propofol. Patient currently on propofol 40 mcg/kg/m. Now he has developed hypotension and is on norepinephrine 0.05 g. 11/26/2022: Patient initially seen by Dr. Charles Aguirre. Please refer to his note for details. Patient is a 67-year-old male with past 2-3 weeks history of jerking/tremors, unresponsiveness. Patient has old encephalomalacia right temporoparietal region. Dr. Aguirre felt patient had clinical status but EEG did not show any seizure activity. EEG only showed excessive beta activity/Ativan effect. No prior history of seizures and was not on any AED. Patient currently on Keppra 1500 mg IV twice a day, Vimpat 200 mg twice a day. Patient also on Versed 2 mg/h, also on propofol 40 mcg/kg/m. The nurse has reported some left arm tremoring, some mouth tremors noted. Patient had a 2.5 hours EEG, which did not reveal any epileptiform activity. Objective - Vital Signs Vital signs: Vital Signs Temp 97.9 F 11/30/22 12:00 Pulse 48 L 11/30/22 12:00 Resp 19 11/30/22 12:00 BP 105/59 11/30/22 12:00 Pulse Ox 97 11/30/22 12:00 FiO2 40 11/28/22 12:00 Intake & Output 11/29/22 11/30/22 11/30/22 18:59 06:59 18:59 Intake Total 569.987 6817.432 560.823 Output Total 770 1000 905 Balance -163.410 220.432 -344.177 Weight 86.4 kg 81.9 kg 81.9 kg Intake: IV 578 700 480 0.9 KVO 10 Acyclovir Sodium 875 mg 250 250 250 In Sodium Chloride 0.9% 250 ml @ 267.4 mls/hr IVPB Q8HR [facility] Rx#: [id number] Piperacillin-Tazobactam 3 75 100 100 .375 gm In Sodium Chloride 0.9% 100 ml @ 25 mls/hr IVPB Q8HR [facility] Rx# :[id number] Pressure Bag (0.9 Sodium 33 30 Chloride) Sodium Chloride 0.9% 500 220 220 20 ml 500 ml @ 20 mls/hr IV .Q24H [facility] Rx#:[id number] levETIRAcetam IV 1,500 mg 100 100 In Saline 1 100ml.bag @ 400 mls/hr IVPB Q12HR [facility] Rx#:[id number] Intake, IV Titration 28.590 40.432 80.823 Amount Dexmedetomidine/0.9% NaCl 9.809 40.432 80.823 (Pmx) 400 mcg In Empty Bag 1 bag @ 0.4 MCG/KG/HR 8.75 mls/hr IV .[id number] [facility] Rx#:[id number] Norepinephrine 4 mg In 18.781 Sodium Chloride 0.9% 250 ml @ 0.03 MCG/KG/MIN 10. 001 mls/hr IV .Q24H [facility] Rx#:[id number] Oral 480 Output: Urine 770 1000 905 Other: Voiding Method Indwelling Catheter Indwelling Catheter Indwelling Catheter # Bowel Movements 1 1 ABP, PAP, CO, CI - Last Documented Arterial Blood Pressure 59/44 - Exam Patient is much more awake and alert, slightly slow mentation. Patient knows it is November 2022 and that he is in [facility]. He knows that he lives in [facility]. Speech and language functions are normal. Cranial nerves are normal. Pupils are equal, round and reacting, visual quinones are full with no neglect. Face is symmetric and tongue protrudes the midline. On muscle strength testing strength(right/left) shoulder 4-/4+, biceps, triceps and chemical laboratory tester are 4 to 4+ bilaterally, hip flexion 4-/4-, ankle dorsiflexion 5/5. - Labs CBC & Chem 7: 11/30/22 04:17 11/30/22 07:10 Labs: Abnormal Lab Results - Last 24 Hours (Table) 11/29/22 11/29/22 11/29/22 Range/Units 05:20 16:59 23:57 RBC (4.30-5.90) m/uL Hgb (13.0-17.5) gm/dL Hct (39.0-53.0) % Plt Count (150-450) k/uL Lymphocytes # (1.0-4.8) k/uL Chloride (98-107) mmol/L BUN (9-20) mg/dL Glucose (74-99) mg/dL POC Glucose (mg/dL) 146 H 147 H (70-110) mg/dL Calcium (8.4-10.2) mg/dL Magnesium (1.6-2.3) mg/dL Procalcitonin 1.02 H (0.02-0.09) ng/mL 11/30/22 11/30/22 11/30/22 Range/Units 04:17 04:17 06:06 RBC 3.29 L (4.30-5.90) m/uL Hgb 10.6 L (13.0-17.5) gm/dL Hct 31.6 L (39.0-53.0) % Plt Count 148 L (150-450) k/uL Lymphocytes # 0.8 L (1.0-4.8) k/uL Chloride 112 H (98-107) mmol/L BUN 29 H (9-20) mg/dL Glucose 144 H (74-99) mg/dL POC Glucose (mg/dL) 141 H (70-110) mg/dL Calcium 8.3 L (8.4-10.2) mg/dL Magnesium 2.4 H (1.6-2.3) mg/dL Procalcitonin (0.02-0.09) ng/mL 11/30/22 Range/Units 11:42 RBC (4.30-5.90) m/uL Hgb (13.0-17.5) gm/dL Hct (39.0-53.0) % Plt Count (150-450) k/uL Lymphocytes # (1.0-4.8) k/uL Chloride (98-107) mmol/L BUN (9-20) mg/dL Glucose (74-99) mg/dL POC Glucose (mg/dL) 188 H (70-110) mg/dL Calcium (8.4-10.2) mg/dL Magnesium (1.6-2.3) mg/dL Procalcitonin (0.02-0.09) ng/mL Microbiology - Last 24 Hours (Table) 11/27/22 21:13 Gram Stain - Final Sputum Sputum Culture - Final 11/28/22 14:48 Blood Culture Gram Stain - Preliminary Blood Blood Culture - Preliminary Coagulase Negative Staph 11/28/22 14:48 Blood Culture - Final Blood Assessment and Plan Assessment: This is a 67-year-old gentleman and it appears he's been having the unresponsiveness episodes with eye rolling back at home for 2-3 weeks. * Altered mental status, likely due to toxic metabolic encephalopathy. * Seizure-like activity, rule out seizure disorder. * Aspiration pneumonia * Past 2-3 weeks in which he experience tremor/jerking of his arms and in the legs had become increasingly weak to the point that he no longer ambulates, unresponsive seems likely due to new onset seizure * Encephalomalacia over right temporoparietal junction seems due to prior infarct or traumatic insult * History of coronary artery disease status post stent * Type 2 diabetes * Hypertension * Hyperlipidemia Plan: Last EEG on 11/29/2022 was much improved background, with mild background slowing. No epileptiform activity was seen. Patient is clinically much improved. Denies headache. Patient's examination is nonfocal. Patient probably has aspiration pneumonia. He is currently on Zosyn and acyclovir given empirically to rule out herpes encephalitis. Patient has aspiration pneumonia. ID input appreciated. Patient is now afebrile. Patient's Plavix has been put on hold for possible lumbar puncture. Stat EEG 11/28/2022 was abnormal with background slowing of moderate to severe degree, consistent with encephalopathy. Some bifrontal low amplitude sharp- appearing waves were seen sporadically, but periodically. These are difficult to interpret because of significant myogenic activity. No electrographic seizure was seen. EEG was technically limited because of a lot of movement artifact. No definitive evidence of status epilepticus. When compared to the previous EEGs, the encephalopathy has got significantly and progressively worse with each EEGs. Continue Keppra 1500 mg twice a day. Vimpat has been discontinued. MRI of the brain still pending. CT head 11/28/2022 revealed no acute process. Evidence of right temporoparietal region encephalomalacia from prior injury. I personally review CT head, agree with the findings. 2-D echo revealed left ventricular EF 25-30%. Moderate increase left ventri cular wall thickness. Mild to moderate right ventricular dilation. Moderate mitral calcification. Cardiology on board. Carotid Doppler revealed no hemodynamically significant stenosis ICA on either side. Antegrade flow in both vertebral arteries. Ativan 1mg Q1 hour PRN seizure. On seizure precaution and pads. Will defer the rest of medical management to primary team.
[2022-11-30 17:53] LABS: Glucose,Whole Blood 149 mg/dL (70-110)
[2022-11-30] MEDS: NON FORMULARY DRUG (Rosuvastatin Calcium [Crestor] 40 MG Tablet) PO SCH (20:31)
[2022-12-01 00:03] LABS: Glucose,Whole Blood 119 mg/dL (70-110)
[2022-12-01] MEDS: PIPERACILLIN-TAZOBACTAM 3.375 GM in SODIUM CHLORIDE 0.9% 100 ML IVPB SCH ×4 (00:06→23:19)
[2022-12-01] MEDS: HEPARIN SODIUM,PORCINE/PF 5,000 UNIT/0.5 ML SYRINGE SQ SCH ×4 (00:06→23:18)
[2022-12-01] MEDS: INSULIN ASPART (NovoLOG) 100 UNIT/ML VIAL SQ SCH ×5 (00:06→21:48)
[2022-12-01 05:35] LABS: Basophils % (A) 1 %; Eosinophils # (A) 0.1 k/uL (0-0.7); Eosinophils % (A) 2 %; HCT 35.2 % (39.0-53.0); HGB 11.6 gm/dL (13.0-17.5); Lymphocytes # (A) 0.9 k/uL (1.0-4.8); Lymphocytes % (A) 19 %; MCH 32.4 pg (25.0-35.0); MCHC 33.1 g/dL (31.0-37.0); MCV 97.9 fL (80.0-100.0); Mean Platelet Volume 8.4; Monocytes # (A) 0.4 k/uL (0-1.0); Monocytes % (A) 7 %; Neutrophils # (A) 3.5 k/uL (1.3-7.7); Neutrophils % (A) 70 %; Platelet Count 165 k/uL (150-450); RBC 3.59 m/uL (4.30-5.90); RDW 13.9 % (11.5-15.5)
[2022-12-01 05:53] LABS: Calcium 8.3 mg/dL (8.4-10.2); Magnesium 2.2 mg/dL (1.6-2.3); Potassium 3.8 mmol/L (3.5-5.1)
[2022-12-01 07:09] LABS: Glucose,Whole Blood 139 mg/dL (70-110)
[2022-12-01] MEDS ORDERED: POTASSIUM CHLORIDE ER 20 MEQ TAB.ER PO SCH (08:00)
[2022-12-01] MEDS: LACTULOSE 20 GM/30 ML CUP PO SCH (08:54)
[2022-12-01] MEDS: LIDOCAINE 5% PATCH TOPICAL SCH ×2 (08:54)
[2022-12-01] MEDS: QUEtiapine 50 MG TAB PO SCH ×2 (08:55→21:51)
[2022-12-01] MEDS: levETIRAcetam IV 1,500 MG in SALINE 1 100ML.BAG IVPB SCH ×2 (08:55→21:54)
[2022-12-01] MEDS: DAPAGLIFLOZIN PROPANEDIOL 10 MG TABLET PO SCH (08:55)
[2022-12-01] MEDS: METOPROLOL TARTRATE 50 MG TAB PO SCH ×2 (08:55→21:51)
[2022-12-01] MEDS: ASPIRIN 81 MG PO SCH (08:55)
[2022-12-01] MEDS: SODIUM CHLORIDE 0.9% IVPB SCH ×3 (09:00→23:18)
[2022-12-01] MEDS: ACYCLOVIR SODIUM IVPB SCH ×3 (09:00→23:18)
--- NOTE | 2022-12-01 09:07 | P.PN ---
Subjective Progress Note Date: 12/01/22 On 11/26/2022, seeing the patient for a follow-up. The patient is currently intubated on a mechanical ventilator. The patient is a . The patient is known to have CAD and he smokes marijuana and he has a remote history of seizures. The patient. He was hospitalized and he was having recurrent seizure activity and he was postictal with altered mentation and diminished level of consciousness. CAT scan of the brain showed encephalomalacia related to prior infarcts last traumatic insults. This was noted more in the posterior right temporal parietal region. There was no other acute abnormalities noted. The patient was seen by neurology. He is currently on a combination of antiepileptics including Keppra, Vimpat and Depakote. At the time of his seizure activity he also received Ativan. Currently, he is also on propofol running at 30 mcg/kg/m. He is also on Versed running at X milligrams an hour. He is completely sedated and there is no visible seizure activity noted. He is in the process of undergoing an EEG this morning. He remains on a mechanical ventilator on assist control mode at a rate of 20 with a tidal volume of 450 and FiO2 of 40% with a PEEP of 5. His chest x-ray shows no acute abnormalities. His tube is in adequate location. Patient also has a orogastric tube in place. No consolidation. No airspace disease. He is hemodynamically stable. Cardiac rhythm is sinus. He is on heparin subcu for DVT prophylaxis. IV fluids are running in the form of normal saline at rate of 75 mL an hour. Note that the patient is also diabetic. He was receiving Lantus insulin on outpatient basis in combination with JArdiance and I noted that he was not taking any form of antiepileptic medications on outpatient basis. An EEG was ordered the done on 11/24/2022 and obviously EEG was abnormal and there was background slowing suggestive of mild to moderate encephalopathy. No focal epileptic discharges were noted. There was extensive but activity due to medication/Ativan effects. Neurologically is currently on the case and the patient was evaluated by the neurology service. Blood gas from today shows a pH of 7.41 with a pCO2 of 30 and pO2 140. White cycles of 12.7 with a hemoglobin of 12.7 and a platelet count of 125. Sodium is at 139 potassium is at 4.1 bicarbs at 17 BUN is 20 with a creatinine of 1.1. Lactic acid level dropped from 4.0 down to 0.9. I also noted an elevation the prolactin level, borderline elevation, could be related to the seizure activity. On today's evaluation of 11/27/2022, the patient is being seen for a follow-up. The patient is currently intubated on a mechanical ventilator and the patient was on a combination of drugs for status epilepticus. Noted the EEG was done yesterday and it showed no evidence of any active seizures and this morning the patient remains on propofol running at 35 mcg/kg/m and the patient is also on Versed 1 mg/h. He is still deeply sedated. The EEG showed diffuse synchronous and asynchronous delta range slowing and there was no seizure activity noted. Meanwhile, the patient continues to be on a combination of Keppra 1.5 g twice a day and Vimpat at a dose of 200 mg IV twice a day. No active seizures noted on examination. He remains hemodynamically stable. The patient remains on a mechanical ventilator. He is currently on assist control mode at the rate of 20, tidal volume of 450, FiO2 of 40% with a PEEP of 5. The chest x-ray from today shows some bibasilar atelectatic changes. No airspace disease or acute pulmonary infiltrates. Blood gas from today shows a pH of 7.44 with a pCO2 of 29 and pO2 of 96 and this was done on the above-mentioned ventilator settings. The patient hemodynamically is stable. He is on no pressors. His cardiac rhythm is sinus although he was having frequent PVCs. Echocardiogram was done yesterday and the patient was found to have systolic heart failure. The patient has an ejection fraction of 25-30%. There is also evidence of RV dilatation. There was mild to moderate RV dilatation moderate mitral calcification, tricuspid regurgitation, moderate increase in the LV wall thickness. Patient was seen by cardiology. The patient was started on a combination of treatment including metoprolol 50 mg by mouth twice a day. Patient is also on aspirin and Plavix. The patient is on farxiga and Zestril 2.5 mg twice a day. Aldactone was also added at a dose of 25 mg by mouth daily. The patient remains on enteral feeding for nutritional support. Is currently on vital high-protein at the rate of 30 mL an hour. Rest of the blood work is essentially stable. The discomfort is at 7.6 with a hemoglobin of 15. BUN is at 15 with a creatinine of 1.02. Bicarb is at 17. Sodiums of 138. On today's evaluation of 11/28/2022, the patient remains on sedation with propofol. He was on accommodation of Versed and propofol yesterday. We discontinued the Versed. He also gradually weaned off the propofol. As the patient was taken off the sedation, he became more restless, starts coughing, reaching up to the tube, opening his eyes but not following any commands.. We tried to control his restlessness with Precedex and this was not successful. He was not ready for activation processes as the patient was not felt to have adequate mentation. As such, he was placed back on propofol which is currently running at 45 mcg/kg/m. He is deeply sedated. He is not even grimacing to any deep painful stimulation. When the process of gradually weaning him off the sedation. EEG was done on 11/26/2022 and this was interpreted by neurology and there is no evidence of any ongoing epileptic discharge. The patient remains on a combination of Keppra and Vimpat of the usual doses. Meanwhile, the patient remains on a mechanical ventilator. He is currently on assist control mode with a rate of 20, tidal volume of 450, FiO2 of 40% with a PEEP of 5. Chest x-ray remains stable without any acute pulmonary infiltrates. There may be some limited infiltration of the left lung base, which is essentially unchanged. The previous echoes at 9.1 with a hemoglobin of 12.9 and a platelet count of 136. Sodium is at 142 and a potassium level is 3.9 with a BUN of 18 and a creatinine of 1.06. Sputum culture has been negative for now . The patient remains on vital high-protein at the rate of 46 mL an hour. Afebrile. Urine output is around 150 mL an hour. IV fluids are currently at KVO. He remains on no low- dose norepinephrine running at 0.03 mcg/kg/m. Note that his echocardiogram also showed impaired LV function and the patient has systolic heart failure with ejection fraction of 25-30%. He has also evidence of RV dilatation and there is mild to moderate RV dilatation and moderate mitral calcification and tricuspid regurgitation and there is also increase in LV wall thickness. Cardiology has made adjustments on his cardiac medication. He is having occasional PVCs and these are not frequent at this point in time.. I would suggest holding of his lisinopril till patient is off norepinephrine. 11/29/2022, the patient is being seen for a follow-up. The patient was extubated yesterday. EEG was done and that showed no evidence of any seizure activity. Postextubation, the patient was quite restless and agitated. He was placed on Precedex and he was kept on Precedex throughout the day yesterday. 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 The patient is calm and comfortable. I noted some response and he is becoming much more alert on today's neurologic evaluation. He is still lethargic and sleepy however. No seizure activity has been noted. He is currently on norepinephrine running at 0.04 Kirby respiratory minute to support his blood pressure. he developed a temperature 100.2. he was started on acyclovir as an empiric coverage for viral encephalitis. unable to perform lumbar puncture as the patient has been taking Plavix. I also covered the patient IV Zosyn. He has an NG tube in place. Output from the NG tube is minimal this morning. He is on 4 L of oxygen by nasal cannula with a pulse ox of 97%. The patient's previous echoes at 9.3 with a hemoglobin 11.5 and a platelet count of 140. BUN is at 23 with a creatinine of 1.3. Glucose at 148. 11/30/2022, the patient is wide awake and alert. Note that he is having progressive improvement and recovery in his neurologic status. He is responsive . He is communicating. He is alert and oriented. Nevertheless, there are still episodes of confusion and restlessness and agitation. Overnight, he was kept on Precedex and the dose has been weaned down to 0.8 mcg/kg/h. Dose still being titrated to keep this patient quite comfortable. Meanwhile, he is moving all 4 extremities. His swallowing adequately. Is on oxygen at 2 L/m nasal cannula. Chest x-ray showing some cardiomegaly and pulmonary vascular congestion. Note that the patient has an underlying cardiomyopathy. Neurology is still on the case. We have the patient 97 acyclovir. Blood culture came back positive for gram positives coagulase negative staph which is probably contaminant. He is on IV Zosyn for a potential aspiration. His blood work today shows a WBC count of 5.4 with a hemoglobin of 10.6. BUN is at 29 with a creatinine of 1. Sodium is at 145 and the patient has a potassium level of 3.8. Pro-calcitonin level was 1.02. Neurology is on the case. I have the patient off Plavix in consultation for a possible lumbar puncture at later stage if needed. I am seeing progressive improvement in his neurologic functions. There is no evidence of any seizure activity. Carotid Doppler was done yesterday showed no hemodynamically significant stenosis. At the same time, and EEG was done yesterday on 11/29/2022 that showed abnormal background slowing. There is generalized cerebral dysfunction. No evidence of any seizure activity. The patient meanwhile is maintained on IV acyclovir. Is on IV Keppra 1.5 g every 12 hours. Norepinephrine has been discontinued. IV fluids are at KVO. 12/01 2022, the patient is looking much better. He was started on Seroquel yesterday at a dose of 50 mg twice a day and the patient is currently on no Precedex. Precedex was discontinued this morning at around 2 AM. This morning, he is pleasant. He is communicating. He is moving all 4 extremities. No focal neurological deficits. He remains on oxygen at 2 L per minute nasal cannula. His cardiac rhythm is sinus. He remains on acyclovir. He remains on IV Keppra. Hemodynamically stable and no other issues overnight. His labs from today, shows a WBC count of 5 with a hemoglobin 11.6 and a platelet count of 165. The enzymes at 27 with a creatinine of 1 and his sodium level is at 143. The patient has done significant improvement. Is off Precedex as mentioned. Is set on empiric antibiotic coverage with IV Zosyn. His blood culture was coagulase positive staph. Objective - Vital Signs Vital signs: Vital Signs Temp 97.9 F 12/01/22 08:00 Pulse 75 12/01/22 08:00 Resp 14 12/01/22 08:00 BP 142/81 12/01/22 08:00 Pulse Ox 97 12/01/22 08:00 FiO2 40 11/28/22 12:00 Intake & Output 11/30/22 12/01/22 12/01/22 18:59 06:59 18:59 Intake Total 898.642 817.894 10 Output Total 1420 820 75 Balance -521.358 -2.106 -65 Weight 81.9 kg 82.8 kg Intake: IV 540 570 10 0.9 KVO 70 120 10 Acyclovir Sodium 875 mg 250 250 In Sodium Chloride 0.9% 250 ml @ 267.4 mls/hr IVPB Q8HR [facility] Rx#: [id number] Piperacillin-Tazobactam 3 100 100 .375 gm In Sodium Chloride 0.9% 100 ml @ 25 mls/hr IVPB Q8HR [facility] Rx# :[id number] Sodium Chloride 0.9% 500 20 ml 500 ml @ 20 mls/hr IV .Q24H [facility] Rx#:[id number] levETIRAcetam IV 1,500 mg 100 100 In Saline 1 100ml.bag @ 400 mls/hr IVPB Q12HR [facility] Rx#:[id number] Intake, IV Titration 108.642 97.894 Amount Dexmedetomidine/0.9% NaCl 108.642 97.894 (Pmx) 400 mcg In Empty Bag 1 bag @ 0.4 MCG/KG/HR 8.75 mls/hr IV .[id number] [facility] Rx#:[id number] Oral 250 150 Output: Urine 1420 820 75 Other: Voiding Method Indwelling Catheter Indwelling Catheter ABP, PAP, CO, CI - Last Documented Arterial Blood Pressure 59/44 - Exam No acute distress, alert and communicating and oriented and 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 There was no scleral icterus or corneal arcus. Mucous membranes were moist. Neck supple. Full range of motion. No adenopathy thyromegaly or neck vein distention. Cardiovascular examination reveals regular rhythm rate. S1-S2 normal. No S3 or S4. No discernible murmur noted. Lungs reveal clear breath sounds. Breath sounds are equal bilaterally. No adventitious lung sounds including wheezes rhonchi or crackles. Abdomen soft bowel sounds are heard. No masses or tenderness. Extremities are intact. No cyanosis clubbing or edema. Skin is without rash or lesion. Neurologic examination reveals an alert and oriented person, communicating, pleasant, no focal neurological deficits, - Labs CBC & Chem 7: 12/01/22 05:09 12/01/22 05:09 Labs: Abnormal Lab Results - Last 24 Hours (Table) 11/30/22 11/30/22 12/01/22 Range/Units 11:42 17:52 00:01 RBC (4.30-5.90) m/uL Hgb (13.0-17.5) gm/dL Hct (39.0-53.0) % Lymphocytes # (1.0-4.8) k/uL Chloride (98-107) mmol/L BUN (9-20) mg/dL Glucose (74-99) mg/dL POC Glucose (mg/dL) 188 H 149 H 119 H (70-110) mg/dL Calcium (8.4-10.2) mg/dL 12/01/22 12/01/22 12/01/22 Range/Units 05:09 05:09 07:08 RBC 3.59 L (4.30-5.90) m/uL Hgb 11.6 L (13.0-17.5) gm/dL Hct 35.2 L (39.0-53.0) % Lymphocytes # 0.9 L (1.0-4.8) k/uL Chloride 111 H (98-107) mmol/L BUN 27 H (9-20) mg/dL Glucose 216 H (74-99) mg/dL POC Glucose (mg/dL) 139 H (70-110) mg/dL Calcium 8.3 L (8.4-10.2) mg/dL Microbiology - Last 24 Hours (Table) 11/29/22 16:57 Blood Culture - Preliminary Blood No Growth after 24 hours 11/27/22 21:13 Gram Stain - Final Sputum Sputum Culture - Final Assessment and Plan Plan: Recurrent and persistent seizure activity, with acute mental status changes. The patient is currently on a combination of Versed and propofol. EEG is in progress right now. No seizure activity has been noted. The patient is also on a combination of antiepileptic. The patient is taking Keppra 1.5 g every 12 hours, Vimpat was discontinued. The patient is having a period EEGs and the most recent EEG from yesterday showed no evidence of any seizure activity. I am noticing gradual return of his neurologic functions. He was able to follow some simple commands earlier this morning. The possibility of HSV encephalitis cannot be ruled out and the patient was started on acyclovir. The patient is gradually recovering from his altered mentation. Neurologically, the patient is much improved, alert and oriented, no focal neurological deficit and remains on Keppra and acyclovir. Lumbar puncture has not been done. Acute hypoxic/hypercapnic respiratory failure due to diminished level of cons ciousness/postictal stage following seizure activity. The patient was extubated. There is some increased interstitial markings bilaterally, consider aspiration. The patient is currently on IV Zosyn. Currently on 2 L of oxygen by nasal cannula. CVA, history of as the patient has some prior right temporoparietal region encephalomalacia either related to previous trauma or CVA Coagulase-negative in the blood, staph, a contaminant acute lactic acidosis, recovered Non-anion gap metabolic acidosis, recovered Cardiomyopathy with systolic heart failure with an ejection fraction of 25-30% Frequent PVCs Borderline thrombocytopenia, stable History of hypertension. CAD History of PCI with stent placement. History of hyperlipidemia. History of asthma. History of diabetes mellitus. History of gastroesophageal reflux disease. History of chronic marijuana use. Peripheral vascular disease and the patient has undergone previous vascular stenting to the lower extremity Previous amputation of the right great toe Plan: Patient is currently off Precedex Continue Seroquel Continue acyclovir Continue IV Zosyn I do not think there is going to be need for lumbar puncture. I'm recommending to restart Plavix Discontinue Menjivar catheter Continue cardiac medications Off norepinephrine We'll continue to follow make further recommendations based on his progress. Condition is critical still and the patient will be kept in ICU , may consider transferring him to a medical floor at the later stage
--- NOTE | 2022-12-01 09:56 | P.PN ---
Subjective Progress Note Date: 12/01/22 12/01/2022: This is a telemedicine neurology follow-up performed today on 12/01/2022. Patient has clinically much improved. He states he is feeling good, wants to go home. He appears somewhat manicky. On asking about his history, patient states that he was just did not feel good, and he thinks he got a seizure. At present he denies any headache. Denies any numbness tingling, feels perfectly fine. Strength is normal. Patient denies any history of tobacco or alcohol use. He states that he lives with his at home. He states that his did come and visit him yesterday. He states that he used to live in [place], move to [place]. States his son came over from [facility] to meet him yesterday. Spoke to patient's nurse, who said that patient just came out of oxygen today. He has been off Precedex since yesterday. Dr. Lal does not believe he needs lumbar puncture. We will await ID recommendations. He never had seizures before. Patient wants to cancel the MRI. Patient has 6/10 in the heart and also stent in the leg. They are trying to get records from another hospital about the type of stents he has for MRI clearance. 11/30/2022: Patient was seen for a follow-up. Patient is more alert and awake. He is following all commands. Patient denies any headache. Denies problem with the vision. Patient is laying comfortably in the bed. 11/29/2022: Patient was seen for a follow-up. Patient overnight was on Precedex 1.4 g, then this morning it was turned off at 8:30 AM. Per nursing report patient was not following commands, but on my examination patient is remarkably improved as per examination below. No seizure-like activity noticed. 11/28/2022: Patient was seen for a follow-up. Patient was weaned off propofol, and was extubated this morning at 9 AM to 5 L of nasal cannula. Per nursing report, patient was not following commands before he was extubated. He was not tracking. Patient became acutely encephalopathic postextubation, restless, agitated, would not calm down. He was trying to sit up, moaning and has nonpurposeful movements. Patient was not talking, but would move all 4 activities. No obvious seizure activity noted otherwise. Patient was not following commands. Patient was started on Precedex 1 g per program per hour. He calmed down, but then he became hypotensive therefore the Precedex was just decreased to 0.5 g per program per hour. Patient has been running temperature, with yesterday 100.7 axillary, and today, right now it is 99.5 axillary. Patient has copious amounts of secretions. 11/27/2022: Patient was seen for a follow-up. Patient's and patient's sister were both present today. Patient is of Versed now. Patient's propofol was discontinued. Patient however was not appropriate. Nursing staff tried to wake patient up, but he was still encephalopathic, had a nonstop coughing. He was placed on Precedex, but did not work. Now his back on propofol. Patient currently on propofol 40 mcg/kg/m. Now he has developed hypotension and is on norepinephrine 0.05 g. 11/26/2022: Patient initially seen by Dr. Charles Aguirre. Please refer to his note for details. Patient is a 67-year-old male with past 2-3 weeks history of jerking/tremors, unresponsiveness. Patient has old encephalomalacia right temporoparietal region. Dr. Aguirre felt patient had clinical status but EEG did not show any seizure activity. EEG only showed excessive beta activity/Ativan effect. No pr ior history of seizures and was not on any AED. Patient currently on Keppra 1500 mg IV twice a day, Vimpat 200 mg twice a day. Patient also on Versed 2 mg/h, also on propofol 40 mcg/kg/m. The nurse has reported some left arm tremoring, some mouth tremors noted. Patient had a 2.5 hours EEG, which did not reveal any epileptiform activity. Objective - Vital Signs Vital signs: Vital Signs Temp 97.9 F 12/01/22 08:00 Pulse 75 12/01/22 08:00 Resp 14 12/01/22 08:00 BP 142/81 12/01/22 08:00 Pulse Ox 97 12/01/22 08:00 FiO2 40 11/28/22 12:00 Intake & Output 11/30/22 12/01/22 12/01/22 18:59 06:59 18:59 Intake Total 898.642 817.894 10 Output Total 1420 820 75 Balance -521.358 -2.106 -65 Weight 81.9 kg 82.8 kg Intake: IV 540 570 10 0.9 KVO 70 120 10 Acyclovir Sodium 875 mg 250 250 In Sodium Chloride 0.9% 250 ml @ 267.4 mls/hr IVPB Q8HR [facility] Rx#: [id number] Piperacillin-Tazobactam 3 100 100 .375 gm In Sodium Chloride 0.9% 100 ml @ 25 mls/hr IVPB Q8HR [facility] Rx# :[id number] Sodium Chloride 0.9% 500 20 ml 500 ml @ 20 mls/hr IV .Q24H [facility] Rx#:[id number] levETIRAcetam IV 1,500 mg 100 100 In Saline 1 100ml.bag @ 400 mls/hr IVPB Q12HR [facility] Rx#:[id number] Intake, IV Titration 108.642 97.894 Amount Dexmedetomidine/0.9% NaCl 108.642 97.894 (Pmx) 400 mcg In Empty Bag 1 bag @ 0.4 MCG/KG/HR 8.75 mls/hr IV .[id number] [facility] Rx#:[id number] Oral 250 150 Output: Urine 1420 820 75 Other: Voiding Method Indwelling Catheter Indwelling Catheter ABP, PAP, CO, CI - Last Documented Arterial Blood Pressure 59/44 - Exam Patient is today fully alert and awake, appears very energetic, appears somewhat manicky. He states he is thinking goat, and the mind is clear. He knows his date of and that it is November 2022. He knows that he lives in [facility] although he thinks he is in [place] in [facility]. Speech and language functions are normal. Cranial nerves are normal. Pupils are equal, round and reacting, visual quinones are full with no neglect. Face is symmetric and tongue protrudes the midline. On muscle strength testing strength to muscle strength is much improved in the arms and legs. No ataxia. Sensations equal. - Labs CBC & Chem 7: 12/01/22 05:09 12/01/22 05:09 Labs: Abnormal Lab Results - Last 24 Hours (Table) 11/30/22 11/30/22 12/01/22 Range/Units 11:42 17:52 00:01 RBC (4.30-5.90) m/uL Hgb (13.0-17.5) gm/dL Hct (39.0-53.0) % Lymphocytes # (1.0-4.8) k/uL Chloride (98-107) mmol/L BUN (9-20) mg/dL Glucose (74-99) mg/dL POC Glucose (mg/dL) 188 H 149 H 119 H (70-110) mg/dL Calcium (8.4-10.2) mg/dL 12/01/22 12/01/22 12/01/22 Range/Units 05:09 05:09 07:08 RBC 3.59 L (4.30-5.90) m/uL Hgb 11.6 L (13.0-17.5) gm/dL Hct 35.2 L (39.0-53.0) % Lymphocytes # 0.9 L (1.0-4.8) k/uL Chloride 111 H (98-107) mmol/L BUN 27 H (9-20) mg/dL Glucose 216 H (74-99) mg/dL POC Glucose (mg/dL) 139 H (70-110) mg/dL Calcium 8.3 L (8.4-10.2) mg/dL Microbiology - Last 24 Hours (Table) 11/29/22 16:57 Blood Culture - Preliminary Blood No Growth after 24 hours 11/27/22 21:13 Gram Stain - Final Sputum Sputum Culture - Final Assessment and Plan Assessment: This is a 67-year-old gentleman and it appears he's been having the unresponsiveness episodes with eye rolling back at home for 2-3 weeks. * Altered mental status, likely due to toxic metabolic encephalopathy. * Seizure-like activity, rule out seizure disorder. 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 Patient's strength has improved. He is overall doing much better. Denies any headache. Patient wants to cancel the MRI, although I would recommend it due to unclear cause of his seizures. Will defer to ID if LP should be carried out or cancel. Also about duration of treatment with acyclovir. Patient's renal functions are normal. Last EEG on 11/29/2022 was much improved background, with mild background slowing. No epileptiform activity was seen. Patient probably has aspiration pneumonia. He is currently on Zosyn and acyclovir given empirically to rule out herpes encephalitis. Patient has aspiration pneumonia. ID following closely. Patient is now afebrile. Patient's Plavix has been put on hold for possible lumbar puncture. Resume Plavix, if LP is canceled. Previous EEG 11/28/2022 was abnormal with background slowing of moderate to severe degree, consistent with encephalopathy. Presence of sporadic, but intermittent bifrontal sharp-appearing waves were seen, this may suggest underlying cortical irritability. No electrographic seizure was recorded. No definitive evidence of status epilepticus. When compared to the previous 2 EEGs, the background has progressively gotten worse. Continue Keppra 1500 mg twice a day. Vimpat has been discontinued. MRI of the brain still pending. Patient declining MRI. CT head 11/28/2022 revealed no acute process. Evidence of right temporoparietal region encephalomalacia from prior injury. I personally review CT head, agree with the findings. 2-D echo revealed left ventricular EF 25-30%. Moderate increase left ventricular wall thickness. Mild to moderate right ventricular dilation. Moderate mitral calcification. Cardiology on board. Carotid Doppler revealed no hemodynamically significant stenosis ICA on either side. Antegrade flow in both vertebral arteries. Ativan 1mg Q1 hour PRN seizure. On seizure precaution and pads. Recommend patient no driving for 6 months, climbing ladders, operating dangerous machinery or unsupervised swimming. Will defer the rest of medical management to primary team.
--- NOTE | 2022-12-01 10:09 | P.PN ---
Subjective Progress Note Date: 12/01/22 Principal diagnosis: Fever and pneumonia/encephalitis Patient is a 67-year-old male with a past medical history significant for diabetes mellitus hypertension hyperlipidemia , asthma and coronary artery disease presenting to the hospital for tremors weakness and mental status changes A she did require intubation initially and was extubated on 11/28/2022 with a new fever and mental status changes concerning for possible encephalitis. On today's evaluation that is 12/01/2022 the patient remains to be afebrile, the patient is more awake and alert, patient is currently on a 2 L nasal cannula oxygen , the patient currently off the pressor support and no vomiting or diarrhea reported by the nursing staff, the patient is feeling better wants to go home Objective - Vital Signs Vital signs: Vital Signs Temp 97.4 F L 12/01/22 04:00 Pulse 75 12/01/22 07:00 Resp 20 12/01/22 07:00 BP 129/77 12/01/22 07:00 Pulse Ox 96 12/01/22 07:00 FiO2 40 11/28/22 12:00 Intake & Output 11/30/22 12/01/22 12/01/22 18:59 06:59 18:59 Intake Total 898.642 817.894 10 Output Total 1420 820 75 Balance -521.358 -2.106 -65 Weight 81.9 kg Intake: IV 540 570 10 0.9 KVO 70 120 10 Acyclovir Sodium 875 mg 250 250 In Sodium Chloride 0.9% 250 ml @ 267.4 mls/hr IVPB Q8HR [facility] Rx#: [id number] Piperacillin-Tazobactam 3 100 100 .375 gm In Sodium Chloride 0.9% 100 ml @ 25 mls/hr IVPB Q8HR [facility] Rx# :[id number] Sodium Chloride 0.9% 500 20 ml 500 ml @ 20 mls/hr IV .Q24H [facility] Rx#:[id number] levETIRAcetam IV 1,500 mg 100 100 In Saline 1 100ml.bag @ 400 mls/hr IVPB Q12HR [facility] Rx#:[id number] Intake, IV Titration 108.642 97.894 Amount Dexmedetomidine/0.9% NaCl 108.642 97.894 (Pmx) 400 mcg In Empty Bag 1 bag @ 0.4 MCG/KG/HR 8.75 mls/hr IV .[id number] [facility] Rx#:[id number] Oral 250 150 Output: Urine 1420 820 75 Other: Voiding Method Indwelling Catheter Indwelling Catheter ABP, PAP, CO, CI - Last Documented Arterial Blood Pressure 59/44 - Exam GENERAL DESCRIPTION: An elderly male lying in bed in no distress RESPIRATORY SYSTEM: Unlabored breathing , decreased breath sounds at bases HEART: S1 S2 regular rate and rhythm , ABDOMEN: Soft , no tenderness EXTREMITIES: No edema feet - Labs CBC & Chem 7: 12/01/22 05:09 12/01/22 05:09 Labs: Abnormal Lab Results - Last 24 Hours (Table) 11/30/22 11/30/22 12/01/22 Range/Units 11:42 17:52 00:01 RBC (4.30-5.90) m/uL Hgb (13.0-17.5) gm/dL Hct (39.0-53.0) % Lymphocytes # (1.0-4.8) k/uL Chloride (98-107) mmol/L BUN (9-20) mg/dL Glucose (74-99) mg/dL POC Glucose (mg/dL) 188 H 149 H 119 H (70-110) mg/dL Calcium (8.4-10.2) mg/dL 12/01/22 12/01/22 12/01/22 Range/Units 05:09 05:09 07:08 RBC 3.59 L (4.30-5.90) m/uL Hgb 11.6 L (13.0-17.5) gm/dL Hct 35.2 L (39.0-53.0) % Lymphocytes # 0.9 L (1.0-4.8) k/uL Chloride 111 H (98-107) mmol/L BUN 27 H (9-20) mg/dL Glucose 216 H (74-99) mg/dL POC Glucose (mg/dL) 139 H (70-110) mg/dL Calcium 8.3 L (8.4-10.2) mg/dL Microbiology - Last 24 Hours (Table) 11/29/22 16:57 Blood Culture - Preliminary Blood No Growth after 24 hours 11/27/22 21:13 Gram Stain - Final Sputum Sputum Culture - Final Assessment and Plan (1) Fever Current Visit: Yes Status: Acute Code(s): R50.9 - FEVER, UNSPECIFIED SNOMED Code(s): 730966424 (2) Aspiration pneumonia Current Visit: Yes Status: Acute Code(s): J69.0 - PNEUMONITIS DUE TO INHALATION OF FOOD AND VOMIT SNOMED Code(s): 477174721 (3) Encephalopathy Current Visit: Yes Status: Acute Code(s): G93.40 - ENCEPHALOPATHY, UNSPECIFIED SNOMED Code(s): 16485201 Plan: 1patient with mental status changes confusion now with a low-grade fever and this patient has been in the hospital for about 5 days did not have any fever on presentation to the hospital with a source of fever possible central or a question of possible pneumonia questionable aspiration etiology. 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 3patient seemed to have shown clinical improvement and will continue with Zosyn and acyclovir , patient has been advised to stay in the hospital to continue with IV acyclovir Time with Patient: Less than 30
--- NOTE | 2022-12-01 11:04 | P.PN ---
Subjective Progress Note Date: 12/01/22 Patient states that he would like to go home. Patient states that his mentation is better. He states that he does not see any reason for him to stay in the hospital any longer. I discussed with the patient that he needs physical therapy and also needs IV medications. I told him that he'll need to stay till Saturday so that outpatient case manager can arrange for this. Patient amenable to staying. Objective - Vital Signs Vital signs: Vital Signs Temp 97.9 F 12/01/22 08:00 Pulse 75 12/01/22 08:00 Resp 14 12/01/22 08:00 BP 142/81 12/01/22 08:00 Pulse Ox 97 12/01/22 08:00 FiO2 40 11/28/22 12:00 Intake & Output 11/30/22 12/01/22 12/01/22 18:59 06:59 18:59 Intake Total 898.642 817.894 10 Output Total 1420 820 75 Balance -521.358 -2.106 -65 Weight 81.9 kg 82.8 kg Intake: IV 540 570 10 0.9 KVO 70 120 10 Acyclovir Sodium 875 mg 250 250 In Sodium Chloride 0.9% 250 ml @ 267.4 mls/hr IVPB Q8HR [facility] Rx#: [id number] Piperacillin-Tazobactam 3 100 100 .375 gm In Sodium Chloride 0.9% 100 ml @ 25 mls/hr IVPB Q8HR [facility] Rx# :[id number] Sodium Chloride 0.9% 500 20 ml 500 ml @ 20 mls/hr IV .Q24H [facility] Rx#:[id number] levETIRAcetam IV 1,500 mg 100 100 In Saline 1 100ml.bag @ 400 mls/hr IVPB Q12HR [facility] Rx#:[id number] Intake, IV Titration 108.642 97.894 Amount Dexmedetomidine/0.9% NaCl 108.642 97.894 (Pmx) 400 mcg In Empty Bag 1 bag @ 0.4 MCG/KG/HR 8.75 mls/hr IV .[id number] [facility] Rx#:[id number] Oral 250 150 Output: Urine 1420 820 75 Other: Voiding Method Indwelling Catheter Indwelling Catheter ABP, PAP, CO, CI - Last Documented Arterial Blood Pressure 59/44 - Exam General examination - Alert and Oriented 3 in NAD Heart - + S1S2 no murmurs Lungs - Clear to auscultation Abdomen soft NT ND +ve BS Extremities - No edema MANAGER BODY - Moving all 4 extremities spontaneously Psych - Calm and cooperative - Labs CBC & Chem 7: 12/01/22 05:09 12/01/22 05:09 Labs: Abnormal Lab Results - Last 24 Hours (Table) 11/30/22 11/30/22 12/01/22 Range/Units 11:42 17:52 00:01 RBC (4.30-5.90) m/uL Hgb (13.0-17.5) gm/dL Hct (39.0-53.0) % Lymphocytes # (1.0-4.8) k/uL Chloride (98-107) mmol/L BUN (9-20) mg/dL Glucose (74-99) mg/dL POC Glucose (mg/dL) 188 H 149 H 119 H (70-110) mg/dL Calcium (8.4-10.2) mg/dL 12/01/22 12/01/22 12/01/22 Range/Units 05:09 05:09 07:08 RBC 3.59 L (4.30-5.90) m/uL Hgb 11.6 L (13.0-17.5) gm/dL Hct 35.2 L (39.0-53.0) % Lymphocytes # 0.9 L (1.0-4.8) k/uL Chloride 111 H (98-107) mmol/L BUN 27 H (9-20) mg/dL Glucose 216 H (74-99) mg/dL POC Glucose (mg/dL) 139 H (70-110) mg/dL Calcium 8.3 L (8.4-10.2) mg/dL Microbiology - Last 24 Hours (Table) 11/29/22 16:57 Blood Culture - Preliminary Blood No Growth after 24 hours 11/27/22 21:13 Gram Stain - Final Sputum Sputum Culture - Final Assessment and Plan Assessment: Hospital Course: Patient is a 67-year-old male with a PMH of CAD status post stents, type II DM, hyperlipidemia, hypertension, and asthma who presented to the emergency room with complaints of tremors, slurred speech, and unsteady gait. CT brain revealed area of encephalomalacia related to prior infarct or traumatic insult posterior right temporal parietal junction with no acute intracranial abnormalities. EKG revealed sinus bradycardia at 53 bpm with T-wave flattening in leads V4 to V6 as well as leads 3 and aVF. Vital signs upon presentation to the emergency room where BP 97/75, SpO2 98% on room air, pulse 60, respiratory rate 22, and temp 98.3F. Laboratory evaluation was reviewed and was remarkable for WBC count 10.5, hemoglobin 14.7, BUN 39, creatinine 1.41, and urine tox was positive for marijuana and opiates with AST 24 and ALT 28. Patient was admitted for further management of symptoms. A-team was called for unresponsiveness on 11/24. Patient was nonverbal and had twitching of the extremities and his eyes were rolling back. He was given multiple doses of Ativan IV and loaded on Kepp ra. Patient was transferred to ICU for closer monitoring of his symptoms. Neurology was consulted. Multiple attempts were made to transfer the patient for continuous EEG including [facility], [facility], [facility] which was unsuccessful. Patient was on Versed and propofol drip. Prolonged EEG did not show any epileptiform activity. Patient now extubated. Neurology discontinued Vimpat. Patient is having fevers, started on IV Zosyn and acyclovir. ID consulted. Blood cultures positive for coagulase negative staph. Patient is also agitated, currently on Precedex drip. Patient being started on quetiapine. Assessment Acute metabolic encephalopathy: Improved Acute hypoxic respiratory failure Possible HSV encephalitis Possible aspiration pneumonia Coagulase-negative staph bacteremia, likely contaminant Possible status epilepticus Mild normocytic anemia Mild thrombocytopenia Systolic heart failure, chronic Elevated BUN Plan -Patient's mentation has improved -I discussed the note with infectious disease and also reviewed that note. Patient had positive HSV serology and patient also improved with IV acyclovir. Unfortunately LP could not be done as patient was on Plavix. ID recommended to continue with IV acyclovir. -Remains on IV Zosyn 3.375 g every 8 hours, and IV acyclovir 875 mg every 8 hours -Patient currently off Plavix. If ID recommends no LP then we'll resume Plavix. -Neurology is recommending MRI however patient is refusing. -Resume Keppra 1500 mg twice a day -Patient off Precedex drip and now on Seroquel. Patient will be downgraded to general medical floor. -Remains on 2 L nasal cannula, continue to wean -Bacteremia likely contaminant -ID following -Resume lisinopril 2.5 g daily -BMP ordered for tomorrow to monitor electrolytes, CBC ordered for tomorrow to monitor her blood count -PT OT recommending rehab. We'll initiated discharge planning. We'll discuss her outpatient case manager about placement. If ID recommends extended course of IV m edications patient will need a PICC line on Saturday. Resolved: Lactic acidosis Acute renal failure Ventilator-dependent respiratory failure Hyperchloremic metabolic acidosis Shock, likely sepsis Mild hypernatremia Chronic: CAD status post stents Type 2 diabetes Dyslipidemia Hypertension Asthma DVT ppx: Subcu heparin Code status: Full code Anticipated [facility] therapist Anticipated discharge time: Saturday12/03/2022
[2022-12-01 12:39] LABS: Glucose,Whole Blood 226 mg/dL (70-110)
[2022-12-01 16:57] LABS: Glucose,Whole Blood 126 mg/dL (70-110)
[2022-12-01] MEDS: SODIUM CHLORIDE 0.9% 500 ML 500 ML IV SCH (17:00)
[2022-12-01] MEDS: NON FORMULARY DRUG (Rosuvastatin Calcium [Crestor] 40 MG Tablet) PO SCH (20:18)
[2022-12-01 21:22] LABS: Glucose,Whole Blood 115 mg/dL (70-110)
[2022-12-02 06:41] LABS: Glucose,Whole Blood 151 mg/dL (70-110)
[2022-12-02] MEDS: INSULIN ASPART (NovoLOG) 100 UNIT/ML VIAL SQ SCH ×4 (06:57→21:27)
[2022-12-02] MEDS: SODIUM CHLORIDE 0.9% IVPB SCH (08:52)
[2022-12-02] MEDS: ACYCLOVIR SODIUM IVPB SCH (08:52)
[2022-12-02] MEDS: PIPERACILLIN-TAZOBACTAM 3.375 GM in SODIUM CHLORIDE 0.9% 100 ML IVPB SCH (08:52)
[2022-12-02 08:58] LABS: Basophils # (A) 0.04 X 10*3/uL (0.00-0.10); Basophils % (A) 0.6 %; Eosinophils # (A) 0.06 X 10*3/uL (0.04-0.35); Eosinophils % (A) 0.9 %; HCT 39.8 % (39.6-50.0); HGB 12.9 g/dL (13.0-17.0); Immature Grans, Automated 0.4 %; Lymphocytes # (A) 1.02 X 10*3/uL (0.90-5.00); Lymphocytes % (A) 15.2 %; MCH 31.9 pg (27.0-32.0); MCHC 32.4 g/dL (32.0-37.0); MCV 98.3 fL (80.0-97.0); Monocytes # (A) 0.62 X 10*3/uL (0.20-1.00); Monocytes % (A) 9.2 %; NRBC Per 100 WBC 0 /100 WBCS (0.0-0.0); Neutrophils # (A) 4.94 X 10*3/uL (1.80-7.70); Neutrophils % (A) 73.7 %; Platelet Count 218 X 10*3/uL (140-440); RBC 4.05 X 10*6/uL (4.40-5.60); RDW 13.8 % (11.5-14.5); WBC 6.71 X 10*3/uL (4.50-10.00)
[2022-12-02] MEDS: CLOPIDOGREL 75 MG TAB PO SCH (09:00)
[2022-12-02] MEDS: METOPROLOL TARTRATE 50 MG TAB PO SCH ×2 (09:00→21:26)
[2022-12-02] MEDS: ASPIRIN 81 MG PO SCH (09:00)
[2022-12-02] MEDS: QUEtiapine 50 MG TAB PO SCH ×2 (09:01→21:26)
[2022-12-02] MEDS: levETIRAcetam IV 1,500 MG in SALINE 1 100ML.BAG IVPB SCH (09:01)
[2022-12-02] MEDS: DAPAGLIFLOZIN PROPANEDIOL 10 MG TABLET PO SCH (09:01)
[2022-12-02] MEDS: LACTULOSE 20 GM/30 ML CUP PO SCH (09:07)
[2022-12-02] MEDS: HEPARIN SODIUM,PORCINE/PF 5,000 UNIT/0.5 ML SYRINGE SQ SCH ×3 (09:09→23:30)
[2022-12-02 09:10] LABS: African American GFR (CKD) 86.3 (60.0-200.0); Anion Gap 11.9 mmol/L (10.00-18.00); BUN/Creat Ratio 18.46 Ratio (12.00-20.00); Blood Urea Nitrogen 19.2 mg/dL (9.0-27.0); Calcium 9.4 mg/dL (8.7-10.3); Carbon Dioxide 25.4 mmol/L (20.0-27.5); Magnesium 2.4 mg/dL (1.5-2.4); Non-African American GFR(CKD) 74.5 (60.0-200.0); Potassium 3.9 mmol/L (3.5-5.5)
[2022-12-02] MEDS: LIDOCAINE 5% PATCH TOPICAL SCH ×2 (10:34)
--- NOTE | 2022-12-02 10:57 | P.PN ---
Subjective Progress Note Date: 12/02/22 12/02/2022: This is a telemedicine neurology follow-up performed today on 12/02/2022. Patient is sitting on the love seat by the window. He just wants to go home. He wants to sign out AGAINST MEDICAL ADVICE. Patient states he is feeling fine, has no symptoms at all. Patient is upset that why MRI has not been canceled. It appears ID wants patient to continue acyclovir at least and Saturday, but patient does not want to stay. He wants to leave right now. 12/01/2022: This is a telemedicine neurology follow-up performed today on 12/01/2022. Patient has clinically much improved. He states he is feeling good, wants to go home. He appears somewhat manicky. On asking about his history, patient states that he was just did not feel good, and he thinks he got a seizure. At present he denies any headache. Denies any numbness tingling, feels perfectly fine. Strength is normal. Patient denies any history of tobacco or alcohol use. He states that he lives with his at home. He states that his did come and visit him yesterday. He states that he used to live in [place], move to [place]. States his son came over from [place] to meet him yesterday. Spoke to patient's nurse, who said that patient just came out of oxygen today. He has been off Precedex since yesterday. Dr. Lal does not believe he needs lumbar puncture. We will await ID re commendations. He never had seizures before. Patient wants to cancel the MRI. Patient has 6/10 in the heart and also stent in the leg. They are trying to get records from another hospital about the type of stents he has for MRI clearance. 11/30/2022: Patient was seen for a follow-up. Patient is more alert and awake. He is following all commands. Patient denies any headache. Denies problem with the vision. Patient is laying comfortably in the bed. 11/29/2022: Patient was seen for a follow-up. Patient overnight was on Precedex 1.4 g, then this morning it was turned off at 8:30 AM. Per nursing report patient was not following commands, but on my examination patient is remarkably improved as per examination below. No seizure-like activity noticed. 11/28/2022: Patient was seen for a follow-up. Patient was weaned off propofol, and was extubated this morning at 9 AM to 5 L of nasal cannula. Per nursing report, patient was not following commands before he was extubated. He was not tracking. Patient became acutely encephalopathic postextubation, restless, agitated, would not calm down. He was trying to sit up, moaning and has nonpurposeful movements. Patient was not talking, but would move all 4 activities. No obvious seizure activity noted otherwise. Patient was not following commands. Patient was started on Precedex 1 g per program per hour. He calmed down, but then he became hypotensive therefore the Precedex was just decreased to 0.5 g per program per hour. Patient has been running temperature, with yesterday 100.7 axillary, and today, right now it is 99.5 axillary. Patient has copious amounts of secretions. 11/27/2022: Patient was seen for a follow-up. Patient's and patient's sister were both present today. Patient is of Versed now. Patient's propofol was discontinued. Patient however was not appropriate. Nursing staff tried to wake patient up, but he was still encephalopathic, had a nonstop coughing. He was placed on Precedex, but did not work. Now his back on propofol. Patient currently on propofol 40 mcg/kg/m. Now he has developed hypotension and is on norepinephrine 0.05 g. 11/26/2022: Patient initially seen by Dr. Charles Aguirre. Please refer to his note for details. Patient is a 67-year-old male with past 2-3 weeks history of jerking/tremors, unresponsiveness. Patient has old encephalomalacia right temporoparietal region. Dr. Aguirre felt patient had clinical status but EEG did not show any seizure activity. EEG only showed excessive beta activity/Ativan effect. No prior history of seizures and was not on any AED. Patient currently on Keppra 1500 mg IV twice a day, Vimpat 200 mg twice a day. Patient also on Versed 2 mg/h, also on propofol 40 mcg/kg/m. The nurse has reported some left arm tremoring, some mouth tremors noted. Patient had a 2.5 hours EEG, which did not reveal any epileptiform activity. Objective - Vital Signs Vital signs: Vital Signs Temp 97.4 F L 12/02/22 08:00 Pulse 89 12/02/22 08:00 Resp 18 12/02/22 08:00 BP 159/94 12/02/22 08:00 Pulse Ox 99 12/02/22 08:00 FiO2 40 11/28/22 12:00 Intake & Output 12/01/22 12/02/22 12/02/22 17:59 06:59 18:59 Intake Total Output Total Balance Weight Intake: IV 0.9 KVO Acyclovir Sodium 875 mg In Sodium Chloride 0.9% 250 ml @ 267.4 mls/hr IVPB Q8HR [facility] Rx#: [id number] Piperacillin-Tazobactam 3 .375 gm In Sodium Chloride 0.9% 100 ml @ 25 mls/hr IVPB Q8HR [facility] Rx# :[id number] levETIRAcetam IV 1,500 mg In Saline 1 100ml.bag @ 400 mls/hr IVPB Q12HR [facility] Rx#:[id number] Oral Output: Urine Other: Voiding Method Toilet # Voids # Bowel Movements ABP, PAP, CO, CI - Last Documented Arterial Blood Pressure 59/44 - Exam Patient is today fully alert and awake, appears very energetic, appears somewhat manicky. Patient is fully oriented, even without asking tells me that he knows everything, including 12/02/2022 and that he is in [facility] and the current president's [facility]. Speech and language functions are normal. Cranial nerves are normal. Pupils are equal, round and reacting, visual quinones are full with no neglect. Face is symmetric and tongue protrudes the midline. On muscle strength testing strength to muscle strength is much improved in the arms and legs. No ataxia. Sensations equal. - Labs CBC & Chem 7: 12/02/22 05:30 12/02/22 05:30 Labs: Abnormal Lab Results - Last 24 Hours (Table) 12/01/22 12/01/22 12/01/22 Range/Units 12:38 16:56 21:21 RBC (4.40-5.60) X 10*6/uL Hgb (13.0-17.0) g/dL MCV (80.0-97.0) fL Sodium (135-145) mmol/L Glucose (70-110) mg/dL POC Glucose (mg/dL) 226 H 126 H 115 H (70-110) mg/dL 12/02/22 12/02/22 12/02/22 Range/Units 05:30 05:30 06:40 RBC 4.05 L (4.40-5.60) X 10*6/uL Hgb 12.9 L (13.0-17.0) g/dL MCV 98.3 H (80.0-97.0) fL Sodium 146 H (135-145) mmol/L Glucose 154 H (70-110) mg/dL POC Glucose (mg/dL) 151 H (70-110) mg/dL Microbiology - Last 24 Hours (Table) 11/29/22 16:57 Blood Culture - Preliminary Blood No Growth after 48 hours Assessment and Plan Assessment: This is a 67-year-old gentleman and it appears he's been having the unresponsiveness episodes with eye rolling back at home for 2-3 weeks. * Altered mental status, likely due to toxic metabolic encephalopathy. Rule out herpes encephalitis. * Seizure-like activity, rule out seizure disorder. 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 Denies any headache. Patient wants to cancel the MRI. He requested to cancel MRI yesterday too, and today he was positive to cancel MRI. It was canceled. He does not want lumbar puncture. Plavix has been resumed. It appears ID wants patient to continue acyclovir at least till Saturday, but he wants to go home today, wants to sign out AGAINST MEDICAL ADVICE. Would defer duration of treatment of acyclovir to ID. Last EEG on 11/29/2022 was much improved background, with mild background slowing. No epileptiform activity was seen. Patient probably has aspiration pneumonia. He is currently on Zosyn and acyclovir given empirically to rule out herpes encephalitis. Patient has aspiration pneumonia. ID following closely. Patient is now afebrile. Patient's Plavix has been resumed because of vascular risk factors. Lumbar puncture has been canceled. Previous EEG 11/28/2022 was abnormal with background slowing of moderate to s evere degree, consistent with encephalopathy. Presence of sporadic, but intermittent bifrontal sharp-appearing waves were seen, this may suggest underlying cortical irritability. No electrographic seizure was recorded. No definitive evidence of status epilepticus. When compared to the previous 2 EEGs, the background has progressively gotten worse. Continue Keppra 1500 mg twice a day. We will switch from IV Keppra to oral Keppra. Vimpat has been discontinued. MRI of brain canceled per patient's request. CT head 11/28/2022 revealed no acute process. Evidence of right temporoparietal region encephalomalacia from prior injury. I personally review CT head, agree with the findings. 2-D echo revealed left ventricular EF 25-30%. Moderate increase left ventricular wall thickness. Mild to moderate right ventricular dilation. Moderate mitral calcification. Cardiology on board. Carotid Doppler revealed no hemodynamically significant stenosis ICA on either side. Antegrade flow in both vertebral arteries. Recommend patient no driving for 6 months, climbing ladders, operating dangerous machinery or unsupervised swimming. Will defer the rest of medical management to primary team. Patient wants to sign out AMA. Recommend continue Keppra 1500 mg twice a day, Plavix 75 mg and aspirin 81 mg daily. Recommend follow-up with neurologist as an outpatient. Duration of acyclovir and other antibiotics as per ID/IM.
[2022-12-02 12:10] LABS: Glucose,Whole Blood 199 mg/dL (70-110)
--- NOTE | 2022-12-02 13:31 | P.PN ---
Subjective Progress Note Date: 12/02/22 On 11/26/2022, seeing the patient for a follow-up. The patient is currently intubated on a mechanical ventilator. The patient is a . The patient is known to have CAD and he smokes marijuana and he has a remote history of seizures. The patient. He was hospitalized and he was having recurrent seizure activity and he was postictal with altered mentation and diminished level of consciousness. CAT scan of the brain showed encephalomalacia related to prior infarcts last traumatic insults. This was noted more in the posterior right temporal parietal region. There was no other acute abnormalities noted. The patient was seen by neurology. He is currently on a combination of antiepileptics including Keppra, Vimpat and Depakote. At the time of his seizure activity he also received Ativan. Currently, he is also on propofol running at 30 mcg/kg/m. He is also on Versed running at X milligrams an hour. He is completely sedated and there is no visible seizure activity noted. He is in the process of undergoing an EEG this morning. He remains on a mechanical ventilator on assist control mode at a rate of 20 with a tidal volume of 450 and FiO2 of 40% with a PEEP of 5. His chest x-ray shows no acute abnormalities. His tube is in adequate location. Patient also has a orogastric tube in place. No consolidation. No airspace disease. He is hemodynamically stable. Cardiac rhythm is sinus. He is on heparin subcu for DVT prophylaxis. IV fluids are running in the form of normal saline at rate of 75 mL an hour. Note that the patient is also diabetic. He was receiving Lantus insulin on outpatient basis in combination with JArdiance and I noted that he was not taking any form of antiepileptic medications on outpatient basis. An EEG was ordered the done on 11/24/2022 and obviously EEG was abnormal and there was background slowing suggestive of mild to moderate encephalopathy. No focal epileptic discharges were noted. There was extensive but activity due to medication/Ativan effects. Neurologically is currently on the case and the patient was evaluated by the neurology service. Blood gas from today shows a pH of 7.41 with a pCO2 of 30 and pO2 140. White cycles of 12.7 with a hemoglobin of 12.7 and a platelet count of 125. Sodium is at 139 potassium is at 4.1 bicarbs at 17 BUN is 20 with a creatinine of 1.1. Lactic acid level dropped from 4.0 down to 0.9. I also noted an elevation the prolactin level, borderline elevation, could be related to the seizure activity. On today's evaluation of 11/27/2022, the patient is being seen for a follow-up. The patient is currently intubated on a mechanical ventilator and the patient was on a combination of drugs for status epilepticus. Noted the EEG was done yesterday and it showed no evidence of any active seizures and this morning the patient remains on propofol running at 35 mcg/kg/m and the patient is also on Versed 1 mg/h. He is still deeply sedated. The EEG showed diffuse synchronous and asynchronous delta range slowing and there was no seizure activity noted. Meanwhile, the patient continues to be on a combination of Keppra 1.5 g twice a day and Vimpat at a dose of 200 mg IV twice a day. No active seizures noted on examination. He remains hemodynamically stable. The patient remains on a mechanical ventilator. He is currently on assist control mode at the rate of 20, tidal volume of 450, FiO2 of 40% with a PEEP of 5. The chest x-ray from today shows some bibasilar atelectatic changes. No airspace disease or acute pulmonary infiltrates. Blood gas from today shows a pH of 7.44 with a pCO2 of 29 and pO2 of 96 and this was done on the above-mentioned ventilator settings. The patient hemodynamically is stable. He is on no pressors. His cardiac rhythm is sinus although he was having frequent PVCs. Echocardiogram was done yesterday and the patient was found to have systolic heart failure. The patient has an ejection fraction of 25-30%. There is also evidence of RV dilatation. There was mild to moderate RV dilatation moderate mitral calcification, tricuspid regurgitation, moderate increase in the LV wall thickness. Patient was seen by cardiology. The patient was started on a combination of treatment including metoprolol 50 mg by mouth twice a day. Patient is also on aspirin and Plavix. The patient is on farxiga and Zestril 2.5 mg twice a day. Aldactone was also added at a dose of 25 mg by mouth daily. The patient remains on enteral feeding for nutritional support. Is currently on vital high-protein at the rate of 30 mL an hour. Rest of the blood work is essentially stable. The discomfort is at 7.6 with a hemoglobin of 15. BUN is at 15 with a creatinine of 1.02. Bicarb is at 17. Sodiums of 138. On today's evaluation of 11/28/2022, the patient remains on sedation with propofol. He was on accommodation of Versed and propofol yesterday. We discontinued the Versed. He also gradually weaned off the propofol. As the patient was taken off the sedation, he became more restless, starts coughing, reaching up to the tube, opening his eyes but not following any commands.. We tried to control his restlessness with Precedex and this was not successful. He was not ready for activation processes as the patient was not felt to have adequate mentation. As such, he was placed back on propofol which is currently running at 45 mcg/kg/m. He is deeply sedated. He is not even grimacing to any deep painful stimulation. When the process of gradually weaning him off the sedation. EEG was done on 11/26/2022 and this was interpreted by neurology and there is no evidence of any ongoing epileptic discharge. The patient remains on a combination of Keppra and Vimpat of the usual doses. Meanwhile, the patient remains on a mechanical ventilator. He is currently on assist control mode with a rate of 20, tidal volume of 450, FiO2 of 40% with a PEEP of 5. Chest x-ray remains stable without any acute pulmonary infiltrates. There may be some limited infiltration of the left lung base, which is essentially unchanged. The previous echoes at 9.1 with a hemoglobin of 12.9 and a platelet count of 136. Sodium is at 142 and a potassium level is 3.9 with a BUN of 18 and a creatinine of 1.06. Sputum culture has been negative for now . The patient remains on vital high-protein at the rate of 46 mL an hour. Afebrile. Urine output is around 150 mL an hour. IV fluids are currently at KVO. He remains on no low- dose norepinephrine running at 0.03 mcg/kg/m. Note that his echocardiogram also showed impaired LV function and the patient has systolic heart failure with ejection fraction of 25-30%. He has also evidence of RV dilatation and there is mild to moderate RV dilatation and moderate mitral calcification and tricuspid regurgitation and there is also increase in LV wall thickness. Cardiology has made adjustments on his cardiac medication. He is having occasional PVCs and these are not frequent at this point in time.. I would suggest holding of his lisinopril till patient is off norepinephrine. 11/29/2022, the patient is being seen for a follow-up. The patient was extubated yesterday. EEG was done and that showed no evidence of any seizure activity. Postextubation, the patient was quite restless and agitated. He was placed on Precedex and he was kept on Precedex throughout the day yesterday. 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 The patient is calm and comfortable. I noted some response and he is becoming much more alert on today's neurologic evaluation. He is still lethargic and sleepy however. No seizure activity has been noted. He is currently on norepinephrine running at 0.04 Kirby respiratory minute to support his blood pressure. he developed a temperature 100.2. he was started on acyclovir as an empiric coverage for viral encephalitis. unable to perform lumbar puncture as the patient has been taking Plavix. I also covered the patient IV Zosyn. He has an NG tube in place. Output from the NG tube is minimal this morning. He is on 4 L of oxygen by nasal cannula with a pulse ox of 97%. The patient's previous echoes at 9.3 with a hemoglobin 11.5 and a platelet count of 140. BUN is at 23 with a creatinine of 1.3. Glucose at 148. 11/30/2022, the patient is wide awake and alert. Note that he is having progressive improvement and recovery in his neurologic status. He is responsive . He is communicating. He is alert and oriented. Nevertheless, there are still episodes of confusion and restlessness and agitation. Overnight, he was kept on Precedex and the dose has been weaned down to 0.8 mcg/kg/h. Dose still being titrated to keep this patient quite comfortable. Meanwhile, he is moving all 4 extremities. His swallowing adequately. Is on oxygen at 2 L/m nasal cannula. Chest x-ray showing some cardiomegaly and pulmonary vascular congestion. Note that the patient has an underlying cardiomyopathy. Neurology is still on the case. We have the patient 97 acyclovir. Blood culture came back positive for gram positives coagulase negative staph which is probably contaminant. He is on IV Zosyn for a potential aspiration. His blood work today shows a WBC count of 5.4 with a hemoglobin of 10.6. BUN is at 29 with a creatinine of 1. Sodium is at 145 and the patient has a potassium level of 3.8. Pro-calcitonin level was 1.02. Neurology is on the case. I have the patient off Plavix in consultation for a possible lumbar puncture at later stage if needed. I am seeing progressive improvement in his neurologic functions. There is no evidence of any seizure activity. Carotid Doppler was done yesterday showed no hemodynamically significant stenosis. At the same time, and EEG was done yesterday on 11/29/2022 that showed abnormal background slowing. There is generalized cerebral dysfunction. No evidence of any seizure activity. The patient meanwhile is maintained on IV acyclovir. Is on IV Keppra 1.5 g every 12 hours. Norepinephrine has been discontinued. IV fluids are at KVO. 12/01 2022, the patient is looking much better. He was started on Seroquel yesterday at a dose of 50 mg twice a day and the patient is currently on no Precedex. Precedex was discontinued this morning at around 2 AM. This morning, he is pleasant. He is communicating. He is moving all 4 extremities. No focal neurological deficits. He remains on oxygen at 2 L per minute nasal cannula. His cardiac rhythm is sinus. He remains on acyclovir. He remains on IV Keppra. Hemodynamically stable and no other issues overnight. His labs from today, shows a WBC count of 5 with a hemoglobin 11.6 and a platelet count of 165. The enzymes at 27 with a creatinine of 1 and his sodium level is at 143. The patient has done significant improvement. Is off Precedex as mentioned. Is set on empiric antibiotic coverage with IV Zosyn. His blood culture was coagulase positive staph. 05/04/2023, the patient is on room air oxygen. Denies having any major respiratory difficulties. No cough or sputum production or chest tightness or wheezing. Insists on leaving the hospital. I still think that he is a bit off and sometimes confused. I am going to await final recommendations from neurology regarding any possible workup for his underlying neurologic decompensation. Noted the patient is not having any seizure activity at this point in time. He is on IV acyclovir regarding possibility of HSV encephalitis. He was in the intensive care unit. He was released outside the ICU on his remains on Keppra. He is hemodynamically stable for now. Has declined to undergo an MRI of the brain. Objective - Vital Signs Vital signs: Vital Signs Temp 97.4 F L 12/02/22 08:00 Pulse 89 12/02/22 08:00 Resp 18 12/02/22 08:00 BP 159/94 12/02/22 08:00 Pulse Ox 99 12/02/22 08:00 FiO2 40 11/28/22 12:00 Intake & Output 12/01/22 12/02/22 12/02/22 17:59 06:59 18:59 Intake Total Output Total Balance Weight Intake: IV 0.9 KVO Acyclovir Sodium 875 mg In Sodium Chloride 0.9% 250 ml @ 267.4 mls/hr IVPB Q8HR [facility] Rx#: [id number] Piperacillin-Tazobactam 3 .375 gm In Sodium Chloride 0.9% 100 ml @ 25 mls/hr IVPB Q8HR [facility] Rx# :[id number] levETIRAcetam IV 1,500 mg In Saline 1 100ml.bag @ 400 mls/hr IVPB Q12HR [facility] Rx#:[id number] Oral Output: Urine Other: Voiding Method Toilet # Voids # Bowel Movements ABP, PAP, CO, CI - Last Documented Arterial Blood Pressure 59/44 - Exam No acute distress, alert and communicating and oriented and 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 There was no scleral icterus or corneal arcus. Mucous membranes were moist. Neck supple. Full range of motion. No adenopathy thyromegaly or neck vein distention. Cardiovascular examination reveals regular rhythm rate. S1-S2 normal. No S3 or S4. No discernible murmur noted. Lungs reveal clear breath sounds. Breath sounds are equal bilaterally. No adventitious lung sounds including wheezes rhonchi or crackles. Abdomen soft bowel sounds are heard. No masses or tenderness. Extremities are intact. No cyanosis clubbing or edema. Skin is without rash or lesion. Neurologic examination reveals an alert and oriented person, communicating, pleasant, no focal neurological deficits, - Labs CBC & Chem 7: 12/02/22 05:30 12/02/22 05:30 Labs: Abnormal Lab Results - Last 24 Hours (Table) 12/01/22 12/01/22 12/01/22 Range/Units 12:38 16:56 21:21 RBC (4.40-5.60) X 10*6/uL Hgb (13.0-17.0) g/dL MCV (80.0-97.0) fL Sodium (135-145) mmol/L Glucose (70-110) mg/dL POC Glucose (mg/dL) 226 H 126 H 115 H (70-110) mg/dL 12/02/22 12/02/22 12/02/22 Range/Units 05:30 05:30 06:40 RBC 4.05 L (4.40-5.60) X 10*6/uL Hgb 12.9 L (13.0-17.0) g/dL MCV 98.3 H (80.0-97.0) fL Sodium 146 H (135-145) mmol/L Glucose 154 H (70-110) mg/dL POC Glucose (mg/dL) 151 H (70-110) mg/dL 12/02/22 Range/Units 12:04 RBC (4.40-5.60) X 10*6/uL Hgb (13.0-17.0) g/dL MCV (80.0-97.0) fL Sodium (135-145) mmol/L Glucose (70-110) mg/dL POC Glucose (mg/dL) 199 H (70-110) mg/dL Microbiology - Last 24 Hours (Table) 11/29/22 16:57 Blood Culture - Preliminary Blood No Growth after 48 hours Assessment and Plan Plan: Recurrent and persistent seizure activity, with acute mental status changes. The patient is currently on a combination of Versed and propofol. EEG is in progress right now. No seizure activity has been noted. The patient is also on a combination of antiepileptic. The patient is taking Keppra 1.5 g every 12 hours, Vimpat was discontinued. The patient is having a period EEGs and the most recent EEG from yesterday showed no evidence of any seizure activity. I am noticing gradual return of his neurologic functions. He was able to follow some simple commands earlier this morning. The possibility of HSV encephalitis cannot be ruled out and the patient was started on acyclovir. The patient is gradually recovering from his altered mentation. Neurologically, the patient is much improved, alert and oriented, no focal neurological deficit and remains on Keppra and acyclovir. Lumbar puncture has not been done. Clinically improved. No seizure activity has been noted Acute hypoxic/hypercapnic respiratory failure due to diminished level of consciousness/postictal stage following seizure activity. The patient was extubated. There is some increased interstitial markings bilaterally, consider aspiration. The patient is currently on IV Zosyn. Currently on room air oxygen CVA, history of as the patient has some prior right temporoparietal region encephalomalacia either related to previous trauma or CVA Coagulase-negative in the blood, staph, a contaminant acute lactic acidosis, recovered Non-anion gap metabolic acidosis, recovered Cardiomyopathy with systolic heart failure with an ejection fraction of 25-30% Frequent PVCs Borderline thrombocytopenia, stable History of hypertension. CAD History of PCI with stent placement. History of hyperlipidemia. History of asthma. History of diabetes mellitus. History of gastroesophageal reflux disease. History of chronic marijuana use. Peripheral vascular disease and the patient has undergone previous vascular stenting to the lower extremity Previous amputation of the right great toe Plan: Discontinue the IV Zosyn Patient is currently on room air oxygen Continue Seroquel Continue acyclovir, discuss with ID exact duration of the treatment. Noted no lumbar puncture was done. Continue Continue cardiac medications Declined MRI of the brain We'll need final clearance from neurology and infectious disease prior to him being discharged.
--- NOTE | 2022-12-02 14:52 | P.PN ---
Subjective Progress Note Date: 12/02/22 Hospital Course: Patient is a 67-year-old male with a PMH of CAD status post stents, type II DM, hyperlipidemia, hypertension, and asthma who presented to the emergency room with complaints of tremors, slurred speech, and unsteady gait. CT brain revealed area of encephalomalacia related to prior infarct or traumatic insult posterior right temporal parietal junction with no acute intracranial abnormalities. EKG revealed sinus bradycardia at 53 bpm with T-wave flattening in leads V4 to V6 as well as leads 3 and aVF. Vital signs upon presentation to the emergency room where BP 97/75, SpO2 98% on room air, pulse 60, respiratory rate 22, and temp 98.3F. Laboratory evaluation was reviewed and was remarkable for WBC count 10.5, hemoglobin 14.7, BUN 39, creatinine 1.41, and urine tox was positive for marijuana and opiates with AST 24 and ALT 28. Patient was admitted for further management of symptoms. A-team was called for unresponsiveness on 11/24. Patient was nonverbal and had twitching of the extremities and his eyes were rolling back. He was given multiple doses of Ativan IV and loaded on Keppra. Patient was transferred to ICU for closer monitoring of his symptoms. Neurology was consulted. Multiple attempts were made to transfer the patient for continuous EEG including [facility], [facility] [place], [facility], [facility] which was unsuccessful. Patient was on Versed and propofol drip. Prolonged EEG did not show any epileptiform activity. Patient now extubated. Neurology discontinued Vimpat. Patient was having fevers, started on IV Zosyn and acyclovir. ID consulted. Blood cultures positive for coagulase negative staph. Patient was also agitated, was on Precedex drip. Patient being started on quetiapine. Patient now downgraded to general medical floor. Continues to remain on Zosyn and acyclovir. Pending PICC line tomorrow. Pertinent Imaging: Brain CT from 11/24 shows no acute process, right temporal parietal encephalomalacia. EEG Prolonged EEG: No epileptiform activity Echocardiogram: LVEF 25-30%, mild TR shows mild to moderate encephalopathy no epileptiform discharge. Prolonged EEG: No epileptiform activity Echocardiogram: LVEF 25-30%, mild TR Brain CT from 11/28: showed no acute intracranial process or changes compared to prior examination Subjective: Patient seen and examined at bedside. Patient is extremely agitated and would like to go home. However, sister came to the hospital and patient decided to stay another day. Pertinent positives and negatives as discussed above, a complete review of systems was performed and all other systems are negative. Vitals Signs Reviewed. General: Awake, not in acute distress Derm: warm, dry Head: atraumatic, normocephalic, symmetric Eyes: Pupils equal and reactive Mouth: no lip lesion, mucus membranes moist Cardiovascular: S1S2 reg, no murmur Lungs: CTA bilateral, no rhonchi, no rales , no accessory muscle use Abdominal: soft, nontender to palpation, no guarding, no appreciable o rganomegaly Ext: no gross muscle atrophy, no edema, no contractures, right foot toe amputation Neuro: CN II through XII grossly normal, no focal deficits Psych: Uncooperative, awake, oriented Data Reviewed Today: Pertinent Labs: Hemoglobin 12.9, sodium 146, creatinine 1.0, blood sugars range between 115 to 199, Assessment and Plan: Patient considering AMA discharge, explained the risks of leaving AGAINST MEDICAL ADVICE. Patient verbalizes understanding, and detail the negative consequences of him leaving without full treatment. He will likely stay another day and leave tomorrow after his PICC line or on oral medications. Active: Acute metabolic encephalopathy Possible status epilepticus Possible HSV encephalitis Mild normocytic anemia Mild thrombocytopenia -Field Mechanic note reviewed: Consider discontinuing Zosyn, discharge if cleared by neurology and ID -Neurology note reviewed: IV Keppra switched to oral -ID following, unable to get LP due to Plavix -Continue to follow BMP in the setting of IV acyclovir to monitor for toxicity -Patient will likely need a PICC line for IV antivirals/antibiotics -Likely discharge tomorrow Resolved: Lactic acidosis Acute renal failure Ventilator-dependent respiratory failure Hyperchloremic metabolic acidosis Shock, likely sepsis Mild hypernatremia Acute hypoxic respiratory failure Coagulase-negative staph bacteremia, likely contaminant Possible aspiration pneumonia Elevated BUN Chronic: CAD status post stents Type 2 diabetes Dyslipidemia Hypertension Asthma Systolic heart failure, chronic DVT ppx: Subcu heparin Code status: Full code Anticipated discharge place: Home Anticipated discharge time: Likely tomorrow Objective - Vital Signs Vital signs: Vital Signs Temp 97.4 F L 12/02/22 08:00 Pulse 89 12/02/22 08:00 Resp 18 12/02/22 08:00 BP 159/94 12/02/22 08:00 Pulse Ox 99 12/02/22 08:00 FiO2 40 11/28/22 12:00 Intake & Output 12/01/22 12/02/22 12/02/22 17:59 06:59 18:59 Intake Total Output Total Balance Weight Intake: IV 0.9 KVO Acyclovir Sodium 875 mg In Sodium Chloride 0.9% 250 ml @ 267.4 mls/hr IVPB Q8HR [facility] Rx#: [id number] Piperacillin-Tazobactam 3 .375 gm In Sodium Chloride 0.9% 100 ml @ 25 mls/hr IVPB Q8HR [facility] Rx# :[id number] levETIRAcetam IV 1,500 mg In Saline 1 100ml.bag @ 400 mls/hr IVPB Q12HR [facility] Rx#:[id number] Oral Output: Urine Other: Voiding Method Toilet # Voids # Bowel Movements ABP, PAP, CO, CI - Last Documented Arterial Blood Pressure 59/44 - Labs CBC & Chem 7: 12/02/22 05:30 12/02/22 05:30 Labs: Abnormal Lab Results - Last 24 Hours (Table) 12/01/22 12/01/22 12/02/22 Range/Units 16:56 21:21 05:30 RBC 4.05 L (4.40-5.60) X 10*6/uL Hgb 12.9 L (13.0-17.0) g/dL MCV 98.3 H (80.0-97.0) fL Sodium (135-145) mmol/L Glucose (70-110) mg/dL POC Glucose (mg/dL) 126 H 115 H (70-110) mg/dL 12/02/22 12/02/22 12/02/22 Range/Units 05:30 06:40 12:04 RBC (4.40-5.60) X 10*6/uL Hgb (13.0-17.0) g/dL MCV (80.0-97.0) fL Sodium 146 H (135-145) mmol/L Glucose 154 H (70-110) mg/dL POC Glucose (mg/dL) 151 H 199 H (70-110) mg/dL Microbiology - Last 24 Hours (Table) 11/29/22 16:57 Blood Culture - Preliminary Blood No Growth after 48 hours
--- NOTE | 2022-12-02 15:36 | P.PN ---
Subjective Progress Note Date: 12/02/22 Principal diagnosis: Fever and pneumonia/encephalitis Patient is a 67-year-old male with a past medical history significant for diabetes mellitus hypertension hyperlipidemia , asthma and coronary artery disease presenting to the hospital for tremors weakness and mental status changes A she did require intubation initially and was extubated on 11/28/2022 with a new fever and mental status changes concerning for possible encephalitis. On today's evaluation that is 12/02/2022 the patient denies any fever or any chills, the patient is breathing comfortably on room air, the patient denies any chest pain or shortness of occasional cough no abdominal pain no diarrhea jordan sandoval has been insisting on going home and apparently has ripped out his IV, per the nursing staff Objective - Vital Signs Vital signs: Vital Signs Temp 97.4 F L 12/02/22 08:00 Pulse 89 12/02/22 08:00 Resp 18 12/02/22 08:00 BP 159/94 12/02/22 08:00 Pulse Ox 99 12/02/22 08:00 FiO2 40 11/28/22 12:00 Intake & Output 12/01/22 12/02/22 12/02/22 17:59 06:59 18:59 Intake Total Output Total Balance Weight Intake: IV 0.9 KVO Acyclovir Sodium 875 mg In Sodium Chloride 0.9% 250 ml @ 267.4 mls/hr IVPB Q8HR [facility] Rx#: [id number] Piperacillin-Tazobactam 3 .375 gm In Sodium Chloride 0.9% 100 ml @ 25 mls/hr IVPB Q8HR [facility] Rx# :[id number] levETIRAcetam IV 1,500 mg In Saline 1 100ml.bag @ 400 mls/hr IVPB Q12HR [facility] Rx#:[id number] Oral Output: Urine Other: Voiding Method Toilet # Voids # Bowel Movements ABP, PAP, CO, CI - Last Documented Arterial Blood Pressure 59/44 - Exam GENERAL DESCRIPTION: An elderly male lying in bed in no distress RESPIRATORY SYSTEM: Unlabored breathing , decreased breath sounds at bases HEART: S1 S2 regular rate and rhythm , ABDOMEN: Soft , no tenderness EXTREMITIES: No edema feet - Labs CBC & Chem 7: 12/02/22 05:30 12/02/22 05:30 Labs: Abnormal Lab Results - Last 24 Hours (Table) 12/01/22 12/01/22 12/02/22 Range/Units 16:56 21:21 05:30 RBC 4.05 L (4.40-5.60) X 10*6/uL Hgb 12.9 L (13.0-17.0) g/dL MCV 98.3 H (80.0-97.0) fL Sodium (135-145) mmol/L Glucose (70-110) mg/dL POC Glucose (mg/dL) 126 H 115 H (70-110) mg/dL 12/02/22 12/02/22 12/02/22 Range/Units 05:30 06:40 12:04 RBC (4.40-5.60) X 10*6/uL Hgb (13.0-17.0) g/dL MCV (80.0-97.0) fL Sodium 146 H (135-145) mmol/L Glucose 154 H (70-110) mg/dL POC Glucose (mg/dL) 151 H 199 H (70-110) mg/dL Microbiology - Last 24 Hours (Table) 11/29/22 16:57 Blood Culture - Preliminary Blood No Growth after 48 hours Assessment and Plan (1) Fever Current Visit: Yes Status: Acute Code(s): R50.9 - FEVER, UNSPECIFIED SNOMED Code(s): 790545747 (2) Aspiration pneumonia Current Visit: Yes Status: Acute Code(s): J69.0 - PNEUMONITIS DUE TO INHALATION OF FOOD AND VOMIT SNOMED Code(s): 027694079 (3) Encephalopathy Current Visit: Yes Status: Acute Code(s): G93.40 - ENCEPHALOPATHY, UNSPECIFIED SNOMED Code(s): 12695540 Plan: 1patient with mental status changes confusion now with a low-grade fever and this patient has been in the hospital for about 5 days did not have any fever on presentation to the hospital with a source of fever possible central or a question of possible pneumonia questionable aspiration etiology, sputum culture has been negative for resistant pathogen patient has lost his IV we will discontinue Zosyn and given short course of oral Augmentin 2patient did have positive HSV-1 serology, and consult for possible herpes encephalitis patient has shown clinical improvement with IV acyclovir however the patient has ripped out his IV we will give him a short course of oral Valtrex Time with Patient: Less than 30
[2022-12-02] MEDS: valACYclovir HCL 1,000 MG TABLET PO SCH ×2 (16:25→23:30)
[2022-12-02] MEDS: AMOXIC-POT CLAV 875-125MG 1 EACH TAB PO SCH (16:26)
[2022-12-02 17:06] LABS: Glucose,Whole Blood 167 mg/dL (70-110)
[2022-12-02] MEDS: SODIUM CHLORIDE 0.9% 500 ML 500 ML IV SCH (17:20)
[2022-12-02 20:40] LABS: Glucose,Whole Blood 152 mg/dL (70-110)
[2022-12-02] MEDS: NON FORMULARY DRUG (Rosuvastatin Calcium [Crestor] 40 MG Tablet) PO SCH (21:25)
[2022-12-03 02:14] VITALS: RESP 16
[2022-12-03 06:05] LABS: Glucose,Whole Blood 147 mg/dL (70-110)
[2022-12-03] MEDS: INSULIN ASPART (NovoLOG) 100 UNIT/ML VIAL SQ SCH ×2 (06:40→13:24)
[2022-12-03 07:58] VITALS: BP 114/52; PULSE 84; TEMP 98.8
[2022-12-03] MEDS: HEPARIN SODIUM,PORCINE/PF 5,000 UNIT/0.5 ML SYRINGE SQ SCH (09:11)
[2022-12-03] MEDS: valACYclovir HCL 1,000 MG TABLET PO SCH (09:11)
[2022-12-03] MEDS: ASPIRIN 81 MG PO SCH (09:12)
[2022-12-03] MEDS: METOPROLOL TARTRATE 50 MG TAB PO SCH (09:12)
[2022-12-03] MEDS: AMOXIC-POT CLAV 875-125MG 1 EACH TAB PO SCH (09:12)
[2022-12-03] MEDS: DAPAGLIFLOZIN PROPANEDIOL 10 MG TABLET PO SCH (09:12)
[2022-12-03] MEDS: CLOPIDOGREL 75 MG TAB PO SCH (09:12)
[2022-12-03] MEDS: QUEtiapine 50 MG TAB PO SCH (09:12)
[2022-12-03] MEDS: LIDOCAINE 5% PATCH TOPICAL SCH ×2 (09:13→09:14)
[2022-12-03] MEDS: LACTULOSE 20 GM/30 ML CUP PO SCH (09:13)
[2022-12-03 09:15] LABS: African American GFR (CKD) 80.6 (60.0-200.0); Anion Gap 11.7 mmol/L (10.00-18.00); BUN/Creat Ratio 16.27 Ratio (12.00-20.00); Blood Urea Nitrogen 17.9 mg/dL (9.0-27.0); Calcium 8.8 mg/dL (8.7-10.3); Carbon Dioxide 26.3 mmol/L (20.0-27.5); Non-African American GFR(CKD) 69.6 (60.0-200.0)
[2022-12-03 11:35] LABS: Glucose,Whole Blood 227 mg/dL (70-110)
--- NOTE | 2022-12-03 12:18 | P.PN ---
Subjective Progress Note Date: 12/03/22 Principal diagnosis: Fever and pneumonia/encephalitis Patient is a 67-year-old male with a past medical history significant for diabetes mellitus hypertension hyperlipidemia , asthma and coronary artery disease presenting to the hospital for tremors weakness and mental status changes A she did require intubation initially and was extubated on 11/28/2022 with a new fever and mental status changes concerning for possible encephalitis. On today's evaluation that is 12/03/2022 the patient remains to be afebrile, the patient is breathing comfortably on room air, the patient denies any chest pain or shortness of occasional cough no abdominal pain no diarrhea patient has been insisting on going home Objective - Vital Signs Vital signs: Vital Signs Temp 98.8 F 12/03/22 07:04 Pulse 84 12/03/22 07:40 Resp 16 12/03/22 07:40 BP 114/52 12/03/22 07:04 Pulse Ox 98 12/03/22 07:04 FiO2 40 11/28/22 12:00 Intake & Output 12/02/22 12/03/22 12/03/22 18:59 06:59 18:59 Intake Total 120 180 Balance 120 180 Weight 79.4 kg Intake: Oral 120 180 Other: Voiding Method Toilet Toilet Toilet # Voids 1 4 ABP, PAP, CO, CI - Last Documented Arterial Blood Pressure 59/44 - Exam GENERAL DESCRIPTION: An elderly male up in the room in no distress RESPIRATORY SYSTEM: Unlabored breathing , decreased breath sounds at bases HEART: S1 S2 regular rate and rhythm , ABDOMEN: Soft , no tenderness EXTREMITIES: No edema feet - Labs CBC & Chem 7: 12/02/22 05:30 12/03/22 06:13 Labs: Abnormal Lab Results - Last 24 Hours (Table) 12/02/22 12/02/22 12/02/22 Range/Units 12:04 16:59 20:39 Glucose (70-110) mg/dL POC Glucose (mg/dL) 199 H 167 H 152 H (70-110) mg/dL 12/03/22 12/03/22 Range/Units 06:03 06:13 Glucose 159 H (70-110) mg/dL POC Glucose (mg/dL) 147 H (70-110) mg/dL Microbiology - Last 24 Hours (Table) 11/29/22 16:57 Blood Culture - Preliminary Blood No Growth after 72 hours Assessment and Plan (1) Fever Current Visit: Yes Status: Acute Code(s): R50.9 - FEVER, UNSPECIFIED SNOMED Code(s): 016359639 (2) Aspiration pneumonia Current Visit: Yes Status: Acute Code(s): J69.0 - PNEUMONITIS DUE TO INHALATION OF FOOD AND VOMIT SNOMED Code(s): 586676618 (3) Encephalopathy Current Visit: Yes Status: Acute Code(s): G93.40 - ENCEPHALOPATHY, UNSPECIFIED SNOMED Code(s): 69978463 Plan: 1patient with mental status changes confusion now with a low-grade fever and this patient has been in the hospital for about 5 days did not have any fever on presentation to the hospital with a source of fever possible central or a question of possible pneumonia questionable aspiration etiology, sputum culture has been negative for resistant pathogen patient has lost his IV we will discontinue Zosyn and given short course of oral Augmentin 7 days 2patient did have positive HSV-1 serology, and consult for possible herpes encephalitis patient has shown clinical improvement with IV acyclovir however the patient has ripped out his IV we will give him a short course of oral Valtrex 10 days of discharge and close outpatient follow-up , sister at the bedside who is a retired RN questions concerned were answered Time with Patient: Less than 30
[2022-12-03 13:03] VITALS: BMI 25.1
--- NOTE | 2022-12-03 13:45 | P.DS ---
Providers Date of admission: 11/23/22 18:27 Expected date of discharge: 12/03/22 Attending physician: Emerson Agarwal MD Consults: 11/23/22 18:27 Consult Physician Routine Consulting Provider: Charles Aguirre Consult Reason/Comments: altered mental status Do you want consulting provider notified?: Yes 11/24/22 15:13 Consult Physician Urgent Consulting Provider: Kirby Aguirre Consult Reason/Comments: icu management Do you want consulting provider notified?: Already Contacted 11/24/22 16:15 Consult Physician Stat Consulting Provider: Daniel Sharma Consult Reason/Comments: AMS, syncope, unresponsive Do you want consulting provider notified?: Yes 11/28/22 13:30 Consult Physician Routine Consulting Provider: Fernie Skaggs Consult Reason/Comments: Pt with low grad temp, Severe AMS, need for LP, Acyclovir Do you want consulting provider notified?: Yes Primary care physician: [facility] Hospital Course: Admitting diagnoses: Debility and bilateral tremors Discharge diagnoses: Acute metabolic encephalopathy Possible status epilepticus Possible HSV encephalitis Mild normocytic anemia Mild thrombocytopenia Lactic acidosis Acute renal failure Ventilator-dependent respiratory failure Hyperchloremic metabolic acidosis Shock, likely sepsis Mild hypernatremia Acute hypoxic respiratory failure Coagulase-negative staph bacteremia, likely contaminant Possible aspiration pneumonia Elevated BUN Chronic: CAD status post stents Type 2 diabetes Dyslipidemia Hypertension Asthma Systolic heart failure, chronic The patient is a 67-year-old male with a PMH of CAD status post stents, type II DM, hyperlipidemia, hypertension, and asthma who presents to the emergency room with complaints of tremors, slurred speech, and unsteady gait. The patient was seen earlier in the day at his PCPs office where he was instructed to go to the emergency room. The history was supplemented from the chart as the patient was somewhat confused at the time of interview. The patient states that over the past 2-3 weeks, he has been experiencing tremors of his arms and that his legs have become increasingly weak to the point that he is no longer able to ambulate. He denied experiencing fever, chills, headaches, chest pain, palpitations. Denied prior history of strokes. Patient reports growing his own marijuana and smoking that daily. Patient denied recently starting any new medications or any new supplements. Case discussed in detail with the ED provider. On 11/24/2022 patient became unresponsive and was found to have an acute seizure. On 11/24/2022 patient was transferred to the ICU for 24 hour EEG monitoring. Later that day patient was intubated for recurrent seizure activity. Patient was extubated on 11/28/2022. Neurology closely followed patient. Patient was placed on IV Keppra and switched to oral. ID did follow the patient closely as well. Patient was initially given IV Zosyn and this was transitioned to oral Augmentin. 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 Patient did have elevated prolactin levels. However, patient was refusing an MRI. EEG was completed and this was suggestive of generalized cerebral dysfunction related to metabolic encephalopathy. No epileptiform activity was seen. Chest x-rays throughout hospital stay did show persistent lung base atelectasis and/or infiltrate. Patient was afebrile throughout hospital stay and white blood cell count remained normal. Infectious disease did closely follow the patient and recommended a lumbar puncture. However lumbar puncture was not done because patient was on Plavix. CT of the brain showed an area os encephalmalacia related to prior infarct or traumatic insult posterior right portal parietal junction. No acute intracranial abnormality identified. Again patient refused MRI. General: [non toxic], [no distress], [appears at stated age] Derm: [warm], [dry] Head: [atraumatic], [normocephalic], [symmetric] Eyes: [EOMI], [no lid lag], [anicteric sclera] Mouth: [no lip lesion], [mucus membranes moist] Cardiovascular: [S1S2 reg], [no murmur], [positive posterior tibial pulse bilate ral], Lungs: [CTA bilateral], [no rhonchi, no rales] , [no accessory muscle use] Abdominal: [soft], [ nontender to palpation], [no guarding], [no appreciable organomegaly] Ext: [no gross muscle atrophy], [no edema], [no contractures] Neuro: [ CN II-XI grossly intact], [no focal neuro deficits] Psych: [Alert], [oriented], [appropriate affect] Disposition: Home with home care Activity: As tolerated Diet: Diabetic Condition: Fair Follow-up with neurology in 1-2 weeks Follow-up with PCP in 2-7 days Patient Condition at Discharge: Fair Plan - Discharge Summary Discharge Rx Participant: No New Discharge Prescriptions: New Aspirin 81 mg PO DAILY #90 tab levETIRAcetam [Keppra] 1,500 mg PO Q12HR #100 tab Clopidogrel [Plavix] 75 mg PO DAILY #90 tab Metoprolol Tartrate [Lopressor] 50 mg PO BID #60 tab QUEtiapine [SEROquel] 50 mg PO BID #60 tab valACYclovir HCL [Valtrex] 1,000 mg PO Q8HR tab lisinopriL [Zestril] 2.5 mg PO DAILY #30 tab Amoxic-Pot Clav 875-125Mg [Augmentin 875-125] 1 tab PO BID 7 Days #14 tab valACYclovir HCL [Valtrex] 1,000 mg PO Q8H #30 tablet Amoxic-Pot Clav 875-125Mg [Augmentin 875-125] 1 each PO Q12HR tab Lactulose [Cephulac] 30 gm PO DAILY #30 gm Continue HYDROcodone/APAP 5-325MG [[place] 5-325] 1 tab PO TID PRN PRN Reason: Pain Acetaminophen [Tylenol] 650 mg PO Q4H PRN PRN Reason: Pain Or Fever > 100.5 allopurinoL 300 mg PO DAILY Empagliflozin [Jardiance] 10 mg PO DAILY Clopidogrel [Plavix] 75 mg PO DAILY Pregabalin [Lyrica] 100 mg PO BID Omeprazole [PriLOSEC] 20 mg PO DAILY DULoxetine HCL [Cymbalta] 60 mg PO DAILY Insulin Glargine,Hum.rec.anlog [Insulin Glargine Solostar] 60 units SQ HS Rosuvastatin Calcium [Crestor] 40 mg PO HS Discontinued Spironolactone 25 mg PO DAILY Metoprolol Succinate (ER) [Toprol Xl] 100 mg PO DAILY Aspirin EC [Ecotrin Low Dose] 81 mg PO DAILY Sacubitril/Valsartan [Entresto 49 mg-51 mg Tablet] 1 tab PO BID Furosemide [Lasix] 40 mg PO DAILY Discharge Medication List Acetaminophen [Tylenol] 650 mg PO Q4H PRN 11/23/22 [History] Clopidogrel [Plavix] 75 mg PO DAILY 11/23/22 [History] DULoxetine HCL [Cymbalta] 60 mg PO DAILY 11/23/22 [History] Empagliflozin [Jardiance] 10 mg PO DAILY 11/23/22 [History] HYDROcodone/APAP 5-325MG [[place] 5-325] 1 tab PO TID PRN 11/23/22 [History] Insulin Glargine,Hum.rec.anlog [Insulin Glargine Solostar] 60 units SQ HS 11/23/22 [History] Omeprazole [PriLOSEC] 20 mg PO DAILY 11/23/22 [History] Pregabalin [Lyrica] 100 mg PO BID 11/23/22 [History] Rosuvastatin Calcium [Crestor] 40 mg PO HS 11/23/22 [History] allopurinoL 300 mg PO DAILY 11/23/22 [History] Aspirin 81 mg PO DAILY #90 tab 12/02/22 [Rx] Clopidogrel [Plavix] 75 mg PO DAILY #90 tab 12/02/22 [Rx] levETIRAcetam [Keppra] 1,500 mg PO Q12HR #100 tab 12/02/22 [Rx] Amoxic-Pot Clav 875-125Mg [Augmentin 875-125] 1 each PO Q12HR tab 12/03/22 [Rx] Amoxic-Pot Clav 875-125Mg [Augmentin 875-125] 1 tab PO BID 7 Days #14 tab 12/03/22 [Rx] Lactulose [Cephulac] 30 gm PO DAILY #30 gm 12/03/22 [Rx] Metoprolol Tartrate [Lopressor] 50 mg PO BID #60 tab 12/03/22 [Rx] QUEtiapine [SEROquel] 50 mg PO BID #60 tab 12/03/22 [Rx] lisinopriL [Zestril] 2.5 mg PO DAILY #30 tab 12/03/22 [Rx] valACYclovir HCL [Valtrex] 1,000 mg PO Q8H #30 tablet 12/03/22 [Rx] valACYclovir HCL [Valtrex] 1,000 mg PO Q8HR tab 12/03/22 [Rx] Follow up Appointment(s)/Referral(s): [facility],Clinic [Primary Care Provider] - 1-2 days Patient Instructions/Handouts: Seizure/Epilepsy Discharge Instructions & Follow-Up Activity/Diet/Wound Care/Special Instructions: PER DR NELSON NEUROLOGY: NO DRIVING FOR 6 MONTHS NO UNSUPERVISED SWIMMING FOR 6 MONTHS NO OPERATING DANGEROUS MACHINERY/EQUIPMENT NO CLIMBING LADDERS.
--- NOTE | 2022-12-03 14:08 | P.PN ---
Subjective Progress Note Date: 12/03/22 On follow-up seeing the patient in the last time I seen the patient was week ago. Dr. Foster has been caring for his neurological care. Patient feels is drastically better since initial presentation. He denies any focal weakness numbness. He denies of any headache. Patient is refusing MRI of the brain. ID is on board and the patient is on acyclovir for herpes. Objective - Vital Signs Vital signs: Vital Signs Temp 98.8 F 12/03/22 07:04 Pulse 84 12/03/22 07:40 Resp 16 12/03/22 07:40 BP 114/52 12/03/22 07:04 Pulse Ox 98 12/03/22 07:04 FiO2 40 11/28/22 12:00 Intake & Output 12/02/22 12/03/22 12/03/22 18:59 06:59 18:59 Intake Total 120 180 Balance 120 180 Weight 79.4 kg Intake: Oral 120 180 Other: Voiding Method Toilet Toilet Toilet # Voids 1 4 ABP, PAP, CO, CI - Last Documented Arterial Blood Pressure 59/44 - Exam GENERAL: The patient is lying in bed and is not in acute distress. NEUROLOGICAL: Higher mental function: The patient is awake, alert, oriented to self, place and time. Patient is following commands. No aphasia and no neglect. Cranial nerves: TVisual quinones are full to confrontation throughout. Extraocular movement is intact no nystagmus is noted. The facial strength is normal throughout. Tongue is midline and moved [id number] without any difficulty. No dysarthria is noted. Shoulder shrug is normal bilaterally. Motor: Gait is normal. The strength is 5 over 5 throughout. Normal tone and bulk. - Labs CBC & Chem 7: 12/02/22 05:30 12/03/22 06:13 Labs: Abnormal Lab Results - Last 24 Hours (Table) 12/02/22 12/02/22 12/03/22 Range/Units 16:59 20:39 06:03 Glucose (70-110) mg/dL POC Glucose (mg/dL) 167 H 152 H 147 H (70-110) mg/dL 12/03/22 12/03/22 Range/Units 06:13 11:34 Glucose 159 H (70-110) mg/dL POC Glucose (mg/dL) 227 H (70-110) mg/dL Microbiology - Last 24 Hours (Table) 11/29/22 16:57 Blood Culture - Preliminary Blood No Growth after 72 hours Assessment and Plan Assessment: This is a 67-year-old gentleman and it appears he's been having the unresponsiveness episodes with eye rolling back at home for 2-3 weeks. * Past 2-3 weeks in which he experience tremor/jerking of his arms and in the legs had become increasingly weak to the point that he no longer ambulates, unresponsive seems likely due to new onset seizure * Altered mental status, likely due to toxic metabolic encephalopathy--mentation resolved. * Seizure-like activity, rule out seizure disorder. 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 On acyclovir given empirically to rule out herpes encephalitis. Patient has aspiration pneumonia. ID following closely. Patient is now afebrile. Will defer the duration of antiviral to I.D. team. Unsure why LP was not performed. Please refer to I.D. and Dr. Foster's notes for details. Currently feels back to baseline. He is on Acylovir. He had multiple EEG is our facilility: Last EEG on 11/29/2022 was much improved background, with mild background slowing. No epileptiform activity was seen. Patient's is resumed on Plavix Continue Keppra 1500 mg twice a day. Vimpat has been discontinued by Dr. Foster. CT head 11/28/2022 revealed no acute process. Evidence of right temporoparietal region encephalomalacia from prior injury. I personally review CT head, agree with the findings. 2-D echo revealed left ventricular EF 25-30%. Moderate increase left ventricular wall thickness. Mild to moderate right ventricular dilation. Moderate mitral calcification. Cardiology on board. Carotid Doppler revealed no hemodynamically significant stenosis ICA on either side. Antegrade flow in both vertebral arteries. On seizure precaution and pads. Recommend patient no driving for 6 months, climbing ladders, operating dangerous machinery or unsupervised swimming. Recommend the patient to follow-up with neurologist as outpatient within 1-2 weeks. The plan is discussed with patient and primary team. Time with Patient: Less than 30
--- NOTE | 2022-12-05 08:36 | CDI ---
Documentation Clarification Form Date: 12/05/22 From: Cristy Soto Admit Date: 11/23/2022 6:27:00 PM Patient Name: Augustine Antoine Visit Number: [id number] Discharge Date: 12/03/2022 1:45:00 PM ATTENTION: The Clinical Documentation Specialists (CDI) and [facility] Coding Staff appreciate your assistance in clarifying documentation. Please respond to the clarification below the line at the bottom and electronically sign. The CDI & [facility] Coding staff will review the response and follow-up if needed. Please note: Queries are made part of the Legal Health Record. If you have any questions, please contact the author of this message via ITS. Dr. Aye Funes, Acute metabolic encephalopathy is documented in the ED Note, progress notes and discharge summary and patient is noted to have a positive HSV IgG per lab results. Please clarify if there is a relationship between the diagnosis and lab result. History/Risk Factors: CAD status post stents,Type II DM,hyperlipidemia,hypertension, andasthma Clinical Indicators: Confusion, experiencing tremors of his arms and legs, no fever, chills, headaches, chest pain or palpitations. Grows on marijuana and smoking daily. Refused lumbar puncture. Treatment: IV Zoysn & IV Valayclovir Please clarify the relationship, if any, which is clinically appropriate for this patient: [ X] Encephalopathy due to Herpetic encephalitis [ ] Encephalopathy is not due to Herpetic encephalitis [ ] Other explanation of clinical findings (please specify) [ ] Unable to determine (no explanation for clinical findings) MTDD
--- NOTE | 2022-12-05 08:56 | CDI ---
Documentation Clarification Form Date: 12/05/22 From: Cristy Soto Admit Date: 11/23/2022 6:27:00 PM Patient Name: Augustine Antoine Visit Number: [id number] Discharge Date: 12/03/2022 1:45:00 PM ATTENTION: The Clinical Documentation Specialists (CDI) and [facility] Coding Staff appreciate your assistance in clarifying documentation. Please respond to the clarification below the line at the bottom and electronically sign. The CDI & [facility] Coding staff will review the response and follow-up if needed. Please note: Queries are made part of the Legal Health Record. If you have any questions, please contact the author of this message via ITS. Dr. Aye Funes, Conflicting documentation has been found in the medical record. As attending physician, please provide clarification. Per your discharge summary states "Shock, likely sepsis." Per your discharge summary states "Coagulase-negative staph bacteremia, likely contaminant." History/Risk Factors: CAD status post stents, Type II DM, hyperlipidemia, hypertension, and asthma Clinical Indicators: Plasma Lactic Acid: 4.0; WBC 10.5-6.2; CRP (11/28) 23.3; Procalcitonin: 0.31 (11/28) & 1.02 (11/29) Vital signs (11/29): T 100.0, P 58, R 30, BP 108/68, Arterial BP: 91/49, O2 97 Treatment: IV Zoysn, IV Zovirax, mechanical ventilation, NG, vasopressors Please clarify which diagnosis is most appropriate: [X ] Sepsis with septic shock confirmed, not POA [ ] Sepsis with septic shock ruled out [ ] Other (please specify) [ ] Unable to determine MTDD
== END 2022-12-03 13:45 | disposition home or self-care (01) | DRG 97 ==
LOC: SUPCPDRO 14:48 → EC 14:48 → 5NMEDONC 18:27 → 2SICU 11-24 14:44 → 4SSUR 12-01 14:37
PROVIDERS: ADMIT Family Medicine; ATTEND Family Medicine
PROC: 0D9670Z Drainage of Stomach with Drainage Device, Via Natural or Artificial Opening (ICD-10-PCS; principal; 2022-11-25)
PROC: 5A1945Z Respiratory Ventilation, 24-96 Consecutive Hours (ICD-10-PCS; principal; 2022-11-25)
PROC: 0BH17EZ Insertion of Endotracheal Airway into Trachea, Via Natural or Artificial Opening (ICD-10-PCS; 2022-11-25)
PROC: 3E0G76Z Introduction of Nutritional Substance into Upper GI, Via Natural or Artificial Opening (ICD-10-PCS; 2022-11-26)
PROC: 3E033XZ Introduction of Vasopressor into Peripheral Vein, Percutaneous Approach (ICD-10-PCS; 2022-11-28)
DX: B00.4 Herpesviral encephalitis (principal); G93.49 Other encephalopathy; J69.0 Pneumonitis due to inhalation of food and vomit; J96.01 Acute respiratory failure with hypoxia; J96.02 Acute respiratory failure with hypercapnia; R65.21 Severe sepsis with septic shock; N17.9 Acute kidney failure, unspecified; E87.20 Acidosis, unspecified; E87.0 Hyperosmolality and hypernatremia; I50.22 Chronic systolic (congestive) heart failure; G40.901 Epilepsy, unspecified, not intractable, with status epilepticus; D69.6 Thrombocytopenia, unspecified; I11.0 Hypertensive heart disease with heart failure; E11.51 Type 2 diabetes mellitus with diabetic peripheral angiopathy without gangrene; Z89.411 Acquired absence of right great toe; Z79.4 Long term (current) use of insulin; Z20.822 Contact with and (suspected) exposure to COVID-19; E87.8 Other disorders of electrolyte and fluid balance, not elsewhere classified; G93.89 Other specified disorders of brain; I25.5 Ischemic cardiomyopathy; Z53.20 Procedure and treatment not carried out because of patient's decision for unspecified reasons; J45.909 Unspecified asthma, uncomplicated; I69.398 Other sequelae of cerebral infarction; E78.5 Hyperlipidemia, unspecified; I25.10 Atherosclerotic heart disease of native coronary artery without angina pectoris; D64.9 Anemia, unspecified; I07.1 Rheumatic tricuspid insufficiency; K21.9 Gastro-esophageal reflux disease without esophagitis; M20.42 Other hammer toe(s) (acquired), left foot; R00.1 Bradycardia, unspecified; R00.8 Other abnormalities of heart beat; F12.90 Cannabis use, unspecified, uncomplicated; Z79.82 Long term (current) use of aspirin; Z79.02 Long term (current) use of antithrombotics/antiplatelets; Z79.84 Long term (current) use of oral hypoglycemic drugs; Z79.899 Other long term (current) drug therapy; Z95.820 Peripheral vascular angioplasty status with implants and grafts; Z95.5 Presence of coronary angioplasty implant and graft; Z88.8 Allergy status to other drugs, medicaments and biological substances
CPT/HCPCS: 36415; 70450; 71045; 80048; 80053; 80306; 82805; 83605; 83735; 84132; 84145; 84146; 85025; 85027; 86140; 86694; 86695; 86696; 87040; 87070; 87077; 87186; 87205; 87635; 93005; 93306; 93880; 94640; 94760; 95713; 95816; 95819; 96361; 96374; 99285

== ENCOUNTER 2023-09-05 13:35 | Emergency (ER) | payer OTHER, MEDICARE ==
--- NOTE | 2023-09-05 14:33 | ED ---
General Adult HPI - General Chief complaint: Recheck/Abnormal Lab/Rx Stated complaint: back pain Time Seen by Provider: 09/05/23 14:40 Source: patient Mode of arrival: ambulatory Limitations: no limitations - History of Present Illness Initial comments: Patient is a 68-year-old gentleman presents emergency room accompanied by his for further evaluation and management of hyperkalemia. [facility] that showed [facility]. Patient denies symptoms. Patient was supposed to fill Kayexalate to improve the hyperkalemia however was unable to find at multiple pharmacies. Patient denies a chest pain, short of breath, palpitations. He denies any recent diarrhea vomiting or other acute changes. He has he has no complaints at this time. - Related Data Home Medications Medication Instructions Recorded Confirmed Acetaminophen [Tylenol] 650 mg PO Q4H PRN 11/23/22 11/23/22 Clopidogrel [Plavix] 75 mg PO DAILY 11/23/22 11/23/22 DULoxetine HCL [Cymbalta] 60 mg PO DAILY 11/23/22 11/23/22 Empagliflozin [Jardiance] 10 mg PO DAILY 11/23/22 11/23/22 HYDROcodone/APAP 5-325MG [Sumner 1 tab PO TID PRN 11/23/22 11/23/22 5-325] Insulin Glargine,Hum.rec.anlog 60 units SQ HS 11/23/22 11/23/22 [Insulin Glargine Solostar] Omeprazole [PriLOSEC] 20 mg PO DAILY 11/23/22 11/23/22 Pregabalin [Lyrica] 100 mg PO BID 11/23/22 11/23/22 Rosuvastatin Calcium [Crestor] 40 mg PO HS 11/23/22 11/23/22 allopurinoL 300 mg PO DAILY 11/23/22 11/23/22 Previous Rx's Medication Instructions Recorded Aspirin 81 mg PO DAILY #90 tab 12/02/22 Clopidogrel [Plavix] 75 mg PO DAILY #90 tab 12/02/22 levETIRAcetam [Keppra] 1,500 mg PO Q12HR #100 tab 12/02/22 Amoxic-Pot Clav 875-125Mg 1 each PO Q12HR tab 12/03/22 [Augmentin 875-125] Amoxic-Pot Clav 875-125Mg 1 tab PO BID 7 Days #14 tab 12/03/22 [Augmentin 875-125] Lactulose [Cephulac] 30 gm PO DAILY #30 gm 12/03/22 Metoprolol Tartrate [Lopressor] 50 mg PO BID #60 tab 12/03/22 QUEtiapine [SEROquel] 50 mg PO BID #60 tab 12/03/22 lisinopriL [Zestril] 2.5 mg PO DAILY #30 tab 12/03/22 valACYclovir HCL [Valtrex] 1,000 mg PO Q8H #30 tablet 12/03/22 valACYclovir HCL [Valtrex] 1,000 mg PO Q8HR tab 12/03/22 Allergies Allergy/AdvReac Type Severity Reaction Status Date / Time atorvastatin [From Lipitor] AdvReac abnormal Verified 09/05/23 14:30 liver enzymes metformin AdvReac gastroesophageal Verified 09/05/23 14:30 reflux Review of Systems ROS Statement: Those systems with pertinent positive or pertinent negative responses have been documented in the HPI. ROS Other: All systems not noted in ROS Statement are negative. Past Medical History Past Medical History: Asthma, Coronary Artery Disease (CAD), Diabetes Mellitus, Hyperlipidemia, Hypertension Additional Past Medical History / Comment(s): DM2 History of Any Multi-Drug Resistant Organisms: None Reported Past Surgical History: Back Surgery, Heart Catheterization With Stent, Orthopedic Surgery Additional Past Surgical History / Comment(s): ABD Date of Last Stent Placement:: unk Past Psychological History: No Psychological Hx Reported Smoking Status: Never smoker Past Alcohol Use History: None Reported Past Drug Use History: Marijuana - Past Family History Father Family Medical History: Coronary Artery Disease (CAD) General Exam Limitations: no limitations General appearance: alert, in no apparent distress Head exam: Present: atraumatic Eye exam: Present: normal appearance ENT exam: Present: normal exam Neck exam: Present: normal inspection Respiratory exam: Present: normal lung sounds bilaterally Cardiovascular Exam: Present: regular rate, normal rhythm, normal heart sounds. Absent: systolic murmur, diastolic murmur, rubs, gallop, clicks Extremities exam: Present: full ROM Back exam: Present: full ROM Neurological exam: Present: alert, oriented X3, CN II-XII intact Psychiatric exam: Present: normal affect, normal mood Skin exam: Present: warm, dry Course Vital Signs 09/05/23 09/05/23 14:27 18:34 Temperature 98.4 F 98.2 F Pulse Rate 51 L 80 Respiratory 18 16 Rate Blood Pressure 121/78 128/78 O2 Sat by Pulse 96 98 Oximetry - Reevaluation(s) Reevaluation #1: 09/05/23 18:17 Patient has no complaints. There is no significant EKG changes. His initial blood work in our system that was 5.7 was partially hemolyzed. His repeat today was 5.2. Instructed the patient to increase his water intake which will likely improve the potassium levels as well as his creatinine. Discussed management with attending ED physician Dr. Warner today. EKG Findings - EKG Comments: EKG Findings:: EKG shows sinus bradycardia rate of [address] segment elevation no T-wave changes Medical Decision Making - Medical Decision Making Was pt. sent in by a medical professional or institution (, PA, HOSPICE CLINICAL SUPERVISOR, urgent care, hospital, or alf...) When possible be specific @ -PCP at the [facility] Did you speak to anyone other than the patient for history (EMS, parent, family, police, friend...)? What history was obtained from this source @ -[No] Did you review nursing and triage notes (agree or disagree)? Why? @ -[I reviewed and agree with nursing and triage notes] Were old charts reviewed (outside hosp., previous admission, EMS record, old EKG, old radiological studies, urgent care reports/EKG's, alf records)? Report findings @ -Previous lab results Differential Diagnosis (chest pain, altered mental status, abdominal pain women, abdominal pain men, vaginal bleeding, weakness, fever, dyspnea, syncope, headache, dizziness, GI bleed, back pain, seizure, CVA, palpatations, mental health, musculoskeletal)? @ -Hyperkalemia, dehydration, hemolyzed lab work EKG interpreted by me (3pts min.). @ -EKG shows sinus bradycardia at [address] segment elevation, no T- wave changes X-rays interpreted by me (1pt min.). @ -[None done] CT interpreted by me (1pt min.). @ -[None done] U/S interpreted by me (1pt. min.). @ -[None done] What testing was considered but not performed or refused? (CT, X-rays, U/S, lab s)? Why? @ -[None] What meds were considered but not given or refused? Why? @ -[None] Did you discuss the management of the patient with other professionals (professionals i.e. , PA, HOSPICE CLINICAL SUPERVISOR, lab, RT, psych nurse, rn social services, carbon grinder, teacher, safety patrol officer, counter caser)? Give summary @ -[No] Was smoking cessation discussed for >3mins.? @ -[No] Was critical care preformed (if so, how long)? @ -[No] Were there social determinants of health that impacted care today? How? (Homelessness, low income, unemployed, alcoholism, drug addiction, transportation, low edu. Level, literacy, decrease access to med. care, [facility], rehab)? @ -[No] Was there de-escalation of care discussed even if they declined (Discuss DNR or withdrawal of care, Hospice)? DNR status @ -[No] What co-morbidities impacted this encounter? (DM, HTN, Smoking, COPD, CAD, Cancer, CVA, ARF, Chemo, Hep., AIDS, mental health diagnosis, sleep apnea, morbid obesity)? @ -[None] Was patient admitted / discharged? Hospital course, mention meds given and route, prescriptions, significant lab abnormalities, going to OR and other per tinent info. @ -The patient is stable to follow up as an outpatient. The blood work he had done as an outpatient that showed hyperkalemia at 5.7 was moderately hemolyzed. The repeat lab today was 5.2. Patient also has some mild dehydration with renal insufficiency. Discussed hydrating with water over the next several days to improve both the hyperkalemia and renal insufficiency. He has an appointment on Saturday and will have repeat blood work done at that time. I discussed signs return to the emergency room with the patient. His symptoms are And disposition were discussed with ED physician Dr. Warner today. Undiagnosed new problem with uncertain prognosis? @ -[No] Drug Therapy requiring intensive monitoring for toxicity (Heparin, Nitro, Insulin, Cardizem)? @ -[No] Were any procedures done? @ -[No] Diagnosis/symptom? @ -[Mild hyperkalemia, renal insufficiency, dehydration] Acute, or Chronic, or Acute on Chronic? @ -Acute Uncomplicated (without systemic symptoms) or Complicated (systemic symptoms)? @ -Uncomplicated Side effects of treatment? @ -[No] Exacerbation, Progression, or Severe Exacerbation? @ -[No] Poses a threat to life or bodily function? How? (Chest pain, [place], CO, pneumonia, PE, COPD, DKA, ARF, appy, cholecystitis, CVA, Diverticulitis, Homicidal, Suicidal, threat to staff... and all critical care pts) @ -[No] - Lab Data Result diagrams: 09/05/23 14:40 09/05/23 16:54 Lab Results 09/05/23 09/05/23 09/05/23 Range/Units 14:40 14:40 16:54 WBC 5.8 (3.8-10.6) k/uL RBC 4.33 (4.30-5.90) m/uL Hgb 13.9 (13.0-17.5) gm/dL Hct 40.5 (39.0-53.0) % MCV 93.6 (80.0-100.0) fL MCH 32.1 (25.0-35.0) pg MCHC 34.3 (31.0-37.0) g/dL RDW 13.0 (11.5-15.5) % Plt Count 172 (150-450) k/uL MPV 8.5 Neutrophils % 63 % Lymphocytes % 22 % Monocytes % 7 % Eosinophils % 6 % Basophils % 0 % Neutrophils # 3.6 (1.3-7.7) k/uL Lymphocytes # 1.3 (1.0-4.8) k/uL Monocytes # 0.4 (0-1.0) k/uL Eosinophils # 0.4 (0-0.7) k/uL Basophils # 0.0 (0-0.2) k/uL Sodium 138 (137-145) mmol/L Potassium 5.7 H 5.2 H (3.5-5.1) mmol/L Chloride 107 (98-107) mmol/L Carbon Dioxide 20 L (22-30) mmol/L Anion Gap 11 mmol/L BUN 27 H (9-20) mg/dL Creatinine 1.35 H (0.66-1.25) mg/dL Est GFR (CKD-EPI)AfAm 62 (>60 ml/min/1.73 sqM) Est GFR (CKD-EPI)NonAf 54 (>60 ml/min/1.73 sqM) Glucose 101 H (74-99) mg/dL Calcium 8.7 (8.4-10.2) mg/dL Magnesium 1.6 (1.6-2.3) mg/dL Total Bilirubin 0.8 (0.2-1.3) mg/dL AST 35 (17-59) U/L ALT 16 (4-49) U/L Alkaline Phosphatase 66 (38-126) U/L Total Protein 7.0 (6.3-8.2) g/dL Albumin 4.2 (3.5-5.0) g/dL - EKG Data -: EKG Interpreted by Me Disposition Clinical Impression: Renal insufficiency, Hyperkalemia, Dehydration Disposition: HOME SELF-CARE Condition: Good Is patient prescribed a controlled substance at d/c from ED?: No If prescribed controlled substance>3 days was MAPS reviewed?: No Referrals: Laura Xie NPC [Primary Care Provider] - 1-2 days Time of Disposition: 18:18
[2023-09-05 15:00] LABS: Basophils % (A) 0 %; Eosinophils # (A) 0.4 k/uL (0-0.7); Eosinophils % (A) 6 %; HCT 40.5 % (39.0-53.0); HGB 13.9 gm/dL (13.0-17.5); Lymphocytes # (A) 1.3 k/uL (1.0-4.8); Lymphocytes % (A) 22 %; MCH 32.1 pg (25.0-35.0); MCHC 34.3 g/dL (31.0-37.0); MCV 93.6 fL (80.0-100.0); Mean Platelet Volume 8.5; Monocytes # (A) 0.4 k/uL (0-1.0); Monocytes % (A) 7 %; Neutrophils # (A) 3.6 k/uL (1.3-7.7); Neutrophils % (A) 63 %; Platelet Count 172 k/uL (150-450); RBC 4.33 m/uL (4.30-5.90); WBC 5.8 k/uL (3.8-10.6)
[2023-09-05 15:35] LABS: ALT 16 U/L (4-49); African American GFR (CKD) 62 (>60 ml/min/1.73 sqM); Anion Gap 11 mmol/L; Blood Urea Nitrogen 27 mg/dL (9-20); Calcium 8.7 mg/dL (8.4-10.2); Carbon Dioxide 20 mmol/L (22-30); Chloride 107 mmol/L (98-107); Glucose 101 mg/dL (74-99); Non-African American GFR(CKD) 54 (>60 ml/min/1.73 sqM); Sodium 138 mmol/L (137-145)
[2023-09-05 16:10] LABS: AST 35 U/L (17-59); Albumin 4.2 g/dL (3.5-5.0); Alkaline Phosphatase 66 U/L (38-126); Magnesium 1.6 mg/dL (1.6-2.3); Potassium 5.7 mmol/L (3.5-5.1); Total Bilirubin 0.8 mg/dL (0.2-1.3)
[2023-09-05 18:44] VITALS: BP 128/78; PULSE 80; RESP 16; TEMP 98.2
== END 2023-09-05 18:34 | disposition home or self-care (01) ==
LOC: EC 13:35
DX: E87.5 Hyperkalemia (principal); E86.0 Dehydration; N28.9 Disorder of kidney and ureter, unspecified; J45.909 Unspecified asthma, uncomplicated; I25.10 Atherosclerotic heart disease of native coronary artery without angina pectoris; E11.9 Type 2 diabetes mellitus without complications; I10 Essential (primary) hypertension; E78.5 Hyperlipidemia, unspecified; F12.90 Cannabis use, unspecified, uncomplicated; Z79.4 Long term (current) use of insulin; Z79.899 Other long term (current) drug therapy; Z88.5 Allergy status to narcotic agent; Z88.8 Allergy status to other drugs, medicaments and biological substances
CPT/HCPCS: 36415; 80053; 83735; 84132; 85025; 93005; 99283

== ENCOUNTER 2023-12-24 10:17 | Day surgery (SDC) | payer MEDICARE, OTHER ==
[~2023-12-24 10:17] MED LIST: HYDROmorphone 0.5 MG/0.5 ML SYRINGE IVP PRN; MIDAZOLAM 2 MG/2 ML VIAL IV PRN
[2023-12-24] MEDS: SODIUM CHLORIDE 0.9% 1,000 ML IV ONE (10:37)
[2023-12-24 10:47] LABS: Glucose,Whole Blood 145 mg/dL (70-110)
[2023-12-24 11:09] LABS: Basophils % (A) 0 %; Eosinophils # (A) 0.2 k/uL (0-0.7); Eosinophils % (A) 2 %; HCT 42.9 % (39.0-53.0); HGB 14.7 gm/dL (13.0-17.5); Lymphocytes # (A) 1.3 k/uL (1.0-4.8); Lymphocytes % (A) 14 %; MCH 31.5 pg (25.0-35.0); MCHC 34.3 g/dL (31.0-37.0); MCV 91.6 fL (80.0-100.0); Mean Platelet Volume 8.4; Monocytes # (A) 0.5 k/uL (0-1.0); Monocytes % (A) 6 %; Neutrophils # (A) 7.1 k/uL (1.3-7.7); Neutrophils % (A) 76 %; Platelet Count 235 k/uL (150-450); RBC 4.68 m/uL (4.30-5.90); WBC 9.3 k/uL (3.8-10.6)
[2023-12-24 11:22] LABS: ALT 19 U/L (4-49); AST 25 U/L (17-59); African American GFR (CKD) 39 (>60 ml/min/1.73 sqM); Albumin 5.4 g/dL (3.5-5.0); Alkaline Phosphatase 101 U/L (38-126); Anion Gap 15 mmol/L; Blood Urea Nitrogen 44 mg/dL (9-20); Calcium 9.4 mg/dL (8.4-10.2); Carbon Dioxide 21 mmol/L (22-30); Chloride 106 mmol/L (98-107); Glucose 150 mg/dL (74-99); Non-African American GFR(CKD) 33 (>60 ml/min/1.73 sqM); Potassium 4.5 mmol/L (3.5-5.1); Sodium 142 mmol/L (137-145); Total Bilirubin 0.8 mg/dL (0.2-1.3); Total Protein 8.5 g/dL (6.3-8.2)
--- NOTE | 2023-12-24 11:46 | CA ---
Transthoracic Echo Report Name: Augustine Antoine Age: 68 Gender: M : 1955 Exam Date: 12/24/2023 10:51 Exam Location: [facility] Ht (in): 70 Wt (lb): 189 Ordering Physician: David Montesinos MD ([id number]) Attending/Referring Phys: Tankage Grinder Operator Margarita Valentin RDCS Procedure CPT: Indications: assess EF Cardiac Hx: Technical Quality: Technically difficult study Contrast 1: Definity Total Dose (mL): 2 Contrast 2: Total Dose (mL): MEASUREMENTS (Male / Female) Normal Values 2D ECHO LV Diastolic Diameter PLAX 4.0 cm 4.2 - 5.9 / 3.9 - 5.3 cm LV Systolic Diameter PLAX 3.3 cm IVS Diastolic Thickness 1.5 cm 0.6 - 1.0 / 0.6 - 0.9 cm LVPW Diastolic Thickness 1.2 cm 0.6 - 1.0 / 0.6 - 0.9 cm LV Relative Wall Thickness 0.7 FINDINGS Left Ventricle Moderately reduced global left ventricular systolic function. Left ventricular ejection fraction is estimated at 30-35 %. Small left ventricular apical thrombus. Right Ventricle Right Atrium Left Atrium Mitral Valve Aortic Valve Tricuspid Valve Pulmonic Valve Pericardium No pericardial effusion. Aorta CONCLUSIONS Left ventricular ejection fraction 30-35% with global hypokinesis Small apical left ventricular thrombus No pericardial effusion Previewed by: Dr. Mk Harkins DO (Electronically Signed) Final Date: 24 December 2023 11:46
[2023-12-24] MEDS: APIXABAN 2.5 MG TABLET PO STA (12:28)
[2023-12-24] MEDS ORDERED: PROPOFOL 10 MG/ML 20 ML VIAL IV ONE (12:36)
[2023-12-24] MEDS ORDERED: MIDAZOLAM 2 MG/2 ML VIAL ONE (12:36)
[2023-12-24] MEDS ORDERED: fentaNYL (PF) 50 MCG/ML 2 ML AMP ONE (12:36)
[2023-12-24] MEDS: ceFAZolin 1 GM in SODIUM CHLORIDE 0.9% IRRIG BTL 250 ML IRRIGATION PRN (13:01)
[2023-12-24] MEDS: IOPAMIDOL-370 100ML BTL IVP ONE (13:01)
[2023-12-24] MEDS ORDERED: LIDOCAINE 1% INJ 10MG/ML (20 ML MDV) ONE (13:08)
[2023-12-24] MEDS: LIDOCAINE 1% INJ 10MG/ML (20 ML MDV) SQ ONE (13:48)
[2023-12-24] MEDS ORDERED: ACETAMINOPHEN TAB 325 MG TAB PO PRN (14:56)
--- NOTE | 2023-12-24 15:07 | P.PRLE ---
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 right away but I proceeded with implantation of dual-chamber ICD without DFT testing The patient tolerated procedure well without any acute complications I am holding aspirin while continuing Plavix and Eliquis I am also increasing metoprolol dose to 100 mg p.o. daily, succinate since he has a dual-chamber ICD now Thank you for entrusting me with the care of the patient Warm regards Sincerely David Montesinos
--- NOTE | 2023-12-24 15:11 | P.EPPROC ---
- EP Procedure Note Electrophysiology Procedure Note: Diagnosis Cardiomyopathy, chronic, ischemic, on guideline directed medical treatment CHF class II-III, chronic systolic dysfunction Bradycardia/sick sinus syndrome with chronotropic incompetence, CAD multivessel Procedure: Dual-chamber ICD implantation for management of risk of sudden cardiac & bradycardia secondary to sick sinus syndrome/chronotropic incompetence LV thrombus, likely chronic, DFT deferred at this time Result: Dual chamber ICD implantation, Alanis Vargas DR Atrial lead: Tendril STS model #2088 TC P waves 5-6 mV, pacing impedance 510 ohms and pacing threshold 0.5 V at point 5 ms RV ICD lead: Optisure, R waves 12 mV, pacing threshold 0.75 V at point 5 ms and pacing impedance of 660 ohms High-voltage impedance 65 ohms Procedure details: Patient was brought to the EP lab in a fasting state. Written informed consent was obtained prior to the procedure. Options, pros and cons, benefits and risks and complications discussed with patient in detail prior to the procedure (shared decision making). Importance of continuing medical treatment emphasized. Alternatives discussed. Patient would like to proceed with dual-chamber ICD implant. Left upper extremity venogram performed. 15 mL IV dye injected in the left arm. Patent axillary/subclavian vein The left pectoral area was prepped and draped as a protocol. IV antibiotics administered 1% lidocaine was used for local anesthesia. A 4 cm incision was made parallel to the deltopectoral groove, about 1.5 cm medial to it. The incision was carried down to the level of the pectoralis muscle and the subfascial pocket was made. Hemostasis was assured. The axillary vein access was obtained. Appropriately sized into to see sheaths were placed. ICD lead implanted in the right ventricle and screwed inthe low RV septum. ICD lead tested for threshold, sensing, impedances and tested with high output pacing for diaphragmatic stimulation Atrial lead placed in the right atrial appendage and tested for threshold, sensing, impedance, and tested with high output pacing. Phrenic nerve stimulation Lead secured to the underlying transverse muscle after removing sheaths . Pocket irrigated with antibiotic solution Leads connected to the biventricular ICD generator. Wound closed in 3 layers and dressed per protocol Dual ICD interrogated and programmed. Appropriate pacing parameters, antitachycardia therapies with antitachycardia pacing cardioversion defibrillations programmed. Patient tolerated the procedure well without any acute complications. See scanned device report in EMR for lead details
[2023-12-24] MEDS: LACTATED RINGERS 1,000 ML IV SCH (17:23)
[2023-12-24] MEDS: SODIUM CHLORIDE 0.9% 1,000 ML IV SCH ×2 (17:23)
[2023-12-24 17:30] LABS: Glucose,Whole Blood 152 mg/dL (70-110)
[2023-12-24] MEDS: ACETAMINOPHEN IV (For NPO) 1,000 MG in EMPTY BAG 1 BAG IVPB ONE (17:37)
[2023-12-24] MEDS: METOPROLOL SUCCINATE (ER) 100 MG TAB.ER.24H PO SCH (18:19)
[2023-12-24 20:25] LABS: Glucose,Whole Blood 212 mg/dL (70-110)
[2023-12-24] MEDS: NON FORMULARY DRUG (Rosuvastatin Calcium [Crestor] 40 MG Tablet) PO SCH (21:05)
[2023-12-24] MEDS: metFORMIN 500 MG TAB PO SCH (21:06)
[2023-12-24] MEDS: APIXABAN 2.5 MG TABLET PO SCH (21:06)
[2023-12-24] MEDS: levETIRAcetam 500 MG TAB PO SCH (21:07)
[2023-12-24] MEDS: INSULIN DETEMIR (LEVEMIR) 100 UNIT/ML SYR SQ SCH (21:07)
[2023-12-24] MEDS: QUEtiapine 50 MG TAB PO SCH (21:07)
[2023-12-24] MEDS: PREGABALIN 100 MG CAP PO SCH (21:07)
[2023-12-25] MEDS: PANTOPRAZOLE 40 MG TABLET PO SCH (05:34)
[2023-12-25 06:12] LABS: Glucose,Whole Blood 74 mg/dL (70-110)
--- NOTE | 2023-12-25 07:31 | XR ---
EXAMINATION TYPE: XR chest 2V DATE OF EXAM: 12/25/2023 COMPARISON: 11/30/2022 INDICATION: Post pacemaker exam TECHNIQUE: Frontal and lateral views of the chest are obtained. FINDINGS: The heart size is normal. The pulmonary vasculature is normal. The lungs are clear. Pacemaker overlies left chest. 2 leads are in typical orientation. No pneumotho rax is evident. IMPRESSION: 1. No acute pulmonary process. 2. No pneumothorax post pacemaker placement
[2023-12-25 08:34] VITALS: BP 123/71; PULSE 54; RESP 19; TEMP 98.2
[2023-12-25] MEDS: DULoxetine HCL 60 MG CAPSULE.DR PO SCH (09:18)
[2023-12-25] MEDS: CLOPIDOGREL 75 MG TAB PO SCH (09:18)
[2023-12-25] MEDS: ASPIRIN 81 MG PO SCH (09:20)
== END 2023-12-25 13:18 | disposition home or self-care (01) ==
LOC: CATHEP 10:17 → 6NMEDSUR 14:44 → CATHEP 12-25 13:18
PROVIDERS: ATTEND Internal Medicine Clinical Cardiac Electrophysiology
DX: I42.9 Cardiomyopathy, unspecified (principal); I49.5 Sick sinus syndrome; I25.10 Atherosclerotic heart disease of native coronary artery without angina pectoris; I50.9 Heart failure, unspecified; Z79.02 Long term (current) use of antithrombotics/antiplatelets; Z79.01 Long term (current) use of anticoagulants; Z79.82 Long term (current) use of aspirin; Z79.899 Other long term (current) drug therapy
CPT/HCPCS: 93308; 33249; 80053; 84443; 85025; 71046; C1721; C1892; C1898; C1769; C1777; J2250; J0690; J2001; J3010; Q9957; J0131; J2704; Q9967

== ENCOUNTER 2024-03-03 15:30 | Observation (INO) | payer OTHER, MEDICARE ==
--- NOTE | 2024-03-03 16:29 | ED ---
Recheck HPI - General Source: patient, RN notes reviewed Mode of arrival: ambulatory Limitations: no limitations <Carleen Marsh - Last Filed: 03/03/24 16:25> - General Source: RN notes reviewed, old records reviewed Mode of arrival: ambulatory Limitations: altered mental status, physical limitation - History of Present Illness MD Complaint: abnormal lab (While patient creatinine testing) -: unknown Returns Today for: Called Because of Abnormal Lab/Test Context: called for abnormal lab result Associated Symptoms: none Treatments Prior to Arrival: other (0) <Isauro Rocha - Last Filed: 03/10/24 21:27> - General Chief Complaint: Recheck/Abnormal Lab/Rx Stated Complaint: Abn labs, dr referral Time Seen by Provider: 03/03/24 16:26 - History of Present Illness Initial Comments: Quick [id number] male presenting with chief complaint of abnormal lab he received a call from the [place] previous appointment stating that his "kidney labs were double". he States he is concerned that his kidneys are shutting down. So admits some nonspecific describes as a burning sensation. (Carleen Marsh) This is a 68-year-old male and I am called to bedside as patient has now become unresponsive not responding to painful external stimuli or any stimuli in general we did check a blood sugar as well as give Narcan with no improvement in symptoms. (Isauro Rocha) - Related Data Home Medications Medication Instructions Recorded Confirmed DULoxetine HCL [Cymbalta] 60 mg PO DAILY 11/23/22 03/03/24 Insulin Glargine,Hum.rec.anlog 50 units SQ HS 11/23/22 03/03/24 [Insulin Glargine Solostar] Omeprazole [PriLOSEC] 20 mg PO DAILY 11/23/22 03/03/24 Pregabalin [Lyrica] 100 mg PO BID 11/23/22 03/03/24 Rosuvastatin Calcium [Crestor] 40 mg PO HS 11/23/22 03/03/24 oxyCODONE HCL [oxyCODONE HCL (IR)] 5 mg PO BID 12/24/23 03/03/24 Gabapentin [Neurontin] 100 mg PO TID 03/03/24 03/03/24 Magnesium(Unknown Dose) 1 tab PO DAILY 03/03/24 03/03/24 Vitamin B-12(Unknown Dose) 1 tab PO DAILY 03/03/24 03/03/24 metFORMIN HCL [Glucophage] 1,000 mg PO BID 03/03/24 03/03/24 Previous Rx's Medication Instructions Recorded Clopidogrel [Plavix] 75 mg PO DAILY #90 tab 12/02/22 Apixaban [Eliquis] 5 mg PO BID #180 tab 12/24/23 Metoprolol Succinate [Toprol XL] 100 mg PO DAILY #90 tab 12/24/23 Losartan [Cozaar] 25 mg PO DAILY #30 tab 03/07/24 QUEtiapine [SEROquel] 100 mg PO BID #60 tablet 03/07/24 Spironolactone [Aldactone] 12.5 mg PO DAILY #30 tab 03/07/24 levETIRAcetam [Keppra] 1,000 mg PO Q12HR #120 tab 03/07/24 Allergies Allergy/AdvReac Type Severity Reaction Status Date / Time atorvastatin [From Lipitor] AdvReac abnormal Verified 03/03/24 18:26 liver enzymes Review of Systems ROS Other: All systems not noted in ROS Statement are negative. <Carleen Marsh - Last Filed: 03/03/24 16:25> ROS Other: All systems not noted in ROS Statement are negative. <Isauro Rocha - Last Filed: 03/10/24 21:27> ROS Statement: Those systems with pertinent positive or pertinent negative responses have been documented in the HPI. Past Medical History Past Medical History: Coronary Artery Disease (CAD), Diabetes Mellitus, Hyperlipidemia, Hypertension, Myocardial Infarction ([place]), Osteoarthritis (OA), Seizure Disorder, Vascular Disorder Additional Past Medical History / Comment(s): DM2, SOB w/exertion, diabetic neuropathy, see Dr Yamel Sun, seizures in past & was hospitalized for, unsure of cause Last Myocardial Infarction Date:: unknown History of Any Multi-Drug Resistant Organisms: None Reported Past Surgical History: Back Surgery, Bowel Resection, Heart Catheterization With Stent, Orthopedic Surgery Additional Past Surgical History / Comment(s): bowel resection w/colostomy & then reversal of, big toe removed, multiple cardiac stents Past Anesthesia/Blood Transfusion Reactions: No Reported Reaction Date of Last Stent Placement:: unk Past Psychological History: No Psychological Hx Reported Smoking Status: Never smoker Past Alcohol Use History: None Reported Past Drug Use History: Marijuana - Past Family History Father Family Medical History: Coronary Artery Disease (CAD) <Carleen Marsh - Last Filed: 03/03/24 16:25> General Exam Limitations: no limitations <Carleen Marsh - Last Filed: 03/03/24 16:25> Limitations: altered mental status, physical limitation General appearance: alert, in no apparent distress, anxious Head exam: Present: atraumatic, normocephalic, normal inspection Eye exam: Present: normal appearance, PERRL, EOMI. Absent: scleral icterus, conjunctival injection, periorbital swelling ENT exam: Present: normal exam, mucous membranes moist Neck exam: Present: normal inspection. Absent: tenderness, meningismus, lymphadenopathy Respiratory exam: Present: normal lung sounds bilaterally. Absent: respiratory distress, wheezes, rales, rhonchi, stridor Cardiovascular Exam: Present: regular rate, normal rhythm, normal heart sounds. Absent: systolic murmur, diastolic murmur, rubs, gallop, clicks GI/Abdominal exam: Present: soft, normal bowel sounds. Absent: distended, tenderness, guarding, rebound, rigid Extremities exam: Present: normal inspection, full ROM, normal capillary refill. Absent: tenderness, pedal edema, joint swelling, calf tenderness Back exam: Present: normal inspection Neurological exam: Present: alert, oriented X3, CN II-XII intact Psychiatric exam: Present: normal affect, normal mood Skin exam: Present: warm, dry, intact, normal color. Absent: rash <Isauro Rocha - Last Filed: 03/10/24 21:27> - General Exam Comments Initial Comments: Visual Physical Exam Vital signs reviewed General: Well-appearing, nontoxic, no acute distress. Head: Normocephalic, atraumatic Eyes: PERRLA, EOMI ENT: Airway patent Chest: Nonlabored breathing Skin: No visual rash, normal skin tone Neuro: Alert and oriented 3 Musculoskeletal: No gross abnormalities (Carleen Marsh) Course <Isauro Rocha - Last Filed: 03/10/24 21:27> Vital Signs 03/03/24 03/03/24 03/03/24 15:58 17:33 17:42 Temperature 98.6 F 98.2 F Pulse Rate 94 74 Respiratory 18 18 18 Rate Blood Pressure 105/70 125/74 O2 Sat by Pulse 96 100 Oximetry 03/03/24 03/03/24 03/03/24 18:20 19:47 20:19 Temperature Pulse Rate 75 71 68 Respiratory 16 16 16 Rate Blood Pressure 111/74 103/65 115/73 O2 Sat by Pulse 100 100 97 Oximetry - Reevaluation(s) Reevaluation #1: 03/03/24 18:45 medical record is reviewed (Isauro Rocha) Reevaluation #2: 03/03/24 18:45 patient has had an unresponsive event here in the ED unprovoked patient remained unresponsive with normal blood sugar and no response to narcan Patient has had history of prior seizures and does appear to have a seizure here in the ER as he becomes combative after becoming unresponsive (Isauro Rocha) Reevaluation #3: 03/03/24 18:46 Patient informed of results and questions have been answered (Isauro Rocha) Reevaluation #4: Was pt. sent in by a medical professional or institution (, PA, TEMPERING KILN TENDER, urgent care, hospital, or halfway...) When possible be specific @ -no Did you speak to anyone other than the patient for history (EMS, parent, family, police, friend...)? What history was obtained from this source @ -no Did you review nursing and triage notes (agree or disagree)? Why? @ -agree Are old charts reviewed (outside hosp., previous admission, EMS record, old EKG, old radiological studies, urgent care reports/EKG's, halfway records)? Report findings @ -yes Differential Diagnosis (chest pain, altered mental status, abdominal pain women, abdominal pain men, vaginal bleeding, weakness, fever, dyspnea, syncope, headache, dizziness, GI bleed, back pain, seizure, CVA, palpatations, mental health, musculoskeletal)? @ -prior EKG interpreted by me (3pts min.). @ -yes X-rays interpreted by me (1pt min.). @ -no CT interpreted by me (1pt min.). @ -no U/S interpreted by me (1pt. min.). @ -no What testing was considered but not performed or refused? (CT, X-rays, U/S, labs)? Why? @ -none What meds were considered but not given or refused? Why? @ -none Did you discuss the management of the patient with other professionals (professionals i.e. , PA, TEMPERING KILN TENDER, lab, RT, psych nurse, social service assistant, lead blender, teacher, chief executive officer, rn field case manager)? Give summary @ -no Was smoking cessation discussed for >3mins.? @ -no Was critical care preformed (if so, how long)? @ -no Were there social determinants of health that impacted care today? How? (Homelessness, low income, unemployed, alcoholism, drug addiction, transportation, low edu. Level, literacy, decrease access to med. care, [place] [facility], rehab)? @ -none Was there de-escalation of care discussed even if they declined (Discuss DNR or withdrawal of care, Hospice)? DNR status @ -no What co-morbidities impacted this encounter? (DM, HTN, Smoking, COPD, CAD, Cancer, CVA, ARF, Chemo, Hep., AIDS, mental health diagnosis, sleep apnea, morbid obesity)? @ -none Was patient admitted / discharged? Hospital course, mention meds given and route, prescriptions, significant lab abnormalities, going to OR and other pertinent info. @ - 58 male to ER for evaluation of seizure activity here in the ER with unresponsive event. Patient came in initially for acute kidney injury and will be admitted for nephrology to see Admitted Undiagnosed new problem with uncertain prognosis? @ -no Drug Therapy requiring intensive monitoring for toxicity (Heparin, Nitro, Insulin, Cardizem)? @ -no Were any procedures done? @ -no Diagnosis/symptom? @ -acute on chronic renal failure, seizure activity with prolonged postictal event Acute, or Chronic, or Acute on Chronic? @ -Acute Uncomplicated (without systemic symptoms) or Complicated (systemic symptoms)? @ -Complicated Side effects of treatment? @ -no Exacerbation, Progression, or Severe Exacerbation? @ -exacerbation Poses a threat to life or bodily function? How? (Chest pain, [place], [place], pneumonia, PE, COPD, DKA, ARF, appy, cholecystitis, CVA, Diverticulitis, Homicidal, Suicidal, threat to staff... and all critical care pts) @ -yes (Isauro Rocha) Reevaluation #5: Differential Altered Mental Status: Hypoglycemia, DKA, hypercapnia, ETOH, overdose, CO poisoning, trauma, myxedema coma, HTN encephalopathy, infection, encephalitis, psychosis, intercranial hemorrhage, hepatic encephalopathy, meningitis, CVA, this is not meant to be an all-inclusive list (Isauro Rocha) - Consultations Consultation #1: Spoke with Dr. Olivarez who agrees to admit this patient (Isauro Rocha) Medical Decision Making <Carleen Marsh - Last Filed: 03/03/24 16:25> - Lab Data Result diagrams: 03/06/24 09:39 03/06/24 09:39 - EKG Data -: EKG Interpreted by Me (EKG is sinus 75 MS 166 QRS 93 QTc 374) When compared to previous EKG there are: no significant change (EKG is sinus 76 MS 158 QRS 98 QTc 388) <Isauro Rocha - Last Filed: 03/10/24 21:27> - Medical Decision Making I completed the quick note portion of this chart signed Carleen Marsh PA-C (Carleen Marsh) 58 male to ER for evaluation of seizure activity here in the ER with unresponsive event. Patient came in initially for acute kidney injury and will be admitted for nephrology to see (Isauro Rocha) - Lab Data Lab Results 03/03/24 03/03/24 03/03/24 Range/Units 17:04 17:30 17:30 WBC 11.4 H (3.8-10.6) k/uL RBC 4.53 (4.30-5.90) m/uL Hgb 14.1 (13.0-17.5) gm/dL Hct 40.6 (39.0-53.0) % MCV 89.6 (80.0-100.0) fL MCH 31.0 (25.0-35.0) pg MCHC 34.6 (31.0-37.0) g/dL RDW 13.1 (11.5-15.5) % Plt Count 188 (150-450) k/uL MPV 8.4 Neutrophils % 76 % Lymphocytes % 13 % Monocytes % 7 % Eosinophils % 2 % Basophils % 1 % Neutrophils # 8.7 H (1.3-7.7) k/uL Lymphocytes # 1.5 (1.0-4.8) k/uL Monocytes # 0.7 (0-1.0) k/uL Eosinophils # 0.2 (0-0.7) k/uL Basophils # 0.1 (0-0.2) k/uL PT (10.0-12.5) sec INR (<1.2) APTT (22.0-30.0) sec VBG pH (7.31-7.41) VBG pCO2 (37-51) mmHg VBG HCO3 (24-28) mmol/L Sodium 133 L (137-145) mmol/L Potassium 4.4 (3.5-5.1) mmol/L Chloride 101 (98-107) mmol/L Carbon Dioxide 22 (22-30) mmol/L Anion Gap 10 mmol/L BUN 44 H (9-20) mg/dL Creatinine 2.03 H (0.66-1.25) mg/dL Est GFR (CKD-EPI)AfAm 38 (>60 ml/min/1.73 sqM) Est GFR (CKD-EPI)NonAf 33 (>60 ml/min/1.73 sqM) Glucose 118 H (74-99) mg/dL POC Glucose (mg/dL) 129 H (70-110) mg/dL POC Glu Cable Splicer ID Benavides Wilmarleon Lactic Ac Sepsis Rflx Plasma Lactic Acid Ankit (0.7-2.0) mmol/L Calcium 10.9 H (8.4-10.2) mg/dL Phosphorus 4.0 (2.5-4.5) mg/dL Magnesium 1.5 L (1.6-2.3) mg/dL Total Bilirubin 0.8 (0.2-1.3) mg/dL AST 26 (17-59) U/L ALT 24 (4-49) U/L Alkaline Phosphatase 83 (38-126) U/L Ammonia (<30) umol/L NT-Pro-B Natriuret Pep 1080 pg/mL Total Protein 7.2 (6.3-8.2) g/dL Albumin 4.8 (3.5-5.0) g/dL Lipase 289 (23-300) U/L Urine Color Urine Appearance (Clear) Urine pH (5.0-8.0) Ur Specific [place] (1.001-1.035) Urine Protein (Negative) Urine Glucose (UA) (Negative) Urine Ketones (Negative) Urine Blood (Negative) Urine Nitrite (Negative) Urine Bilirubin (Negative) Urine Urobilinogen (<2.0) mg/dL Ur Leukocyte Esterase (Negative) Urine RBC (0-5) /hpf Urine WBC (0-5) /hpf Ur Squamous Epith Cells (0-4) /hpf Hyaline Casts (0-2) /lpf Urine Mucus (None) /hpf Salicylates mg/dL Acetaminophen ug/mL Serum Alcohol mg/dL 03/03/24 03/03/24 03/03/24 Range/Units 17:30 17:30 18:08 WBC (3.8-10.6) k/uL RBC (4.30-5.90) m/uL Hgb (13.0-17.5) gm/dL Hct (39.0-53.0) % MCV (80.0-100.0) fL MCH (25.0-35.0) pg MCHC (31.0-37.0) g/dL RDW (11.5-15.5) % Plt Count (150-450) k/uL MPV Neutrophils % % Lymphocytes % % Monocytes % % Eosinophils % % Basophils % % Neutrophils # (1.3-7.7) k/uL Lymphocytes # (1.0-4.8) k/uL Monocytes # (0-1.0) k/uL Eosinophils # (0-0.7) k/uL Basophils # (0-0.2) k/uL PT 11.7 (10.0-12.5) sec INR 1.1 (<1.2) APTT 26.0 (22.0-30.0) sec VBG pH (7.31-7.41) VBG pCO2 (37-51) mmHg VBG HCO3 (24-28) mmol/L Sodium (137-145) mmol/L Potassium (3.5-5.1) mmol/L Chloride (98-107) mmol/L Carbon Dioxide (22-30) mmol/L Anion Gap mmol/L BUN (9-20) mg/dL Creatinine (0.66-1.25) mg/dL Est GFR (CKD-EPI)AfAm (>60 ml/min/1.73 sqM) Est GFR (CKD-EPI)NonAf (>60 ml/min/1.73 sqM) Glucose (74-99) mg/dL POC Glucose (mg/dL) (70-110) mg/dL POC Glu Cable Splicer ID Lactic Ac Sepsis Rflx Plasma Lactic Acid Ankit 1.9 (0.7-2.0) mmol/L Calcium (8.4-10.2) mg/dL Phosphorus (2.5-4.5) mg/dL Magnesium (1.6-2.3) mg/dL Total Bilirubin (0.2-1.3) mg/dL AST (17-59) U/L ALT (4-49) U/L Alkaline Phosphatase (38-126) U/L Ammonia (<30) umol/L NT-Pro-B Natriuret Pep pg/mL Total Protein (6.3-8.2) g/dL Albumin (3.5-5.0) g/dL Lipase (23-300) U/L Urine Color Light Yellow Urine Appearance Clear (Clear) Urine pH 5.5 (5.0-8.0) Ur Specific [place] 1.013 (1.001-1.035) Urine Protein 2+ H (Negative) Urine Glucose (UA) Negative (Negative) Urine Ketones Negative (Negative) Urine Blood Small H (Negative) Urine Nitrite Negative (Negative) Urine Bilirubin Negative (Negative) Urine Urobilinogen <2.0 (<2.0) mg/dL Ur Leukocyte Esterase Negative (Negative) Urine RBC <1 (0-5) /hpf Urine WBC 2 (0-5) /hpf Ur Squamous Epith Cells <1 (0-4) /hpf Hyaline Casts 1 (0-2) /lpf Urine Mucus Rare H (None) /hpf Salicylates mg/dL Acetaminophen ug/mL Serum Alcohol mg/dL 03/03/24 03/03/24 03/03/24 Range/Units 18:08 18:08 18:08 WBC (3.8-10.6) k/uL RBC (4.30-5.90) m/uL Hgb (13.0-17.5) gm/dL Hct (39.0-53.0) % MCV (80.0-100.0) fL MCH (25.0-35.0) pg MCHC (31.0-37.0) g/dL RDW (11.5-15.5) % Plt Count (150-450) k/uL MPV Neutrophils % % Lymphocytes % % Monocytes % % Eosinophils % % Basophils % % Neutrophils # (1.3-7.7) k/uL Lymphocytes # (1.0-4.8) k/uL Monocytes # (0-1.0) k/uL Eosinophils # (0-0.7) k/uL Basophils # (0-0.2) k/uL PT (10.0-12.5) sec INR (<1.2) APTT (22.0-30.0) sec VBG pH 7.24 L (7.31-7.41) VBG pCO2 53 H (37-51) mmHg VBG HCO3 23 L (24-28) mmol/L Sodium (137-145) mmol/L Potassium (3.5-5.1) mmol/L Chloride (98-107) mmol/L Carbon Dioxide (22-30) mmol/L Anion Gap mmol/L BUN (9-20) mg/dL Creatinine (0.66-1.25) mg/dL Est GFR (CKD-EPI)AfAm (>60 ml/min/1.73 sqM) Est GFR (CKD-EPI)NonAf (>60 ml/min/1.73 sqM) Glucose (74-99) mg/dL POC Glucose (mg/dL) (70-110) mg/dL POC Glu Cable Splicer ID Lactic Ac Sepsis Rflx Plasma Lactic Acid Ankit 6.8 H* (0.7-2.0) mmol/L Calcium (8.4-10.2) mg/dL Phosphorus (2.5-4.5) mg/dL Magnesium (1.6-2.3) mg/dL Total Bilirubin (0.2-1.3) mg/dL AST (17-59) U/L ALT (4-49) U/L Alkaline Phosphatase (38-126) U/L Ammonia <9 (<30) umol/L NT-Pro-B Natriuret Pep pg/mL Total Protein (6.3-8.2) g/dL Albumin (3.5-5.0) g/dL Lipase (23-300) U/L Urine Color Urine Appearance (Clear) Urine pH (5.0-8.0) Ur Specific [place] (1.001-1.035) Urine Protein (Negative) Urine Glucose (UA) (Negative) Urine Ketones (Negative) Urine Blood (Negative) Urine Nitrite (Negative) Urine Bilirubin (Negative) Urine Urobilinogen (<2.0) mg/dL Ur Leukocyte Esterase (Negative) Urine RBC (0-5) /hpf Urine WBC (0-5) /hpf Ur Squamous Epith Cells (0-4) /hpf Hyaline Casts (0-2) /lpf Urine Mucus (None) /hpf Salicylates <1.0 mg/dL Acetaminophen <10.0 ug/mL Serum Alcohol <10 mg/dL 03/03/24 Range/Units 18:37 WBC (3.8-10.6) k/uL RBC (4.30-5.90) m/uL Hgb (13.0-17.5) gm/dL Hct (39.0-53.0) % MCV (80.0-100.0) fL MCH (25.0-35.0) pg MCHC (31.0-37.0) g/dL RDW (11.5-15.5) % Plt Count (150-450) k/uL MPV Neutrophils % % Lymphocytes % % Monocytes % % Eosinophils % % Basophils % % Neutrophils # (1.3-7.7) k/uL Lymphocytes # (1.0-4.8) k/uL Monocytes # (0-1.0) k/uL Eosinophils # (0-0.7) k/uL Basophils # (0-0.2) k/uL PT (10.0-12.5) sec INR (<1.2) APTT (22.0-30.0) sec VBG pH (7.31-7.41) VBG pCO2 (37-51) mmHg VBG HCO3 (24-28) mmol/L Sodium (137-145) mmol/L Potassium (3.5-5.1) mmol/L Chloride (98-107) mmol/L Carbon Dioxide (22-30) mmol/L Anion Gap mmol/L BUN (9-20) mg/dL Creatinine (0.66-1.25) mg/dL Est GFR (CKD-EPI)AfAm (>60 ml/min/1.73 sqM) Est GFR (CKD-EPI)NonAf (>60 ml/min/1.73 sqM) Glucose (74-99) mg/dL POC Glucose (mg/dL) (70-110) mg/dL POC Glu Cable Splicer ID Lactic Ac Sepsis Rflx Y Plasma Lactic Acid Ankit (0.7-2.0) mmol/L Calcium (8.4-10.2) mg/dL Phosphorus (2.5-4.5) mg/dL Magnesium (1.6-2.3) mg/dL Total Bilirubin (0.2-1.3) mg/dL AST (17-59) U/L ALT (4-49) U/L Alkaline Phosphatase (38-126) U/L Ammonia (<30) umol/L NT-Pro-B Natriuret Pep pg/mL Total Protein (6.3-8.2) g/dL Albumin (3.5-5.0) g/dL Lipase (23-300) U/L Urine Color Urine Appearance (Clear) Urine pH (5.0-8.0) Ur Specific [place] (1.001-1.035) Urine Protein (Negative) Urine Glucose (UA) (Negative) Urine Ketones (Negative) Urine Blood (Negative) Urine Nitrite (Negative) Urine Bilirubin (Negative) Urine Urobilinogen (<2.0) mg/dL Ur Leukocyte Esterase (Negative) Urine RBC (0-5) /hpf Urine WBC (0-5) /hpf Ur Squamous Epith Cells (0-4) /hpf Hyaline Casts (0-2) /lpf Urine Mucus (None) /hpf Salicylates mg/dL Acetaminophen ug/mL Serum Alcohol mg/dL Disposition <Carleen Marsh - Last Filed: 03/03/24 16:25> Is patient prescribed a controlled substance at d/c from ED?: No Time of Disposition: 18:40 <Isauro Rocha - Last Filed: 03/10/24 21:27> Clinical Impression: SUKI (acute kidney injury), CKD (chronic kidney disease), Seizure Disposition: ADMITTED IP TO THIS HOSP Condition: Serious
[2024-03-03 17:06] LABS: Glucose,Whole Blood 129 mg/dL (70-110)
[2024-03-03] MEDS: NALOXONE 0.4 MG/ML 1 ML VIAL IVP STA (17:42)
[2024-03-03] MEDS: SODIUM CHLORIDE 0.9% 1,000 ML IV STA (17:46)
[2024-03-03 17:48] LABS: INR 1.1 (<1.2); Prothrombin Time 11.7 sec (10.0-12.5)
[2024-03-03 17:51] LABS: ALT 24 U/L (4-49); AST 26 U/L (17-59); African American GFR (CKD) 38 (>60 ml/min/1.73 sqM); Albumin 4.8 g/dL (3.5-5.0); Alkaline Phosphatase 83 U/L (38-126); Anion Gap 10 mmol/L; Blood Urea Nitrogen 44 mg/dL (9-20); Calcium 10.9 mg/dL (8.4-10.2); Carbon Dioxide 22 mmol/L (22-30); Chloride 101 mmol/L (98-107); Glucose 118 mg/dL (74-99); Lipase 289 U/L (23-300); Magnesium 1.5 mg/dL (1.6-2.3); Non-African American GFR(CKD) 33 (>60 ml/min/1.73 sqM); Potassium 4.4 mmol/L (3.5-5.1); Sodium 133 mmol/L (137-145); Total Bilirubin 0.8 mg/dL (0.2-1.3); Total Protein 7.2 g/dL (6.3-8.2)
[2024-03-03 17:56] LABS: Basophils # (A) 0.1 k/uL (0-0.2); Basophils % (A) 1 %; Eosinophils # (A) 0.2 k/uL (0-0.7); Eosinophils % (A) 2 %; HCT 40.6 % (39.0-53.0); HGB 14.1 gm/dL (13.0-17.5); Lymphocytes # (A) 1.5 k/uL (1.0-4.8); Lymphocytes % (A) 13 %; MCHC 34.6 g/dL (31.0-37.0); MCV 89.6 fL (80.0-100.0); Mean Platelet Volume 8.4; Monocytes # (A) 0.7 k/uL (0-1.0); Monocytes % (A) 7 %; Neutrophils # (A) 8.7 k/uL (1.3-7.7); Neutrophils % (A) 76 %; Platelet Count 188 k/uL (150-450); RBC 4.53 m/uL (4.30-5.90); RDW 13.1 % (11.5-15.5); WBC 11.4 k/uL (3.8-10.6)
[2024-03-03 17:58] LABS: NT-Pro-B-Type Natriuretic Pept 1080 pg/mL
[2024-03-03] MEDS: LORazepam 2 MG/ML INJ IV STA ×2 (18:04→18:05)
[2024-03-03 18:21] LABS: VBG PH 7.24 (7.31-7.41)
[2024-03-03] MEDS: MAGNESIUM SULFATE-D5W PMX 1 GM in DEXTROSE/WATER 1 100ML.BAG IVPB ONE (18:28)
[2024-03-03 18:33] LABS: Acetaminophen <10.0 ug/mL; Alcohol <10 mg/dL; Salicylate <1.0 mg/dL
[2024-03-03 18:37] LABS: Lactic Acid, Venous 6.8 mmol/L (0.7-2.0)
[2024-03-03] MEDS ORDERED: NALOXONE 0.4 MG/ML 1 ML VIAL IV PRN (18:41)
[2024-03-03] MEDS: SODIUM CHLORIDE 0.9% 1,000 ML IV SCH (19:30)
[2024-03-03 19:55] LABS: Appearance,Urine Clear (Clear); Bilirubin,Urine Negative (Negative); Blood,Urine Small (Negative); Color,Urine Light Yellow; Glucose,Urine (UA) Negative (Negative); Hyaline Casts,Urine 1 /lpf (0-2); Ketones,Urine Negative (Negative); Leukocyte Esterase,Urine Negative (Negative); Mucus,Urine Rare /hpf; Nitrite,Urine Negative (Negative); PH, Urine 5.5 (5.0-8.0); Protein,Urine 2+ (Negative); RBC,Urine <1 /hpf (0-5); Specific Gravity,Urine 1.013 (1.001-1.035); Squamous Epithelial Cell,Urine <1 /hpf (0-4); Urobilinogen,Urine <2.0 mg/dL (<2.0); WBC,Urine 2 /hpf (0-5)
[2024-03-03 23:08] LABS: Glucose,Whole Blood 209 mg/dL (70-110)
[2024-03-04 06:41] LABS: Glucose,Whole Blood 131 mg/dL (70-110)
[2024-03-04 08:40] LABS: Basophils % (A) 0 %; Eosinophils # (A) 0.3 k/uL (0-0.7); Eosinophils % (A) 4 %; HCT 38.5 % (39.0-53.0); HGB 12.8 gm/dL (13.0-17.5); Lymphocytes # (A) 1.1 k/uL (1.0-4.8); Lymphocytes % (A) 18 %; MCH 30.3 pg (25.0-35.0); MCHC 33.3 g/dL (31.0-37.0); Mean Platelet Volume 8.5; Monocytes # (A) 0.5 k/uL (0-1.0); Monocytes % (A) 9 %; Neutrophils # (A) 4.1 k/uL (1.3-7.7); Neutrophils % (A) 67 %; Platelet Count 156 k/uL (150-450); RBC 4.23 m/uL (4.30-5.90); RDW 13.2 % (11.5-15.5); WBC 6.2 k/uL (3.8-10.6)
[2024-03-04] MEDS: PREGABALIN 100 MG CAP PO SCH (08:58)
[2024-03-04] MEDS: GABAPENTIN 100 MG CAP PO SCH (08:58)
[2024-03-04] MEDS: CLOPIDOGREL 75 MG TAB PO SCH (08:58)
[2024-03-04] MEDS: APIXABAN 5 MG TAB PO SCH (08:58)
[2024-03-04] MEDS: DULoxetine HCL 60 MG CAPSULE.DR PO SCH (08:58)
[2024-03-04] MEDS: QUEtiapine 50 MG TAB PO SCH (08:59)
[2024-03-04] MEDS: METOPROLOL SUCCINATE (ER) 100 MG TAB.ER.24H PO SCH (08:59)
[2024-03-04] MEDS: PANTOPRAZOLE 40 MG TABLET PO SCH (09:00)
[2024-03-04 09:06] LABS: ALT 19 U/L (4-49); AST 25 U/L (17-59); African American GFR (CKD) 47 (>60 ml/min/1.73 sqM); Albumin 4.1 g/dL (3.5-5.0); Alkaline Phosphatase 84 U/L (38-126); Anion Gap 9 mmol/L; Blood Urea Nitrogen 36 mg/dL (9-20); Calcium 9.3 mg/dL (8.4-10.2); Carbon Dioxide 19 mmol/L (22-30); Chloride 109 mmol/L (98-107); Glucose 115 mg/dL (74-99); Magnesium 1.7 mg/dL (1.6-2.3); Non-African American GFR(CKD) 41 (>60 ml/min/1.73 sqM); Phosphorus 3.2 mg/dL (2.5-4.5); Potassium 4.4 mmol/L (3.5-5.1); Sodium 137 mmol/L (137-145); Total Bilirubin 0.7 mg/dL (0.2-1.3); Total Protein 6.3 g/dL (6.3-8.2)
[2024-03-04 11:51] LABS: Glucose,Whole Blood 202 mg/dL (70-110)
[2024-03-04] MEDS ORDERED: DEXTROSE 50% SYRINGE 50 ML IVP PRN ×2 (12:09)
[2024-03-04] MEDS: INSULIN ASPART (NovoLOG) 100 UNIT/ML VIAL SQ SCH (12:23)
--- NOTE | 2024-03-04 12:56 | P.NPCON ---
History of Present Illness - Reason for Consult acute renal failure - History of Present Illness patient is a 68-year-old male who is admitted to the hospital due to abnormal labs. Renal function was worse and therefore patient was advised admission. Patient has underlying history of hypertension, type 2 diabetes, coronary artery disease. serum creatinine was 2.0 on admission and has decreased to 1.7. Previous creatinine at 1.3 on 09/05/2023 and 2.0 on 12/24/2023. Patient is complaining off nausea and abdominal discomfort. He admits to not eating much for the last few days. Blood pressure has been on the lower side with systolic around 105 mmHg. Maintained on PATIENCE inhibitor's at home. no urinary symptoms. No history of use of NSAIDs. Review of Systems as per HPI Past Medical History Past Medical History: Coronary Artery Disease (CAD), Diabetes Mellitus, Hyperlipidemia, Hypertension, Myocardial Infarction ([place]), Osteoarthritis (OA), Seizure Disorder, Vascular Disorder Additional Past Medical History / Comment(s): DM2, SOB w/exertion, diabetic neuropathy, see Dr Montesinos H & P, seizures in past & was hospitalized for, unsure of cause Last Myocardial Infarction Date:: 10/2023 History of Any Multi-Drug Resistant Organisms: None Reported Past Surgical History: Back Surgery, Bowel Resection, Heart Catheterization With Stent, Orthopedic Surgery, Pacemaker Additional Past Surgical History / Comment(s): bowel resection w/colostomy & then reversal of, big toe removed, multiple cardiac stents, Pacemaker placed 10/2023 per patient. Past Anesthesia/Blood Transfusion Reactions: No Reported Reaction Date of Last Stent Placement:: 10/2023 Type of Cardiac Device: Permanent Pacemaker Device Placement Date:: 10/2023 Smoking Status: Never smoker - Past Family History Father Family Medical History: Coronary Artery Disease (CAD) Medications and Allergies Home Medications Medication Instructions Recorded Confirmed Type DULoxetine HCL [Cymbalta] 60 mg PO DAILY 11/23/22 03/03/24 History Insulin Glargine,Hum.rec.anlog 50 units SQ HS 11/23/22 03/03/24 History [Insulin Glargine Solostar] Omeprazole [PriLOSEC] 20 mg PO DAILY 11/23/22 03/03/24 History Pregabalin [Lyrica] 100 mg PO BID 11/23/22 03/03/24 History Rosuvastatin Calcium [Crestor] 40 mg PO HS 11/23/22 03/03/24 History Clopidogrel [Plavix] 75 mg PO DAILY #90 tab 12/02/22 03/03/24 Rx QUEtiapine [SEROquel] 50 mg PO BID #60 tab 12/03/22 03/03/24 Rx lisinopriL [Zestril] 2.5 mg PO DAILY #30 tab 12/03/22 03/03/24 Rx Apixaban [Eliquis] 5 mg PO BID #180 tab 12/24/23 03/03/24 Rx Metoprolol Succinate [Toprol XL] 100 mg PO DAILY #90 tab 12/24/23 03/03/24 Rx oxyCODONE HCL [oxyCODONE HCL (IR)] 5 mg PO BID 12/24/23 03/03/24 History Gabapentin [Neurontin] 100 mg PO TID 03/03/24 03/03/24 History Magnesium(Unknown Dose) 1 tab PO DAILY 03/03/24 03/03/24 History Vitamin B-12(Unknown Dose) 1 tab PO DAILY 03/03/24 03/03/24 History metFORMIN HCL [Glucophage] 1,000 mg PO BID 03/03/24 03/03/24 History Allergies Allergy/AdvReac Type Severity Reaction Status Date / Time atorvastatin [From Lipitor] AdvReac abnormal Verified 03/03/24 18:26 liver enzymes Physical Exam Vitals: Vital Signs Temp Pulse Pulse Resp BP BP Pulse Ox 03/04/24 11:31 98 F 58 L 20 100/65 98 03/04/24 08:00 97.9 F 60 20 112/74 97 03/04/24 04:00 98.1 F 69 18 110/69 99 03/04/24 00:00 98 F 63 15 105/63 97 03/03/24 22:29 97.8 F 76 18 107/63 97 03/03/24 20:19 68 16 115/73 97 03/03/24 19:47 71 16 103/65 100 03/03/24 18:20 75 16 111/74 100 03/03/24 17:42 18 03/03/24 17:33 98.2 F 74 18 125/74 100 03/03/24 15:58 98.6 F 94 18 105/70 96 Intake and Output 0603/04/24 03/04/24 22:59 06:59 14:59 Intake Total 540 118 Output Total 275 Balance 265 118 Intake: Oral 540 118 Output: Urine 275 Other: Voiding Method Urinal Weight 88.451 kg patient is awake, comfortable, no acute distress. Alert oriented 3. 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 Acute kidney injury, ATN, nonoliguric secondary to hypotension in the setting of use of PATIENCE inhibitor's and volume depletion. UA shows 2+ protein and small blood. 2. Chronic kidney disease NKF stage III with previous creatinine 1.3 in August 2023 likely secondary to diabetic kidney disease. 3. Volume depletion 4. Coronary artery disease 5. Type 2 diabetes maintained on metformin Plan: continue with IV fluids. Continue to hold PATIENCE inhibitor's. Check ultrasound of the kidneys. Repeat labs in a.m. Thank you for the consultation. We will continue to follow the patient with you during his hospitalization.
--- NOTE | 2024-03-04 14:58 | CT ---
EXAMINATION TYPE: CT brain wo con DATE OF EXAM: 03/04/2024 HISTORY: headache, seizure CT DLP: 1281 mGycm. Automated Exposure Control for Dose Reduction was Utilized. TECHNIQUE: CT scan of the head is performed without contrast. COMPARISON: Prior CT brain November 28, 2022. FINDINGS: There is no acute intracranial hemorrhage or midline shift identified. There is mild to m oderate diffuse ventricular and sulcal prominence redemonstrated. There is mild low-attenuation in t he periventricular white matter redemonstrated. The globes are intact and the visualized sinuses are clear. IMPRESSION: No acute intracranial hemorrhage or midline shift. No significant change from most recen t prior CT.
--- NOTE | 2024-03-04 16:48 | US ---
EXAMINATION TYPE: US kidneys/renal and bladder DATE OF EXAM: 03/04/2024 COMPARISON: None CLINICAL INDICATION: Male, 68 years old with history of natacha; EXAM MEASUREMENTS: Right Kidney: 9.9 x 5.1 x 4.8 cm Left Kidney: 9.0 x 4.6 x 4.5 cm Right Kidney: No hydronephrosis or masses seen Left Kidney: No hydronephrosis or masses seen Bladder: anechoic; 281 ml There is no evidence for hydronephrosis at this point in time. No nephrolithiasis is seen. No freida s are identified. Cortical medullary differentiation is maintained bilaterally. No significant cortic al thinning. The urinary bladder is anechoic. Bilateral ureteral jets are seen. IMPRESSION: No ultrasound evidence of obstructive uropathy.
[2024-03-04 16:54] LABS: Glucose,Whole Blood 195 mg/dL (70-110)
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
[2024-03-04 19:51] LABS: Glucose,Whole Blood 274 mg/dL (70-110)
[2024-03-04] MEDS: INSULIN DETEMIR (LEVEMIR) 100 UNIT/ML SYR SQ SCH (20:40)
[2024-03-04] MEDS: Rosuvastatin Calcium [Crestor] 40 MG Tablet PO SCH (20:45)
--- NOTE | 2024-03-04 23:34 | EEG ---
ELECTROENCEPHALOGRAM REPORT PREAMBLE: This is a 68-year-old male with history of seizure disorder, had a seizure type spell in the ER. This study is performed to evaluate for any epileptiform activity. EEG FINDINGS: This is a 21-channel digital EEG recorded with video component, utilizing 10/20 international system with referential and bipolar montages. The background consists of moderately well-developed and regulated, predominantly 6 to 7 hertz theta activity seen posteriorly in bihemispheric region. Background seems to be slightly reactive to eye opening and closing. Photic driving response was not seen. Different stages of sleep were not seen. Some body jerks were noted, but no focal or generalized epileptiform activity was seen. IMPRESSION: This is an abnormal EEG, due to background slowing, suggestive of mild-to- moderate encephalopathy. No focal, lateralized, or epileptiform activity was seen. JOHANNA / RADHA: [id number] / MTDD
[2024-03-05 05:32] LABS: Glucose,Whole Blood 114 mg/dL (70-110)
--- NOTE | 2024-03-05 09:43 | P.HPIM ---
History of Present Illness H&P Date: 03/04/24 Chief Complaint: Fatigue, progressive weakness, abnormal labs This is a 68-year-old gentleman with past medical history significant for newly diagnosed seizures 12/13, recent permanent pacemaker implantation 8 weeks ago,chronic asthma, smokes marijuana daily,CAD, diabetes mellitus type 2, hypertension, hyperlipidemia, chronic back pain-follows with Dr. Vee ,and multiple other medical issues directed to the ER per his PCP secondary to severe abnormal kidney labs, kidney failure. Reports increased weakness, fatigue. Reports decreased diet intake ,nausea,vomiting ,diarrhea x 1 week and abdominal discomfort. Denies syncope, fall or trauma. On admission, creatinine 2.0, decreased to 1.7, potassium 4.4, blood pressure soft , 105/70 , heart rate 94.afebrile, WBC 11.4-now normalized 6.2, lactic acid 6.8-decreased to 1.8 with IV fluid hydration. Blood sugars mildly elevated, A1c 6.4. Magnesium 1.5, supplemented, currently 1.7. UA negative. Toxicology screen reporting less than 1 on salicylates ,less than 10 on acetaminophen ,less than 10 and serum alcohol. Denies chest pain, palpitations or shortness of breath. EKG reported sinus rhythm ,on admission maintaining O2 sats in the high 90s on room air. While in the ER became unresponsive, Narcan attempted without results, attributed to possible seizure and neurology was consulted. Patient reports he quit taking his Keppra about 4 months ago. Review of Systems ROS Statement: Those systems with pertinent positive or pertinent negative responses have been documented in the HPI. ROS Other: All systems not noted in ROS Statement are negative. Past Medical History Past Medical History: Coronary Artery Disease (CAD), Diabetes Mellitus, Hyperlipidemia, Hypertension, Myocardial Infarction ([place]), Osteoarthritis (OA), Seizure Disorder, Vascular Disorder Additional Past Medical History / Comment(s): DM2, SOB w/exertion, diabetic neuropathy, see Dr Montesinos H & P, seizures in past & was hospitalized for, unsure of cause Last Myocardial Infarction Date:: 10/2023 History of Any Multi-Drug Resistant Organisms: None Reported Past Surgical History: Back Surgery, Bowel Resection, Heart Catheterization With Stent, Orthopedic Surgery, Pacemaker Additional Past Surgical History / Comment(s): bowel resection w/colostomy & then reversal of, big toe removed, multiple cardiac stents, Pacemaker placed 10/2023 per patient. Past Anesthesia/Blood Transfusion Reactions: No Reported Reaction Date of Last Stent Placement:: 10/2023 Type of Cardiac Device: Permanent Pacemaker Device Placement Date:: 10/2023 Smoking Status: Never smoker - Past Family History Father Family Medical History: Coronary Artery Disease (CAD) Medications and Allergies Home Medications Medication Instructions Recorded Confirmed Type DULoxetine HCL [Cymbalta] 60 mg PO DAILY 11/23/22 03/03/24 History Insulin Glargine,Hum.rec.anlog 50 units SQ HS 11/23/22 03/03/24 History [Insulin Glargine Solostar] Omeprazole [PriLOSEC] 20 mg PO DAILY 11/23/22 03/03/24 History Pregabalin [Lyrica] 100 mg PO BID 11/23/22 03/03/24 History Rosuvastatin Calcium [Crestor] 40 mg PO HS 11/23/22 03/03/24 History Clopidogrel [Plavix] 75 mg PO DAILY #90 tab 12/02/22 03/03/24 Rx QUEtiapine [SEROquel] 50 mg PO BID #60 tab 12/03/22 03/03/24 Rx lisinopriL [Zestril] 2.5 mg PO DAILY #30 tab 12/03/22 03/03/24 Rx Apixaban [Eliquis] 5 mg PO BID #180 tab 12/24/23 03/03/24 Rx Metoprolol Succinate [Toprol XL] 100 mg PO DAILY #90 tab 12/24/23 03/03/24 Rx oxyCODONE HCL [oxyCODONE HCL (IR)] 5 mg PO BID 12/24/23 03/03/24 History Gabapentin [Neurontin] 100 mg PO TID 03/03/24 03/03/24 History Magnesium(Unknown Dose) 1 tab PO DAILY 03/03/24 03/03/24 History Vitamin B-12(Unknown Dose) 1 tab PO DAILY 03/03/24 03/03/24 History metFORMIN HCL [Glucophage] 1,000 mg PO BID 03/03/24 03/03/24 History Allergies Allergy/AdvReac Type Severity Reaction Status Date / Time atorvastatin [From Lipitor] AdvReac abnormal Verified 03/03/24 18:26 liver enzymes Physical Exam Vitals: Vital Signs Temp Pulse Pulse Resp BP BP Pulse Ox 03/04/24 11:31 98 F 58 L 20 100/65 98 03/04/24 08:00 97.9 F 60 20 112/74 97 03/04/24 04:00 98.1 F 69 18 110/69 99 03/04/24 00:00 98 F 63 15 105/63 97 03/03/24 22:29 97.8 F 76 18 107/63 97 03/03/24 20:19 68 16 115/73 97 03/03/24 19:47 71 16 103/65 100 03/03/24 18:20 75 16 111/74 100 03/03/24 17:42 18 03/03/24 17:33 98.2 F 74 18 125/74 100 03/03/24 15:58 98.6 F 94 18 105/70 96 Intake and Output 03/03/24 03/04/24 03/04/24 22:59 06:59 14:59 Intake Total 540 118 Output Total 275 Balance 265 118 Intake: Oral 540 118 Output: Urine 275 Other: Voiding Method Urinal Weight 88.451 kg PHYSICAL EXAM: VITAL SIGNS: [As above] GENERAL: Alert and oriented x 3, sitting up in bed, no acute distress HEENT: Normocephalic, atraumatic conjunctivae normal. eyes normal. MMM. NECK: Supple, no JVD. No thyromegaly, no adenopathy CARDIOVASCULAR: S1, S2 regular. No murmur RESPIRATION: Unlabored, equal air entry, clear to auscultation. ABDOMEN: Soft, nontender . No guarding. no masses palpable. No ascites, No hepatosplenomegaly.Bowel sounds heard. EXTREMITIES: Right great toe amputation, no edema. no swelling , no cyanosis,no clubbing. NERVOUS SYSTEM: Cranial N 2-12 grossly normal.No focal deficits. Strength and sensation grossly intact.. Skin: Warm and dry, no rash Results CBC & Chem 7: 03/04/24 07:38 03/04/24 07:38 Labs: Abnormal Lab Results - Last 24 Hours (Table) 03/04/24 03/04/24 03/04/24 Range/Units 07:38 11:49 16:52 POC Glucose (mg/dL) 202 H 195 H (70-110) mg/dL Hemoglobin A1c 6.4 H (<=6.0) % 03/04/24 03/05/24 Range/Units 19:48 05:30 POC Glucose (mg/dL) 274 H 114 H (70-110) mg/dL Hemoglobin A1c (<=6.0) % Thrombosis Risk Factor Assmnt - Choose All That Apply Any of the Below Risk Factors Present?: Yes Each Factor Represents 1 point: Medical pt on bed rest Other Risk Factors: Yes Each Risk Factor Represents 2 Points: Age 61-74 years Other congenital or acquired thrombophilia - If yes, enter type in comment: No Thrombosis Risk Factor Assessment Total Risk Factor Score: 3 Thrombosis Risk Factor Assessment Level: Moderate Risk Assessment and Plan Assessment: Breakthrough seizure in the ER, in a patient with history of newly diagnosed seizure disorder 12/13, on Keppra. Quit taking his Keppra 4 months ago. Lactic acidosis secondary to the above Acute hypoxic respiratory failure secondary to the above, resolved Dehydration secondary to nausea vomiting diarrhea and decreased diet intake Hyponatremia mild secondary to the above Acute renal failure, ATN, secondary to PATIENCE inhibitors, dehydration and hypo tension Chronic kidney disease stage III, baseline creatinine around 1.3 Recent permanent pacemaker implantation, 8 weeks ago Chronic asthma Diabetes mellitus type 2 Gastroesophageal reflux disease Chronic CHF systolic dysfunction CAD, history of stents History of hypertension Hyperlipidemia Peripheral vascular disease with history of lower extremity vascular stenting Chronic back pain, follows with Dr. Vee Gait dysfunction, uses a walker and a cane Daily marijuana use-smokes. Plan: Continue on current medication regimen ,monitoring and symptomatic treatment. Hold PATIENCE inhibitor. IV fluid hydration. Seizure precautions. neurology workup in progress. Nephrology and neurology consults in place. PT/OT. The impression and plan of care has been dictated as directed. : I performed a history and examination of this patient, discussed the same with the dictator. I agree with the dictator's note ,documented as a scribe. Any additional findings or plans will be noted.
[2024-03-05 11:28] LABS: African American GFR (CKD) 53 (>60 ml/min/1.73 sqM); Anion Gap 8 mmol/L; Blood Urea Nitrogen 31 mg/dL (9-20); Calcium 8.1 mg/dL (8.4-10.2); Carbon Dioxide 19 mmol/L (22-30); Chloride 113 mmol/L (98-107); Glucose 122 mg/dL (74-99); Non-African American GFR(CKD) 46 (>60 ml/min/1.73 sqM); Potassium 4.4 mmol/L (3.5-5.1); Sodium 140 mmol/L (137-145)
[2024-03-05 11:45] LABS: Glucose,Whole Blood 149 mg/dL (70-110)
[2024-03-05 12:42] LABS: Glucose,Whole Blood 193 mg/dL (70-110)
[2024-03-05] MEDS: ONDANSETRON 4 MG/2 ML VIAL IVP PRN (13:03)
[2024-03-05] MEDS: MORPHINE SULFATE 2 MG/ML SYRINGE IVP STA (13:04)
[2024-03-05] MEDS: MORPHINE SULFATE 2 MG/ML SYRINGE ONE (13:05)
--- NOTE | 2024-03-05 13:24 | CT ---
EXAMINATION TYPE: CT ChestAbdPelvis wo con CT DLP: 1086.8 mGycm, Automated exposure control for dose reduction was used. DATE OF EXAM: 03/05/2024 1:16 PM COMPARISON: None CLINICAL INDICATION:Male, 68 years old with history of Severe pain; PHH, severe pain Technique: Multiple axial images of the chest, abdomen, and pelvis were obtained without the administ ration of intravenous or oral contrast. This limits evaluation. Two-dimensional coronal and sagittal reconstructions were obtained. Findings: CHEST: LUNGS/ PLEURA: No pleural effusion or pneumothorax. Right lower lobe linear atelectasis. No suspiciou s pulmonary nodule or mass. AIRWAY: Patent and unremarkable.. HEART: Moderately enlarged.. Left chest wall dual lead cardiac pacemaking device. No pericardial effu michelle. Moderate coronary arterial calcifications. MEDIASTINUM: No gross evidence of adenopathy. VASCULATURE: No aortic aneurysm. MUSCULOSKELETAL: No acute osseous abnormalities. Osteoarthritic changes of the left shoulder. SOFT TISSUES/LYMPH NODES: Unremarkable. LOWER NECK: No significant findings. ABDOMEN: ABDOMEN LIVER: Unremarkable noncontrast appearance GALLBLADDER AND BILE DUCTS: Unremarkable noncontrast appearance PANCREAS: Unremarkable noncontrast appearance SPLEEN: Unremarkable noncontrast appearance ADRENAL GLANDS: Unremarkable noncontrast appearance. KIDNEYS AND URETERS: No evidence of hydronephrosis or renal calculus. The ureters are unremarkable. PELVIS BLADDER: Moderately distended. REPRODUCTIVE: Unremarkable. ABDOMEN & PELVIS STOMACH AND BOWEL: No evidence of bowel obstruction. Postsurgical changes with anastomosis involving the sigmoid colon. Scattered diverticula involving the descending colon without evidence of surroundi ng inflammatory changes. The appendix is within normal limits. No focal bowel wall thickening. PERITONEUM: No evidence of pneumoperitoneum or free fluid. VASCULATURE: No evidence of aortic aneurysm. Atherosclerotic calcification of the aorta and its branc hes. IVC filter is in place. A left iliac vein stent identified. MUSCULOSKELETAL: No acute osseous abnormalities. Postsurgical changes from fusion hardware of the lum bar spine involving L3-L5 with bilateral pedicle screws and rods and fusion cage. Advanced degenerati ve disc disease with endplate sclerosis and subchondral cystic changes involving the thoracolumbar sp ine most prominent from T12 through L3. Mild retrolisthesis of L1 and L2. LYMPH NODES: No gross evidence for lymphadenopathy. SOFT TISSUE/ABDOMINAL WALL: Small fat filled periumbilical hernias. Skin thickening with some fat str anding identified within the right anterior abdominal wall likely from medication injection. IMPRESSION: 1. No CT evidence for acute process on this noncontrast exam. 2. Colonic diverticulosis without evidence for acute diverticulitis.
--- NOTE | 2024-03-05 13:36 | P.PN ---
Subjective patient is seen for follow-up for acute kidney injury. Currently maintained on IV fluids. Renal function has improved with serum creatinine down to 1.5 mg/dL. No significant complaints today. Objective - Vital Signs Vital signs: Vital Signs Temp 97.8 F 03/05/24 08:51 Pulse 52 L 03/05/24 11:51 Resp 16 03/05/24 11:51 BP 100/53 03/05/24 12:29 Pulse Ox 97 03/05/24 11:51 FiO2 Intake & Output 03/04/24 03/05/24 03/05/24 18:59 06:59 18:59 Intake Total 1558 240 356 Output Total 400 550 Balance 1558 -160 -194 Weight 87.6 kg Intake: Intake, IV Titration 1200 Amount Sodium Chloride 0.9% 1, 1200 000 ml @ 100 mls/hr IV . Q10H [facility] Rx#:[id number] Oral 358 240 356 Output: Urine 400 550 Other: Voiding Method Urinal Urinal # Voids 3 # Bowel Movements 1 - Exam patient is awake, comfortable, no acute distress. Alert oriented 3. 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 intact - Labs CBC & Chem 7: 03/04/24 07:38 03/05/24 10:42 Labs: Abnormal Lab Results - Last 24 Hours (Table) 03/04/24 03/04/24 03/04/24 Range/Units 07:38 16:52 19:48 Chloride (98-107) mmol/L Carbon Dioxide (22-30) mmol/L BUN (9-20) mg/dL Creatinine (0.66-1.25) mg/dL Glucose (74-99) mg/dL POC Glucose (mg/dL) 195 H 274 H (70-110) mg/dL Hemoglobin A1c 6.4 H (<=6.0) % Calcium (8.4-10.2) mg/dL 03/05/24 03/05/24 03/05/24 Range/Units 05:30 10:42 11:43 Chloride 113 H (98-107) mmol/L Carbon Dioxide 19 L (22-30) mmol/L BUN 31 H (9-20) mg/dL Creatinine 1.55 H (0.66-1.25) mg/dL Glucose 122 H (74-99) mg/dL POC Glucose (mg/dL) 114 H 149 H (70-110) mg/dL Hemoglobin A1c (<=6.0) % Calcium 8.1 L (8.4-10.2) mg/dL 03/05/24 Range/Units 12:32 Chloride (98-107) mmol/L Carbon Dioxide (22-30) mmol/L BUN (9-20) mg/dL Creatinine (0.66-1.25) mg/dL Glucose (74-99) mg/dL POC Glucose (mg/dL) 193 H (70-110) mg/dL Hemoglobin A1c (<=6.0) % Calcium (8.4-10.2) mg/dL Assessment and Plan Assessment: 1. Acute kidney injury, ATN, nonoliguric secondary to hypotension in the setting of use of PATIENCE inhibitor's and volume depletion. UA shows 2+ protein and small blood. 2. Chronic kidney disease NKF stage III with previous creatinine 1.3 in August 2023 likely secondary to diabetic kidney disease. 3. Volume depletion 4. Coronary artery disease 5. Type 2 diabetes maintained on metformin Plan: continue with IV fluids. Continue to hold PATIENCE inhibitor's. encouraged increased oral intake. Repeat labs in a.m. T
--- NOTE | 2024-03-05 16:04 | P.CRDCN ---
History of Present Illness Consult date: 03/05/24 History of present illness: HISTORY OF PRESENTING ILLNESS 67-year-old male with past medical history of seizure, coronary artery disease status post multiple PCI, ischemic cardiomyopathy with EF 30%, peripheral vascular disease, status post dual-chamber ICD since December 2023 for primary prevention. He also has history of tobacco smoking, marijuana use, chronic back pain. He presented to the hospital because of increased fatigue and generalized weakness along with reduced oral intake, nausea vomiting and diarrhea and abdominal discomfort. On admission there was also concern of possible breakthrough seizure. His last seizure was in November 2022. Apparently patient was taken off his Keppra at the facility where he lives. On admission his creatinine was 2.0, blood pressure 105/70, heart rate 94, sinus rhythm, elevated lactate. He was treated with IV fluids. Today morning, patient had an episode of getting agitated and confused along with jerky movement of his bilateral upper and lower extremity. There was a question of possible seizure-like activity, however it seems less likely from the way of description of his extremity movements. Patient also was noticed to have a weak and thready pulse for which CODE BLUE was called but no chest compressions were done or shock were delivered. Patient does have ICD. An ICD interrogation was performed which did not show any evidence of atrial fibrillation or any ventricular arrhythmias. At the time of bedside evaluation, patient was very drowsy and sleepy. He was only arousable to painful stimuli and touch. He denies having any active chest pain chest pressure. He does not appear volume overloaded. REVIEW OF SYSTEMS Could not be obtained as patient is drowsy PHYSICAL EXAMINATION Head: Normocephalic. Eyes: Sclerae nonicteric. Neck: Brisk carotid upstroke, no jugular venous distention. Lungs: Reduced inspiratory effort, reduced air entry bilateral lower lung quinones, otherwise lungs clear to auscultate Heart: Regular rate and rhythm, S1-S2, no murmur or rub. Abdomen: Soft nontender, Extremities: No edema, Neuro: Drowsy but arousable with touch and painful stimuli. Detailed neuro exam was not performed. ASSESSMENT Metabolic encephalopathy Seizure disorder Encephalomalacia over right appropriately junction SUKI, likely dehydration related from poor oral intake and diarrhea Hyponatremia, likely hypovolemic CAD with multiple PCI Ischemic cardiomyopathy with EF of 25 to 30%. Status post AICD dual-chamber, December 2023 Hypertension Dyslipidemia Chronic back pain Tobacco use Marijuana use PLAN Patient's AICD interrogation did not show any evidence of atrial fibrillation or any ventricular arrhythmias. Patient's event of getting acutely confused agitated with jerky extremity movements is less likely cardiogenic in etiology. He does not have any signs of fluid overload at this moment. He in fact appears mildly dehydrated. Would agree with IV fluids and holding diuretics. Continue Plavix 75 mg, Eliquis 5 mg twice daily. Continue metoprolol succinate 100 mg daily Once renal function improves, consider adding Entresto, MRA, SGLT2 Obtain limited echo for LVEF and pericardial effusion Donald Egan MD, FACC, RPVI Thank you for allowing [facility] to participate in this patient's care. Feel free to reach out in case of any followup questions. Past Medical History Past Medical History: Coronary Artery Disease (CAD), Diabetes Mellitus, Hyperlipidemia, Hypertension, Myocardial Infarction (MO), Osteoarthritis (OA), Seizure Disorder, Vascular Disorder Additional Past Medical History / Comment(s): DM2, SOB w/exertion, diabetic neuropathy, see Dr Montesinos H & P, seizures in past & was hospitalized for, unsure of cause Last Myocardial Infarction Date:: 10/2023 History of Any Multi-Drug Resistant Organisms: None Reported Past Surgical History: Back Surgery, Bowel Resection, Heart Catheterization With Stent, Orthopedic Surgery, Pacemaker Additional Past Surgical History / Comment(s): bowel resection w/colostomy & then reversal of, big toe removed, multiple cardiac stents, Pacemaker placed 10/2023 per patient. Past Anesthesia/Blood Transfusion Reactions: No Reported Reaction Date of Last Stent Placement:: 10/2023 Type of Cardiac Device: Permanent Pacemaker Device Placement Date:: 10/2023 Smoking Status: Never smoker - Past Family History Father Family Medical History: Coronary Artery Disease (CAD) Medications and Allergies Home Medications Medication Instructions Recorded Confirmed Type DULoxetine HCL [Cymbalta] 60 mg PO DAILY 11/23/22 03/03/24 History Insulin Glargine,Hum.rec.anlog 50 units SQ HS 11/23/22 03/03/24 History [Insulin Glargine Solostar] Omeprazole [PriLOSEC] 20 mg PO DAILY 11/23/22 03/03/24 History Pregabalin [Lyrica] 100 mg PO BID 11/23/22 03/03/24 History Rosuvastatin Calcium [Crestor] 40 mg PO HS 11/23/22 03/03/24 History Clopidogrel [Plavix] 75 mg PO DAILY #90 tab 12/02/22 03/03/24 Rx QUEtiapine [SEROquel] 50 mg PO BID #60 tab 12/03/22 03/03/24 Rx lisinopriL [Zestril] 2.5 mg PO DAILY #30 tab 12/03/22 03/03/24 Rx Apixaban [Eliquis] 5 mg PO BID #180 tab 12/24/23 03/03/24 Rx Metoprolol Succinate [Toprol XL] 100 mg PO DAILY #90 tab 12/24/23 03/03/24 Rx oxyCODONE HCL [oxyCODONE HCL (IR)] 5 mg PO BID 12/24/23 03/03/24 History Gabapentin [Neurontin] 100 mg PO TID 03/03/24 03/03/24 History Magnesium(Unknown Dose) 1 tab PO DAILY 03/03/24 03/03/24 History Vitamin B-12(Unknown Dose) 1 tab PO DAILY 03/03/24 03/03/24 History metFORMIN HCL [Glucophage] 1,000 mg PO BID 03/03/24 03/03/24 History Allergies Allergy/AdvReac Type Severity Reaction Status Date / Time atorvastatin [From Lipitor] AdvReac abnormal Verified 03/03/24 18:26 liver enzymes Physical Exam Vitals: Vital Signs Temp Pulse Resp BP Pulse Ox 03/05/24 14:21 99 03/05/24 13:47 54 L 121/78 98 03/05/24 13:30 55 L 125/78 99 03/05/24 13:19 114/72 100 03/05/24 13:13 131/81 03/05/24 12:39 130/80 03/05/24 12:32 80/53 03/05/24 12:29 100/53 03/05/24 11:51 52 L 16 114/73 97 03/05/24 08:51 97.8 F 57 L 16 101/64 97 03/05/24 03:12 52 L 18 94/57 96 03/04/24 23:07 59 L 18 94/58 96 03/04/24 20:46 98.4 F 56 L 18 108/61 97 03/04/24 16:28 97.8 F 57 L 20 101/63 100 Intake and Output 03/05/24 03/05/24 03/05/24 06:59 14:59 22:59 Intake Total 356 Output Total 400 550 Balance -400 -194 Intake: Oral 356 Output: Urine 400 550 Other: Voiding Method Urinal Urinal # Bowel Movements 1 Weight 87.6 kg Results 03/04/24 07:38 03/05/24 10:42 Cardiac Enzymes 03/05/24 Range/Units 13:07 Troponin I 0.028 (0.000-0.034) ng/mL Comprehensive Metabolic Panel 03/05/24 Range/Units 10:42 Sodium 140 (137-145) mmol/L Potassium 4.4 (3.5-5.1) mmol/L Chloride 113 H (98-107) mmol/L Carbon Dioxide 19 L (22-30) mmol/L BUN 31 H (9-20) mg/dL Creatinine 1.55 H (0.66-1.25) mg/dL Glucose 122 H (74-99) mg/dL Calcium 8.1 L (8.4-10.2) mg/dL Current Medications Generic Name Dose Route Start Last Admin Trade Name Freq PRN Reason Stop Dose Admin Apixaban 5 mg 03/04/24 09:00 03/05/24 08:53 Apixaban 5 Mg Tab PO 5 mg BID [facility] Administration Protocol Clopidogrel Bisulfate 75 mg 03/04/24 09:00 03/05/24 08:53 Clopidogrel 75 Mg Tab PO 75 mg DAILY [facility] Administration Dextrose/Water 25 ml 03/04/24 12:09 Dextrose 50% Syringe 50 Ml IVP PER PROTOCOL PRN Hypoglycemia Protocol Dextrose/Water 50 ml 03/04/24 12:09 Dextrose 50% Syringe 50 Ml IVP PER PROTOCOL PRN Hypoglycemia Protocol Duloxetine HCl 60 mg 03/04/24 09:00 03/05/24 08:53 Duloxetine Hcl 60 Mg Capsule.Dr PO 60 mg DAILY [facility] Administration Gabapentin 100 mg 03/04/24 09:00 03/05/24 15:25 Gabapentin 100 Mg Cap PO Not Given TID [facility] Sodium Chloride 1,000 mls @ 100 mls/hr 03/03/24 18:45 03/05/24 15:26 Saline 0.9% IV 100 mls/hr .Q10H [facility] Administration Insulin Aspart 0 unit 03/04/24 12:30 03/05/24 11:45 Insulin Aspart (Novolog) 100 Unit/Ml Vial SQ Not Given ACHS [facility] Protocol Insulin Detemir 20 unit 03/04/24 21:00 03/04/24 20:40 Insulin Detemir (Levemir) 100 Unit/Ml Syr SQ 20 unit HS [facility] Administration Levetiracetam 750 mg 03/04/24 21:00 03/05/24 08:53 Levetiracetam 750 Mg Tab PO 750 mg Q12HR [facility] Administration Metoprolol Succinate 100 mg 03/04/24 09:00 03/05/24 08:53 Metoprolol Succinate (Er) 100 Mg Tab.Er.24h PO 100 mg DAILY [facility] Administration Naloxone HCl 0.2 mg 03/03/24 18:41 Naloxone 0.4 Mg/Ml 1 Ml Vial IV Q2M PRN Opioid Reversal Rosuvastatin Calcium 40 mg 03/04/24 21:00 03/04/24 20:45 [Crestor] 40 Mg PO Not Given Tablet [facility] Ondansetron HCl 4 mg 03/03/24 18:41 03/05/24 13:03 Ondansetron 4 Mg/2 Ml Vial IVP 4 mg Q8HR PRN Administration Nausea And Vomiting Pantoprazole Sodium 40 mg 03/04/24 09:00 03/05/24 06:11 Pantoprazole 40 Mg Tablet PO 40 mg DAILY@0730 [facility] Administration Pregabalin 100 mg 03/04/24 09:00 03/05/24 08:53 Pregabalin 100 Mg Cap PO 100 mg BID [facility] Administration Quetiapine Fumarate 50 mg 03/04/24 09:00 03/05/24 08:53 Quetiapine 50 Mg Tab PO 50 mg BID [facility] Administration Intake and Output 03/05/24 03/05/24 03/05/24 06:59 14:59 22:59 Intake Total 356 Output Total 400 550 Balance -400 -194 Intake: Oral 356 Output: Urine 400 550 Other: Voiding Method Urinal Urinal # Bowel Movements 1 Weight 87.6 kg 03/04/24 07:38 03/05/24 10:42
[2024-03-05 17:00] LABS: Glucose,Whole Blood 117 mg/dL (70-110)
[2024-03-05 19:51] LABS: Glucose,Whole Blood 182 mg/dL (70-110)
--- NOTE | 2024-03-05 21:44 | P.PN ---
Subjective Progress Note Date: 03/05/24 This is a 68-year-old gentleman with past medical history significant for newly diagnosed seizures 12/13, recent permanent pacemaker implantation 8 weeks ago,chronic asthma, smokes marijuana daily,CAD, diabetes mellitus type 2, hypertension, hyperlipidemia, chronic back pain-follows with Dr. Vee ,and multi ple other medical issues directed to the ER per his PCP secondary to severe abnormal kidney labs, kidney failure. Reports increased weakness, fatigue. Reports decreased diet intake ,nausea,vomiting ,diarrhea x 1 week and abdominal discomfort. Denies syncope, fall or trauma. On admission, creatinine 2.0, decreased to 1.7, potassium 4.4, blood pressure soft , 105/70 , heart rate 94.afebrile, WBC 11.4-now normalized 6.2, lactic acid 6.8-decreased to 1.8 with IV fluid hydration. Blood sugars mildly elevated, A1c 6.4. Magnesium 1.5, supplemented, currently 1.7. UA negative. Toxicology screen reporting less than 1 on salicylates ,less than 10 on acetaminophen ,less than 10 and serum alcohol. Denies chest pain, palpitations or shortness of breath. EKG reported sinus rhythm ,on admission maintaining O2 sats in the high 90s on room air. While in the ER became unresponsive, Narcan attempted without results, attributed to possible seizure and neurology was consulted. Patient reports he quit taking his Keppra about 4 months ago. 03/05/2024 Patient is evaluated today on the medical floor. He is awake alert and oriented and doing well this morning does report some mild epigastric abdominal pain and has some tenderness with palpation. He has been started on keppra 750 mg BID and had no seizure like episode over night. An ateam was called due to patient flailing around in the bed and complaining of 10/10 severe left lower quadrant and flank pain, and also having some chest pain. This activity is coming and going in episodes where patient is flaccid and then attempts to get up out of the bed/kicking and flailing in pain. He was taken for a stat chest abdomen pelvis CT without contrast; CT CAP reveals no CT evidence for acute process on this noncontrast exam there is colonic diverticulosis without evidence for acute diverticulitis. Patient recently had a defibrillator placed 8 weeks ago. He had an EEG revealing background slowing suggestive of mild to moderate encephal opathy. The ICD was interrogated and no reports of any arrhythmia or shocks fired. Upon follow patient no longer having episodes and he is alert oriented x 3 with no acute complaints. Family is at the bedside. Said he had similar episode in the EC. Blood work today reveals BUN 31 creatinine 1.55. Review of Systems Constitutional: Denied any fatigue denied any fever. Cardio vascular: denied any chest pain, palpitations Gastrointestinal: denied any nausea, vomiting, diarrhea Pulmonary: Denied any shortness of breath cough Neurologic denied any new focal deficits All inpatient medications were reviewed and appropriate changes in these medications as dictated in the interval history and assessment and plan. PHYSICAL EXAMINATION: GENERAL: The patient is alert and oriented x3, not in any acute distress. Well developed, well nourished. HEENT: Pupils are round and equally reacting to light. EOMI. No scleral icterus. No conjunctival pallor. Normocephalic, atraumatic. No pharyngeal erythema. No thyromegaly. CARDIOVASCULAR: S1 and S2 present. No murmurs, rubs, or gallops. PULMONARY: Chest is clear to auscultation, no wheezing or crackles. ABDOMEN: Soft, nontender, nondistended, normoactive bowel sounds. No palpable organomegaly. MUSCULOSKELETAL: No joint swelling or deformity. EXTREMITIES: No cyanosis, clubbing, or pedal edema. NEUROLOGICAL: Gross neurological examination did not reveal any focal deficits. SKIN: No rashes. Assessment and Plan Breakthrough seizure in the ER, in a patient with history of newly diagnosed seizure disorder 12/13, on Keppra. Quit taking his Keppra 4 months ago. Lactic acidosis secondary to the above Acute hypoxic respiratory failure secondary to the above, resolved Ischemic cardiomyopathy EF 25-30% s/p dual chamber AICD 8 weeks ago Dehydration secondary to nausea vomiting diarrhea and decreased diet intake Hyponatremia mild secondary to the above Acute renal failure, ATN, secondary to PATIENCE inhibitors, dehydration and hypotension Chronic kidney disease stage III, baseline creatinine around 1.3 Chronic asthma Diabetes mellitus type 2 Gastroesophageal reflux disease Chronic CHF systolic dysfunction CAD, history of stents History of hypertension Hyperlipidemia Peripheral vascular disease with history of lower extremity vascular stenting Chronic back pain, follows with Dr. Vee Gait dysfunction, uses a walker and a cane Daily marijuana use-smokes. DVT prophylaxis GI prophylaxis Plan Patient has been resumed on oral keppra 750 mg BID Defibrillator has been interrogated with no acute issues found Cardiology evaluation Continue to hold diuretics and continue with IV hydration. PT/OT consultation Neurology following Repeat blood work in the AM. The impression and plan of care has been dictated by Karissa Valentine, Nurse Practitioner as directed. Dr. Ricardo MD I have performed a history and physical examination and medical decision making of this patient, discussed the same with the dictator, and agree with the dic tators assessment and plan as written, documented as a scribe. Based on total visit time, I have performed more than 50% of this visit. Objective - Vital Signs Vital signs: Vital Signs Temp 97.8 F 03/05/24 08:51 Pulse 52 L 03/05/24 11:51 Resp 16 03/05/24 11:51 BP 100/53 03/05/24 12:29 Pulse Ox 97 03/05/24 11:51 FiO2 Intake & Output 03/04/24 03/05/24 03/05/24 18:59 06:59 18:59 Intake Total 1558 240 356 Output Total 400 550 Balance 1558 -160 -194 Weight 87.6 kg Intake: Intake, IV Titration 1200 Amount Sodium Chloride 0.9% 1, 1200 000 ml @ 100 mls/hr IV . Q10H [facility] Rx#:[id number] Oral 358 240 356 Output: Urine 400 550 Other: Voiding Method Urinal Urinal # Voids 3 # Bowel Movements 1 - Labs CBC & Chem 7: 03/04/24 07:38 03/05/24 10:42 Labs: Abnormal Lab Results - Last 24 Hours (Table) 03/04/24 03/04/24 03/04/24 Range/Units 07:38 16:52 19:48 Chloride (98-107) mmol/L Carbon Dioxide (22-30) mmol/L BUN (9-20) mg/dL Creatinine (0.66-1.25) mg/dL Glucose (74-99) mg/dL POC Glucose (mg/dL) 195 H 274 H (70-110) mg/dL Hemoglobin A1c 6.4 H (<=6.0) % Calcium (8.4-10.2) mg/dL 03/05/24 03/05/24 03/05/24 Range/Units 05:30 10:42 11:43 Chloride 113 H (98-107) mmol/L Carbon Dioxide 19 L (22-30) mmol/L BUN 31 H (9-20) mg/dL Creatinine 1.55 H (0.66-1.25) mg/dL Glucose 122 H (74-99) mg/dL POC Glucose (mg/dL) 114 H 149 H (70-110) mg/dL Hemoglobin A1c (<=6.0) % Calcium 8.1 L (8.4-10.2) mg/dL Assessment and Plan Time with Patient: Less than 30
[2024-03-06 05:32] LABS: Glucose,Whole Blood <20 mg/dL (70-110)
[2024-03-06 05:32] LABS: Glucose,Whole Blood 111 mg/dL (70-110)
[2024-03-06 08:27] VITALS: RESP 16
[2024-03-06] MEDS: levETIRAcetam 500 MG TAB PO SCH (08:34)
[2024-03-06 10:37] LABS: Basophils % (A) 1 %; Eosinophils # (A) 0.4 k/uL (0-0.7); Eosinophils % (A) 7 %; HCT 33.7 % (39.0-53.0); HGB 10.7 gm/dL (13.0-17.5); Lymphocytes # (A) 0.8 k/uL (1.0-4.8); Lymphocytes % (A) 14 %; MCH 30.4 pg (25.0-35.0); MCHC 31.8 g/dL (31.0-37.0); MCV 95.5 fL (80.0-100.0); Mean Platelet Volume 8.5; Monocytes # (A) 0.4 k/uL (0-1.0); Monocytes % (A) 7 %; Neutrophils # (A) 3.7 k/uL (1.3-7.7); Neutrophils % (A) 70 %; Platelet Count 120 k/uL (150-450); RBC 3.53 m/uL (4.30-5.90); RDW 13.2 % (11.5-15.5); WBC 5.4 k/uL (3.8-10.6)
[2024-03-06 10:50] LABS: African American GFR (CKD) 52 (>60 ml/min/1.73 sqM); Anion Gap 4 mmol/L; Blood Urea Nitrogen 26 mg/dL (9-20); Calcium 7.6 mg/dL (8.4-10.2); Carbon Dioxide 24 mmol/L (22-30); Chloride 114 mmol/L (98-107); Glucose 102 mg/dL (74-99); Magnesium 1.6 mg/dL (1.6-2.3); Non-African American GFR(CKD) 45 (>60 ml/min/1.73 sqM); Potassium 4.6 mmol/L (3.5-5.1); Sodium 142 mmol/L (137-145)
[2024-03-06] MEDS: LORazepam 2 MG/ML INJ IV STA (10:54)
--- NOTE | 2024-03-06 11:09 | CA ---
Transthoracic Echo Report Name: Augustine Antoine Age: 68 Gender: M : 1955 Exam Date: 03/06/2024 07:38 Exam Location: [facility] Ht (in): 70 Wt (lb): 193 Ordering Physician: Donald Egan MD ([id number]) Attending/Referring Phys: Cloud Administrator Raquel Tran RDCS Procedure CPT: Indications: LVEF and pericardial effusion Cardiac Hx: Technical Quality: Technically difficult study Contrast 1: Definity Total Dose (mL): 2 Contrast 2: Total Dose (mL): MEASUREMENTS (Male / Female) Normal Values 2D ECHO LV Diastolic Volume MOD BP 258.2 cm??? 67 - 155 / 56 - 104 cm??? LV Systolic Volume MOD BP 215.0 cm??? 22 - 58 / 19 - 49 cm??? LV Ejection Fraction MOD BP 16.7 % >= 55 % LV Cardiac Index MOD BP 1030.4 cm???/min???m??? LV Diastolic Volume MOD 4C 232.6 cm??? LV Systolic Volume MOD 4C 197.0 cm??? LV Ejection Fraction MOD 4C 15.3 % LV Cardiac Index MOD 4C 848.7 cm???/min???m??? LV Diastolic Length 4C 9.4 cm LV Systolic Length 4C 8.8 cm LV Diastolic Volume MOD 2C 255.5 cm??? LV Systolic Volume MOD 2C 220.0 cm??? LV Ejection Fraction MOD 2C 13.9 % LV Cardiac Index MOD 2C 845.9 cm???/min???m??? LV Diastolic Length 2C 10.6 cm LV Systolic Length 2C 9.4 cm FINDINGS Left Ventricle Left ventricular ejection fraction is estimated at 15-20 %. Severely increased left ventricular diastolic volume. Severely increased left ventricular systolic volume. Severely decreased left ventricular ejection fraction. Right Ventricle Normal right ventricular size by visual with mildly reduced function. Right Atrium Right atrium not well visualized. Left Atrium Left atrial dilatation by visual. Mitral Valve Aortic Valve Tricuspid Valve Pulmonic Valve Pericardium No pericardial effusion. Aorta CONCLUSIONS Severe LV dysfunction ejection fraction less than 20% No pericardial effusion Previewed by: Dr. David Montesinos MD (Electronically Signed) Final Date: 06 March 2024 11:08
[2024-03-06] MEDS: LORazepam 2 MG/ML INJ ONE (11:22)
[2024-03-06 11:36] LABS: Glucose,Whole Blood 139 mg/dL (70-110)
--- NOTE | 2024-03-06 12:11 | P.PN ---
Subjective Progress Note Date: 03/05/24 Nurse called me while I was with another patient for patient is shaking rule out seizure. I came in to see the patient, and he was randomly moving his extremities, moaning. Patient stating that his abdomen hurting, pointing to the left lower quadrant. He then started moving his extremities more aggressively, then suddenly had a episode of unresponsiveness in which his heart rate dropped, and also blood pressure dropped. CODE BLUE was called. Apparently while he was being examined by the nursing staff, and his belly was palpated, he started wincing, then came to, and started randomly moving his extremities, talking and responding appropriately. Very unusual response. Did not appear like a se izure. Stat CT of the abdomen and pelvis was done, which came back negative for any acute process. Cardiology was consulted. I saw the patient at the end of the day again and he was back to normal. I saw patient numerous times for extended. Time for these spells. As per nursing report: "Patient was complaining of chronic back pain and requested increased frequency of Oxycodone. This order was obtained by Dr. Amador, who gave order, but notified manual writer (RN) that he is not wildfire prevention specialist and [facility] is covering. Distillery Supervisor (RN) gave patient the medication. Shortly after swallowing medication (about 30 seconds), patient began with whole body tremors, but was verbally responding, stating he was in severe pain to the "left side." Dr. Foster was on 3 south and came to bedside. marketing systems analyst came to bedside. About 1 minute later, patient began violently thrashing and yelling. An a-team was called. Patient would intermittently slightly relax and report severe left side pain. At about 12:30, patient stopped verbally responding and body went limp. A weak, thready pulse was noted with no changes noted on telemetry. Patient was hooked up to the bedside monitor and pads were placed. Blood pressure dropped to 80/53. A stewart deleon was called by a RN in the room related to weak pulse and very slow, shallow respirations. Patient was ventilated using BVM by RT. Patient was not verbally responsive from about 12:30-12:35 with thready pulse and shallow respirations. A new IV was inserted in the left wrist, as patient removed left AC IV when he was violently thrashing. Upon IV insertion, patient began violently thrashing again. DIRECTOR MERIT SYSTEM to bedside, Karissa Valentine NP was made aware of the situation and or dered abdomen CT without contrast related to pain reported by patient to left side. Karissa Valentine NP came to bedside. Patient was taken to CT by manual writer (RN), chargeback analyst, MARKET RESEARCH SPECIALIST, Karissa Valentine WIND ENERGY ENGINEER, and Charlette Jean WIND ENERGY ENGINEER. Patient was brought back to the room. Patient's vitals returned within normal limits. Pacemaker was interrogated per Karissa Valentine NP orders. Patient began verbally responding again, reporting continued pain and nausea. At 1302, Karissa Valentine NP gave orders for Zofran and Morphine, which were given to patient. Patient continued with intermittent episodes of thrashing, though less violent than before. A patient safety leader was brought to bedside related to the thrashing, need for O2 to be kept in place, and patient confusion. At 1309, manual writer (RN) called patient's Next of Kin, Falguni, and updated her regarding patient's change in condition. All questions were answered. Dr. Egan to bedside, reviewed pacemaker interrogation, and states no cardiac events were noted. He states he is concerned that this is related to neurology. Distillery Supervisor (RN) notified Karissa Valentine NP, regarding this". Objective - Vital Signs Vital signs: Vital Signs Temp 97.8 F 03/05/24 08:51 Pulse 52 L 03/05/24 11:51 Resp 16 03/05/24 11:51 BP 100/53 03/05/24 12:29 Pulse Ox 97 03/05/24 11:51 FiO2 Intake & Output 03/04/24 03/05/24 03/05/24 18:59 06:59 18:59 Intake Total 1558 240 356 Output Total 400 550 Balance 1558 -160 -194 Weight 87.6 kg Intake: Intake, IV Titration 1200 Amount Sodium Chloride 0.9% 1, 1200 000 ml @ 100 mls/hr IV . Q10H [facility] Rx#:[id number] Oral 358 240 356 Output: Urine 400 550 Other: Voiding Method Urinal Urinal # Voids 3 # Bowel Movements 1 - Exam At the end of the day patient examined and mentation normal. Patient smiling, appreciative of all the work done by the staff. Examination is nonfocal. - Labs CBC & Chem 7: 03/06/24 09:39 03/06/24 09:39 Labs: Abnormal Lab Results - Last 24 Hours (Table) 03/04/24 03/04/24 03/04/24 Range/Units 07:38 16:52 19:48 Chloride (98-107) mmol/L Carbon Dioxide (22-30) mmol/L BUN (9-20) mg/dL Creatinine (0.66-1.25) mg/dL Glucose (74-99) mg/dL POC Glucose (mg/dL) 195 H 274 H (70-110) mg/dL Hemoglobin A1c 6.4 H (<=6.0) % Calcium (8.4-10.2) mg/dL 03/05/24 03/05/24 03/05/24 Range/Units 05:30 10:42 11:43 Chloride 113 H (98-107) mmol/L Carbon Dioxide 19 L (22-30) mmol/L BUN 31 H (9-20) mg/dL Creatinine 1.55 H (0.66-1.25) mg/dL Glucose 122 H (74-99) mg/dL POC Glucose (mg/dL) 114 H 149 H (70-110) mg/dL Hemoglobin A1c (<=6.0) % Calcium 8.1 L (8.4-10.2) mg/dL 03/05/24 Range/Units 12:32 Chloride (98-107) mmol/L Carbon Dioxide (22-30) mmol/L BUN (9-20) mg/dL Creatinine (0.66-1.25) mg/dL Glucose (74-99) mg/dL POC Glucose (mg/dL) 193 H (70-110) mg/dL Hemoglobin A1c (<=6.0) % Calcium (8.4-10.2) mg/dL Assessment and Plan Assessment: * Seizure disorder. Patient admitted to the hospital for abnormal labs, but wh ile in the ER patient had a breakthrough seizure. Patient had presented with new onset seizure in November 2022 when he was admitted to the hospital for several days. He was discharged on Keppra which he took for almost a year, stopped taking it 4 months ago, and now had a breakthrough seizure. * Abnormal behavior, with random movement of the extremities complaining of abdominal pain, followed by vasovagal syncope and unresponsiveness. Uncertain if represents seizure, or some psychiatric event. Cardiac causes ruled out, abdominal CT negative. * Acute kidney injury, improved. * Mild hyponatremia sodium 133. * Lactic acidosis, likely due to seizure. 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 * History of pacemaker placement 8 weeks ago * Chronic back pain Plan: * EEG was abnormal due to background slowing of mild to moderate degree, suggestive of encephalopathy. No focal, lateralized or epileptiform activity was seen. * Patient wants to go back on seizure medication. Increase Keppra to 1000 mg twice daily. * Continue Eliquis. Patient takes Eliquis and Plavix for cardiac reasons. * Recommend patient no driving for 6 months, climbing ladders, operating dangerous machinery or unsupervised swimming. * We will observe overnight. Time with Patient: Greater than 30
[2024-03-06 16:44] LABS: Glucose,Whole Blood 103 mg/dL (70-110)
--- NOTE | 2024-03-06 18:18 | P.PN ---
Subjective patient is seen for follow-up for acute kidney injury. Currently maintained on IV fluids. Renal function has improved with serum creatinine down to 1.5 mg/dL. No significant complaints today. Objective - Vital Signs Vital signs: Vital Signs Temp 97.6 F 03/06/24 15:19 Pulse 60 03/06/24 15:19 Resp 16 03/06/24 15:19 BP 114/72 03/06/24 15:19 Pulse Ox 96 03/06/24 15:19 FiO2 Intake & Output 03/05/24 03/06/24 03/06/24 18:59 06:59 18:59 Intake Total 986 63 5695 Output Total 6850 427 3715 Balance -954 -513 -450 Intake: IV 10 Invasive Line 2 10 Intake, IV Titration 1200 Amount Sodium Chloride 0.9% 1, 1200 000 ml @ 100 mls/hr IV . Q10H [facility] Rx#:[id number] Oral 474 40 240 Output: Urine 8816 627 6519 Other: Voiding Method Urinal Urinal Urinal # Voids 1 # Bowel Movements 1 - Exam patient is awake, comfortable, no acute distress. Alert oriented 3. Examination of the heart S1 and S2 Examination of the lungs bilateral breath sounds are heard Abdomen is soft nontender Examination of lower extremities shows no edema LINE CAMERA OPERATOR exam grossly intact - Labs CBC & Chem 7: 03/06/24 09:39 03/06/24 09:39 Labs: Abnormal Lab Results - Last 24 Hours (Table) 03/05/24 03/06/24 03/06/24 Range/Units 19:50 05:25 05:29 RBC (4.30-5.90) m/uL Hgb (13.0-17.5) gm/dL Hct (39.0-53.0) % Plt Count (150-450) k/uL Lymphocytes # (1.0-4.8) k/uL Chloride (98-107) mmol/L BUN (9-20) mg/dL Creatinine (0.66-1.25) mg/dL Glucose (74-99) mg/dL POC Glucose (mg/dL) 182 H <20 L* 111 H (70-110) mg/dL Calcium (8.4-10.2) mg/dL 03/06/24 03/06/24 03/06/24 Range/Units 09:39 09:39 11:35 RBC 3.53 L (4.30-5.90) m/uL Hgb 10.7 L (13.0-17.5) gm/dL Hct 33.7 L (39.0-53.0) % Plt Count 120 L (150-450) k/uL Lymphocytes # 0.8 L (1.0-4.8) k/uL Chloride 114 H (98-107) mmol/L BUN 26 H (9-20) mg/dL Creatinine 1.58 H (0.66-1.25) mg/dL Glucose 102 H (74-99) mg/dL POC Glucose (mg/dL) 139 H (70-110) mg/dL Calcium 7.6 L (8.4-10.2) mg/dL Assessment and Plan Assessment: 1. Acute kidney injury, ATN, nonoliguric secondary to hypotension in the setting of use of PATIENCE inhibitor's and volume depletion. UA shows 2+ protein and small blood. 2. Chronic kidney disease NKF stage III with previous creatinine 1.3 in August 2023 likely secondary to diabetic kidney disease. 3. Volume depletion 4. Coronary artery disease 5. Type 2 diabetes maintained on metformin Plan: continue with IV fluids. Continue to hold PATIENCE inhibitor's. encouraged increased oral intake. Repeat labs in a.m. T
--- NOTE | 2024-03-06 18:32 | P.PN ---
Subjective Progress Note Date: 03/06/24 Progress note March 06, 2024 Patient had another episode this morning around 10:30 AM for jerking movement of his upper extremities and his shoulder girdle. One of the differential to consider would be pseudoseizures. During this event patient did not have any atrial or ventricular arrhythmias on telemetry monitoring. HISTORY OF PRESENTING ILLNESS 67-year-old male with past medical history of seizure, coronary artery disease status post multiple PCI, ischemic cardiomyopathy with EF 30%, peripheral v ascular disease, status post dual-chamber ICD since December 2023 for primary prevention. He also has history of tobacco smoking, marijuana use, chronic back pain. He presented to the hospital because of increased fatigue and generalized weakness along with reduced oral intake, nausea vomiting and diarrhea and abdominal discomfort. On admission there was also concern of possible breakthrough seizure. His last seizure was in November 2022. Apparently patient was taken off his Keppra at the facility where he lives. On admission his creatinine was 2.0, blood pressure 105/70, heart rate 94, sinus rhythm, elevated lactate. He was treated with IV fluids. Today morning, patient had an episode of getting agitated and confused along with jerky movement of his bilateral upper and lower extremity. There was a question of possible seizure-like activity, however it seems less likely from the way of description of his extremity movements. Patient also was noticed to have a weak and thready pulse for which CODE BLUE was called but no chest compressions were done or shock were delivered. Patient does have ICD. An ICD interrogation was performed which did not show any evidence of atrial fibri llation or any ventricular arrhythmias. At the time of bedside evaluation, patient was very drowsy and sleepy. He was only arousable to painful stimuli and touch. He denies having any active chest pain chest pressure. He does not appear volume overloaded. REVIEW OF SYSTEMS Could not be obtained as patient is drowsy PHYSICAL EXAMINATION Head: Normocephalic. Eyes: Sclerae nonicteric. Neck: Brisk carotid upstroke, no jugular venous distention. Lungs: Reduced inspiratory effort, reduced air entry bilateral lower lung quinones, otherwise lungs clear to auscultate Heart: Regular rate and rhythm, S1-S2, no murmur or rub. Abdomen: Soft nontender, Extremities: No edema, Neuro: Drowsy but arousable with touch and painful stimuli. Detailed neuro exam was not performed. ASSESSMENT Metabolic encephalopathy Seizure disorder Encephalomalacia over right appropriately junction SUKI, likely dehydration related from poor oral intake and diarrhea Hyponatremia, likely hypovolemic CAD with multiple PCI Ischemic cardiomyopathy with EF of 25%. Status post AICD dual-chamber, December 2023 Hypertension Dyslipidemia Chronic back pain Tobacco use Marijuana use Cardiac testing Limited echo showed an EF of 20%. This has not improved from November 2022 PLAN Patient's AICD interrogation did not show any evidence of atrial fibrillation or any ventricular arrhythmias. Patient's event of getting acutely confused agitated with jerky extremity movements is less likely cardiogenic in etiology. He does not have any signs of fluid overload at this moment. He in fact appears mildly dehydrated. Patient does not appear volume overloaded. Hold diuretics at this time. Reevaluate him prior to discharge if he needs diuretic to go home with. Continue Plavix 75 mg, Eliquis 5 mg twice daily. Continue metoprolol succinate 100 mg daily Start losartan 25 mg daily, Aldactone 12.5 mg daily. Once patient's oral intake is back to normal, consider adding SGLT2. Overall patient's current metabolic encephalopathy and jerking movements cannot be explained from cardiovascular etiology at this time. Cardiology team will sign off at this time. Please reconsult us in case of any questions Objective - Vital Signs Vital signs: Vital Signs Temp 97.6 F 03/06/24 15:19 Pulse 60 03/06/24 15:19 Resp 16 03/06/24 15:19 BP 114/72 03/06/24 15:19 Pulse Ox 96 03/06/24 15:19 FiO2 Intake & Output 03/05/24 03/06/24 03/06/24 18:59 06:59 18:59 Intake Total 180 02 5529 Output Total 4616 057 1926 Balance -951 -660 30 Intake: IV 10 Invasive Line 2 10 Intake, IV Titration 1200 Amount Sodium Chloride 0.9% 1, 1200 000 ml @ 100 mls/hr IV . Q10H [facility] Rx#:[id number] Oral 474 40 720 Output: Urine 4243 264 8317 Other: Voiding Method Urinal Urinal Urinal # Voids 1 # Bowel Movements 1 - Labs CBC & Chem 7: 03/06/24 09:39 03/06/24 09:39 Labs: Abnormal Lab Results - Last 24 Hours (Table) 03/05/24 03/06/2424 Range/Units 19:50 05:25 05:29 RBC (4.30-5.90) m/uL Hgb (13.0-17.5) gm/dL Hct (39.0-53.0) % Plt Count (150-450) k/uL Lymphocytes # (1.0-4.8) k/uL Chloride (98-107) mmol/L BUN (9-20) mg/dL Creatinine (0.66-1.25) mg/dL Glucose (74-99) mg/dL POC Glucose (mg/dL) 182 H <20 L* 111 H (70-110) mg/dL Calcium (8.4-10.2) mg/dL 03/06/24 03/06/24 03/06/24 Range/Units 09:39 09:39 11:35 RBC 3.53 L (4.30-5.90) m/uL Hgb 10.7 L (13.0-17.5) gm/dL Hct 33.7 L (39.0-53.0) % Plt Count 120 L (150-450) k/uL Lymphocytes # 0.8 L (1.0-4.8) k/uL Chloride 114 H (98-107) mmol/L BUN 26 H (9-20) mg/dL Creatinine 1.58 H (0.66-1.25) mg/dL Glucose 102 H (74-99) mg/dL POC Glucose (mg/dL) 139 H (70-110) mg/dL Calcium 7.6 L (8.4-10.2) mg/dL
[2024-03-06] MEDS: SPIRONOLACTONE 25 MG TAB PO SCH (18:46)
[2024-03-06] MEDS: LOSARTAN 25 MG TAB PO SCH (18:46)
[2024-03-06 20:08] LABS: Glucose,Whole Blood 219 mg/dL (70-110)
[2024-03-06] MEDS ORDERED: Magnesium Replacement Protocol 1 EACH MISC MISCELLANE PRN (21:45)
--- NOTE | 2024-03-06 21:52 | P.PN ---
Subjective Progress Note Date: 03/06/24 This is a 68-year-old gentleman with past medical history significant for newly diagnosed seizures 12/13, recent permanent pacemaker implantation 8 weeks ago,chronic asthma, smokes marijuana daily,CAD, diabetes mellitus type 2, hypertension, hyperlipidemia, chronic back pain-follows with Dr. Vee ,and multi ple other medical issues directed to the ER per his PCP secondary to severe abnormal kidney labs, kidney failure. Reports increased weakness, fatigue. Reports decreased diet intake ,nausea,vomiting ,diarrhea x 1 week and abdominal discomfort. Denies syncope, fall or trauma. On admission, creatinine 2.0, decreased to 1.7, potassium 4.4, blood pressure soft , 105/70 , heart rate 94.afebrile, WBC 11.4-now normalized 6.2, lactic acid 6.8-decreased to 1.8 with IV fluid hydration. Blood sugars mildly elevated, A1c 6.4. Magnesium 1.5, supplemented, currently 1.7. UA negative. Toxicology screen reporting less than 1 on salicylates ,less than 10 on acetaminophen ,less than 10 and serum alcohol. Denies chest pain, palpitations or shortness of breath. EKG reported sinus rhythm ,on admission maintaining O2 sats in the high 90s on room air. While in the ER became unresponsive, Narcan attempted without results, attributed to possible seizure and neurology was consulted. Patient reports he quit taking his Keppra about 4 months ago. 03/05/2024 Patient is evaluated today on the medical floor. He is awake alert and oriented and doing well this morning does report some mild epigastric abdominal pain and has some tenderness with palpation. He has been started on keppra 750 mg BID and had no seizure like episode over night. An ateam was called due to patient flailing around in the bed and complaining of 10/10 severe left lower quadrant and flank pain, and also having some chest pain. This activity is coming and going in episodes where patient is flaccid and then attempts to get up out of the bed/kicking and flailing in pain. He was taken for a stat chest abdomen pelvis CT without contrast; CT CAP reveals no CT evidence for acute process on this noncontrast exam there is colonic diverticulosis without evidence for acute diverticulitis. Patient recently had a defibrillator placed 8 weeks ago. He had an EEG revealing background slowing suggestive of mild to moderate encephal opathy. The ICD was interrogated and no reports of any arrhythmia or shocks fired. Upon follow patient no longer having episodes and he is alert oriented x 3 with no acute complaints. Family is at the bedside. Said he had similar episode in the EC. Blood work today reveals BUN 31 creatinine 1.55. 03/06/2024 Patient evaluated today resting in bed. Had an episode of unresponsiveness told staff he felt he had another seizure and received IV ativan. Patient had a repeat echocardiogram done showing severe LV dysfunction with EF of 20%. White blood cell count 5.4, hemoglobin 10.7. Renal function improving BUN 26 creatinine 1.58. Magnesium 1.6. Hemodynamically he is stable. Review of Systems Constitutional: Denied any fatigue denied any fever. Cardio vascular: denied any chest pain, palpitations Gastrointestinal: denied any nausea, vomiting, diarrhea Pulmonary: Denied any shortness of breath cough Neurologic denied any new focal deficits All inpatient medications were reviewed and appropriate changes in these medications as dictated in the interval history and assessment and plan. PHYSICAL EXAMINATION: GENERAL: The patient is alert and oriented x3, not in any acute distress. Well developed, well nourished. HEENT: Pupils are round and equally reacting to light. EOMI. No scleral icterus. No conjunctival pallor. Normocephalic, atraumatic. No pharyngeal erythema. No thyromegaly. CARDIOVASCULAR: S1 and S2 present. No murmurs, rubs, or gallops. PULMONARY: Chest is clear to auscultation, no wheezing or crackles. ABDOMEN: Soft, nontender, nondistended, normoactive bowel sounds. No palpable organomegaly. MUSCULOSKELETAL: No joint swelling or deformity. EXTREMITIES: No cyanosis, clubbing, or pedal edema. NEUROLOGICAL: Gross neurological examination did not reveal any focal deficits. SKIN: No rashes. Assessment and Plan Breakthrough seizure in the ER, in a patient with history of newly diagnosed seizure disorder 12/13, on Keppra. Quit taking his Keppra 4 months ago. Possible pseudoseizure psychiatry consulted. Lactic acidosis secondary to the above Acute hypoxic respiratory failure secondary to the above, resolved Ischemic cardiomyopathy EF 25-30% s/p dual chamber AICD 8 weeks ago Dehydration secondary to nausea vomiting diarrhea and decreased diet intake Hyponatremia mild secondary to the above Acute renal failure, ATN, secondary to PATIENCE inhibitors, dehydration and hypotension Chronic kidney disease stage III, baseline creatinine around 1.3 Chronic asthma Diabetes mellitus type 2 Gastroesophageal reflux disease Chronic CHF systolic dysfunction CAD, history of stents History of hypertension Hyperlipidemia Peripheral vascular disease with history of lower extremity vascular stenting Chronic back pain, follows with Dr. Vee Gait dysfunction, uses a walker and a cane Daily marijuana use-smokes. DVT prophylaxis GI prophylaxis Plan Patient has been resumed on oral keppra 750 mg BID Defibrillator has been interrogated with no acute issues found Cardiology evaluation Continue to hold diuretics and continue with IV hydration. PT/OT consultation Neurology following Repeat blood work in the AM. The impression and plan of care has been dictated by Karissa Valentine Nurse Practitioner as directed. Dr. Ricardo MD I have performed a history and physical examination and medical decision making of this patient, discussed the same with the dictator, and agree with the dictators assessment and plan as written, documented as a scribe. Based on total visit time, I have performed more than 50% of this visit. Objective - Vital Signs Vital signs: Vital Signs Temp 97.6 F 03/06/24 15:19 Pulse 60 03/06/24 15:19 Resp 16 03/06/24 15:19 BP 114/72 03/06/24 15:19 Pulse Ox 96 03/06/24 15:19 FiO2 Intake & Output 03/05/24 03/06/24 03/06/24 18:59 06:59 18:59 Intake Total 947 46 9277 Output Total 1425 700 925 Balance -951 -660 525 Intake: IV 10 Invasive Line 2 10 Intake, IV Titration 1200 Amount Sodium Chloride 0.9% 1, 1200 000 ml @ 100 mls/hr IV . Q10H [facility] Rx#:[id number] Oral 474 40 240 Output: Urine 1425 700 925 Other: Voiding Method Urinal Urinal Urinal # Voids 1 # Bowel Movements 1 - Labs CBC & Chem 7: 03/06/24 09:39 03/06/24 09:39 Labs: Abnormal Lab Results - Last 24 Hours (Table) 03/05/24 03/05/24 03/06/24 Range/Units 16:58 19:50 05:25 RBC (4.30-5.90) m/uL Hgb (13.0-17.5) gm/dL Hct (39.0-53.0) % Plt Count (150-450) k/uL Lymphocytes # (1.0-4.8) k/uL Chloride (98-107) mmol/L BUN (9-20) mg/dL Creatinine (0.66-1.25) mg/dL Glucose (74-99) mg/dL POC Glucose (mg/dL) 117 H 182 H <20 L* (70-110) mg/dL Calcium (8.4-10.2) mg/dL 03/06/24 03/06/24 03/06/24 Range/Units 05:29 09:39 09:39 RBC 3.53 L (4.30-5.90) m/uL Hgb 10.7 L (13.0-17.5) gm/dL Hct 33.7 L (39.0-53.0) % Plt Count 120 L (150-450) k/uL Lymphocytes # 0.8 L (1.0-4.8) k/uL Chloride 114 H (98-107) mmol/L BUN 26 H (9-20) mg/dL Creatinine 1.58 H (0.66-1.25) mg/dL Glucose 102 H (74-99) mg/dL POC Glucose (mg/dL) 111 H (70-110) mg/dL Calcium 7.6 L (8.4-10.2) mg/dL 03/06/24 Range/Units 11:35 RBC (4.30-5.90) m/uL Hgb (13.0-17.5) gm/dL Hct (39.0-53.0) % Plt Count (150-450) k/uL Lymphocytes # (1.0-4.8) k/uL Chloride (98-107) mmol/L BUN (9-20) mg/dL Creatinine (0.66-1.25) mg/dL Glucose (74-99) mg/dL POC Glucose (mg/dL) 139 H (70-110) mg/dL Calcium (8.4-10.2) mg/dL Assessment and Plan Time with Patient: Less than 30
[2024-03-06] MEDS: MAGNESIUM SULFATE-D5W PMX 1 GM in DEXTROSE/WATER 1 100ML.BAG IVPB SCH (23:11)
--- NOTE | 2024-03-06 23:15 | P.PN ---
Subjective Progress Note Date: 03/06/24 03/06/2024: Patient was seen for a follow-up. Patient already had received Ativan earlier today for similar abnormal spell. I was informed by the nurse at 10:49 AM, that the patient called the nurse into the room and states that he did not feel well. His vital signs were stable. Patient then started having jerking movements. She pinched his hand and he grabbed his hand but could not open his eyes. Patient received 1 mg of Ativan. At present he is asleep. 03/05/2024: Nurse called me while I was with another patient for patient is shaking rule out seizure. I came in to see the patient, and he was randomly moving his extremities, moaning. Patient stating that his abdomen hurting, pointing to the left lower quadrant. He then started moving his extremities more aggressively, then suddenly had a episode of unresponsiveness in which his heart rate dropped, and also blood pressure dropped. ALESIA CANO was called. Apparently while he was being examined by the nursing staff, and his belly was palpated, he started wincing, then came to, and started randomly moving his extremities, talking and responding appropriately. Very unusual response. Did not appear like a seizure. Stat CT of the abdomen and pelvis was done, which came back negative for any acute process. Cardiology was consulted. I saw the patient at the end of the day again and he was back to normal. I saw patient numerous times for extended. Time for these spells. As per nursing report: "Patient was complaining of chronic back pain and requested increased frequency of Oxycodone. This order was obtained by Dr. Amador, who gave order, but notified flex o writer operator (RN) that he is not management professionals and [facility] is covering. Pediatrician Managing Partner (RN) gave patient the medication. Shortly after swallowing medication (about 30 seconds), patient began with whole body tremors, but was verbally responding, stating he was in severe pain to the "left side." Dr. Foster was on 3 and came to bedside. electronics assembler and tester came to bedside. About 1 minute later, patient began violently thrashing and yelling. An a-team was called. Patient would intermittently slightly relax and report severe left side pain. At about 12:30, patient stopped verbally responding and body went limp. A weak, thready pulse was noted with no changes noted on telemetry. Patient was hooked up to the bedside monitor and pads were placed. Blood pressure dropped to 80/53. A code blue was called by a RN in the room related to weak pulse and very slow, shallow respirations. Patient was ventilated using BVM by RT. Patient was not verbally responsive from about 12:30-12:35 with thready pulse and shallow respirations. A new IV was inserted in the left wrist, as patient removed left AC IV when he was violently thrashing. Upon IV insertion, patient began violently thrashing again. RAILROAD PURCHASING AGENT to bedside, Karissa Valentine NP was made aware of the situation and ordered abdomen CT without contrast related to pain reported by patient to left side. Karissa Valentine SUPERVISOR STATEMENT CLERKS came to bedside. Patient was taken to CT by flex o writer operator (RN), storage battery charger, PATIENT SERVICE ASSOCIATE, Karissa Valentine SUPERVISOR STATEMENT CLERKS, and Charlette Jean SUPERVISOR STATEMENT CLERKS. Patient was brought back to the room. Patient's vitals returned within normal limits. Pacemaker was interrogated per Karissa Valentine NP orders. Patient began verbally responding again, reporting continued pain and nausea. At 1302, Karissa Valentine SUPERVISOR STATEMENT CLERKS gave orders for Zofran and Morphine, which were given to patient. Patient continued with intermittent episodes of thrashing, though less violent than before. A patient process safety engineer was brought to bedside related to the thrashing, need for O2 to be kept in place, and patient confusion. At 1309, flex o writer operator (RN) called patient's Next of Kin, Falguni, and updated her regarding patient's change in condition. All questions were answered. Dr. Egan to bedside, reviewed pacemaker interrogation, and states no cardiac events were noted. He states he is concerned that this is related to neurology. Pediatrician Managing Partner (RN) notified Karissa Valentine NP, regarding this". Objective - Vital Signs Vital signs: Vital Signs Temp 97.6 F 03/06/24 15:19 Pulse 60 03/06/24 15:19 Resp 16 03/06/24 15:19 BP 114/72 03/06/24 15:19 Pulse Ox 96 03/06/24 15:19 FiO2 Intake & Output 03/05/24 03/06/24 03/06/24 18:59 06:59 18:59 Intake Total 142 24 5913 Output Total 1425 700 925 Balance -951 -371 525 Intake: IV 10 Invasive Line 2 10 Intake, IV Titration 1200 Amount Sodium Chloride 0.9% 1, 1200 000 ml @ 100 mls/hr IV . Q10H [facility] Rx#:[id number] Oral 474 40 240 Output: Urine 1425 700 925 Other: Voiding Method Urinal Urinal Urinal # Voids 1 # Bowel Movements 1 - Exam Patient asleep at this time. No seizure-like activity noted. - Labs CBC & Chem 7: 03/06/24 09:39 03/06/24 09:39 Labs: Abnormal Lab Results - Last 24 Hours (Table) 03/05/24 03/05/24 03/06/24 Range/Units 16:58 19:50 05:25 RBC (4.30-5.90) m/uL Hgb (13.0-17.5) gm/dL Hct (39.0-53.0) % Plt Count (150-450) k/uL Lymphocytes # (1.0-4.8) k/uL Chloride (98-107) mmol/L BUN (9-20) mg/dL Creatinine (0.66-1.25) mg/dL Glucose (74-99) mg/dL POC Glucose (mg/dL) 117 H 182 H <20 L* (70-110) mg/dL Calcium (8.4-10.2) mg/dL 03/06/24 03/06/24 03/06/24 Range/Units 05:29 09:39 09:39 RBC 3.53 L (4.30-5.90) m/uL Hgb 10.7 L (13.0-17.5) gm/dL Hct 33.7 L (39.0-53.0) % Plt Count 120 L (150-450) k/uL Lymphocytes # 0.8 L (1.0-4.8) k/uL Chloride 114 H (98-107) mmol/L BUN 26 H (9-20) mg/dL Creatinine 1.58 H (0.66-1.25) mg/dL Glucose 102 H (74-99) mg/dL POC Glucose (mg/dL) 111 H (70-110) mg/dL Calcium 7.6 L (8.4-10.2) mg/dL 06/14/24 Range/Units 11:35 RBC (4.30-5.90) m/uL Hgb (13.0-17.5) gm/dL Hct (39.0-53.0) % Plt Count (150-450) k/uL Lymphocytes # (1.0-4.8) k/uL Chloride (98-107) mmol/L BUN (9-20) mg/dL Creatinine (0.66-1.25) mg/dL Glucose (74-99) mg/dL POC Glucose (mg/dL) 139 H (70-110) mg/dL Calcium (8.4-10.2) mg/dL Assessment and Plan Assessment: * Possible seizure disorder versus functional disorder. Patient admitted to the hospital for abnormal labs, but while in the ER patient had a breakthrough seizure. Patient had presented with new onset seizure in November 2022 when he was admitted to the hospital for several days. He was discharged on Keppra which he took for almost a year, stopped taking it 4 months ago, and now had a breakthrough seizure. * Abnormal behavior/movement disorder 03/05/2024 (while inpatient), with random movement of the extremities complaining of abdominal pain, followed by vasovagal syncope and unresponsiveness. Uncertain if represents seizure, or some psychiatric event. Cardiac causes ruled out, abdominal CT negative. * Acute kidney injury, improved. * Mild hyponatremia sodium 133. * Lactic acidosis, likely due to seizure. 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 * History of pacemaker placement 8 weeks ago * Chronic back pain Plan: * EEG was abnormal due to background slowing of mild to moderate degree, suggestive of encephalopathy. No focal, lateralized or epileptiform activity was seen. * Patient wants to go back on seizure medication. Patient was initially placed on Keppra 750 mg twice daily, but after the spell on 03/05/2024, increase dose of Keppra to 1000 mg twice daily. * Continue Eliquis. Patient takes Eliquis and Plavix for cardiac reasons. * Recommend patient no driving for 6 months, climbing ladders, operating dangerous machinery or unsupervised swimming. * Patient may need prolonged EEG monitoring to evaluate for epileptic versus nonepileptic events. * Dr. Ramirez to cover neurology service over the weekend.
[2024-03-06 23:21] LABS: Glucose,Whole Blood 242 mg/dL (70-110)
[2024-03-07 06:07] LABS: Glucose,Whole Blood 104 mg/dL (70-110)
[2024-03-07 11:46] LABS: Glucose,Whole Blood 180 mg/dL (70-110)
[2024-03-07 12:02] VITALS: BP 106/75; PULSE 56; TEMP 98.3
--- NOTE | 2024-03-07 12:31 | P.PN ---
Subjective Progress Note Date: 03/07/24 The patient is a 68-year-old male who was seen in neurologic follow-up on March 07, 2024, in collaboration with Joanne Isabel, via teleneurology. The patient's chart has been reviewed. This morning, the patient is seated in the bed. He reports having a headache. He says the headache has been present since his admission. He denies any worsening of the headache. Patient denies any abnormal movements overnight. He denies any seizures. Objective - Vital Signs Vital signs: Vital Signs Temp 98.2 F 03/07/24 07:45 Pulse 58 L 03/07/24 07:45 Resp 16 03/07/24 07:45 BP 131/81 03/07/24 07:45 Pulse Ox 98 03/07/24 07:45 FiO2 Intake & Output 03/06/24 03/07/24 03/07/24 18:59 06:59 18:59 Intake Total 1930 540 485 Output Total 1900 1275 Balance 30 -735 485 Intake: IV 10 5 Invasive Line 2 10 Invasive Line 3 5 Intake, IV Titration 1200 Amount Sodium Chloride 0.9% 1, 1200 000 ml @ 100 mls/hr IV . Q10H [facility] Rx#:[id number] Oral 720 540 480 Output: Urine 1900 1275 Other: Voiding Method Urinal Urinal Urinal # Voids 1 - Exam General: The patient is seated in the bed. He is well-nourished, well-developed and in no acute distress. HEENT: Head is atraumatic, normocephalic. Fundus not visualized. There is no scleral icterus. Mucous membranes are moist. Neurological examination Mental status: The patient is awake, alert and oriented x 3. His speech is clear. There is no dysarthria or aphasia. The patient is able to communicate effectively with me. He answers all questions. Cranial nerves: 2-12 grossly intact Motor: There are no abnormal movements - Labs CBC & Chem 7: 03/06/24 09:39 03/06/24 09:39 Labs: Abnormal Lab Results - Last 24 Hours (Table) 03/06/24 03/06/24 03/06/24 Range/Units 09:39 09:39 11:35 RBC 3.53 L (4.30-5.90) m/uL Hgb 10.7 L (13.0-17.5) gm/dL Hct 33.7 L (39.0-53.0) % Plt Count 120 L (150-450) k/uL Lymphocytes # 0.8 L (1.0-4.8) k/uL Chloride 114 H (98-107) mmol/L BUN 26 H (9-20) mg/dL Creatinine 1.58 H (0.66-1.25) mg/dL Glucose 102 H (74-99) mg/dL POC Glucose (mg/dL) 139 H (70-110) mg/dL Calcium 7.6 L (8.4-10.2) mg/dL 03/06/24 03/06/24 Range/Units 20:06 23:19 RBC (4.30-5.90) m/uL Hgb (13.0-17.5) gm/dL Hct (39.0-53.0) % Plt Count (150-450) k/uL Lymphocytes # (1.0-4.8) k/uL Chloride (98-107) mmol/L BUN (9-20) mg/dL Creatinine (0.66-1.25) mg/dL Glucose (74-99) mg/dL POC Glucose (mg/dL) 219 H 242 H (70-110) mg/dL Calcium (8.4-10.2) mg/dL Assessment and Plan Assessment: * Possible seizure disorder versus functional disorder. Patient admitted to the hospital for abnormal labs, but while in the ER patient reportedly had a breakthrough seizure. Patient had presented with new onset seizure in November 2022 when he was admitted to the hospital for several days. He was discharged on Keppra which he took for almost a year, stopped taking it 4 months ago, and now had a breakthrough seizure. * Abnormal behavior/movement disorder 03/05/2024 (while inpatient), with random movement of the extremities complaining of abdominal pain, followed by vasovagal syncope and unresponsiveness. Uncertain if represents seizure, or some psychiatric event. Cardiac causes ruled out, abdominal CT negative. * Acute kidney injury, improved. * Mild hyponatremia sodium 133. * Lactic acidosis, likely due to seizure. 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 * History of pacemaker placement 8 weeks ago * Chronic back pain Plan: EEG was abnormal due to background slowing of mild to moderate degree, suggestive of encephalopathy. No focal, lateralized or epileptiform activity was seen. * Patient wants to go back on seizure medication. Patient was initially placed on Keppra 750 mg twice daily, but after the spell on 03/05/2024, increase dose of Keppra to 1000 mg twice daily. * Continue Eliquis. Patient takes Eliquis and Plavix for cardiac reasons. * Recommend patient no driving for 6 months, climbing ladders, operating dangerous machinery or unsupervised swimming. * Patient may need prolonged EEG monitoring to evaluate for epileptic versus nonepileptic events. * The patient should follow-up with neurology as an outpatient * No further neurologic intervention is needed at this time. Neurology will sign off. Please call with questions or concerns. Time with Patient: Greater than 30 (35 minutes were spent caring for this patient today including obtaining a history, examining the patient, reviewing imaging, chart documentation, labs and creating this note)
--- NOTE | 2024-03-07 15:29 | P.CN ---
Psychiatric Consult - . Consult date: 03/07/24 Consult:: 03/07/24 15:24 This case is 68-year-old male was being seen because of some strange behaviors that could be "pseudoseizures" I talked to him he is alert oriented fairly cooperative and she very positive about our interaction is verbose former men. I saw no signs of psychosis he did allude to the fact that sometimes when he turns his head to the left he blacks out which could easily be vascular in neurologic and when he tur ns his head to the right is fine. 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 His main complaint is that he notices that when other people do rude or irrational things that he really can't doing about he gets from being irritated to really overreacting instantly and he would like to have something they gives him a second to get a hold of his response before he loses. He is on Seroquel which should do that but is only on a small dose of believe 50 twice a day. Important to remember that a maximum dose of be thousand 200 mg. It helps with anxiety anger and irritability between 103 100 per day. It also works for about 18 hours and quits so that's why the twice a day. Other than that no signs of bipolar no psychosis he is intelligent oriented. Short-term memory is slightly impaired I gave him 3 things to remember and he could remember 2 of 3 after 3 minutes he could only name the last 3 presidents and 2 of the great [employer]. At least his answers were on topic he denied any history of manic episodes just this overactivity with anger which is consistent. Assessment he could have ADHD or intermittent explosive disorder but he definitely needs help with over anger as it will impair him getting the help that he needs. Plan I recommend increasing the Seroquel 200 twice a day if he is not too sleepy and still getting angry too easily consider increasing at 200 and the morning and 200 at night after discharge plan don't see him as a danger to himself or others other than damaging relationships by getting too mad
--- NOTE | 2024-03-07 19:29 | P.PN ---
Subjective Progress Note Date: 03/07/24 Patient is seen for follow-up for acute kidney injury. Currently maintained on IV fluids. Renal function has improved with serum creatinine down to 1.5 mg/dL. No new complaints. Patient is awake, comfortable, no acute distress. Alert oriented 3. Examination of the heart S1 and S2 Examination of the lungs bilateral breath sounds are heard Abdomen is soft nontender Examination of lower extremities shows no edema ENERGY SYSTEMS ENGINEER exam grossly intact Objective - Vital Signs Vital signs: Vital Signs Temp 98.2 F 03/07/24 07:45 Pulse 58 L 03/07/24 07:45 Resp 16 03/07/24 07:45 BP 131/81 03/07/24 07:45 Pulse Ox 98 03/07/24 07:45 FiO2 Intake & Output 03/06/24 03/07/24 03/07/24 18:59 06:59 18:59 Intake Total 1930 540 485 Output Total 1900 1275 350 Balance 30 -735 135 Intake: IV 10 5 Invasive Line 2 10 Invasive Line 3 5 Intake, IV Titration 1200 Amount Sodium Chloride 0.9% 1, 1200 000 ml @ 100 mls/hr IV . Q10H [facility] Rx#:[id number] Oral 720 540 480 Output: Urine 1900 1275 350 Other: Voiding Method Urinal Urinal Urinal # Voids 1 - Labs CBC & Chem 7: 03/06/24 09:39 03/06/24 09:39 Labs: Abnormal Lab Results - Last 24 Hours (Table) 03/06/24 03/06/24 03/07/24 Range/Units 20:06 23:19 11:44 POC Glucose (mg/dL) 219 H 242 H 180 H (70-110) mg/dL Assessment and Plan Assessment: 1. Acute kidney injury, ATN, nonoliguric secondary to hypotension in the setting of use of PATIENCE inhibitor's and volume depletion. UA shows 2+ protein and small blood. 2. Chronic kidney disease NKF stage III with previous creatinine 1.3 in August 2023 likely secondary to diabetic kidney disease. 3. Volume depletion 4. Coronary artery disease 5. Type 2 diabetes maintained on metformin Plan: D/C IV fluids if tolerating PO. Continue to hold PATIENCE inhibitor's. Encouraged increased oral intake. Renal function stable near baseline level. Clear for discharge form nephrology standpoint
--- NOTE | 2024-03-11 15:21 | P.DS ---
Providers Date of admission: 03/03/24 18:43 Attending physician: Joshua Amador MD Consults: 03/03/24 18:41 Consult Physician Routine Consulting Provider: Tiana Ulloa Consult Reason/Comments: CKD Do you want consulting provider notified?: Yes 03/04/24 08:19 Consult Physician Routine Consulting Provider: Robb Foster Consult Reason/Comments: seizure Do you want consulting provider notified?: Yes 03/06/24 11:16 Consult Physician Routine Consulting Provider: Breezy Rivera Consult Reason/Comments: suspected pseudo seizures Do you want consulting provider notified?: Yes Primary care physician: Lissy Antoine [facility] Course: Final Diagnosis Breakthrough seizure in the ER, in a patient with history of newly diagnosed seizure disorder 12/13, on Keppra. Quit taking his Keppra 4 months ago. Possible pseudoseizure psychiatry consulted. Lactic acidosis secondary to the above Acute hypoxic respiratory failure secondary to the above, resolved Ischemic cardiomyopathy EF 25-30% s/p dual chamber AICD 8 weeks ago Dehydration secondary to nausea vomiting diarrhea and decreased diet intake Hyponatremia mild secondary to the above Acute renal failure, ATN, secondary to PATIENCE inhibitors, dehydration and hypotension Chronic kidney disease stage III, baseline creatinine around 1.3 Chronic asthma Diabetes mellitus type 2 Gastroesophageal reflux disease Chronic CHF systolic dysfunction CAD, history of stents History of hypertension Hyperlipidemia Peripheral vascular disease with history of lower extremity vascular stenting Chronic back pain, follows with Dr. Vee Gait dysfunction, uses a walker and a cane Daily marijuana use-smokes. Discharge Disposition Patient is stable for discharge home he has been discharged on Keppra 1000 mg twice a day. Recommend patient no driving for 6 months, climbing ladders, operating dangerous machinery or unsupervised swimming or until seizure free. Patient will need to follow-up with a neurologist on discharge. Repeat blood work in 2 to 3 days. Patient should follow-up with his PCP Dr. Lissy Antoine 1 to 2 days. Hospital Course This is a 68-year-old gentleman with past medical history significant for newly diagnosed seizures 12/13, recent permanent pacemaker implantation 8 weeks ago,chronic asthma, smokes marijuana daily,CAD, diabetes mellitus type 2, hypertension, hyperlipidemia, chronic back pain-follows with Dr. Vee ,and multiple other medical issues directed to the ER per his PCP secondary to severe abnormal kidney labs, kidney failure. Reports increased weakness, fatigue. Reports decreased diet intake ,nausea,vomiting ,diarrhea x 1 week and abdominal discomfort. Denies syncope, fall or trauma. On admission, creatinine 2.0, decreased to 1.7, potassium 4.4, blood pressure soft , 105/70 , heart rate 94.afebrile, WBC 11.4-now normalized 6.2, lactic acid 6.8-decreased to 1.8 with IV fluid hydration. Blood sugars mildly elevated, A1c 6.4. Magnesium 1.5, supplemented, currently 1.7. UA negative. Toxicology screen reporting less than 1 on salicylates ,less than 10 on acetaminophen ,less than 10 and serum alcohol. Denies chest pain, palpitations or shortness of breath. EKG reported sinus rhythm ,on admission maintaining O2 sats in the high 90s on room air. While in the ER became unresponsive, Narcan attempted without results, attributed to possible seizure and neurology was consulted. Patient reports he quit taking his Keppra about 4 months ago. gastric abdominal pain and has some tenderness with palpation. He has been started on keppra 750 mg BID and had no seizure like episode over night. An ateam was called due to patient flailing around in the bed and complaining of 10/10 severe left lower quadrant and flank pain, and also having some chest pain. This activity is coming and going in episodes where patient is flaccid and then attempts to get up out of the bed/kicking and flailing in pain. He was taken for a stat chest abdomen pelvis CT without contrast; CT CAP reveals no CT evidence for acute process on this noncontrast exam there is colonic diverticulosis without evidence for acute diverticulitis. Patient recently had a defibrillator placed 8 weeks ago. He had an EEG revealing background slowing suggestive of mild to moderate encephalopathy. The ICD was interrogated and no reports of any arrhythmia or shocks fired. Upon follow patient no longer having episodes and he is alert oriented x 3 with no acute complaints. Family is at the bedside. Said he had similar episode in the EC. Blood work today reveals BUN 31 creatinine 1.55. Patient had an echocardiogram done showing severe LV dysfunction with an EF of 20%. Was evaluated extensively by cardiology felt that this EF has been stable since November 2022. An AICD was interrogated which did not show any evidence of atrial fibrillation or any ventricular arrhythmia. Patient does not appear to be volume overloaded. Cardiology felt that none of patient's episodes of seizure-like activity were felt to be cardiogenic. Neurology did recommend to increase the dose of Keppra up to 1000 mg twice a day for discharge and will recommend for patient to discharge on a small dose Aldactone daily. Patient does not have any chest pain or shortness of breath no nausea vomiting or diarrhea. His flank pain and abdominal pain has essentially resolved. He has had no further episodes overnight and has been cleared by all consultations for discharge home. He will need to follow-up closely with a neurologist on discharge. Please see medication reconciliation for a list of current medications. Thank you for allowing us to participate in the care of this patient. The impression and plan of care has been dictated by Karissa Valentine, Nurse Practitioner as directed. Dr. Ricardo MD I have performed a history and physical examination and medical decision making of this patient, discussed the same with the dictator, and agree with the dictators assessment and plan as written, documented as a scribe. Based on total visit time, I have performed more than 50% of this visit. Patient Condition at Discharge: Fair Plan - Discharge Summary Discharge Rx Participant: Yes New Discharge Prescriptions: New Spironolactone [Aldactone] 12.5 mg PO DAILY #30 tab Losartan [Cozaar] 25 mg PO DAILY #30 tab levETIRAcetam [Keppra] 1,000 mg PO Q12HR #120 tab QUEtiapine [SEROquel] 100 mg PO BID #60 tablet Continue Clopidogrel [Plavix] 75 mg PO DAILY #90 tab Metoprolol Succinate [Toprol XL] 100 mg PO DAILY #90 tab Gabapentin [Neurontin] 100 mg PO TID metFORMIN HCL [Glucophage] 1,000 mg PO BID Pregabalin [Lyrica] 100 mg PO BID Omeprazole [PriLOSEC] 20 mg PO DAILY DULoxetine HCL [Cymbalta] 60 mg PO DAILY Insulin Glargine,Hum.rec.anlog [Insulin Glargine Solostar] 50 units SQ HS Rosuvastatin Calcium [Crestor] 40 mg PO HS oxyCODONE HCL [oxyCODONE HCL (IR)] 5 mg PO BID Apixaban [Eliquis] 5 mg PO BID #180 tab Vitamin B-12(Unknown Dose) 1 tab PO DAILY Magnesium(Unknown Dose) 1 tab PO DAILY Discontinued QUEtiapine [SEROquel] 50 mg PO BID #60 tab lisinopriL [Zestril] 2.5 mg PO DAILY #30 tab Discharge Medication List DULoxetine HCL [Cymbalta] 60 mg PO DAILY 11/23/22 [History] Insulin Glargine,Hum.rec.anlog [Insulin Glargine Solostar] 50 units SQ HS 11/23/22 [History] Omeprazole [PriLOSEC] 20 mg PO DAILY 11/23/22 [History] Pregabalin [Lyrica] 100 mg PO BID 11/23/22 [History] Rosuvastatin Calcium [Crestor] 40 mg PO HS 11/23/22 [History] Clopidogrel [Plavix] 75 mg PO DAILY #90 tab 12/02/22 [Rx] Apixaban [Eliquis] 5 mg PO BID #180 tab 12/24/23 [Rx] Metoprolol Succinate [Toprol XL] 100 mg PO DAILY #90 tab 12/24/23 [Rx] oxyCODONE HCL [oxyCODONE HCL (IR)] 5 mg PO BID 12/24/23 [History] Gabapentin [Neurontin] 100 mg PO TID 03/03/24 [History] Magnesium(Unknown Dose) 1 tab PO DAILY 03/03/24 [History] Vitamin B-12(Unknown Dose) 1 tab PO DAILY 03/03/24 [History] metFORMIN HCL [Glucophage] 1,000 mg PO BID 03/03/24 [History] Losartan [Cozaar] 25 mg PO DAILY #30 tab 03/07/24 [Rx] QUEtiapine [SEROquel] 100 mg PO BID #60 tablet 03/07/24 [Rx] Spironolactone [Aldactone] 12.5 mg PO DAILY #30 tab 03/07/24 [Rx] levETIRAcetam [Keppra] 1,000 mg PO Q12HR #120 tab 03/07/24 [Rx] Follow up Appointment(s)/Referral(s): David Montesinos MD [STAFF PHYSICIAN] - 1 Week (Offices are closed please call for a post hospital follow up appointment Saturday when offices open) Renan Nieto MD [REFERRING] - 1 Week (Neurology Offices are closed please call for a post hospital follow up appointment Saturday when offices open ) Lissy Antoine DO [Primary Care Provider] - 1-2 days (Offices are closed pleas e call for a post hospital follow up appointment Saturday when offices open) Ambulatory/Diagnostic Orders: Basic Metabolic Panel [LAB.AMB] Time Frame: 4 Days, Location: None Selected Patient Instructions/Handouts: Recurrent Seizures in Adults (DC), Encephalopathy (DC) Activity/Diet/Wound Care/Special Instructions: Recommend patient no driving for 6 months, climbing ladders, operating dangerous machinery or unsupervised swimming or until seizure free Continue on keppra twice a day Follow up with neurology outpatient Discharge Disposition: HOME SELF-CARE
== END 2024-03-07 17:06 | disposition home or self-care (01) ==
LOC: EC 15:30 → 5NMEDONC 18:43 → 3SCARD 19:43
PROVIDERS: ADMIT Family Medicine; ATTEND Family Medicine
DX: G40.909 Epilepsy, unspecified, not intractable, without status epilepticus (principal); G93.41 Metabolic encephalopathy; N17.9 Acute kidney failure, unspecified; J45.909 Unspecified asthma, uncomplicated; I25.10 Atherosclerotic heart disease of native coronary artery without angina pectoris; E78.5 Hyperlipidemia, unspecified; I25.2 Old myocardial infarction; Z82.49 Family history of ischemic heart disease and other diseases of the circulatory system; E86.0 Dehydration; E87.1 Hypo-osmolality and hyponatremia; E87.20 Acidosis, unspecified; E86.1 Hypovolemia; M54.50 Low back pain, unspecified; G89.29 Other chronic pain; I50.22 Chronic systolic (congestive) heart failure; N18.30 Chronic kidney disease, stage 3 unspecified; Z87.891 Personal history of nicotine dependence; Z95.5 Presence of coronary angioplasty implant and graft; Z95.810 Presence of automatic (implantable) cardiac defibrillator; Z86.73 Personal history of transient ischemic attack (TIA), and cerebral infarction without residual deficits; Z79.84 Long term (current) use of oral hypoglycemic drugs; Z79.01 Long term (current) use of anticoagulants; Z79.02 Long term (current) use of antithrombotics/antiplatelets; I13.0 Hypertensive heart and chronic kidney disease with heart failure and stage 1 through stage 4 chronic kidney disease, or unspecified chronic kidney disease; E11.40 Type 2 diabetes mellitus with diabetic neuropathy, unspecified; E11.22 Type 2 diabetes mellitus with diabetic chronic kidney disease
CPT/HCPCS: 96376 ×2; 96366 ×2; 96361 ×4; 96365; 96367; 96375 ×2; 99285; 36415; 95816; 93005; 93308; 97162; 85379; 83880; 80053 ×2; 80048 ×2; 82140; 82803; 83605; 83690; 83735 ×4; 84100 ×2; 84484; 85025 ×3; 85610; 85730; 81001; 80143; 80320; 83036; 80179; 76770; 70450; 71250; 74176; G0378 ×6; J2060 ×2; J2310; J2405; J2270; Q9957; J3475 ×3